=== PATIENT | female | born 1940 | race Caucasian/White ===

== ENCOUNTER 2017-01-29 16:00 | Emergency (ER) | payer MEDICARE, OTHER ==
[2017-01-29 16:12] VITALS: BP 157/71
--- NOTE | 2017-01-29 16:26 | EDM.PDOC ---
ED HPI GENERAL MEDICAL PROBLEM - General Chief Complaint: Lower Extremity Injury/Pain Stated Complaint: R FOOT PAIN Time Seen by Provider: 01/29/17 16:14 Source of Information: Reports: Patient - History of Present Illness INITIAL COMMENTS - FREE TEXT/NARRATIVE: Patient is here for evaluation of the right foot pain. She states that she initially tried to go to the walk-in clinic but they were closed. Patient states that she knocked over an end table that is class and has an iron top and this landed on the top of her right foot on Tuesday. S he states that she initially had been icing and taking medications that she had at home for the pain. When she woke up this morning pain was significantly worse and she could hardly bear weight to this. Patient has been using a walker that she has at home to help not put much weight on her right foot, she states that she typically does not walk with this. Patient is diabetic, states that her diabetes hasn't been under good control with her last A1c being 6.1%. She denies any history of bleeding or clotting disorders. She has does not have osteoporosis per her report. Right Feet Pain Score (Numeric/FACES): 1 - Related Data Allergies Allergy/AdvReac Type Severity Reaction Status Date / Time morphine Allergy Rash Verified 01/29/17 16:11 Home Meds: Home Meds Aspirin [Low Dose Aspirin EC] 81 mg PO DAILY 04/26/14 [History] Biotin 1 tab PO DAILY 04/26/14 [History] Cyanocobalamin (Vitamin B-12) [Vitamin B-12] 150 mcg PO DAILY 04/26/14 [History] Ferrous Sulfate [Feosol] 325 mg PO DAILY 04/26/14 [History] Fish Oil/Botkins-3 Fatty Acids [Fish Oil 1,000 MG] 1 each PO BID 04/26/14 [History ] Metoprolol Tartrate 25 mg PO BID 04/26/14 [History] Pravastatin [Pravachol] 40 mg PO DAILY 04/26/14 [History] amLODIPine [Norvasc] 5 mg PO DAILY 04/26/14 [History] metFORMIN HCl [Metformin HCl ER] 1,000 mg PO QAM 04/26/14 [History] metFORMIN HCl [Metformin HCl ER] 500 mg PO QPM 04/26/14 [History] traMADol [Ultram] 50 mg PO Q12H PRN 04/26/14 [History] Fenofibrate Nanocrystallized [Fenofibrate] 0.5 tab PO DAILY 09/08/15 [History] Hydrochlorothiazide 25 mg PO DAILY 09/08/15 [History] Losartan/Hydrochlorothiazide [Losartan-HCTZ 100-12.5 MG] 12.5 mg PO QPM [History] Ca Carbonate/Vitamin D3/Vit K [Calcium + D Soft Chewable Tab] 1 tab PO DAILY [History] Cholecalciferol (Vitamin D3) [Vitamin D3] 5,000 unit PO DAILY 04/06/16 [History] Gluc 2KCl/Chondr/Pb Hy/Hy Ac [Glucosamine & Chondroitin Cap] 2 cap PO DAILY [History] Magnesium Oxide [Magnesium] 1 cap PO DAILY 04/06/16 [History] Multivits,Ca,Minerals/Iron/FA [Women's Daily Formula Caplet] 1 tab PO DAILY [History] traMADol [Ultram] 50 mg PO Q6H PRN #30 tablet 01/29/17 [Rx] Past Medical History HEENT History: Reports: Impaired Vision Cardiovascular History: Reports: High Cholesterol, Hypertension Respiratory History: Reports: PE Other Respiratory History: cough, elevated d dimer Gastrointestinal History: Reports: Chronic Diarrhea, Diverticulosis [employer] History: Reports: None Musculoskeletal History: Reports: Arthritis, Back Pain, Chronic, Osteoarthritis Neurological History: Reports: None Psychiatric History: Reports: None Endocrine/Metabolic History: Reports: Diabetes, Type II, Obesity/BMI 30+ Other Endocrine/Metabolic History: thyroid nodules Hematologic History: Reports: Other (See Below) Other Hematologic History: blood clotting disorder Immunologic History: Reports: None Oncologic (Cancer) History: Reports: None Dermatologic History: Reports: None - Past Surgical History Head Surgeries/Procedures: Reports: None GI Surgical History: Reports: Appendectomy, Cholecystectomy, Colonoscopy, Other (See Below) Female Surgical History: Reports: Hysterectomy, Oophorectomy Musculoskeletal Surgical History: Reports: Knee Replacement Other Musculoskeletal Surgeries/Procedures:: bilaterall Social & Family History - Family History Cardiac: Reports: [place] Other Cardiac Family History: grandparents Respiratory: Reports: None GI: Reports: Inflammatory Bowel Disease Other GI Family History: mother OBGYN: Reports: None Musculoskeletal: Reports: Arthritis, Osteoporosis Neurological: Reports: None Psychiatric: Reports: None Endocrine/Metabolic: Reports: None Hematologic: Reports: None Immunologic: Reports: None - Tobacco Use Smoking Status *Q: Never Smoker Second Hand Smoke Exposure: Yes - Caffeine Use Caffeine Use: Reports: Coffee - Alcohol Use Days Per Week of Alcohol Use: 0 - Recreational Drug Use Recreational Drug Use: No Review of Systems - Review of Systems Review Of Systems: See Below Constitutional: Reports: No Symptoms Musculoskeletal: Reports: Foot Pain (Right) Skin: Reports: Bruising. Denies: Cyanosis, Rash, Wound Neurological: Reports: No Symptoms Psychiatric: Reports: No Symptoms ED EXAM, GENERAL - Physical Exam Exam: See Below Exam Limited By: No Limitations General Appearance: Alert, WD/WN, No Apparent Distress Peripheral Pulses: 2+: Posterior Tibial (L), Posterior Tibial (R), Dorsalis Pedis (L) Extremities: Normal Capillary Refill (Right foot with swelling to top of midfoot , no obvious deformity. Ecchymosis to the lateral aspect of the foot as well as the toes. Patient is tender to the mid foot. Full range of motion of ankle and all toes.) Neurological: Alert, Oriented, No Motor/Sensory Deficits Skin Exam: Warm, Dry Course - Vital Signs Last Recorded V/S: Last Vital Signs Temp 96.2 F 01/29/17 16:07 Pulse 73 01/29/17 16:07 Resp 16 01/29/17 16:07 BP 157/71 H 01/29/17 16:07 Pulse Ox 97 01/29/17 16:07 - Orders/Labs/Meds Orders: Active Orders 24 hr Category Date Time Status Foot Comp Min 3V Rt [CR] Stat Exams 01/29/17 16:22 Taken - Re-Assessments/Exams Free Text/Narrative Re-Assessment/Exam: Small, non-displaced fracture to base of right metatarsal. Will have patient wear supportive boot and FU with PCP or orthopedics. Tylenol or ibuprofen as needed for pain, tramadol given for breakthrough pain. 01/29/17 17:11 Departure - Departure Time of Disposition: 17:07 Disposition: Home, Self-Care 01 Condition: Good Clinical Impression: Metatarsal stress fracture of right foot Qualifiers: Encounter type: initial encounter Qualified Code(s): M84.374A - Stress fracture , right foot, initial encounter for fracture - Discharge Information Prescriptions: traMADol [Ultram] 50 mg PO Q6H PRN #30 tablet PRN Reason: Pain Referrals: Vandana Ham PA [Primary Care Provider] - Forms: ED Department Discharge Additional Instructions: Activity as tolerated. Wear boot when up and active during the day for at least 2 weeks. Then be sure you are wearing supportive shoes for next 2 months. Follow-up with PCP or orthopedics in 2 weeks or sooner if needed. Ibuprofen or tylenol as needed for pain, tramadol for breakthrough pain. Ice 15 minutes ever 2-3 hours as needed for pain. - My Orders Last 24 Hours: My Active Orders 01/29/17 16:22 Foot Comp Min 3V Rt [CR] Stat - Assessment/Plan Last 24 Hours: My Active Orders 01/29/17 16:22 Foot Comp Min 3V Rt [CR] Stat
--- NOTE | 2017-01-31 08:33 | CR ---
Right foot: Four views of the right foot were obtained. Comparison: No prior foot exam. Orthopedic screw is seen within the first metatarsal shaft. Deformity is noted within the PIP joint of the fifth toe which appears old. Bony defect of the distal fifth metatarsal is seen which is well corticated and felt to be old. Small calcification is noted off the MTP joint of the third digit which is felt to be incidental. Plantar spur is seen. Minimal plantar calcification is noted. Nothing acute is appreciated. Impression: 1. Numerous findings felt to be chronic as described above. 2. Nothing acute is definitely appreciated. Diagnostic code #2
== END 2017-01-29 17:15 | disposition home or self-care (01) ==
LOC: JD.ED 16:00
DX: M84.374A Stress fracture, right foot, initial encounter for fracture (principal); E78.00 Pure hypercholesterolemia, unspecified; I10 Essential (primary) hypertension; E66.9 Obesity, unspecified; E11.9 Type 2 diabetes mellitus without complications; Z79.899 Other long term (current) drug therapy; Z88.5 Allergy status to narcotic agent; Z79.82 Long term (current) use of aspirin; W22.03XA Walked into furniture, initial encounter; Y92.218 Other school as the place of occurrence of the external cause
CPT/HCPCS: 73630-26-RT; 73630-RT; 99283

== ENCOUNTER 2018-04-09 18:40 | Emergency (ER) | payer MEDICARE, OTHER ==
[2018-04-09] MEDS ORDERED: Sodium Chloride 0.9% 10 ML Syringe FLUSH PRN (19:08)
--- NOTE | 2018-04-09 19:35 | EDM.PDOC ---
ED HPI GENERAL MEDICAL PROBLEM - General Chief Complaint: Respiratory Problem Stated Complaint: SEVERE LEG CRAMPS, DEPRESSION Time Seen by Provider: 04/09/18 18:58 Source of Information: Reports: Patient, Family History Limitations: Reports: No Limitations - History of Present Illness INITIAL COMMENTS - FREE TEXT/NARRATIVE: The patient presents with lag cramps and shortness of breath with exertion. The patient has had leg cramps in the past. She would get one per night some nights but now for the past week she has been having cramps 3 to 4 times per night. She has mild swelling in her legs. She denies any injury in to her legs. She has a history of a PE. She is not on any blood thinners now. She also has been having shortness of breath with exertion and it feels like her heart is racing with that. This goes away benson she rests. She denies having chest pain. She has no fever, chills, cough, congestion, runny nose abdominal pain, nausea, vomiting, diarrhea, or dysuria. Onset: Gradual Duration: Week(s): Location: Reports: Lower Extremity, Left, Lower Extremity, Right Quality: Reports: Other (Cramping) Improves with: Reports: None Worsens with: Reports: None Associated Symptoms: Reports: Shortness of Breath (with exertion). Denies: Chest Pain, Cough, Fever/Chills, Headaches, Nausea/Vomiting - Related Data Allergies Allergy/AdvReac Type Severity Reaction Status Date / Time morphine Allergy Rash Verified 04/09/18 18:47 Home Meds: Home Meds Aspirin [Low Dose Aspirin EC] 81 mg PO DAILY 04/26/14 [History] Metoprolol Tartrate 50 mg PO DAILY 04/26/14 [History] Pravastatin [Pravachol] 20 mg PO DAILY 04/26/14 [History] amLODIPine [Norvasc] 5 mg PO DAILY 04/26/14 [History] metFORMIN HCl [Metformin ER Osmotic] 1,500 mg PO DAILY 04/26/14 [History] traMADol [Ultram] 50 mg PO Q6H PRN #30 tablet 01/29/17 [Rx] Furosemide 20 mg PO DAILY 04/09/18 [History] Iron Polysaccharide Complex [Ferric X-150] 150 mg PO DAILY #30 capsule 04/09/18 [Rx] Nitrofurantoin Monohyd/M-Cryst [Macrobid 100 mg Capsule] 100 mg PO DAILY #10 capsule 04/09/18 [Rx] Past Medical History HEENT History: Reports: Impaired Vision Cardiovascular History: Reports: High Cholesterol, Hypertension Respiratory History: Reports: PE Other Respiratory History: cough, elevated d dimer Gastrointestinal History: Reports: Chronic Diarrhea, Diverticulosis [employer] WORK[employer] History: Reports: None Musculoskeletal History: Reports: Arthritis, Back Pain, Chronic, Osteoarthritis Neurological History: Reports: None Psychiatric History: Reports: None Endocrine/Metabolic History: Reports: Diabetes, Type II, Obesity/BMI 30+ Other Endocrine/Metabolic History: thyroid nodules Hematologic History: Reports: Other (See Below) Other Hematologic History: blood clotting disorder Immunologic History: Reports: None Oncologic (Cancer) History: Reports: None Dermatologic History: Reports: None - Past Surgical History Head Surgeries/Procedures: Reports: None GI Surgical History: Reports: Appendectomy, Cholecystectomy, Colonoscopy Female Surgical History: Reports: Hysterectomy, Oophorectomy Musculoskeletal Surgical History: Reports: Knee Replacement Other Musculoskeletal Surgeries/Procedures:: bilaterall Social & Family History - Family History Cardiac: Reports: [place] Other Cardiac Family History: grandparents Respiratory: Reports: None GI: Reports: Inflammatory Bowel Disease Other GI Family History: mother OBGYN: Reports: None Musculoskeletal: Reports: Arthritis, Osteoporosis Neurological: Reports: None Psychiatric: Reports: None Endocrine/Metabolic: Reports: None Hematologic: Reports: None Immunologic: Reports: None - Tobacco Use Smoking Status *Q: Unknown Ever Smoked - Caffeine Use Caffeine Use: Reports: Coffee ED ROS GENERAL - Review of Systems Review Of Systems: See Below Constitutional: Reports: No Symptoms HEENT: Reports: No Symptoms Respiratory: Reports: Shortness of Breath (with exertion) Cardiovascular: Reports: No Symptoms Endocrine: Reports: No Symptoms GI/Abdominal: Reports: No Symptoms : Reports: No Symptoms Musculoskeletal: Reports: Other (leg cramps at night) ED EXAM, GENERAL - Physical Exam Exam: See Below Exam Limited By: No Limitations General Appearance: Alert, No Apparent Distress Ears: Normal External Exam Nose: Normal Inspection Head: Atraumatic, Normocephalic Neck: Normal Inspection Respiratory/Chest: No Respiratory Distress, Lungs Clear, Normal Breath Sounds Cardiovascular: Regular Rate, Rhythm, No Edema, No Murmur GI/Abdominal: Soft, Non-Tender, No Organomegaly, No Mass Rectal (Female) Exam: Normal Exam, Normal Rectal Tone, Heme - Stool Back Exam: Normal Inspection Extremities: Non-Tender, Other (Mild edema to the lower legs) Neurological: Alert, Oriented, No Motor/Sensory Deficits Course - Vital Signs Last Recorded V/S: Last Vital Signs Temp 97.0 F 04/09/18 18:48 Pulse 95 04/09/18 18:48 Resp 18 04/09/18 18:48 BP 149/69 H 04/09/18 18:53 Pulse Ox 99 04/09/18 18:48 - Orders/Labs/Meds Orders: Active Orders 24 hr Category Date Time Status Cardiac Monitoring [RC] . DIRECTED Care 04/09/18 19:08 Active EKG Documentation Completion [RC] STAT Care 04/09/18 19:09 Active Hemoccult [Fecal Occult Blood Collection] [RC] Care 04/09/18 20:39 Active ASDIRECTED Peripheral IV Care [RC] . DIRECTED Care 04/09/18 19:09 Active Ang Chest [CT] Stat Exams 04/09/18 20:29 Taken Chest 2V [CR] Stat Exams 04/09/18 19:10 Taken Sodium Chloride 0.9% [Normal Saline] 100 ml Med 04/09/18 21:00 Active IV ASDIRECTED Sodium Chloride 0.9% [Saline Flush] Med 04/09/18 19:08 Active 10 ml FLUSH ASDIRECTED PRN Peripheral IV Insertion Adult [OM.PC] Stat Oth 04/09/18 19:08 Ordered Medication Orders Sodium Chloride (Normal Saline) 100 mls @ 4 mls/sec IV ASDIRECTED ISAAK Last Admin: 04/09/18 21:04 Dose: 4 mls/sec Sodium Chloride (Saline Flush) 10 ml FLUSH ASDIRECTED PRN PRN Reason: Keep Vein Open Last Admin: 04/09/18 19:28 Dose: 10 ml Labs: Laboratory Tests 04/09/18 04/09/18 04/09/18 Range/Units 19:22 19:22 19:22 WBC 4.95 (3.98-10.04) K/mm3 RBC 3.34 L (3.98-5.22) M/mm3 Hgb 8.5 L (11.2-15.7) gm/L Hct 27.9 L (34.1-44.9) % MCV 83.5 (79.4-94.8) fl MCH 25.4 L (25.6-32.2) pg MCHC 30.5 L (32.2-35.5) g/dl RDW Std Deviation 48.7 H (36.4-46.3) fL Plt Count 416 H (182-369) K/mm3 MPV 9.5 (9.4-12.3) fl Neut % (Auto) 44.0 (34.0-71.1) % Lymph % (Auto) 35.6 (19.3-51.7) % Gem % (Auto) 16.0 H (4.7-12.5) % Eos % (Auto) 3.2 (0.7-5.8) Baso % (Auto) 1.0 (0.1-1.2) % Neut # (Auto) 2.18 (1.56-6.13) K/mm3 Lymph # (Auto) 1.76 (1.18-3.74) K/mm3 Gem # (Auto) 0.79 H (0.24-0.36) K/mm3 Eos # (Auto) 0.16 (0.04-0.36) K/mm3 Baso # (Auto) 0.05 (0.01-0.08) K/mm3 Manual Slide Review Abnormal smear D-Dimer, Quantitative 2.06 H (0.19-0.50) mg/L Sodium 144 (136-145) mEq/L Potassium 3.4 L (3.5-5.1) mEq/L Chloride 106 (98-107) mEq/L Carbon Dioxide 26 (21-32) mEq/L Anion Gap 15.4 H (5-15) BUN 19 H (7-18) mg/dL Creatinine 0.9 (0.55-1.02) mg/dL Est Cr Clr Drug Dosing 48.60 mL/min Estimated GFR (MDRD) > 60 (>60) mL/min BUN/Creatinine Ratio 21.1 H (14-18) Glucose 118 H (83-115) mg/dL Calcium 9.4 (8.5-10.1) mg/dL Magnesium 2.1 (1.8-2.4) mg/dl Iron (50-170) ug/dL TIBC (100-400) ug/dL % Saturation (20-55) % Transferrin (202-364) mg/dL Total Bilirubin 0.4 (0.2-1.0) mg/dL AST 20 (15-37) U/L ALT 28 (14-59) U/L Alkaline Phosphatase 76 (46-116) U/L Troponin I < 0.017 (0.00-0.056) ng/mL NT-Pro-B Natriuret Pep (0-450) pg/mL Total Protein 7.2 (6.4-8.2) g/dl Albumin 3.7 (3.4-5.0) g/dl Globulin 3.5 gm/dL Albumin/Globulin Ratio 1.1 (1-2) TSH 3rd Generation (0.358-3.74) uIU/mL Urine Color (Yellow) Urine Appearance (Clear) Urine pH (5.0-8.0) Ur Specific [place] (1.005-1.030) Urine Protein (Negative) Urine Glucose (UA) (Negative) Urine Ketones (Negative) Urine Occult Blood (Negative) Urine Nitrite (Negative) Urine Bilirubin (Negative) Urine Urobilinogen (0.2-1.0) Ur Leukocyte Esterase (Negative) Urine RBC (0-5) /hpf Urine WBC (0-5) /hpf Ur Epithelial Cells (0-5) /hpf Urine Bacteria (FEW) /hpf Urine Mucus (FEW) /hpf 04/09/18 04/09/18 04/09/18 Range/Units 19:22 19:22 19:22 WBC (3.98-10.04) K/mm3 RBC (3.98-5.22) M/mm3 Hgb (11.2-15.7) gm/L Hct (34.1-44.9) % MCV (79.4-94.8) fl MCH (25.6-32.2) pg MCHC (32.2-35.5) g/dl RDW Std Deviation (36.4-46.3) fL Plt Count (182-369) K/mm3 MPV (9.4-12.3) fl Neut % (Auto) (34.0-71.1) % Lymph % (Auto) (19.3-51.7) % Gem % (Auto) (4.7-12.5) % Eos % (Auto) (0.7-5.8) Baso % (Auto) (0.1-1.2) % Neut # (Auto) (1.56-6.13) K/mm3 Lymph # (Auto) (1.18-3.74) K/mm3 Gem # (Auto) (0.24-0.36) K/mm3 Eos # (Auto) (0.04-0.36) K/mm3 Baso # (Auto) (0.01-0.08) K/mm3 Manual Slide Review D-Dimer, Quantitative (0.19-0.50) mg/L Sodium (136-145) mEq/L Potassium (3.5-5.1) mEq/L Chloride (98-107) mEq/L Carbon Dioxide (21-32) mEq/L Anion Gap (5-15) BUN (7-18) mg/dL Creatinine (0.55-1.02) mg/dL Est Cr Clr Drug Dosing mL/min Estimated GFR (MDRD) (>60) mL/min BUN/Creatinine Ratio (14-18) Glucose (83-115) mg/dL Calcium (8.5-10.1) mg/dL Magnesium (1.8-2.4) mg/dl Iron 22 L (50-170) ug/dL TIBC 440 H (100-400) ug/dL % Saturation 5 L (20-55) % Transferrin 352 (202-364) mg/dL Total Bilirubin (0.2-1.0) mg/dL AST (15-37) U/L ALT (14-59) U/L Alkaline Phosphatase (46-116) U/L Troponin I (0.00-0.056) ng/mL NT-Pro-B Natriuret Pep 405 (0-450) pg/mL Total Protein (6.4-8.2) g/dl Albumin (3.4-5.0) g/dl Globulin gm/dL Albumin/Globulin Ratio (1-2) TSH 3rd Generation 2.259 (0.358-3.74) uIU/mL Urine Color (Yellow) Urine Appearance (Clear) Urine pH (5.0-8.0) Ur Specific [place] (1.005-1.030) Urine Protein (Negative) Urine Glucose (UA) (Negative) Urine Ketones (Negative) Urine Occult Blood (Negative) Urine Nitrite (Negative) Urine Bilirubin (Negative) Urine Urobilinogen (0.2-1.0) Ur Leukocyte Esterase (Negative) Urine RBC (0-5) /hpf Urine WBC (0-5) /hpf Ur Epithelial Cells (0-5) /hpf Urine Bacteria (FEW) /hpf Urine Mucus (FEW) /hpf 04/09/18 Range/Units 19:46 WBC (3.98-10.04) K/mm3 RBC (3.98-5.22) M/mm3 Hgb (11.2-15.7) gm/L Hct (34.1-44.9) % MCV (79.4-94.8) fl MCH (25.6-32.2) pg MCHC (32.2-35.5) g/dl RDW Std Deviation (36.4-46.3) fL Plt Count (182-369) K/mm3 MPV (9.4-12.3) fl Neut % (Auto) (34.0-71.1) % Lymph % (Auto) (19.3-51.7) % Gem % (Auto) (4.7-12.5) % Eos % (Auto) (0.7-5.8) Baso % (Auto) (0.1-1.2) % Neut # (Auto) (1.56-6.13) K/mm3 Lymph # (Auto) (1.18-3.74) K/mm3 Gem # (Auto) (0.24-0.36) K/mm3 Eos # (Auto) (0.04-0.36) K/mm3 Baso # (Auto) (0.01-0.08) K/mm3 Manual Slide Review D-Dimer, Quantitative (0.19-0.50) mg/L Sodium (136-145) mEq/L Potassium (3.5-5.1) mEq/L Chloride (98-107) mEq/L Carbon Dioxide (21-32) mEq/L Anion Gap (5-15) BUN (7-18) mg/dL Creatinine (0.55-1.02) mg/dL Est Cr Clr Drug Dosing mL/min Estimated GFR (MDRD) (>60) mL/min BUN/Creatinine Ratio (14-18) Glucose (83-115) mg/dL Calcium (8.5-10.1) mg/dL Magnesium (1.8-2.4) mg/dl Iron (50-170) ug/dL TIBC (100-400) ug/dL % Saturation (20-55) % Transferrin (202-364) mg/dL Total Bilirubin (0.2-1.0) mg/dL AST (15-37) U/L ALT (14-59) U/L Alkaline Phosphatase (46-116) U/L Troponin I (0.00-0.056) ng/mL NT-Pro-B Natriuret Pep (0-450) pg/mL Total Protein (6.4-8.2) g/dl Albumin (3.4-5.0) g/dl Globulin gm/dL Albumin/Globulin Ratio (1-2) TSH 3rd Generation (0.358-3.74) uIU/mL Urine Color Yellow (Yellow) Urine Appearance Clear (Clear) Urine pH 7.0 (5.0-8.0) Ur Specific [place] 1.010 (1.005-1.030) Urine Protein Negative (Negative) Urine Glucose (UA) Negative (Negative) Urine Ketones Negative (Negative) Urine Occult Blood Negative (Negative) Urine Nitrite Negative (Negative) Urine Bilirubin Negative (Negative) Urine Urobilinogen 0.2 (0.2-1.0) Ur Leukocyte Esterase 2+ H (Negative) Urine RBC 0-5 (0-5) /hpf Urine WBC 5-10 H (0-5) /hpf Ur Epithelial Cells 0-5 (0-5) /hpf Urine Bacteria Few (FEW) /hpf Urine Mucus Not seen (FEW) /hpf Meds: Medications Generic Name Dose Route Start Last Admin Trade Name Freq PRN Reason Stop Dose Admin Sodium Chloride 100 mls @ 4 mls/sec 04/09/18 21:00 04/09/18 21:04 Normal Saline IV 4 mls/sec ASDIRECTED ISAAK Administration Sodium Chloride 10 ml 04/09/18 19:08 04/09/18 19:28 Saline Flush FLUSH 10 ml ASDIRECTED PRN Administration Keep Vein Open Discontinued Medications Generic Name Dose Route Start Last Admin Trade Name Freq PRN Reason Stop Dose Admin Iopamidol 100 ml 04/09/18 20:47 04/09/18 21:04 Isovue-370 (76%) IVPUSH 04/09/18 20:48 100 ml ONETIME ONE Administration - Re-Assessments/Exams Free Text/Narrative Re-Assessment/Exam: 04/09/18 19:36 I ordered labs, EKG, and CXR. 04/09/18 20:38 Her EKG shows a NSR with no acute changes. Her CXR looks good. Her Hgb was low at 8.5. I dis a rectal exam and that was negative. Over a year ago she did have some blood in her stool nothing bad was found. It appears she has a microcytic anemia. I did iron studies and she had low iron at 22 with TIBC that is elevated at 440. Her % saturation was low at 5. Her transferrin was normal. Her troponin was negative. Her BNP was normal. Her D-dimer was elevated so I ordered a CT of her chests. Her K was a little low at 3.4. Her anion gap was elevated slightly at 15.4. Her glucose was 118. Her magnesium was normal. 04/09/18 22:[address] shows very mild pulmonary edema. There is no PE. She tells me that she does have a cough for a few weeks. She has edema also in her legs. I will have her take lasix 40mg daily for 3 days. I will also have her take iron daily. I will give her a dose here. Departure - Departure Time of Disposition: 22:30 Disposition: Home, Self-Care 01 Condition: Good Clinical Impression: Dyspnea on exertion Anemia Qualifiers: Anemia type: iron deficiency Iron deficiency anemia type: unspecified iron deficiency Qualified Code(s): D50.9 - Iron deficiency anemia, unspecified Pulmonary edema Qualifiers: Chronicity: chronic Qualified Code(s): J81.1 - Chronic pulmonary edema UTI (urinary tract infection) Qualifiers: Urinary tract infection type: site unspecified Hematuria presence: without hematuria Qualified Code(s): N39.0 - Urinary tract infection, site not specified - Discharge Information *PRESCRIPTION DRUG MONITORING PROGRAM REVIEWED*: Not Applicable *COPY OF PRESCRIPTION DRUG MONITORING REPORT IN PATIENT KOFFI: Not Applicable Prescriptions: Iron Polysaccharide Complex [Ferric X-150] 150 mg PO DAILY #30 capsule Nitrofurantoin Monohyd/M-Cryst [Macrobid 100 mg Capsule] 100 mg PO DAILY #10 capsule Referrals: PCP,Not In Area [Ordering Only Provider] - Karley Sweeney NUCLEAR MEDICINE MEDICAL DIRECTOR [Primary Care Provider] - 1 Week Forms: ED Department Discharge Additional Instructions: Take your medication as prescribed except take 2 pills or 40mg of the furosemide for 3 days. Take the iron pill daily. Follow up with Karley Sweeney this week. Please return if you are worse. Take the macrobid 2 times per day for 5 days. - My Orders Last 24 Hours: My Active Orders 04/09/18 19:08 Cardiac Monitoring [RC] . DIRECTED Sodium Chloride 0.9% [Saline Flush] 10 ml FLUSH ASDIRECTED PRN Peripheral IV Insertion Adult [OM.PC] Stat 04/09/18 19:09 EKG Documentation Completion [RC] STAT Peripheral IV Care [RC] . DIRECTED 04/09/18 19:10 Chest 2V [CR] Stat 04/09/18 20:29 Ang Chest [CT] Stat 04/09/18 20:39 Hemoccult [Fecal Occult Blood Collection] [RC] ASDIRECTED 04/09/18 21:00 Sodium Chloride 0.9% [Normal Saline] 100 ml IV ASDIRECTED - Assessment/Plan Last 24 Hours: My Active Orders 04/09/18 19:08 Cardiac Monitoring [RC] . DIRECTED Sodium Chloride 0.9% [Saline Flush] 10 ml FLUSH ASDIRECTED PRN Peripheral IV Insertion Adult [OM.PC] Stat 04/09/18 19:09 EKG Documentation Completion [RC] STAT Peripheral IV Care [RC] . DIRECTED 04/09/18 19:10 Chest 2V [CR] Stat 04/09/18 20:29 Ang Chest [CT] Stat 04/09/18 20:39 Hemoccult [Fecal Occult Blood Collection] [RC] ASDIRECTED 04/09/18 21:00 Sodium Chloride 0.9% [Normal Saline] 100 ml IV ASDIRECTED
[2018-04-09] MEDS ORDERED: Iopamidol 755 Mg/ML 100 ML Bottle IVPUSH ONE (20:47)
[2018-04-09] MEDS ORDERED: Sodium Chloride 0.9% 100 ML IV SCH (21:00)
[2018-04-09] MEDS ORDERED: Iron Polysaccharides Complex 150 MG Cap PO ONE (22:27)
[2018-04-09 23:13] VITALS: BP 130/76
--- NOTE | 2018-04-10 06:52 | CR ---
Chest: Two views of the chest were obtained. Comparison: Previous chest x-ray of 09/08/15. Heart size is within normal limits. Tortuous thoracic aorta is seen. Lungs are clear with no acute parenchymal change. Scattered degenerative change is seen throughout the spine. Scattered disc space narrowing is also noted within the spine. Impression: 1. Incidental findings. Nothing acute is seen. Diagnostic code #2
--- NOTE | 2018-04-10 07:04 | CT ---
CT chest Technique: Multiple axial sections through the chest were obtained. Intravenous contrast was utilized. Comparison: Study compared to prior CT chest study of 02/15/17. Findings: Pulmonary arteries are moderately well-opacified. No filling defects are seen to indicate pulmonary embolism. Mediastinum and hilar region show no adenopathy or mass. Low-density nodules are noted within the thyroid gland which appear stable. Mediastinum shows small lymph nodes which are felt to be within normal limits. No pericardial thickening is seen. Mild coronary artery calcification is seen. Cysts are noted within the liver which appear stable. Nonobstructing calculi are seen within both kidneys. Lungs are clear. No acute parenchymal change is seen. Bone window settings were reviewed which show scattered degenerative endplate spurring within the spine. Impression: 1. No findings of pulmonary embolism. 2. Other incidental findings. Nothing acute is seen on CT study of the chest. Diagnostic code #2 I agree with preliminary report from [facility], finalized on 04/09/18, 10:17 PM Central Time, code #2
== END 2018-04-09 22:49 | disposition home or self-care (01) ==
LOC: JD.ED 18:40
DX: J81.1 Chronic pulmonary edema (principal); R25.2 Cramp and spasm; N39.0 Urinary tract infection, site not specified; D50.9 Iron deficiency anemia, unspecified; I10 Essential (primary) hypertension; E11.9 Type 2 diabetes mellitus without complications; Z79.82 Long term (current) use of aspirin; Z79.84 Long term (current) use of oral hypoglycemic drugs; Z88.5 Allergy status to narcotic agent
CPT/HCPCS: 36415; 71046; 71275; 80053; 81001; 83540; 83735; 83880; 84443; 84466; 84484; 85025; 85379; 93005; 99285; A9270; J7030; Q9967; 93010; 99284

== ENCOUNTER 2018-05-02 07:43 | Day surgery (SDC) | payer MEDICARE, OTHER ==
[2018-05-02] MEDS: Polymyxin B/Trimethoprim 10 ML Bottle EYELF SCH ×4 (08:05→09:53)
--- NOTE | 2018-05-02 08:08 | PCM.PREANE ---
Preanesthetic Assessment - Anesthesia/Transfusion/Family Hx Anesthesia History: Prior Anesthesia Without Reaction Family History of Anesthesia Reaction: No Transfusion History: Prior Transfusion Without Reaction - Review of Systems General: No Symptoms Pulmonary: No Symptoms Cardiovascular: No Symptoms Gastrointestinal: No Symptoms Neurological: No Symptoms Other: Reports: None - Physical Assessment NPO Status Date: 05/01/18 NPO Status Time: 22:00 Pulse: 59 O2 Sat by Pulse Oximetry: 94 Respiratory Rate: 16 Blood Pressure: 136/55 Temperature: 97.9 C Height: 1.65 m Weight: 95.254 kg ASA Class: 2 Mental Status: Alert & Oriented x3 Airway Class: Mallampati = 1 Dentition: Reports: Partial (upper) Thyro-Mental Finger Breadths: 3 Mouth Opening Finger Breadths: 3 ROM/Head Extension: Full Lungs: Clear to Auscultation, Normal Respiratory Effort Cardiovascular: Regular Rate, Regular Rhythm - Allergies Allergies/Adverse Reactions: Allergies Allergy/AdvReac Type Severity Reaction Status Date / Time morphine Allergy Rash Verified 05/01/18 12:36 - Anesthesia Plan Beta Regla: Metoprolol Med Last Dose Date: 05/02/18 Med Last Dose Time: 07:15 - Acknowledgements Anesthesia Type Planned: MAC Pt an Appropriate Candidate for the Planned Anesthesia: Yes Alternatives and Risks of Anesthesia Discussed w Pt/Guardian: Yes Pt/Guardian Understands and Agrees with Anesthesia Plan: Yes PreAnesthesia Questionnaire HEENT History: Reports: Cataract, Impaired Vision Cardiovascular History: Reports: High Cholesterol, Hypertension, SOB on Exertion Respiratory History: Reports: PE Other Respiratory History: cough, elevated d dimer Gastrointestinal History: Reports: Chronic Diarrhea, Diverticulosis CALL TAKER History: Reports: None Musculoskeletal History: Reports: Arthritis, Back Pain, Chronic, Osteoarthritis Neurological History: Reports: None Psychiatric History: Reports: None Endocrine/Metabolic History: Reports: Diabetes, Type II (hasn't checked BS in over a month, last time checked was 110), Obesity/BMI 30+ Other Endocrine/Metabolic History: thyroid nodules Hematologic History: Reports: Other (See Below) Other Hematologic History: blood clotting disorder Immunologic History: Reports: None Oncologic (Cancer) History: Reports: None Dermatologic History: Reports: None - Past Surgical History Head Surgeries/Procedures: Reports: None HEENT Surgical History: Reports: Adenoidectomy, Tonsillectomy GI Surgical History: Reports: Appendectomy, Cholecystectomy, Colonoscopy Female Surgical History: Reports: Hysterectomy, Oophorectomy Musculoskeletal Surgical History: Reports: Knee Replacement (bilateral) Other Musculoskeletal Surgeries/Procedures:: bilaterall - SUBSTANCE USE Smoking Status *Q: Never Smoker - HOME MEDS Home Medications: Home Meds Aspirin [Low Dose Aspirin EC] 81 mg PO DAILY 04/26/14 [History] Metoprolol Tartrate 25 mg PO BID 04/26/14 [History] amLODIPine [Norvasc] 5 mg PO DAILY 04/26/14 [History] metFORMIN HCl [Metformin ER Osmotic] 1,000 mg PO QAM 04/26/14 [History] traMADol [Ultram] 50 mg PO Q6H PRN #30 tablet 01/29/17 [Rx] Furosemide 20 mg PO DAILY 04/09/18 [History] Iron Polysaccharide Complex [Ferric X-150] 150 mg PO DAILY #30 capsule 04/09/18 [Rx] Losartan [Cozaar] 100 mg PO DAILY 05/01/18 [History] Rosuvastatin [Crestor] 10 mg PO DAILY 05/01/18 [History] metFORMIN [Glucophage] 500 mg PO QPM 05/01/18 [History] - CURRENT (IN HOUSE) MEDS Current Meds: Current Medications Brimonidine Tartrate (Alphagan 0.2% Ophth Soln) 0 ml EYELF ASDIRECTED ISAAK Stop: 05/02/18 18:00 Cefuroxime Sodium (Zinacef) 0 mg EYELF ASDIRECTED ISAAK Stop: 05/02/18 18:00 Lidocaine HCl (Xylocaine-Mpf 1%) 0 ml INJECT ASDIRECTED [facility]AAK Stop: 05/02/18 18:00 Phenylephrine HCl (Deon-Synephrine 2.5% Ophth Soln) 0 ml EYELF ASDIRECTED ISAAK Stop: 05/02/18 18:00 Pilocarpine HCl (Pilocar 4% Ophth Soln) 0 ml EYELF ASDIRECTED [facility] Stop: 05/02/18 18:00 Polymyxin/Trimethoprim Sulfate (Polytrim Ophth Soln) 0 ml EYELF ASDIRECTED [facility]K Stop: 05/02/18 18:00 Tetracaine HCl (Tetracaine 0.5% Steri-Unit [place]) 0 ml EYELF ASDIRECTED [facility]AAK Stop: 05/02/18 18:00 Tropicamide (Mydriacyl 1% Ophth Soln) 0 ml EYELF ASDIRECTED [facility] Stop: 05/02/18 18:00
[2018-05-02] MEDS: Brimonidine 0.2% Ophth Soln 5 ML Bottle EYELF SCH ×4 (08:09→09:53)
[2018-05-02] MEDS: Tropicamide 1% Ophth Soln 15 ML Bottle EYELF SCH ×4 (08:16→09:01)
[2018-05-02] MEDS: Phenylephrine 2.5% Ophth Soln 2 ML Bot EYELF SCH ×5 (08:21→09:32)
[2018-05-02] MEDS: Lidocaine 1% PF 2 ML SDV INJECT SCH ×2 (08:42→09:25)
[2018-05-02] MEDS: Tetracaine HCl/PF 0.5% 4 ML Bottle EYELF SCH ×5 (09:07→09:43)
[2018-05-02] MEDS: Cefuroxime 10 MG/ML SYRINGE EYELF SCH ×2 (09:25→09:52)
[2018-05-02] MEDS: Pilocarpine 4% Ophth Soln 15 ML Bot EYELF SCH ×2 (09:26→09:53)
--- NOTE | 2018-05-02 10:00 | PCM48HPAN ---
Post Anesthesia Note - EVALUATION WITHIN 48HRS OF ANESTHETIC Vital Signs in Normal Range: Yes Patient Participated in Evaluation: Yes Respiratory Function Stable: Yes Airway Patent: Yes Cardiovascular Function Stable: Yes Hydration Status Stable: Yes Pain Control Satisfactory: Yes Nausea and Vomiting Control Satisfactory: Yes Mental Status Recovered: Yes Pulse Rate: 56 SaO2: 98 Resp Rate: 16 Temperature: 97.9 C Blood Pressure: 127/64
[2018-05-02 10:09] VITALS: BP 133/57
== END 2018-05-02 10:05 | disposition home or self-care (01) ==
LOC: JD.SDS 07:43
PROVIDERS: ATTEND Ophthalmology
DX: E11.36 Type 2 diabetes mellitus with diabetic cataract (principal); H25.813 Combined forms of age-related cataract, bilateral; E66.9 Obesity, unspecified; I10 Essential (primary) hypertension; H35.3131 Nonexudative age-related macular degeneration, bilateral, early dry stage; H35.363 Drusen (degenerative) of macula, bilateral; E78.00 Pure hypercholesterolemia, unspecified; M19.90 Unspecified osteoarthritis, unspecified site; Z79.84 Long term (current) use of oral hypoglycemic drugs; Z79.899 Other long term (current) drug therapy
CPT/HCPCS: 66984; A9270; C1780; J0697; J2001

== ENCOUNTER 2018-05-09 08:25 | Day surgery (SDC) | payer MEDICARE, OTHER ==
[~2018-05-09 08:25] MED LIST: Lactated Ringers 1,000 ML IV SCH; Lidocaine 1%/Sod Bicarbonate in NS 8.4% 1 ML Syringe IDERM PRN; Sodium Chloride 0.9% 10 ML Syringe FLUSH PRN
--- NOTE | 2018-05-09 08:45 | PCM.PREANE ---
Preanesthetic Assessment - Anesthesia/Transfusion/Family Hx Anesthesia History: Prior Anesthesia Without Reaction Family History of Anesthesia Reaction: No Transfusion History: Prior Transfusion Without Reaction - Review of Systems General: No Symptoms Pulmonary: Cough Cardiovascular: Dyspnea on Exertion Gastrointestinal: No Symptoms Neurological: Weakness Other: Reports: Easy Bruising, Diabetes (86 this am) - Physical Assessment NPO Status Date: 05/08/18 NPO Status Time: 00:00 Pulse: 73 O2 Sat by Pulse Oximetry: 98 Respiratory Rate: 16 Blood Pressure: 142/67 Temperature: 36.2 C Height: 1.65 m Weight: 96.615 kg ASA Class: 3 Mental Status: Alert & Oriented x3 Airway Class: Mallampati = 1 Dentition: Reports: Partial Thyro-Mental Finger Breadths: 2 Mouth Opening Finger Breadths: 2 ROM/Head Extension: Full Lungs: Clear to Auscultation, Normal Respiratory Effort Cardiovascular: Regular Rate, Regular Rhythm - Allergies Allergies/Adverse Reactions: Allergies Allergy/AdvReac Type Severity Reaction Status Date / Time morphine Allergy Rash Verified 05/08/18 16:45 - Blood Blood Available: No Product(s) Available: None - Anesthesia Plan Pre-Op Medication Ordered: Beta Regla Beta Regla: Metoprolol Med Last Dose Date: 05/09/18 Med Last Dose Time: 07:00 - Acknowledgements Anesthesia Type Planned: MAC Pt an Appropriate Candidate for the Planned Anesthesia: Yes Alternatives and Risks of Anesthesia Discussed w Pt/Guardian: Yes Pt/Guardian Understands and Agrees with Anesthesia Plan: Yes PreAnesthesia Questionnaire HEENT History: Reports: Cataract, Impaired Vision, Other (See Below) Other HEENT History: double vision Cardiovascular History: Reports: Angina, High Cholesterol, Hypertension, SOB on Exertion, Other (See Below) Other Cardiovascular History: peripheral artery disease, edema Respiratory History: Reports: PE, Sleep Apnea, SOB, Other (See Below) Other Respiratory History: cough, elevated d dimer, Pulmonary edema Gastrointestinal History: Reports: Chronic Diarrhea, Diverticulosis 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 Musculoskeletal History: Reports: Arthritis, Back Pain, Chronic, Osteoarthritis , Other (See Below) Other Musculoskeletal History: low back pain, shoulder pain Neurological History: Reports: None Psychiatric History: Reports: None Endocrine/Metabolic History: Reports: Diabetes, Type II, Obesity/BMI 30+ Other Endocrine/Metabolic History: thyroid nodules Hematologic History: Reports: Anemia, Iron Deficiency, Other (See Below) Other Hematologic History: blood clotting disorder, blood transfusion Immunologic History: Reports: None Oncologic (Cancer) History: Reports: None Dermatologic History: Reports: Other (See Below) Other Dermatologic History: dry skin - Past Surgical History Head Surgeries/Procedures: Reports: None HEENT Surgical History: Reports: Adenoidectomy, Cataract Surgery, Tonsillectomy Respiratory Surgical History: Reports: None GI Surgical History: Reports: Appendectomy, Cholecystectomy, Colonoscopy Other GI Surgeries/Procedures: sigmoid resection Female Surgical History: Reports: Hysterectomy, Oophorectomy Male Surgical History: Reports: None Endocrine Surgical History: Reports: None Neurological Surgical History: Reports: None Musculoskeletal Surgical History: Reports: Knee Replacement Other Musculoskeletal Surgeries/Procedures:: bilateral knee replacements, bilateral bunionectomies Oncologic Surgical History: Reports: None - SUBSTANCE USE Smoking Status *Q: Never Smoker Tobacco Use Within Last Twelve Months: No Second Hand Smoke Exposure: No Days Per Week of Alcohol Use: 0 Number of Drinks Per Day: 0 Total Drinks Per Week: 0 Recreational Drug Use History: No - HOME MEDS Home Medications: Home Meds Aspirin [Low Dose Aspirin EC] 81 mg PO DAILY 04/26/14 [History] Metoprolol Tartrate 25 mg PO BID 04/26/14 [History] amLODIPine [Norvasc] 5 mg PO DAILY 04/26/14 [History] metFORMIN HCl [Metformin ER Osmotic] 1,000 mg PO QAM 04/26/14 [History] traMADol [Ultram] 50 mg PO Q6H PRN #30 tablet 01/29/17 [Rx] Furosemide 20 mg PO DAILY 04/09/18 [History] Iron Polysaccharide Complex [Ferric X-150] 150 mg PO DAILY #30 capsule 04/09/18 [Rx] Losartan [Cozaar] 100 mg PO DAILY 05/01/18 [History] Rosuvastatin [Crestor] 10 mg PO DAILY 05/01/18 [History] metFORMIN [Glucophage] 500 mg PO QPM 05/01/18 [History] Ammonium Lactate [Amlactin 12% Lotion] 1 dose TOP BEDTIME 05/08/18 [History] Biotin 1 mg PO DAILY 05/08/18 [History] Calcium Carb & Citrate/Vit D3 [Calcium + D3 ER Tablet] 1 tab PO DAILY 05/08/18 [ History] Cholecalciferol (Vitamin D3) [Vitamin D3] 5,000 unit PO DAILY 05/08/18 [History] Cyanocobalamin (Vitamin B-12) [Vitamin B-12] 1,000 mcg PO DAILY 05/08/18 [ History] Fish Oil/[place]-3 Fatty Acids [Fish Oil 1,000 MG] 1 gm PO BID 05/08/18 [History] Glucosamine HCl [Glucosamine] 3,000 mg PO DAILY 05/08/18 [History] Magnesium Oxide [Magnesium] 500 mg PO DAILY 05/08/18 [History] Multivits,Ca,Minerals/Iron/FA [Women's Daily Formula Caplet] 1 tab PO DAILY [History] Vitamin E 400 unit PO DAILY 05/08/18 [History] - CURRENT (IN HOUSE) MEDS Current Meds: Current Medications Lactated Ringer's (Ringers, Lactated) 1,000 mls @ 125 mls/hr IV ASDIRECTED [facility] Stop: 05/09/18 23:00 Lidocaine/Sodium Bicarbonate (Buffered Lidocaine 1% In Ns 8.4%) 0.25 ml IDERM ONETIME PRN PRN Reason: Prior to IV Start Stop: 05/09/18 18:00 Sodium Chloride (Saline Flush) 10 ml FLUSH ASDIRECTED PRN PRN Reason: Keep Vein Open Stop: 05/09/18 18:00
[2018-05-09] MEDS ORDERED: Propofol 200 MG/20 ML SDV ONE ×2 (09:05→09:35)
[2018-05-09] MEDS ORDERED: fentaNYL 100 MCG/2 ML SDV ONE (09:06)
[2018-05-09] MEDS ORDERED: Lidocaine 1% 4 ML ONE (09:07)
[2018-05-09] MEDS ORDERED: Lidocaine 1% 2 ML ONE ×2 (09:40)
[2018-05-09 12:16] VITALS: BP 121/59
--- NOTE | 2018-05-10 08:06 | OR ---
DATE OF OPERATION: 05/09/2018 SURGEON: Melissa Cruz MD PREOPERATIVE DIAGNOSIS: Anemia. POSTOPERATIVE DIAGNOSIS: 1. 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 2. Superficial gastritis. 3. Diminutive polyp of the colon. OPERATION PERFORMED: 1. Upper endoscopy with random biopsies as well as biopsy for Helicobacter pylori. 2. Colonoscopy with cold biopsy removal of a 0.5 cm polyp at about 45 cm. ANESTHESIA: IV sedation. ESTIMATED BLOOD LOSS: None. BRIEF HISTORY: This is a very pleasant 77-year-old female who has been anemic. This is of unclear etiology. I had the opportunity to discuss the risks and benefits of the procedure to include, but not limited to bleeding, infection, heart attack, , injury to structures not intended. DESCRIPTION OF PROCEDURE: A time-out was performed. She was brought to the operating room and IV sedation was begun. She was placed on her left side down with a bite block. A pillow was placed between her knees. I was able then to easily advance the scope into the stomach. Interesting enough, there were signs of superficial gastritis on the antrum of the stomach. The pylorus itself looked normal. I went ahead and took a biopsy near the biopsy for H. pylori. I advanced the scope into the pylorus and was able to almost get to the ligament of Treitz. Clear there was no pathology. I retroflexed the scope in the GE junction and looked good. There were no signs of hiatal hernia. Greater and lesser curvatures and the fundus looked normal. Having said that, though the tissue itself was a bit friable, although there were no ulcerations. I did several random biopsies, and again the one on the lesser curve was really very friable mucosa. On coming out, the GE junction was normal. The Z-line looked normal. This was at about 35 cm, but interesting enough in the mid esophagus just distal to the mid esophagus probably about 30 cm there were dilated veins. These were both at about 3 o'clock and at 9 o'clock. I did get pictures of this. There was note I went back and there was no dilated veins at the GE junction itself. They were proximal to that. The rest of the esophagus looked normal. I was able to get up to see the vocal cords and everything else looked normal. We then switched gears. I went ahead and did the colonoscopy. On perianal exam, there were several skin tags, but these were not ulcerated and looked benign. Rectal exam demonstrated no mass. It should be noted that the patient has had multiple abdominal operations to include a colectomy, but she was unable to determine whether it was right or left. She has also had an appendectomy. Clearly, the patient still has a significant amount of diverticular disease with stool impacted into the diverticulum. We were able to negotiate with a little bit of it as to get down to the right side of the colon. Obviously, we did not see an appendiceal orifice and I believe that her colectomy was probably on the left. We saw the ileum and everything else looked okay. The mucosa was healthy appearing, but interestingly enough in her cecum, clearly there was a piece of black stool. This would be more consistent of an upper GI bleed. I continued on coming out of the colon and again I did not see any abnormalities on the right or the left, but I think it was at about 50 cm, there was a very diminutive polyp, which I was able to do a polypectomy using cold biopsy forceps. I retroflexed the scope. Everything looked fine. I washed out the rectum and the mucosa looked normal. The instructions to the patient will be as follows: 1. She is to follow up with her primary as well as me. I would like to see her in 1 month. Her primary was to be to further workup for signs of why she would have esophageal varices. 2. We will also follow up the polyp. It, however, looked quite benign. She tolerated the procedure well. I did try to remove as much of the air as possible. SHWETA /[id number]
== END 2018-05-09 13:45 | disposition home or self-care (01) ==
LOC: JD.SDS 08:25
PROVIDERS: ATTEND Surgery
DX: D50.9 Iron deficiency anemia, unspecified (principal); K29.30 Chronic superficial gastritis without bleeding; I85.00 Esophageal varices without bleeding; D12.4 Benign neoplasm of descending colon; K57.30 Diverticulosis of large intestine without perforation or abscess without bleeding; I10 Essential (primary) hypertension; E11.9 Type 2 diabetes mellitus without complications; E66.9 Obesity, unspecified; G47.33 Obstructive sleep apnea (adult) (pediatric); E78.00 Pure hypercholesterolemia, unspecified; Z79.82 Long term (current) use of aspirin; Z79.84 Long term (current) use of oral hypoglycemic drugs; Z79.899 Other long term (current) drug therapy; Z90.710 Acquired absence of both cervix and uterus; Z90.49 Acquired absence of other specified parts of digestive tract; Z88.5 Allergy status to narcotic agent
CPT/HCPCS: 43239; 45380; 82962; J2001; J2704; J3010; J7120; 00813

== ENCOUNTER 2018-06-01 06:53 | Day surgery (SDC) | payer MEDICARE, OTHER ==
[2018-06-01] MEDS: Polymyxin B/Trimethoprim 10 ML Bottle EYERT SCH ×4 (07:09→08:33)
[2018-06-01] MEDS: Brimonidine 0.2% Ophth Soln 5 ML Bottle EYERT SCH ×4 (07:14→08:33)
[2018-06-01] MEDS: Phenylephrine 2.5% Ophth Soln 2 ML Bot EYERT SCH ×6 (07:20→08:07)
[2018-06-01] MEDS: Tropicamide 1% Ophth Soln 15 ML Bottle EYERT SCH ×4 (07:25→08:01)
--- NOTE | 2018-06-01 07:31 | PCM.PREANE ---
Preanesthetic Assessment - Procedure Proposed Procedure: right eye extraction cataract with implant - Anesthesia/Transfusion/Family Hx Anesthesia History: Prior Anesthesia Reaction Type of Anesthesia Reaction: Excessive Nausea/Vomiting Family History of Anesthesia Reaction: Yes (nausea problems) Transfusion History: Prior Transfusion Without Reaction Intubation History: Unknown - Review of Systems General: No Symptoms Pulmonary: Cough Cardiovascular: No Symptoms Gastrointestinal: No Symptoms Neurological: No Symptoms Other: Reports: None, Diabetes - Physical Assessment NPO Status Date: 05/31/18 NPO Status Time: 23:00 O2 Sat by Pulse Oximetry: 94 Respiratory Rate: 16 Vital Signs: Last Vital Signs Temp 36.2 C 06/01/18 07:00 Pulse 59 L 06/01/18 07:00 Resp 16 06/01/18 07:00 BP 140/63 06/01/18 07:00 Pulse Ox 94 L 06/01/18 07:00 Height: 1.65 m Weight: 96.162 kg ASA Class: 2 Mental Status: Alert & Oriented x3 Airway Class: Mallampati = 1 Dentition: Reports: Partial (upper partial ) Thyro-Mental Finger Breadths: 3 Mouth Opening Finger Breadths: 5 ROM/Head Extension: Full Lungs: Clear to Auscultation, Normal Respiratory Effort Cardiovascular: Regular Rate, Regular Rhythm - Lab Values: Laboratory Last Values POC Glucose 115 mg/dL (83-110) H 06/01/18 07:12 - Allergies Allergies/Adverse Reactions: Allergies Allergy/AdvReac Type Severity Reaction Status Date / Time morphine Allergy Rash Verified 05/31/18 09:07 - Blood Blood Available: No - Anesthesia Plan Pre-Op Medication Ordered: None - Acknowledgements Anesthesia Type Planned: MAC Pt an Appropriate Candidate for the Planned Anesthesia: Yes Alternatives and Risks of Anesthesia Discussed w Pt/Guardian: Yes Pt/Guardian Understands and Agrees with Anesthesia Plan: Yes PreAnesthesia Questionnaire HEENT History: Reports: Cataract, Impaired Vision, Other (See Below) Other HEENT History: double vision Cardiovascular History: Reports: Angina, High Cholesterol, Hypertension, SOB on Exertion, Other (See Below) Other Cardiovascular History: peripheral artery disease, edema Respiratory History: Reports: PE, Sleep Apnea, SOB, Other (See Below) Other Respiratory History: cough, elevated d dimer, Pulmonary edema Gastrointestinal History: Reports: Chronic Diarrhea, Diverticulosis 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 Musculoskeletal History: Reports: Arthritis, Back Pain, Chronic, Osteoarthritis , Other (See Below) Other Musculoskeletal History: low back pain, shoulder pain Neurological History: Reports: None Psychiatric History: Reports: None Endocrine/Metabolic History: Reports: Diabetes, Type II, Obesity/BMI 30+ Other Endocrine/Metabolic History: thyroid nodules Hematologic History: Reports: Anemia, Iron Deficiency, Other (See Below) Other Hematologic History: blood clotting disorder, blood transfusion Immunologic History: Reports: None Oncologic (Cancer) History: Reports: None Dermatologic History: Reports: Other (See Below) Other Dermatologic History: dry skin - Past Surgical History Head Surgeries/Procedures: Reports: None HEENT Surgical History: Reports: Adenoidectomy, Cataract Surgery, Tonsillectomy Respiratory Surgical History: Reports: None GI Surgical History: Reports: Appendectomy, Cholecystectomy, Colonoscopy Other GI Surgeries/Procedures: sigmoid resection Female Surgical History: Reports: Hysterectomy, Oophorectomy Male Surgical History: Reports: None Endocrine Surgical History: Reports: None Neurological Surgical History: Reports: None Musculoskeletal Surgical History: Reports: Knee Replacement Other Musculoskeletal Surgeries/Procedures:: bilateral knee replacements, bilateral bunionectomies Oncologic Surgical History: Reports: None - HOME MEDS Home Medications: Home Meds Aspirin [Low Dose Aspirin EC] 81 mg PO DAILY 04/26/14 [History] Metoprolol Tartrate 25 mg PO BID 04/26/14 [History] amLODIPine [Norvasc] 5 mg PO DAILY 04/26/14 [History] metFORMIN HCl [Metformin ER Osmotic] 1,000 mg PO QAM 04/26/14 [History] traMADol [Ultram] 50 mg PO Q6H PRN #30 tablet 01/29/17 [Rx] Furosemide 20 mg PO DAILY 04/09/18 [History] Iron Polysaccharide Complex [Ferric X-150] 150 mg PO DAILY #30 capsule 04/09/18 [Rx] Rosuvastatin [Crestor] 10 mg PO DAILY 05/01/18 [History] metFORMIN [Glucophage] 500 mg PO QPM 05/01/18 [History] Ammonium Lactate [Amlactin 12% Lotion] 1 dose TOP BEDTIME 05/08/18 [History] Biotin 1 mg PO DAILY 05/08/18 [History] Calcium Carb & Citrate/Vit D3 [Calcium + D3 ER Tablet] 1 tab PO DAILY 05/08/18 [ History] Cholecalciferol (Vitamin D3) [Vitamin D3] 5,000 unit PO DAILY 05/08/18 [History] Cyanocobalamin (Vitamin B-12) [Vitamin B-12] 1,000 mcg PO DAILY 05/08/18 [ History] Fish Oil/[place]-3 Fatty Acids [Fish Oil 1,000 MG] 1 gm PO BID 05/08/18 [History] Glucosamine HCl [Glucosamine] 3,000 mg PO DAILY 05/08/18 [History] Magnesium Oxide [Magnesium] 500 mg PO DAILY 05/08/18 [History] Multivits,Ca,Minerals/Iron/FA [Women's Daily Formula Caplet] 1 tab PO DAILY [History] Vitamin E 400 unit PO DAILY 05/08/18 [History] Irbesartan 150 mg PO DAILY 05/31/18 [History] - CURRENT (IN HOUSE) MEDS Current Meds: Current Medications Brimonidine Tartrate (Alphagan 0.2% Ophth Soln) 0 ml EYERT ASDIRECTED [facility] Stop: 06/01/18 18:00 Last Admin: 06/01/18 07:14 Dose: 1 drop Cefuroxime Sodium (Zinacef) 0 mg EYERT ASDIRECTED [facility] Stop: 06/01/18 18:00 Lidocaine HCl (Xylocaine-Mpf 1%) 0 ml INJECT ASDIRECTED [facility] Stop: 06/01/18 18:00 Phenylephrine HCl (Deon-Synephrine 2.5% Ophth Soln) 0 ml EYERT ASDIRECTED [facility] Stop: 06/01/18 18:00 Last Admin: 06/01/18 07:20 Dose: 1 drop Pilocarpine HCl (Pilocar 4% Ophth Soln) 0 ml EYERT ASDIRECTED [facility] Stop: 06/01/18 18:00 Polymyxin/Trimethoprim Sulfate (Polytrim Ophth Soln) 0 ml EYERT ASDIRECTED [facility] Stop: 06/01/18 18:00 Last Admin: 06/01/18 07:09 Dose: 1 drop Tetracaine HCl (Tetracaine 0.5% Steri-Unit [place]) 0 ml EYERT ASDIRECTED [facility] Stop: 06/01/18 18:00 Tropicamide (Mydriacyl 1% Ophth Soln) 0 ml EYERT ASDIRECTED [facility] Stop: 06/01/18 18:00
[2018-06-01] MEDS: Lidocaine 1% PF 2 ML SDV INJECT SCH ×2 (07:48→08:19)
[2018-06-01] MEDS: Cefuroxime 10 MG/ML SYRINGE EYERT SCH ×2 (07:49→08:32)
[2018-06-01] MEDS: Tetracaine HCl/PF 0.5% 4 ML Bottle EYERT SCH ×3 (07:49→08:19)
[2018-06-01] MEDS: Pilocarpine 4% Ophth Soln 15 ML Bot EYERT SCH ×2 (07:50→08:33)
[2018-06-01 08:56] VITALS: BP 146/66
--- NOTE | 2018-06-01 08:56 | PCM48HPAN ---
Post Anesthesia Note - EVALUATION WITHIN 48HRS OF ANESTHETIC Vital Signs in Normal Range: Yes Patient Participated in Evaluation: Yes Respiratory Function Stable: Yes Airway Patent: Yes Cardiovascular Function Stable: Yes Hydration Status Stable: Yes Pain Control Satisfactory: Yes Nausea and Vomiting Control Satisfactory: Yes Mental Status Recovered: Yes Pulse Rate: 53 SaO2: 92 Resp Rate: 16 Temperature: 97.6 C Blood Pressure: 146/66 Pulse Rate: 53
== END 2018-06-01 08:44 | disposition home or self-care (01) ==
LOC: JD.SDS 06:53
PROVIDERS: ATTEND Ophthalmology
DX: H25.811 Combined forms of age-related cataract, right eye (principal); H52.31 Anisometropia; H35.363 Drusen (degenerative) of macula, bilateral; H35.373 Puckering of macula, bilateral; H16.223 Keratoconjunctivitis sicca, not specified as Sjogren's, bilateral; E11.9 Type 2 diabetes mellitus without complications; I10 Essential (primary) hypertension; E78.00 Pure hypercholesterolemia, unspecified; Z79.82 Long term (current) use of aspirin; Z96.1 Presence of intraocular lens; Z79.84 Long term (current) use of oral hypoglycemic drugs; Z79.899 Other long term (current) drug therapy; Z88.5 Allergy status to narcotic agent
CPT/HCPCS: 66984; 82962; A9270; C1780; J0697; J2001

== ENCOUNTER 2018-08-05 11:54 | Inpatient (IN) | payer MEDICARE, OTHER ==
[2018-08-05] MEDS ORDERED: Sodium Chloride 0.9% 10 ML Syringe FLUSH PRN ×2 (12:32→15:32)
--- NOTE | 2018-08-05 12:37 | EDM.PDOC ---
ED HPI GENERAL MEDICAL PROBLEM - General Chief Complaint: General Stated Complaint: COLD,SHAKY,UNBALANCE Time Seen by Provider: 08/05/18 12:12 Source of Information: Reports: Patient, RN Notes Reviewed - History of Present Illness INITIAL COMMENTS - FREE TEXT/NARRATIVE: 77-year-old female comes in with fever chills generalized weakness first started about 3 days ago. She states the last couple of morning she'll awaken in the morning and "her pillow would be drenched in sweat". No cough or sore throat. She's had diminished appetite but no vomiting or diarrhea. No chest pain or difficulty breathing. She has had voiding frequency but no dysuria. Her mouth does feel quite dry and she does feel weak and lightheaded when standing. 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: Acetaminophen Headache Pain Score (Numeric/FACES): 5 - Related Data Allergies Allergy/AdvReac Type Severity Reaction Status Date / Time morphine Allergy Rash Verified 05/31/18 09:07 Home Meds: Home Meds Aspirin [Low Dose Aspirin EC] 81 mg PO DAILY 04/26/14 [History] Metoprolol Tartrate 25 mg PO BID 04/26/14 [History] amLODIPine [Norvasc] 5 mg PO DAILY 04/26/14 [History] metFORMIN HCl [Metformin ER Osmotic] 1,000 mg PO QAM 04/26/14 [History] Furosemide 40 mg PO DAILY 04/09/18 [History] Iron Polysaccharide Complex [Ferric X-150] 150 mg PO DAILY #30 capsule 04/09/18 [Rx] Rosuvastatin [Crestor] 10 mg PO DAILY 05/01/18 [History] metFORMIN [Glucophage] 500 mg PO QPM 05/01/18 [History] Ammonium Lactate [Amlactin 12% Lotion] 1 dose TOP BEDTIME 05/08/18 [History] Biotin 1 mg PO DAILY 05/08/18 [History] Calcium Carb & Citrate/Vit D3 [Calcium + D3 ER Tablet] 1 tab PO DAILY 05/08/18 [ History] Cholecalciferol (Vitamin D3) [Vitamin D3] 5,000 unit PO DAILY 05/08/18 [History] Cyanocobalamin (Vitamin B-12) [Vitamin B-12] 1,500 mcg PO DAILY 05/08/18 [ History] Fish Oil/Honeydew-3 Fatty Acids [Fish Oil 1,000 MG] 1 gm PO BID 05/08/18 [History] Glucosamine HCl [Glucosamine] 3,000 mg PO DAILY 05/08/18 [History] Magnesium Oxide [Magnesium] 500 mg PO DAILY 05/08/18 [History] Multivits,Ca,Minerals/Iron/FA [Women's Daily Formula Caplet] 1 tab PO DAILY [History] Vitamin E 400 unit PO DAILY 05/08/18 [History] Irbesartan 150 mg PO DAILY 05/31/18 [History] Ferrous Sulfate [High Potency Iron] 1 tab PO DAILY 08/05/18 [History] L.acidoph,Paracasei, B.lactis [Probiotic] 1 cap PO DAILY 08/05/18 [History] traMADol [Ultram] 50 mg PO Q12H PRN 08/05/18 [History] Past Medical History HEENT History: Reports: Cataract, Impaired Vision, Other (See Below) Other HEENT History: double vision Cardiovascular History: Reports: Angina, High Cholesterol, Hypertension, SOB on Exertion, Other (See Below) Other Cardiovascular History: peripheral artery disease, edema Respiratory History: Reports: PE, Sleep Apnea, SOB, Other (See Below) Other Respiratory History: cough, elevated d dimer, Pulmonary edema Gastrointestinal History: Reports: Chronic Diarrhea, Diverticulosis 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 Musculoskeletal History: Reports: Arthritis, Back Pain, Chronic, Osteoarthritis , Other (See Below) Other Musculoskeletal History: low back pain, shoulder pain Neurological History: Reports: None Psychiatric History: Reports: None Endocrine/Metabolic History: Reports: Diabetes, Type II, Obesity/BMI 30+ Other Endocrine/Metabolic History: thyroid nodules Hematologic History: Reports: Anemia, Iron Deficiency, Other (See Below) Other Hematologic History: blood clotting disorder, blood transfusion Immunologic History: Reports: None Oncologic (Cancer) History: Reports: None Dermatologic History: Reports: Other (See Below) Other Dermatologic History: dry skin - Infectious Disease History Infectious Disease History: Reports: Chicken Pox, Measles - Past Surgical History Head Surgeries/Procedures: Reports: None HEENT Surgical History: Reports: Adenoidectomy, Cataract Surgery, Tonsillectomy Respiratory Surgical History: Reports: None GI Surgical History: Reports: Appendectomy, Cholecystectomy, Colonoscopy Other GI Surgeries/Procedures: sigmoid resection Female Surgical History: Reports: Hysterectomy, Oophorectomy Endocrine Surgical History: Reports: None Neurological Surgical History: Reports: None Musculoskeletal Surgical History: Reports: Knee Replacement Other Musculoskeletal Surgeries/Procedures:: bilateral knee replacements, bilateral bunionectomies Oncologic Surgical History: Reports: None Social & Family History - Family History Family Medical History: Noncontributory Cardiac: Reports: PR Other Cardiac Family History: grandparents Respiratory: Reports: None GI: Reports: Inflammatory Bowel Disease Other GI Family History: mother OBGYN: Reports: None Musculoskeletal: Reports: Arthritis, Osteoporosis Neurological: Reports: None Psychiatric: Reports: None Endocrine/Metabolic: Reports: None Hematologic: Reports: None Immunologic: Reports: None - Tobacco Use Smoking Status *Q: Never Smoker - Caffeine Use Caffeine Use: Reports: Coffee ED ROS GENERAL - Review of Systems Review Of Systems: See Below Constitutional: Reports: Fever, Chills HEENT: Denies: Sinus Problem, Throat Pain Respiratory: Denies: Shortness of Breath, Pleuritic Chest Pain Cardiovascular: Denies: Chest Pain GI/Abdominal: Reports: Decreased Appetite. Denies: Abdominal Pain, Nausea, Vomiting Musculoskeletal: Denies: Neck Pain, Shoulder Pain, Arm Pain Skin: Denies: Rash Neurological: Reports: Dizziness, Headache, Weakness (Generalized) ED EXAM, GENERAL - Physical Exam Exam: See Below General Appearance: Alert, No Apparent Distress Eye Exam: Bilateral Eye: PERRL Head: Atraumatic Neck: Supple Respiratory/Chest: No Respiratory Distress, Lungs Clear, Normal Breath Sounds Cardiovascular: Regular Rate, Rhythm GI/Abdominal: Soft, Non-Tender Back Exam: No: CVA Tenderness (L), CVA Tenderness (R) Extremities: Normal Inspection. No: Pedal Edema, Leg Pain, Redness Neurological: Alert, Oriented, No Motor/Sensory Deficits Skin Exam: Warm, Dry, Normal Color Course - Vital Signs Last Recorded V/S: Last Vital Signs Temp 97.8 F 08/05/18 12:04 Pulse 97 08/05/18 12:04 Resp 16 08/05/18 12:04 BP 118/59 L 08/05/18 12:04 Pulse Ox 95 08/05/18 12:04 - Orders/Labs/Meds Orders: Active Orders 24 hr Category Date Time Status Peripheral IV Care [RC] . DIRECTED Care 08/05/18 12:33 Active Chest 1V Frontal [CR] Stat Exams 08/05/18 12:58 Taken CULTURE BLOOD [BC] Stat Lab 08/05/18 12:43 Received Sodium Chloride 0.9% [Normal Saline] 1,000 ml Med 08/05/18 12:45 Active IV ONETIME Sodium Chloride 0.9% [Saline Flush] Med 08/05/18 12:32 Active 10 ml FLUSH ASDIRECTED PRN Peripheral IV Insertion Adult [OM.PC] Stat Oth 08/05/18 12:32 Ordered Medication Orders Sodium Chloride (Normal Saline) 1,000 mls @ 999 mls/hr IV ONETIME [facility] Last Admin: 08/05/18 12:58 Dose: 999 mls/hr Sodium Chloride (Saline Flush) 10 ml FLUSH ASDIRECTED PRN PRN Reason: Keep Vein Open Last Admin: 08/05/18 12:43 Dose: 10 ml Labs: Laboratory Tests 08/05/18 08/05/18 08/05/18 Range/Units 12:42 12:43 12:43 WBC 14.51 H (3.98-10.04) K/mm3 RBC 3.88 L (3.98-5.22) M/mm3 Hgb 10.6 L (11.2-15.7) gm/L Hct 32.5 L (34.1-44.9) % MCV 83.8 (79.4-94.8) fl MCH 27.3 (25.6-32.2) pg MCHC 32.6 (32.2-35.5) g/dl RDW Std Deviation 54.4 H (36.4-46.3) fL Plt Count 287 (182-369) K/mm3 MPV 9.3 L (9.4-12.3) fl Neutrophils % (Manual) 90 H (40-60) % Band Neutrophils % 1 (0-10) % Lymphocytes % (Manual) 2 L (20-40) % Atypical Lymphs % 0 % Monocytes % (Manual) 7 (2-10) % Eosinophils % (Manual) 0 L (0.7-5.8) % Basophils % (Manual) 0 L (0.1-1.2) Metamyelocytes % 0 Blast Cells % 0 Plasma Cell % (Manual) 0 Nucleated RBCs 0.0 % Platelet Estimate Adequate RBC Morph Comment Normal Sodium (136-145) mEq/L Potassium (3.5-5.1) mEq/L Chloride (98-107) mEq/L Carbon Dioxide (21-32) mEq/L Anion Gap (5-15) BUN (7-18) mg/dL Creatinine (0.55-1.02) mg/dL Est Cr Clr Drug Dosing mL/min Estimated GFR (MDRD) (>60) mL/min BUN/Creatinine Ratio (14-18) Glucose (83-115) mg/dL Calcium (8.5-10.1) mg/dL Total Bilirubin (0.2-1.0) mg/dL AST (15-37) U/L ALT (14-59) U/L Alkaline Phosphatase (46-116) U/L Troponin I (0.00-0.056) ng/mL C-Reactive Protein 33.1 H* (<1.0) mg/dL Total Protein (6.4-8.2) g/dl Albumin (3.4-5.0) g/dl Globulin gm/dL Albumin/Globulin Ratio (1-2) Urine Color Yellow (Yellow) Urine Appearance Slt cloudy H (Clear) Urine pH 5.5 (5.0-8.0) Ur Specific [place] > or = 1.030 (1.005-1.030) Urine Protein 3+ H (Negative) Urine Glucose (UA) Negative (Negative) Urine Ketones Negative (Negative) Urine Occult Blood 2+ H (Negative) Urine Nitrite Negative (Negative) Urine Bilirubin Negative (Negative) Urine Urobilinogen 0.2 (0.2-1.0) Ur Leukocyte Esterase 3+ H (Negative) Urine RBC 10-20 H (0-5) /hpf Urine WBC 75-100 H (0-5) /hpf Ur Squamous Epith Cells 10-20 H (0-5) /hpf Urine Bacteria Moderate H (FEW) /hpf Urine Mucus Few (FEW) /hpf 08/05/18 Range/Units 12:43 WBC (3.98-10.04) K/mm3 RBC (3.98-5.22) M/mm3 Hgb (11.2-15.7) gm/L Hct (34.1-44.9) % MCV (79.4-94.8) fl MCH (25.6-32.2) pg MCHC (32.2-35.5) g/dl RDW Std Deviation (36.4-46.3) fL Plt Count (182-369) K/mm3 MPV (9.4-12.3) fl Neutrophils % (Manual) (40-60) % Band Neutrophils % (0-10) % Lymphocytes % (Manual) (20-40) % Atypical Lymphs % % Monocytes % (Manual) (2-10) % Eosinophils % (Manual) (0.7-5.8) % Basophils % (Manual) (0.1-1.2) Metamyelocytes % Blast Cells % Plasma Cell % (Manual) Nucleated RBCs % Platelet Estimate RBC Morph Comment Sodium 130 L D (136-145) mEq/L Potassium 3.7 (3.5-5.1) mEq/L Chloride 95 L (98-107) mEq/L Carbon Dioxide 24 (21-32) mEq/L Anion Gap 14.7 (5-15) BUN 35 H (7-18) mg/dL Creatinine 2.0 H D (0.55-1.02) mg/dL Est Cr Clr Drug Dosing 25.40 mL/min Estimated GFR (MDRD) 24 (>60) mL/min BUN/Creatinine Ratio 17.5 (14-18) Glucose 196 H (83-115) mg/dL Calcium 8.9 (8.5-10.1) mg/dL Total Bilirubin 0.7 (0.2-1.0) mg/dL AST 23 (15-37) U/L ALT 22 (14-59) U/L Alkaline Phosphatase 84 (46-116) U/L Troponin I < 0.017 (0.00-0.056) ng/mL C-Reactive Protein (<1.0) mg/dL Total Protein 6.7 (6.4-8.2) g/dl Albumin 2.5 L (3.4-5.0) g/dl Globulin 4.2 gm/dL Albumin/Globulin Ratio 0.6 L (1-2) Urine Color (Yellow) Urine Appearance (Clear) Urine pH (5.0-8.0) Ur Specific [place] (1.005-1.030) Urine Protein (Negative) Urine Glucose (UA) (Negative) Urine Ketones (Negative) Urine Occult Blood (Negative) Urine Nitrite (Negative) Urine Bilirubin (Negative) Urine Urobilinogen (0.2-1.0) Ur Leukocyte Esterase (Negative) Urine RBC (0-5) /hpf Urine WBC (0-5) /hpf Ur Squamous Epith Cells (0-5) /hpf Urine Bacteria (FEW) /hpf Urine Mucus (FEW) /hpf Meds: Medications Generic Name Dose Route Start Last Admin Trade Name [place] PRN Reason Stop Dose Admin Sodium Chloride 1,000 mls @ 999 mls/hr 08/05/18 12:45 08/05/18 12:58 Normal Saline IV 999 mls/hr ONETIME ISAAK Administration Sodium Chloride 10 ml 08/05/18 12:32 08/05/18 12:43 Saline Flush FLUSH 10 ml ASDIRECTED PRN Administration Keep Vein Open Discontinued Medications Generic Name Dose Route Start Last Admin Trade Name Freq PRN Reason Stop Dose Admin Ceftriaxone Sodium 1 gm/ 100 mls @ 200 mls/hr 08/05/18 13:09 08/05/18 13:40 Sodium Chloride IV 08/05/18 13:38 200 mls/hr ONETIME ONE Administration - Re-Assessments/Exams Free Text/Narrative Re-Assessment/Exam: 08/05/18 13:44. Patient does have definite UTI. Her catheter urine was very infected even visually. Rocephin 1 g IV was ordered. White blood count has come back elevated in the 14,000 range with 90 segs, 1 band. UA is now back and does confirm the infection with elevated WBCs and bacteria. BUN and creatinine are mildly elevated. She is extremely weak with this infection, as noted difficulty standing and walking. Difficulty even sitting her up in bed to listen to her lungs. Therefore she is not a good candidate to go home. Will plan to admit for further treatment. Departure - Departure Time of Disposition: 13:46 Disposition: Admitted As Inpatient 68 Condition: Fair Clinical Impression: Pyelonephritis - Discharge Information Referrals: Karley Sweeney, X RAY OPERATOR [Primary Care Provider] - Forms: ED Department Discharge ED Communication - Discussed Case With (1) Discussed Case With (1): Admitting Provider (Dr Marie, decision to admit at about 14:06.) - My Orders Last 24 Hours: My Active Orders 08/05/18 12:32 Sodium Chloride 0.9% [Saline Flush] 10 ml FLUSH ASDIRECTED PRN Peripheral IV Insertion Adult [OM.PC] Stat 08/05/18 12:33 Peripheral IV Care [RC] . DIRECTED 08/05/18 12:43 CULTURE BLOOD [BC] Stat 08/05/18 12:45 Sodium Chloride 0.9% [Normal Saline] 1,000 ml IV ONETIME 08/05/18 12:58 Chest 1V Frontal [CR] Stat - Assessment/Plan Last 24 Hours: My Active Orders 08/05/18 12:32 Sodium Chloride 0.9% [Saline Flush] 10 ml FLUSH ASDIRECTED PRN Peripheral IV Insertion Adult [OM.PC] Stat 08/05/18 12:33 Peripheral IV Care [RC] . DIRECTED 08/05/18 12:43 CULTURE BLOOD [BC] Stat 08/05/18 12:45 Sodium Chloride 0.9% [Normal Saline] 1,000 ml IV ONETIME 08/05/18 12:58 Chest 1V Frontal [CR] Stat
[2018-08-05] MEDS ORDERED: Sodium Chloride 0.9% 1,000 ML IV SCH ×2 (12:45→16:45)
[2018-08-05] MEDS ORDERED: cefTRIAXone 1 GM in Sodium Chloride 0.9% 100 ML IV ONE (13:09)
[2018-08-05] MEDS ORDERED: Enoxaparin 30 MG/0.3 ML Syringe SUBCUT SCH (15:30)
[2018-08-05] MEDS ORDERED: LORazepam 2 MG/ML SDV IV PRN (15:32)
[2018-08-05] MEDS ORDERED: LORazepam 2 MG/ML SDV IV ONE (15:32)
[2018-08-05] MEDS ORDERED: Glucose Gel 15 GM in 37.5 GM Tube PO ONE (15:32)
[2018-08-05] MEDS ORDERED: Ondansetron 4 MG Tab.DIS PO PRN (15:32)
[2018-08-05] MEDS ORDERED: Dextrose 5%-0.45% NaCl 1,000 ML IV SCH (15:45)
--- NOTE | 2018-08-05 16:22 | PCM.HP ---
H&P History of Present Illness - General Date of Service: 08/05/18 Admit Problem/Dx: Admission Diagnosis/Problem Admission Diagnosis/Problem Pyelonephritis Source of Information: Patient, Family History Limitations: Reports: No Limitations, Other (little fatiuged and weak ) - History of Present Illness Initial Comments - Free Text/Narative: 77 year old female with 4 day hx of gen malaise and chills and sweats and weakness. also c/o headache and anorexia no dysuria or back pain . hx of dm on metformin hx of orthopedic problems and chronic iron def anemia . also on b12 and suppliments . prev hx of uti but no [place] problems or renal stones but creatinine 2 on admit and on lasix 40 mg day . other meds for hypertension and hyperlipidemia no hx dvt / clotting but problems with normal pt and ptt . headaches and weakness and cannot stand up by self Onset of Symptoms: Reports: Other (4 days ago ) Symptom Onset Date: 08/01/18 Duration of Symptoms: Reports: Day(s): (4), Getting Worse Location: Reports: Generalized Quality: Reports: Ache Improves with: Reports: None Worsens with: Reports: None Associated Symptoms: Reports: Fever/Chills, Loss of Appetite, Malaise, Nausea/ Vomiting, Shortness of Breath, Weakness Headache Pain Score (Numeric/FACES): 5 - Related Data Allergies/Adverse Reactions: Allergies Allergy/AdvReac Type Severity Reaction Status Date / Time morphine Allergy Rash Verified 05/31/18 09:07 Home Medications: Home Meds Aspirin [Low Dose Aspirin EC] 81 mg PO DAILY 04/26/14 [History] Metoprolol Tartrate 25 mg PO BID 04/26/14 [History] amLODIPine [Norvasc] 5 mg PO DAILY 04/26/14 [History] metFORMIN HCl [Metformin ER Osmotic] 1,000 mg PO QAM 04/26/14 [History] Furosemide 40 mg PO DAILY 04/09/18 [History] Rosuvastatin [Crestor] 10 mg PO DAILY 05/01/18 [History] metFORMIN [Glucophage] 500 mg PO QPM 05/01/18 [History] Ammonium Lactate [Amlactin 12% Lotion] 1 dose TOP BEDTIME 05/08/18 [History] Biotin 1 mg PO DAILY 05/08/18 [History] Calcium Carb & Citrate/Vit D3 [Calcium + D3 ER Tablet] 1 tab PO DAILY 05/08/18 [ History] Cholecalciferol (Vitamin D3) [Vitamin D3] 5,000 unit PO DAILY 05/08/18 [History] Cyanocobalamin (Vitamin B-12) [Vitamin B-12] 1,500 mcg PO DAILY 05/08/18 [ History] Fish Oil/[place]-3 Fatty Acids [Fish Oil 1,000 MG] 1 gm PO BID 05/08/18 [History] Glucosamine HCl [Glucosamine] 3,000 mg PO DAILY 05/08/18 [History] Magnesium Oxide [Magnesium] 500 mg PO DAILY 05/08/18 [History] Multivits,Ca,Minerals/Iron/FA [Women's Daily Formula Caplet] 1 tab PO DAILY [History] Vitamin E 400 unit PO DAILY 05/08/18 [History] Irbesartan 150 mg PO DAILY 05/31/18 [History] Ferrous Sulfate [High Potency Iron] 1 tab PO DAILY 08/05/18 [History] L.acidoph,Paracasei, B.lactis [Probiotic] 1 cap PO DAILY 08/05/18 [History] traMADol [Ultram] 50 mg PO Q12H PRN 08/05/18 [History] Past Medical History HEENT History: Reports: Cataract, Other (See Below) Other HEENT History: double vision Cardiovascular History: Reports: Angina, High Cholesterol, Hypertension, SOB on Exertion, Other (See Below) Other Cardiovascular History: peripheral artery disease, edema Respiratory History: Reports: PE, Sleep Apnea, SOB, Other (See Below) Other Respiratory History: cough, elevated d dimer, Pulmonary edema Gastrointestinal History: Reports: Chronic Diarrhea, Diverticulosis Genitourinary History: Reports: None METAL STAMPER History: Reports: None, Musculoskeletal History: Reports: Arthritis, Back Pain, Chronic, Osteoarthritis , Other (See Below) Other Musculoskeletal History: low back pain, shoulder pain Neurological History: Reports: None Psychiatric History: Reports: None Endocrine/Metabolic History: Reports: Diabetes, Type II, Obesity/BMI 30+, Osteoporosis, Vitamin D Deficiency Other Endocrine/Metabolic History: thyroid nodules Hematologic History: Reports: Anemia, Bleeding Disorder, Iron Deficiency, Other (See Below) Other Hematologic History: blood clotting disorder, blood transfusion Immunologic History: Reports: None, Other (See Below) (second uti) Oncologic (Cancer) History: Reports: None Dermatologic History: Reports: None, Other (See Below) Other Dermatologic History: dry skin - Infectious Disease History Infectious Disease History: Reports: Chicken Pox, Measles - Past Surgical History Head Surgeries/Procedures: Reports: None HEENT Surgical History: Reports: Adenoidectomy, Cataract Surgery, Tonsillectomy Cardiovascular Surgical History: Reports: None Respiratory Surgical History: Reports: None GI Surgical History: Reports: Appendectomy, Cholecystectomy, Colonoscopy Other GI Surgeries/Procedures: sigmoid resection Female Surgical History: Reports: Hysterectomy, Oophorectomy Endocrine Surgical History: Reports: None Neurological Surgical History: Reports: None Musculoskeletal Surgical History: Reports: Knee Replacement Other Musculoskeletal Surgeries/Procedures:: bilateral knee replacements, bilateral bunionectomies Oncologic Surgical History: Reports: None Dermatological Surgical History: Reports: None Social & Family History - Family History Family Medical History: Noncontributory Cardiac: Reports: PA Other Cardiac Family History: grandparents Respiratory: Reports: None GI: Reports: Inflammatory Bowel Disease Other GI Family History: mother OBGYN: Reports: None Musculoskeletal: Reports: Arthritis, Osteoporosis Neurological: Reports: None Psychiatric: Reports: None Endocrine/Metabolic: Reports: None Hematologic: Reports: None Immunologic: Reports: None - Tobacco Use Smoking Status *Q: Never Smoker Second Hand Smoke Exposure: No - Caffeine Use Caffeine Use: Reports: Coffee - Recreational Drug Use Recreational Drug Use: No Drug Use in Last 12 Months: No H&P Review of Systems - Review of Systems: Review Of Systems: See Below General: Reports: No Symptoms, Chills, Malaise, Weakness, Fatigue, Night Sweats , Diaphoresis, Decreased Appetite HEENT: Reports: No Symptoms Pulmonary: Reports: No Symptoms Cardiovascular: Reports: No Symptoms Gastrointestinal: Reports: No Symptoms Genitourinary: Reports: No Symptoms Musculoskeletal: Reports: No Symptoms Skin: Reports: No Symptoms Psychiatric: Reports: No Symptoms Neurological: Reports: No Symptoms Hematologic/Lymphatic: Reports: No Symptoms Immunologic: Reports: No Symptoms Exam - Exam Exam: See Below - Vital Signs Vital Signs: Last Vital Signs Temp 37.1 C 08/05/18 15:46 Pulse 88 08/05/18 15:46 Resp 22 H 08/05/18 15:46 BP 102/74 08/05/18 15:46 Pulse Ox 95 08/05/18 15:46 Weight: 98.203 kg - Exam General: Alert, Oriented, 4 HEENT: PERRLA, Hearing Intact, Mucosa Moist & [place], Nares Patent, Normal Nasal Septum, Posterior Pharynx Clear, Conjunctiva Clear, EOMI, EACs Clear, TMs Clear Neck: Supple, Trachea Midline, 2 Lungs: Clear to Auscultation, Normal Respiratory Effort Cardiovascular: Regular Rate, Regular Rhythm GI/Abdominal Exam: Normal Bowel Sounds, Soft, Non-Tender, No Organomegaly, No Distention, No Abnormal Bruit, No Mass, Pelvis Stable (Female) Exam: Normal External Exam, Normal Speculum Exam, Normal Bimanual Exam Rectal (Female) Exam: Normal Exam, Normal Rectal Tone Back Exam: Normal Inspection, Full Range of Motion, NT Extremities: Normal Inspection, Normal Range of Motion, Non-Tender, No Pedal Edema, Normal Capillary Refill Skin: Warm, Dry, Intact Neurological: Cranial Nerves Intact, Reflexes Equal Bilateral Neuro Extensive - Mental Status: Alert, Oriented x3, Normal Mood/Affect, Normal Cognition Neuro Extensive - Motor, Sensory, Reflexes: CN II-XII Intact, Normal Gait, Normal Reflexes Psychiatric: Alert, Normal Affect, Normal Mood - Patient Data Lab Results Last 24 hrs: Laboratory Results - last 24 hr 08/05/18 08/05/18 08/05/18 Range/Units 12:42 12:43 12:43 WBC 14.51 H (3.98-10.04) K/mm3 RBC 3.88 L (3.98-5.22) M/mm3 Hgb 10.6 L (11.2-15.7) gm/L Hct 32.5 L (34.1-44.9) % MCV 83.8 (79.4-94.8) fl MCH 27.3 (25.6-32.2) pg MCHC 32.6 (32.2-35.5) g/dl RDW Std Deviation 54.4 H (36.4-46.3) fL Plt Count 287 (182-369) K/mm3 MPV 9.3 L (9.4-12.3) fl Neutrophils % (Manual) 90 H (40-60) % Band Neutrophils % 1 (0-10) % Lymphocytes % (Manual) 2 L (20-40) % Atypical Lymphs % 0 % Monocytes % (Manual) 7 (2-10) % Eosinophils % (Manual) 0 L (0.7-5.8) % Basophils % (Manual) 0 L (0.1-1.2) Metamyelocytes % 0 Blast Cells % 0 Plasma Cell % (Manual) 0 Nucleated RBCs 0.0 % Platelet Estimate Adequate RBC Morph Comment Normal Sodium (136-145) mEq/L Potassium (3.5-5.1) mEq/L Chloride (98-107) mEq/L Carbon Dioxide (21-32) mEq/L Anion Gap (5-15) BUN (7-18) mg/dL Creatinine (0.55-1.02) mg/dL Est Cr Clr Drug Dosing mL/min Estimated GFR (MDRD) (>60) mL/min BUN/Creatinine Ratio (14-18) Glucose (83-115) mg/dL Calcium (8.5-10.1) mg/dL Total Bilirubin (0.2-1.0) mg/dL AST (15-37) U/L ALT (14-59) U/L Alkaline Phosphatase (46-116) U/L Troponin I (0.00-0.056) ng/mL C-Reactive Protein 33.1 H* (<1.0) mg/dL Total Protein (6.4-8.2) g/dl Albumin (3.4-5.0) g/dl Globulin gm/dL Albumin/Globulin Ratio (1-2) Urine Color Yellow (Yellow) Urine Appearance Slt cloudy H (Clear) Urine pH 5.5 (5.0-8.0) Ur Specific [place] > or = 1.030 (1.005-1.030) Urine Protein 3+ H (Negative) Urine Glucose (UA) Negative (Negative) Urine Ketones Negative (Negative) Urine Occult Blood 2+ H (Negative) Urine Nitrite Negative (Negative) Urine Bilirubin Negative (Negative) Urine Urobilinogen 0.2 (0.2-1.0) Ur Leukocyte Esterase 3+ H (Negative) Urine RBC 10-20 H (0-5) /hpf Urine WBC 75-100 H (0-5) /hpf Ur Squamous Epith Cells 10-20 H (0-5) /hpf Urine Bacteria Moderate H (FEW) /hpf Urine Mucus Few (FEW) /hpf 08/05/18 Range/Units 12:43 WBC (3.98-10.04) K/mm3 RBC (3.98-5.22) M/mm3 Hgb (11.2-15.7) gm/L Hct (34.1-44.9) % MCV (79.4-94.8) fl MCH (25.6-32.2) pg MCHC (32.2-35.5) g/dl RDW Std Deviation (36.4-46.3) fL Plt Count (182-369) K/mm3 MPV (9.4-12.3) fl Neutrophils % (Manual) (40-60) % Band Neutrophils % (0-10) % Lymphocytes % (Manual) (20-40) % Atypical Lymphs % % Monocytes % (Manual) (2-10) % Eosinophils % (Manual) (0.7-5.8) % Basophils % (Manual) (0.1-1.2) Metamyelocytes % Blast Cells % Plasma Cell % (Manual) Nucleated RBCs % Platelet Estimate RBC Morph Comment Sodium 130 L D (136-145) mEq/L Potassium 3.7 (3.5-5.1) mEq/L Chloride 95 L (98-107) mEq/L Carbon Dioxide 24 (21-32) mEq/L Anion Gap 14.7 (5-15) BUN 35 H (7-18) mg/dL Creatinine 2.0 H D (0.55-1.02) mg/dL Est Cr Clr Drug Dosing 25.40 mL/min Estimated GFR (MDRD) 24 (>60) mL/min BUN/Creatinine Ratio 17.5 (14-18) Glucose 196 H (83-115) mg/dL Calcium 8.9 (8.5-10.1) mg/dL Total Bilirubin 0.7 (0.2-1.0) mg/dL AST 23 (15-37) U/L ALT 22 (14-59) U/L Alkaline Phosphatase 84 (46-116) U/L Troponin I < 0.017 (0.00-0.056) ng/mL C-Reactive Protein (<1.0) mg/dL Total Protein 6.7 (6.4-8.2) g/dl Albumin 2.5 L (3.4-5.0) g/dl Globulin 4.2 gm/dL Albumin/Globulin Ratio 0.6 L (1-2) Urine Color (Yellow) Urine Appearance (Clear) Urine pH (5.0-8.0) Ur Specific [place] (1.005-1.030) Urine Protein (Negative) Urine Glucose (UA) (Negative) Urine Ketones (Negative) Urine Occult Blood (Negative) Urine Nitrite (Negative) Urine Bilirubin (Negative) Urine Urobilinogen (0.2-1.0) Ur Leukocyte Esterase (Negative) Urine RBC (0-5) /hpf Urine WBC (0-5) /hpf Ur Squamous Epith Cells (0-5) /hpf Urine Bacteria (FEW) /hpf Urine Mucus (FEW) /hpf Result Diagrams: 08/05/18 12:43 08/06/18 04:59 - Problem List (1) Weakness SNOMED Code(s): 65147625 ICD Code: R53.1 - WEAKNESS Status: Acute Priority: Medium Current Visit : Yes Onset Date: 08/05/18 (2) Hyponatremia SNOMED Code(s): 92163983 ICD Code: E87.1 - HYPO-OSMOLALITY AND HYPONATREMIA Status: Resolved Priority: Medium Current Visit: Yes Onset Date: 08/05/18 (3) Hypokalemia, excessive renal losses SNOMED Code(s): 32753601 ICD Code: E87.6 - HYPOKALEMIA Status: Resolved Current Visit: Yes Onset Date: 08/05/18 (4) Pyelonephritis SNOMED Code(s): 50020352 ICD Code: N12 - TUBULO-INTERSTITIAL NEPHRITIS, NOT SPCF ACUTE OR CHRONIC Status: Acute Priority: Medium Current Visit: Yes Onset Date: 08/05/18 (5) Anemia SNOMED Code(s): 505655528 ICD Code: D64.9 - ANEMIA, UNSPECIFIED Status: Acute Priority: Medium Current Visit: No Onset Date: 08/05/18 Qualifiers: Anemia type: iron deficiency Iron deficiency anemia type: unspecified iron deficiency Qualified Code(s): D50.9 - Iron deficiency anemia, unspecified (6) Dyspnea on exertion SNOMED Code(s): 00796654 ICD Code: R06.09 - OTHER FORMS OF DYSPNEA Status: Acute Priority: Medium Current Visit: No Onset Date: 08/05/18 (7) UTI (urinary tract infection) SNOMED Code(s): 35245708 ICD Code: N39.0 - URINARY TRACT INFECTION, SITE NOT SPECIFIED Status: Acute Priority: Medium Current Visit: No Onset Date: 08/05/18 Qualifiers: Urinary tract infection type: site unspecified Hematuria presence: without hematuria Qualified Code(s): N39.0 - Urinary tract infection, site not specified (8) Hypotension SNOMED Code(s): 46423356 ICD Code: I95.9 - HYPOTENSION, UNSPECIFIED Status: Resolved Priority: Medium Current Visit: Yes Onset Date: 08/05/18 Qualifiers: Hypotension type: unspecified hypotension type Qualified Code(s): I95.9 - Hypotension, unspecified Problem List Initiated/Reviewed/Updated: Yes Orders Last 24hrs: Active Orders 24 hr Category Date Time Status Admission Status [Patient Status] [ADT] Routine ADT 08/05/18 14:58 Active Patient Status [ADT] Routine ADT 08/05/18 15:33 Ordered Blood Glucose Check, Bedside [RC] QIDACANDBED Care 08/05/18 15:32 Ordered Communication Order [RC] Per Unit Routine Care 08/05/18 15:45 Ordered Communication Order [RC] Per Unit Routine Care 08/05/18 15:45 Ordered Diabetes Education [RC] Click to Edit Care 08/05/18 15:39 Ordered EKG Documentation Completion [RC] QIDACANDBED Care 08/05/18 15:32 Ordered Height and Weight [RC] UPON Care 08/05/18 15:32 Ordered Insert [place]og Catheter [Insert Urinary Catheter] [OM.PC] Care 08/05/18 14:25 Ordered Stat Intake and Output [RC] QSHIFT Care 08/05/18 15:37 Ordered Notify Provider Vital Signs [RC] ASDIRECTED Care 08/05/18 15:37 Ordered Oxygen Therapy [RC] PRN Care 08/05/18 15:33 Ordered Peripheral IV Care [RC] . DIRECTED Care 08/05/18 15:44 Ordered Pulse Oximetry [RC] PRN Care 08/05/18 15:37 Ordered Up ad Rayne [RC] ASDIRECTED Care 08/05/18 15:32 Ordered VTE/DVT Education [RC] PER UNIT ROUTINE Care 08/05/18 15:33 Ordered Vital Signs [RC] Q4H Care 08/05/18 15:33 Ordered Consult to Diabetic Nurse Specialist [CONS] Routine Cons 08/05/18 15:32 Ordered Consult to Sales Representative Adding Mach[employer] [CONS] Routine Cons 08/05/18 15:32 Ordered Regular Diet [DIET] Diet 08/05/18 Dinner Ordered Chest 1V Frontal [CR] Stat Exams 08/05/18 12:58 Taken C-REACTIVE PROTEIN [CHEM] AM Lab 08/06/18 05:11 Ordered COMPREHENSIVE METABOLIC PN,CMP [CHEM] AM Lab 08/06/18 05:11 Ordered CULTURE BLOOD [BC] Stat Lab 08/05/18 12:43 Received FOLIC ACID [CHEM] Routine Lab 08/05/18 16:10 Ordered GLYCOSYLATED HEMOGLOBIN,HGBA1C [CHEM] Routine Lab 08/05/18 15:32 Ordered IRON,FE [CHEM] Routine Lab 08/05/18 16:08 Ordered LACTIC ACID [CHEM] Routine Lab 08/05/18 16:08 Ordered PERIPH BLOOD SMEAR PATHOLOGIST [HEME] Routine Lab 08/05/18 16:08 Ordered TSH [CHEM] Routine Lab 08/05/18 16:08 Ordered VITAMIN B12 [CHEM] Routine Lab 08/05/18 16:10 Ordered Acetaminophen [Tylenol] Med 08/05/18 15:32 Ordered 650 mg PO Q4H PRN Aspirin [Halfprin] Med 08/06/18 09:00 Ordered 81 mg PO DAILY Cyanocobalamin (Vitamin B12) [Vitamin B12] Med 08/06/18 09:00 Ordered 1,500 mcg PO DAILY Dextrose 5%-1/2 Normal Saline @ 125 MLS/HR(1000ml) Med 08/05/18 15:45 Ordered Dextrose 5%-0.45% NaCl [Dextrose 5%-1/2 NS] 1,000 ml IV ASDIRECTED Enoxaparin [Lovenox] Med 08/05/18 15:45 Ordered 40 mg SUBCUT DAILY Ferrous Sulfate [High Potency Iron] Med 08/06/18 09:00 Ordered 1 tab PO DAILY Furosemide [Lasix] Med 08/06/18 09:00 Ordered 40 mg PO DAILY Ibuprofen [Motrin] Med 08/05/18 15:32 Ordered 400 mg PO Q6H PRN Irbesartan [Irbesartan] Med 08/06/18 09:00 Ordered 150 mg PO DAILY Iron Polysaccharides Complex [Ferrex 150] Med 08/06/18 09:00 Ordered 150 mg PO DAILY L.acidoph,Paracasei, B.lactis [Probiotic] Med 08/06/18 09:00 Ordered 1 cap PO DAILY LORazepam [Ativan] Med 08/05/18 15:32 Ordered 1 mg IV Q6H PRN Metoprolol Tartrate [Lopressor] Med 08/05/18 21:00 Ordered 25 mg PO BID Ondansetron [Zofran ODT] Med 08/05/18 15:32 Ordered 8 mg PO Q6H PRN Rosuvastatin [Crestor] Med 08/06/18 09:00 Ordered 10 mg PO DAILY Sodium Chloride 0.9% [Normal Saline] 1,000 ml Med 08/05/18 12:45 Active IV ONETIME Sodium Chloride 0.9% [Saline Flush] Med 08/05/18 12:32 Active 10 ml FLUSH ASDIRECTED PRN Sodium Chloride 0.9% [Saline Flush] Med 08/05/18 15:32 Ordered 10 ml FLUSH ASDIRECTED PRN Sulfamethoxazole/Trimethoprim [Septra DS] Med 08/05/18 16:00 Ordered 1 tab PO BID Zolpidem [Ambien] Med 08/05/18 15:32 Ordered 5 mg PO BEDTIME PRN cefTRIAXone [Rocephin] 1 gm Med 08/05/18 16:00 Ordered Sodium Chloride 0.9% [Normal Saline] 100 ml IV Q24H Glucose Management Sub Q Reflex [OM.PC] Click To Edit Oth 08/05/18 15:32 Ordered May Take Own Home Medications [OM.PC] Routine Oth 08/05/18 15:44 Ordered Peripheral IV Insertion Adult [OM.PC] Stat Oth 08/05/18 12:32 Ordered Resuscitation Status Routine Resus Stat 08/05/18 15:32 Ordered Medication Orders Acetaminophen (Tylenol) 650 mg PO Q4H PRN PRN Reason: Pain (Mild 1-3)/fever Aspirin (Halfprin) 81 mg PO DAILY ISAAK Enoxaparin Sodium (Lovenox) 30 mg SUBCUT Q24H ISAAK Furosemide (Lasix) 40 mg PO DAILY ISAAK Sodium Chloride (Normal Saline) 1,000 mls @ 999 mls/hr IV ONETIME ISAAK Last Admin: 08/05/18 12:58 Dose: 999 mls/hr Dextrose/Sodium Chloride (Dextrose 5%-1/2 Ns) 1,000 mls @ 125 mls/hr IV ASDIRECTED ISAAK Ceftriaxone Sodium 1 gm/ (Sodium Chloride) 100 mls @ 200 mls/hr IV Q24H ISAAK Ibuprofen (Motrin) 400 mg PO Q6H PRN PRN Reason: Pain (mild 1-3) Lorazepam (Ativan) 1 mg IV Q6H PRN PRN Reason: Nausea/Vomiting Metoprolol Tartrate (Lopressor) 25 mg PO BID [facility]1983 Non-Formulary Medication (Ferrous Sulfate [High Potency Iron]) 1 tab PO DAILY [facility]1983 Non-Formulary Medication (Irbesartan [Irbesartan]) 150 mg PO DAILY [facility]1983 Non-Formulary Medication (L.Acidoph,Paracasei, B.Lactis [Probiotic]) 1 cap PO DAILY [facility]1983 Ondansetron HCl (Zofran Odt) 8 mg PO Q6H PRN PRN Reason: Nausea/Vomiting Rosuvastatin Calcium (Crestor) 10 mg PO DAILY [facility]1983 Sodium Chloride (Saline Flush) 10 ml FLUSH ASDIRECTED PRN PRN Reason: Keep Vein Open Last Admin: 08/05/18 12:43 Dose: 10 ml Sodium Chloride (Saline Flush) 10 ml FLUSH ASDIRECTED PRN PRN Reason: Keep Vein Open Trimethoprim/Sulfamethoxazole (Septra Ds) 1 tab PO BID [facility]1983 Zolpidem Tartrate (Ambien) 5 mg PO BEDTIME PRN PRN Reason: Sleep recheck bs and b.p tonight and hydrate as appears weak and intravasc volume depleted . hyponatremai related to lasix and uti ? pylonephritis . hyponatremia related to lasix / rehydrate and reassess
[2018-08-05] MEDS ORDERED: Glucose Gel 15 GM in 37.5 GM Tube PO PRN (16:36)
[2018-08-05] MEDS: Potassium Chloride 20 MEQ Tab.ER PO SCH ×2 (16:50→20:55)
[2018-08-05] MEDS: Sulfamethoxazole/Trimethoprim 800-160 MG Tab PO SCH ×2 (16:50→20:57)
[2018-08-05] MEDS: Acetaminophen 325 MG Tab PO PRN ×2 (16:50→23:20)
[2018-08-05] MEDS: Sodium Chloride 0.9% 1,000 ML IV SCH (16:51)
[2018-08-05] MEDS: Fish Oil/Omega-3 Fatty Acids 1 Gm Cap PO SCH (20:56)
[2018-08-05] MEDS: Metoprolol Tartrate 25 MG Tab PO SCH (20:57)
[2018-08-05] MEDS: Insulin Lispro 100 Units/ML 3 ML Vial SUBCUT SCH (21:01)
[2018-08-06] MEDS: Sodium Chloride 0.9% 1,000 ML IV SCH (02:00)
[2018-08-06] MEDS: Acetaminophen 325 MG Tab PO PRN ×2 (07:03→12:01)
[2018-08-06] MEDS: Insulin Lispro 100 Units/ML 3 ML Vial SUBCUT SCH ×4 (07:45→21:07)
[2018-08-06] MEDS: Iron Polysaccharides Complex 150 MG Cap PO SCH (08:15)
[2018-08-06] MEDS: Furosemide 40 MG Tab PO SCH (08:15)
[2018-08-06] MEDS: Fish Oil/Omega-3 Fatty Acids 1 Gm Cap PO SCH ×2 (08:15→21:05)
[2018-08-06] MEDS: Rosuvastatin 10 MG Tab PO SCH (08:15)
[2018-08-06] MEDS: Losartan 25 MG Tab PO SCH (08:15)
[2018-08-06] MEDS: Potassium Chloride 20 MEQ Tab.ER PO SCH ×2 (08:16→21:05)
[2018-08-06] MEDS: Metoprolol Tartrate 25 MG Tab PO SCH ×2 (08:16→21:06)
[2018-08-06] MEDS: Cholecalciferol (Vitamin D3) 5,000 UNIT Tab PO SCH (08:16)
[2018-08-06] MEDS: Aspirin 81 MG Tab.EC PO SCH (08:16)
[2018-08-06] MEDS: Sulfamethoxazole/Trimethoprim 800-160 MG Tab PO SCH (08:16)
[2018-08-06] MEDS: Magnesium Oxide 400 MG Tab PO SCH (08:16)
[2018-08-06] MEDS: Cyanocobalamin (Vitamin B12) 1,000 MCG Tab PO SCH (08:17)
[2018-08-06] MEDS ORDERED: POLYSACCHARIDE IRON COMPLEX 150 MG PO SCH (09:00)
--- NOTE | 2018-08-06 11:30 | PCM.PN ---
- General Info Date of Service: 08/06/18 Admission Dx/Problem (Free Text): Admission Diagnosis/Problem Admission Diagnosis/Problem Pyelonephritis Functional Status: Reports: Pain Controlled, Tolerating Diet, Ambulating, Urinating. Denies: New Symptoms - Review of Systems General: Reports: Weakness (chornic), Night Sweats. Denies: Fever, Fatigue, Chills HEENT: Reports: No Symptoms. Denies: Headaches, Sore Throat Pulmonary: Reports: No Symptoms. Denies: Shortness of Breath, Cough, Sputum, Wheezing Cardiovascular: Reports: Edema (chronic ). Denies: Chest Pain, Palpitations, Dyspnea on Exertion Gastrointestinal: Reports: No Symptoms. Denies: Abdominal Pain, Constipation, Diarrhea, Nausea, Vomiting Genitourinary: Reports: Frequency, Other (Reports feeling of "lightning" in her hands when urinating for past several days.) Musculoskeletal: Reports: No Symptoms Skin: Reports: No Symptoms Neurological: Reports: No Symptoms. Denies: Confusion, Pre-Existing Deficit Psychiatric: Reports: No Symptoms - Patient Data Vitals - Most Recent: Last Vital Signs Temp 99.1 F 08/06/18 08:09 Pulse 89 08/06/18 08:16 Resp 20 08/06/18 08:09 BP 140/60 08/06/18 08:16 Pulse Ox 92 L 08/06/18 08:09 Weight - Most Recent: 214 lb 14.4 oz I&O - Last 24 Hours: Intake & Output 08/05/18 08/06/18 08/06/18 22:59 06:59 14:59 Intake Total 120 2575 360 Output Total 1300 Balance 120 1275 360 Lab Results Last 24 Hours: Laboratory Results - last 24 hr 08/05/18 08/05/18 08/05/18 Range/Units 12:42 12:43 12:43 WBC 14.51 H (3.98-10.04) K/mm3 RBC 3.88 L (3.98-5.22) M/mm3 Hgb 10.6 L (11.2-15.7) gm/L Hct 32.5 L (34.1-44.9) % MCV 83.8 (79.4-94.8) fl MCH 27.3 (25.6-32.2) pg MCHC 32.6 (32.2-35.5) g/dl RDW Std Deviation 54.4 H (36.4-46.3) fL Plt Count 287 (182-369) K/mm3 MPV 9.3 L (9.4-12.3) fl Neutrophils % (Manual) 90 H (40-60) % Band Neutrophils % 1 (0-10) % Lymphocytes % (Manual) 2 L (20-40) % Atypical Lymphs % 0 % Monocytes % (Manual) 7 (2-10) % Eosinophils % (Manual) 0 L (0.7-5.8) % Basophils % (Manual) 0 L (0.1-1.2) Metamyelocytes % 0 Blast Cells % 0 Plasma Cell % (Manual) 0 Nucleated RBCs 0.0 % Platelet Estimate Adequate RBC Morph Comment Normal Sodium (136-145) mEq/L Potassium (3.5-5.1) mEq/L Chloride (98-107) mEq/L Carbon Dioxide (21-32) mEq/L Anion Gap (5-15) BUN (7-18) mg/dL Creatinine (0.55-1.02) mg/dL Est Cr Clr Drug Dosing mL/min Estimated GFR (MDRD) (>60) mL/min BUN/Creatinine Ratio (14-18) Glucose (83-115) mg/dL POC Glucose (83-110) mg/dL Hemoglobin A1c (4.50-6.20) % Lactic Acid (0.4-2.0) mmol/L Calcium (8.5-10.1) mg/dL Iron (50-170) ug/dL Total Bilirubin (0.2-1.0) mg/dL AST (15-37) U/L ALT (14-59) U/L Alkaline Phosphatase (46-116) U/L Troponin I (0.00-0.056) ng/mL C-Reactive Protein 33.1 H* (<1.0) mg/dL Total Protein (6.4-8.2) g/dl Albumin (3.4-5.0) g/dl Globulin gm/dL Albumin/Globulin Ratio (1-2) Vitamin B12 (193-986) pg/ml Folate (8.6-58.9) ng/mL TSH 3rd Generation (0.358-3.74) uIU/mL Urine Color Yellow (Yellow) Urine Appearance Slt cloudy H (Clear) Urine pH 5.5 (5.0-8.0) Ur Specific [place] > or = 1.030 (1.005-1.030) Urine Protein 3+ H (Negative) Urine Glucose (UA) Negative (Negative) Urine Ketones Negative (Negative) Urine Occult Blood 2+ H (Negative) Urine Nitrite Negative (Negative) Urine Bilirubin Negative (Negative) Urine Urobilinogen 0.2 (0.2-1.0) Ur Leukocyte Esterase 3+ H (Negative) Urine RBC 10-20 H (0-5) /hpf Urine WBC 75-100 H (0-5) /hpf Ur Squamous Epith Cells 10-20 H (0-5) /hpf Urine Bacteria Moderate H (FEW) /hpf Urine Mucus Few (FEW) /hpf 08/05/18 08/05/18 08/05/18 Range/Units 12:43 12:43 16:20 WBC (3.98-10.04) K/mm3 RBC (3.98-5.22) M/mm3 Hgb (11.2-15.7) gm/L Hct (34.1-44.9) % MCV (79.4-94.8) fl MCH (25.6-32.2) pg MCHC (32.2-35.5) g/dl RDW Std Deviation (36.4-46.3) fL Plt Count (182-369) K/mm3 MPV (9.4-12.3) fl Neutrophils % (Manual) (40-60) % Band Neutrophils % (0-10) % Lymphocytes % (Manual) (20-40) % Atypical Lymphs % % Monocytes % (Manual) (2-10) % Eosinophils % (Manual) (0.7-5.8) % Basophils % (Manual) (0.1-1.2) Metamyelocytes % Blast Cells % Plasma Cell % (Manual) Nucleated RBCs % Platelet Estimate RBC Morph Comment Sodium 130 L D (136-145) mEq/L Potassium 3.7 (3.5-5.1) mEq/L Chloride 95 L (98-107) mEq/L Carbon Dioxide 24 (21-32) mEq/L Anion Gap 14.7 (5-15) BUN 35 H (7-18) mg/dL Creatinine 2.0 H D (0.55-1.02) mg/dL Est Cr Clr Drug Dosing 25.40 mL/min Estimated GFR (MDRD) 24 (>60) mL/min BUN/Creatinine Ratio 17.5 (14-18) Glucose 196 H (83-115) mg/dL POC Glucose (83-110) mg/dL Hemoglobin A1c 6.00 (4.50-6.20) % Lactic Acid (0.4-2.0) mmol/L Calcium 8.9 (8.5-10.1) mg/dL Iron 11 L (50-170) ug/dL Total Bilirubin 0.7 (0.2-1.0) mg/dL AST 23 (15-37) U/L ALT 22 (14-59) U/L Alkaline Phosphatase 84 (46-116) U/L Troponin I < 0.017 (0.00-0.056) ng/mL C-Reactive Protein (<1.0) mg/dL Total Protein 6.7 (6.4-8.2) g/dl Albumin 2.5 L (3.4-5.0) g/dl Globulin 4.2 gm/dL Albumin/Globulin Ratio 0.6 L (1-2) Vitamin B12 1219 H (193-986) pg/ml Folate (8.6-58.9) ng/mL TSH 3rd Generation (0.358-3.74) uIU/mL Urine Color (Yellow) Urine Appearance (Clear) Urine pH (5.0-8.0) Ur Specific [place] (1.005-1.030) Urine Protein (Negative) Urine Glucose (UA) (Negative) Urine Ketones (Negative) Urine Occult Blood (Negative) Urine Nitrite (Negative) Urine Bilirubin (Negative) Urine Urobilinogen (0.2-1.0) Ur Leukocyte Esterase (Negative) Urine RBC (0-5) /hpf Urine WBC (0-5) /hpf Ur Squamous Epith Cells (0-5) /hpf Urine Bacteria (FEW) /hpf Urine Mucus (FEW) /hpf 08/05/18 08/05/18 08/05/18 Range/Units 16:20 16:20 16:20 WBC (3.98-10.04) K/mm3 RBC (3.98-5.22) M/mm3 Hgb (11.2-15.7) gm/L Hct (34.1-44.9) % MCV (79.4-94.8) fl MCH (25.6-32.2) pg MCHC (32.2-35.5) g/dl RDW Std Deviation (36.4-46.3) fL Plt Count (182-369) K/mm3 MPV (9.4-12.3) fl Neutrophils % (Manual) (40-60) % Band Neutrophils % (0-10) % Lymphocytes % (Manual) (20-40) % Atypical Lymphs % % Monocytes % (Manual) (2-10) % Eosinophils % (Manual) (0.7-5.8) % Basophils % (Manual) (0.1-1.2) Metamyelocytes % Blast Cells % Plasma Cell % (Manual) Nucleated RBCs % Platelet Estimate RBC Morph Comment Sodium (136-145) mEq/L Potassium (3.5-5.1) mEq/L Chloride (98-107) mEq/L Carbon Dioxide (21-32) mEq/L Anion Gap (5-15) BUN (7-18) mg/dL Creatinine (0.55-1.02) mg/dL Est Cr Clr Drug Dosing mL/min Estimated GFR (MDRD) (>60) mL/min BUN/Creatinine Ratio (14-18) Glucose (83-115) mg/dL POC Glucose (83-110) mg/dL Hemoglobin A1c (4.50-6.20) % Lactic Acid 1.1 (0.4-2.0) mmol/L Calcium (8.5-10.1) mg/dL Iron (50-170) ug/dL Total Bilirubin (0.2-1.0) mg/dL AST (15-37) U/L ALT (14-59) U/L Alkaline Phosphatase (46-116) U/L Troponin I (0.00-0.056) ng/mL C-Reactive Protein (<1.0) mg/dL Total Protein (6.4-8.2) g/dl Albumin (3.4-5.0) g/dl Globulin gm/dL Albumin/Globulin Ratio (1-2) Vitamin B12 (193-986) pg/ml Folate 57.9 (8.6-58.9) ng/mL TSH 3rd Generation 1.132 (0.358-3.74) uIU/mL Urine Color (Yellow) Urine Appearance (Clear) Urine pH (5.0-8.0) Ur Specific [place] (1.005-1.030) Urine Protein (Negative) Urine Glucose (UA) (Negative) Urine Ketones (Negative) Urine Occult Blood (Negative) Urine Nitrite (Negative) Urine Bilirubin (Negative) Urine Urobilinogen (0.2-1.0) Ur Leukocyte Esterase (Negative) Urine RBC (0-5) /hpf Urine WBC (0-5) /hpf Ur Squamous Epith Cells (0-5) /hpf Urine Bacteria (FEW) /hpf Urine Mucus (FEW) /hpf 08/05/18 08/05/18 08/06/18 Range/Units 16:55 20:51 04:59 WBC (3.98-10.04) K/mm3 RBC (3.98-5.22) M/mm3 Hgb (11.2-15.7) gm/L Hct (34.1-44.9) % MCV (79.4-94.8) fl MCH (25.6-32.2) pg MCHC (32.2-35.5) g/dl RDW Std Deviation (36.4-46.3) fL Plt Count (182-369) K/mm3 MPV (9.4-12.3) fl Neutrophils % (Manual) (40-60) % Band Neutrophils % (0-10) % Lymphocytes % (Manual) (20-40) % Atypical Lymphs % % Monocytes % (Manual) (2-10) % Eosinophils % (Manual) (0.7-5.8) % Basophils % (Manual) (0.1-1.2) Metamyelocytes % Blast Cells % Plasma Cell % (Manual) Nucleated RBCs % Platelet Estimate RBC Morph Comment Sodium 137 (136-145) mEq/L Potassium 4.0 (3.5-5.1) mEq/L Chloride 103 (98-107) mEq/L Carbon Dioxide 23 (21-32) mEq/L Anion Gap 15.0 (5-15) BUN 28 H (7-18) mg/dL Creatinine 1.4 H (0.55-1.02) mg/dL Est Cr Clr Drug Dosing 31.24 mL/min Estimated GFR (MDRD) 37 (>60) mL/min BUN/Creatinine Ratio 20.0 H (14-18) Glucose 107 (83-115) mg/dL POC Glucose 132 H 119 H (83-110) mg/dL Hemoglobin A1c (4.50-6.20) % Lactic Acid (0.4-2.0) mmol/L Calcium 8.9 (8.5-10.1) mg/dL Iron (50-170) ug/dL Total Bilirubin 0.4 (0.2-1.0) mg/dL AST 41 H (15-37) U/L ALT 35 (14-59) U/L Alkaline Phosphatase 86 (46-116) U/L Troponin I (0.00-0.056) ng/mL C-Reactive Protein 31.7 H* (<1.0) mg/dL Total Protein 6.8 (6.4-8.2) g/dl Albumin 2.4 L (3.4-5.0) g/dl Globulin 4.4 gm/dL Albumin/Globulin Ratio 0.6 L (1-2) Vitamin B12 (193-986) pg/ml Folate (8.6-58.9) ng/mL TSH 3rd Generation (0.358-3.74) uIU/mL Urine Color (Yellow) Urine Appearance (Clear) Urine pH (5.0-8.0) Ur Specific [place] (1.005-1.030) Urine Protein (Negative) Urine Glucose (UA) (Negative) Urine Ketones (Negative) Urine Occult Blood (Negative) Urine Nitrite (Negative) Urine Bilirubin (Negative) Urine Urobilinogen (0.2-1.0) Ur Leukocyte Esterase (Negative) Urine RBC (0-5) /hpf Urine WBC (0-5) /hpf Ur Squamous Epith Cells (0-5) /hpf Urine Bacteria (FEW) /hpf Urine Mucus (FEW) /hpf 08/06/18 08/06/18 Range/Units 06:36 11:04 WBC (3.98-10.04) K/mm3 RBC (3.98-5.22) M/mm3 Hgb (11.2-15.7) gm/L Hct (34.1-44.9) % MCV (79.4-94.8) fl MCH (25.6-32.2) pg MCHC (32.2-35.5) g/dl RDW Std Deviation (36.4-46.3) fL Plt Count (182-369) K/mm3 MPV (9.4-12.3) fl Neutrophils % (Manual) (40-60) % Band Neutrophils % (0-10) % Lymphocytes % (Manual) (20-40) % Atypical Lymphs % % Monocytes % (Manual) (2-10) % Eosinophils % (Manual) (0.7-5.8) % Basophils % (Manual) (0.1-1.2) Metamyelocytes % Blast Cells % Plasma Cell % (Manual) Nucleated RBCs % Platelet Estimate RBC Morph Comment Sodium (136-145) mEq/L Potassium (3.5-5.1) mEq/L Chloride (98-107) mEq/L Carbon Dioxide (21-32) mEq/L Anion Gap (5-15) BUN (7-18) mg/dL Creatinine (0.55-1.02) mg/dL Est Cr Clr Drug Dosing mL/min Estimated GFR (MDRD) (>60) mL/min BUN/Creatinine Ratio (14-18) Glucose (83-115) mg/dL POC Glucose 103 131 H (83-110) mg/dL Hemoglobin A1c (4.50-6.20) % Lactic Acid (0.4-2.0) mmol/L Calcium (8.5-10.1) mg/dL Iron (50-170) ug/dL Total Bilirubin (0.2-1.0) mg/dL AST (15-37) U/L ALT (14-59) U/L Alkaline Phosphatase (46-116) U/L Troponin I (0.00-0.056) ng/mL C-Reactive Protein (<1.0) mg/dL Total Protein (6.4-8.2) g/dl Albumin (3.4-5.0) g/dl Globulin gm/dL Albumin/Globulin Ratio (1-2) Vitamin B12 (193-986) pg/ml Folate (8.6-58.9) ng/mL TSH 3rd Generation (0.358-3.74) uIU/mL Urine Color (Yellow) Urine Appearance (Clear) Urine pH (5.0-8.0) Ur Specific [place] (1.005-1.030) Urine Protein (Negative) Urine Glucose (UA) (Negative) Urine Ketones (Negative) Urine Occult Blood (Negative) Urine Nitrite (Negative) Urine Bilirubin (Negative) Urine Urobilinogen (0.2-1.0) Ur Leukocyte Esterase (Negative) Urine RBC (0-5) /hpf Urine WBC (0-5) /hpf Ur Squamous Epith Cells (0-5) /hpf Urine Bacteria (FEW) /hpf Urine Mucus (FEW) /hpf Jose Miguel Results Last 24 Hours: Microbiology 08/05/18 12:43 Anaerobic Blood Culture - Preliminary Blood Gram Negative Rods Med Orders - Current: Current Medications Acetaminophen (Tylenol) 650 mg PO Q4H PRN PRN Reason: Pain (Mild 1-3)/fever Last Admin: 08/06/18 07:03 Dose: 650 mg Aspirin (Halfprin) 81 mg PO DAILY [facility] Last Admin: 08/06/18 08:16 Dose: 81 mg Cholecalciferol (Vitamin D3) 5,000 unit PO DAILY [facility] Last Admin: 08/06/18 08:16 Dose: 5,000 unit Cyanocobalamin (Vitamin B12) 1,500 mcg PO DAILY [facility] Last Admin: 08/06/18 08:17 Dose: 1,500 mcg Dextrose (Glutose 15) 15 gm PO Q24H PRN PRN Reason: Hypoglycemia Fish Oil (Fish Oil) 1 gm PO BID [facility] Last Admin: 08/06/18 08:15 Dose: 1 gm Furosemide (Lasix) 40 mg PO DAILY [facility] Last Admin: 08/06/18 08:15 Dose: 40 mg Sodium Chloride (Normal Saline) 1,000 mls @ 125 mls/hr IV ASDIRECTED [facility] Last Admin: 08/06/18 02:00 Dose: 125 mls/hr Ferric Sodium Gluconate Complex 250 mg/ Sodium Chloride 120 mls @ 60 mls/hr IV ONETIME ONE Stop: 08/06/18 13:29 Piperacillin Sod/Tazobactam (Sod 4.5 gm/ Sodium Chloride) 100 mls @ 25 mls/hr IV Q8H ISAAK Piperacillin Sod/Tazobactam (Sod 4.5 gm/ Sodium Chloride) 100 mls @ 200 mls/hr IV ONETIME ONE Stop: 08/06/18 12:29 Ibuprofen (Motrin) 400 mg PO Q6H PRN PRN Reason: Pain (mild 1-3) Insulin Human Lispro (Humalog) 0 unit SUBCUT QIDACANDBED [facility]; Protocol Last Admin: 08/06/18 07:45 Dose: Not Given Losartan Potassium (Cozaar) 50 mg PO DAILY [facility] Last Admin: 08/06/18 08:15 Dose: 50 mg Magnesium Oxide (Magnesium Oxide) 400 mg PO DAILY [facility] Last Admin: 08/06/18 08:16 Dose: 400 mg Metoprolol Tartrate (Lopressor) 25 mg PO BID [facility] Last Admin: 08/06/18 08:16 Dose: 25 mg Non-Formulary Medication (L.Acidoph,Paracasei, B.Lactis [Probiotic]) 1 cap PO DAILY [facility] Non-Formulary Medication (Biotin [Biotin]) 1 mg PO DAILY [facility] Non-Formulary Medication (Calcium Carb & Citrate/Vit D3 [Calcium + D3 Er Tablet] ) 1 tab PO DAILY [facility] Non-Formulary Medication (Glucosamine Hcl [Glucosamine]) 3,000 mg PO DAILY [facility] Ondansetron HCl (Zofran Odt) 8 mg PO Q6H PRN PRN Reason: Nausea/Vomiting Polysaccharide Iron Complex (Ferrex 150) 150 mg PO DAILY [facility] Last Admin: 08/06/18 08:15 Dose: 150 mg Potassium Chloride (Klor-Con M20) 20 meq PO BID [facility] Last Admin: 08/06/18 08:16 Dose: 20 meq Rosuvastatin Calcium (Crestor) 10 mg PO DAILY [facility] Last Admin: 08/06/18 08:15 Dose: 10 mg Sodium Chloride (Saline Flush) 10 ml FLUSH ASDIRECTED PRN PRN Reason: Keep Vein Open Last Admin: 08/05/18 12:43 Dose: 10 ml Sodium Chloride (Saline Flush) 10 ml FLUSH ASDIRECTED PRN PRN Reason: Keep Vein Open Zolpidem Tartrate (Ambien) 5 mg PO BEDTIME PRN PRN Reason: Sleep Discontinued Medications Dextrose (Glutose 15) 15 gm PO ONETIME ONE Stop: 08/05/18 15:33 Last Admin: 08/05/18 17:44 Dose: Not Given Enoxaparin Sodium (Lovenox) 30 mg SUBCUT Q24H [facility] Last Admin: 08/05/18 16:51 Dose: 30 mg Enoxaparin Sodium (Lovenox) 40 mg SUBCUT Q24H [facility] Sodium Chloride (Normal Saline) 1,000 mls @ 999 mls/hr IV ONETIME [facility] Last Admin: 08/05/18 12:58 Dose: 999 mls/hr Ceftriaxone Sodium 1 gm/ (Sodium Chloride) 100 mls @ 200 mls/hr IV ONETIME ONE Stop: 08/05/18 13:38 Last Admin: 08/05/18 13:40 Dose: 200 mls/hr Dextrose/Sodium Chloride (Dextrose 5%-1/2 Ns) 1,000 mls @ 125 mls/hr IV ASDIRECTED [facility] Ceftriaxone Sodium 1 gm/ (Sodium Chloride) 100 mls @ 200 mls/hr IV Q24H ISAAK Sodium Chloride (Normal Saline) 1,000 mls @ 200 mls/hr IV ASDIRECTED ISAAK Lorazepam (Ativan) 1 mg IV ONETIME ONE Stop: 08/05/18 15:33 Last Admin: 08/05/18 17:44 Dose: Not Given Lorazepam (Ativan) 1 mg IV Q6H PRN PRN Reason: Nausea/Vomiting Iron Polysac 150 Mg 150 each PO DAILY [facility] Trimethoprim/Sulfamethoxazole (Septra Ds) 1 tab PO BID [facility] Last Admin: 08/06/18 08:16 Dose: 1 tab - Exam Quality Assessment: DVT Prophylaxis General: Alert, Oriented, Cooperative, No Acute Distress HEENT: Pupils Equal, Pupils Reactive, Mucous Membr. Moist/[place] Neck: Supple, Trachea Midline Lungs: Clear to Auscultation, Normal Respiratory Effort Cardiovascular: Regular Rate, Regular Rhythm GI/Abdominal Exam: Normal Bowel Sounds, Soft, Non-Tender, No Distention, No Abnormal Bruit, No Mass, Pelvis Stable (Female) Exam: Deferred Back Exam: Normal Inspection Extremities: Normal Inspection, Normal Range of Motion, Non-Tender, Normal Capillary Refill, Pedal Edema (trace) Peripheral Pulses: 2+: Radial (L), Radial (R), Dorsalis Pedis (L), Dorsalis Pedis (R) Skin: Warm, Dry, Intact Neurological: No New Focal Deficit Psy/Mental Status: Alert, Normal Affect, Normal Mood - Problem List & Annotations (1) Bacteremia SNOMED Code(s): 9209786 Code(s): R78.81 - BACTEREMIA Status: Acute Priority: High Current Visit : Yes (2) Hypokalemia, excessive renal losses SNOMED Code(s): 44926884 Code(s): E87.6 - HYPOKALEMIA Status: Resolved Current Visit: Yes Onset Date: 08/05/18 (3) Hyponatremia SNOMED Code(s): 71944217 Code(s): E87.1 - HYPO-OSMOLALITY AND HYPONATREMIA Status: Resolved Priority: Medium Current Visit: Yes Onset Date: 08/05/18 (4) Hypotension SNOMED Code(s): 83126418 Code(s): I95.9 - HYPOTENSION, UNSPECIFIED Status: Resolved Priority: Medium Current Visit: Yes Onset Date: 08/05/18 Qualifiers: Hypotension type: unspecified hypotension type Qualified Code(s): I95.9 - Hypotension, unspecified (5) Pyelonephritis SNOMED Code(s): 91789110 Code(s): N12 - TUBULO-INTERSTITIAL NEPHRITIS, NOT SPCF ACUTE OR CHRONIC Status: Acute Priority: High Current Visit: Yes Onset Date: 08/05/18 (6) Weakness SNOMED Code(s): 88263245 Code(s): R53.1 - WEAKNESS Status: Acute Priority: Medium Current Visit : Yes Onset Date: 08/05/18 (7) Acute renal injury SNOMED Code(s): 30980195, 23785830 Code(s): N17.9 - ACUTE KIDNEY FAILURE, UNSPECIFIED Status: Acute Priority : High Current Visit: Yes (8) Iron deficiency anemia SNOMED Code(s): 69955787 Code(s): D50.9 - IRON DEFICIENCY ANEMIA, UNSPECIFIED Status: Acute Priority: High Current Visit: Yes Qualifiers: Iron deficiency anemia type: unspecified iron deficiency Qualified Code(s) : D50.9 - Iron deficiency anemia, unspecified - Problem List Review Problem List Initiated/Reviewed/Updated: Yes - My Orders Last 24 Hours: My Active Orders 08/06/18 10:33 Antiembolic Devices [RC] PER UNIT ROUTINE JERI Hose [Antiembolic Hose] [OM.PC] Routine 08/06/18 11:21 Ambulate [RC] PER UNIT ROUTINE 08/06/18 11:30 Piperacillin/Tazobactam [Piperacil-Tazobact] 4.5 gm Sodium Chloride 0.9% [ Normal Saline] 100 ml IV Q8H Sodium Ferric Gluconat/Sucrose [Sodium Ferric Gluc Cplx 62.5 MG/5 ML] 250 mg Sodium Chloride 0.9% [Normal Saline] 100 ml IV ONETIME 08/06/18 12:00 Piperacillin/Tazobactam [Piperacil-Tazobact] 4.5 gm Sodium Chloride 0.9% [ Normal Saline] 100 ml IV ONETIME 08/07/18 05:11 BASIC METABOLIC PANEL,BMP [CHEM] AM CBC WITH AUTO DIFF [HEME] AM CRP [C-REACTIVE PROTEIN] [CHEM] AM MAGNESIUM [CHEM] AM 08/08/18 05:11 BASIC METABOLIC PANEL,BMP [CHEM] AM CBC WITH AUTO DIFF [HEME] AM CRP [C-REACTIVE PROTEIN] [CHEM] AM MAGNESIUM [CHEM] AM 08/09/18 05:11 BASIC METABOLIC PANEL,BMP [CHEM] AM CBC WITH AUTO DIFF [HEME] AM CRP [C-REACTIVE PROTEIN] [CHEM] AM MAGNESIUM [CHEM] AM 08/10/18 05:11 BASIC METABOLIC PANEL,BMP [CHEM] AM CBC WITH AUTO DIFF [HEME] AM CRP [C-REACTIVE PROTEIN] [CHEM] AM MAGNESIUM [CHEM] AM - Plan Plan:: I/P: Acute: Bacteremia 2/2 UTI -Reported chills, weakness, night sweats, voiding frequency, dry mouth for 3 days prior to arrival in ED -UA in ED: Cloudy, concentrated, 3+ Protein, 2+ occult blood, 3+ leukocyte esterase, 10-20 RBC, 75-100 WBC, 10-20 squamous cell, moderate bacteria -Per ED report - UA grossly purulent -Appears contaminated however positive bacteremia -At this point she has received several doses of ABX so repeat urine culture not indicated -Urine culture pending -Positive blood cultures - Gram negative rods thus far -IV fluid bolus given in ED -IV fluids as ordered -1gm Rocephin given in ED and on floor - discontinue -PO Septra started on floor - discontinue -Zosyn started with positive blood cultures -WBC 14.51-->14.11 -CRP 33.1-->31.7 -Lactic acid 1.1 -Renal injury as below Acute renal injury, improving -BUN 35--> -Creatinine 2.0-->1.4 -eGFR 24-->37 -Baseline creatinine appears to be less than 1.0 -IV fluids as ordered -Avoid nephrotoxic medications BEKA -Acute on chronic -Iron 11 -On supplementation -Iron infusion ordered at recommendation of Dr. 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
[2018-08-06] MEDS ORDERED: Piperacillin/Tazobactam 4.5 GM in Sodium Chloride 0.9% 100 ML IV ONE (12:00)
[2018-08-06] MEDS ORDERED: cefTRIAXone 1 GM in Sodium Chloride 0.9% 100 ML IV SCH (13:00)
[2018-08-06] MEDS: Ibuprofen 400 MG Tab PO PRN (16:51)
[2018-08-06] MEDS ORDERED: Enoxaparin 40 MG/0.4 ML Syringe SUBCUT SCH (17:00)
[2018-08-06] MEDS: Piperacillin/Tazobactam 4.5 GM in Sodium Chloride 0.9% 100 ML IV SCH (21:05)
[2018-08-06] MEDS: Zolpidem 5 MG Tab PO PRN (21:06)
[2018-08-07] MEDS: Piperacillin/Tazobactam 4.5 GM in Sodium Chloride 0.9% 100 ML IV SCH ×3 (04:34→20:53)
[2018-08-07] MEDS: Insulin Lispro 100 Units/ML 3 ML Vial SUBCUT SCH ×4 (07:52→22:15)
[2018-08-07] MEDS: Potassium Chloride 20 MEQ Tab.ER PO SCH ×2 (09:03→20:54)
[2018-08-07] MEDS: Magnesium Oxide 400 MG Tab PO SCH (09:04)
[2018-08-07] MEDS: Fish Oil/Omega-3 Fatty Acids 1 Gm Cap PO SCH ×2 (09:04→20:54)
[2018-08-07] MEDS: Ibuprofen 400 MG Tab PO PRN ×2 (09:05→22:16)
[2018-08-07] MEDS: Losartan 25 MG Tab PO SCH (09:06)
[2018-08-07] MEDS: Rosuvastatin 10 MG Tab PO SCH (09:07)
[2018-08-07] MEDS: Iron Polysaccharides Complex 150 MG Cap PO SCH (09:08)
[2018-08-07] MEDS: Cyanocobalamin (Vitamin B12) 1,000 MCG Tab PO SCH (09:09)
[2018-08-07] MEDS: Cholecalciferol (Vitamin D3) 5,000 UNIT Tab PO SCH (09:10)
[2018-08-07] MEDS: Furosemide 40 MG Tab PO SCH (09:11)
[2018-08-07] MEDS: Metoprolol Tartrate 25 MG Tab PO SCH ×2 (09:11→20:53)
[2018-08-07] MEDS: Aspirin 81 MG Tab.EC PO SCH (09:18)
[2018-08-07] MEDS: Saccharomyces Boulardii (Probiotic) 250 MG Cap PO SCH ×2 (09:21→09:22)
[2018-08-07] MEDS: GLUCOSAMINE HCL 3000 MG PO SCH ×2 (09:21→09:22)
[2018-08-07] MEDS: Non-Formulary Medication 1 Each (Biotin [Biotin] 1 MG) PO SCH (09:22)
[2018-08-07] MEDS: Calcium Carbonate/Vitamin D3 600 MG-200 Units Tab PO SCH (09:24)
--- NOTE | 2018-08-07 11:07 | CR ---
Chest: Portable view of the chest was obtained. Comparison: Prior chest x-ray of 05/30/18. Heart size is normal. Upper mediastinum is within normal limits for portable technique. Lung markings are mildly increased which appear chronic. No acute parenchymal change is identified. Bony structure shows degenerative endplate spurring within the spine with mild degenerative change also noted within the left shoulder. Impression: 1. Findings which are most likely incidental as noted above. Nothing acute is suspected. Diagnostic code #2
--- NOTE | 2018-08-07 12:11 | PCM.PN ---
- General Info Date of Service: 08/07/18 Admission Dx/Problem (Free Text): Admission Diagnosis/Problem Admission Diagnosis/Problem Pyelonephritis Subjective Update: patient did well overnight. Afebrile. She does state that after her walk this morning she does feel weak. Blood cultures were positive for anaerobic gram- negative rods and urine cultures were positive for gram-negative rods. Sensitivities are not back. White count inferior to protein are decreasing. Functional Status: Reports: Pain Controlled - Review of Systems General: Reports: No Symptoms. Denies: Fever HEENT: Reports: No Symptoms Pulmonary: Reports: No Symptoms. Denies: Shortness of Breath, Cough Cardiovascular: Reports: No Symptoms. Denies: Chest Pain, Dyspnea on Exertion Gastrointestinal: Reports: No Symptoms. Denies: Abdominal Pain - Patient Data Vitals - Most Recent: Last Vital Signs Temp 99.5 F 08/07/18 09:05 Pulse 75 08/07/18 09:11 Resp 18 08/07/18 04:32 BP 137/65 08/07/18 09:11 Pulse Ox 95 08/07/18 04:32 Weight - Most Recent: 216 lb 4.799 oz I&O - Last 24 Hours: Intake & Output 08/06/18 08/07/18 08/07/18 22:59 06:59 14:59 Intake Total 2470 800 300 Output Total 1650 700 Balance 820 100 300 Lab Results Last 24 Hours: Laboratory Results - last 24 hr 08/05/18 08/06/18 08/06/18 Range/Units 16:20 04:59 16:50 WBC 14.11 H (3.98-10.04) K/mm3 RBC 4.09 (3.98-5.22) M/mm3 Hgb 11.1 L (11.2-15.7) gm/L Hct 34.4 (34.1-44.9) % MCV 84.1 (79.4-94.8) fl MCH 27.1 (25.6-32.2) pg MCHC 32.3 (32.2-35.5) g/dl RDW Std Deviation 55.4 H (36.4-46.3) fL Plt Count 301 (182-369) K/mm3 MPV 10.9 (9.4-12.3) fl Neut % (Auto) 79.3 H (34.0-71.1) % Lymph % (Auto) 7.0 L (19.3-51.7) % Irion % (Auto) 12.8 H (4.7-12.5) % Eos % (Auto) 0.5 L (0.7-5.8) Baso % (Auto) 0.1 (0.1-1.2) % Neut # (Auto) 11.19 H (1.56-6.13) K/mm3 Lymph # (Auto) 0.99 L (1.18-3.74) K/mm3 Irion # (Auto) 1.80 H (0.24-0.36) K/mm3 Eos # (Auto) 0.07 (0.04-0.36) K/mm3 Baso # (Auto) 0.02 (0.01-0.08) K/mm3 Manual Slide Review Normal smear Percent Retic 0.84 (0.50-1.70) % Sodium (136-145) mEq/L Potassium (3.5-5.1) mEq/L Chloride (98-107) mEq/L Carbon Dioxide (21-32) mEq/L Anion Gap (5-15) BUN (7-18) mg/dL Creatinine (0.55-1.02) mg/dL Est Cr Clr Drug Dosing mL/min Estimated GFR (MDRD) (>60) mL/min BUN/Creatinine Ratio (14-18) Glucose (83-115) mg/dL POC Glucose 128 H (83-110) mg/dL Calcium (8.5-10.1) mg/dL Magnesium (1.8-2.4) mg/dl C-Reactive Protein (<1.0) mg/dL 08/06/18 08/07/18 08/07/18 Range/Units 20:57 04:20 04:20 WBC 10.88 H (3.98-10.04) K/mm3 RBC 3.81 L (3.98-5.22) M/mm3 Hgb 10.4 L (11.2-15.7) gm/L Hct 32.0 L (34.1-44.9) % MCV 84.0 (79.4-94.8) fl MCH 27.3 (25.6-32.2) pg MCHC 32.5 (32.2-35.5) g/dl RDW Std Deviation 56.2 H (36.4-46.3) fL Plt Count 320 (182-369) K/mm3 MPV 9.9 (9.4-12.3) fl Neut % (Auto) 76.5 H (34.0-71.1) % Lymph % (Auto) 7.8 L (19.3-51.7) % Irion % (Auto) 12.7 H (4.7-12.5) % Eos % (Auto) 2.4 (0.7-5.8) Baso % (Auto) 0.2 (0.1-1.2) % Neut # (Auto) 8.33 H (1.56-6.13) K/mm3 Lymph # (Auto) 0.85 L (1.18-3.74) K/mm3 Irion # (Auto) 1.38 H (0.24-0.36) K/mm3 Eos # (Auto) 0.26 (0.04-0.36) K/mm3 Baso # (Auto) 0.02 (0.01-0.08) K/mm3 Manual Slide Review Abnormal smear Percent Retic (0.50-1.70) % Sodium 141 (136-145) mEq/L Potassium 4.3 (3.5-5.1) mEq/L Chloride 109 H (98-107) mEq/L Carbon Dioxide 23 (21-32) mEq/L Anion Gap 13.3 (5-15) BUN 20 H (7-18) mg/dL Creatinine 1.1 H (0.55-1.02) mg/dL Est Cr Clr Drug Dosing 39.76 mL/min Estimated GFR (MDRD) 48 (>60) mL/min BUN/Creatinine Ratio 18.2 H (14-18) Glucose 102 (83-115) mg/dL POC Glucose 150 H (83-110) mg/dL Calcium 9.1 (8.5-10.1) mg/dL Magnesium 2.2 (1.8-2.4) mg/dl C-Reactive Protein 24.5 H* (<1.0) mg/dL 08/07/18 08/07/18 Range/Units 06:23 11:30 WBC (3.98-10.04) K/mm3 RBC (3.98-5.22) M/mm3 Hgb (11.2-15.7) gm/L Hct (34.1-44.9) % MCV (79.4-94.8) fl MCH (25.6-32.2) pg MCHC (32.2-35.5) g/dl RDW Std Deviation (36.4-46.3) fL Plt Count (182-369) K/mm3 MPV (9.4-12.3) fl Neut % (Auto) (34.0-71.1) % Lymph % (Auto) (19.3-51.7) % Irion % (Auto) (4.7-12.5) % Eos % (Auto) (0.7-5.8) Baso % (Auto) (0.1-1.2) % Neut # (Auto) (1.56-6.13) K/mm3 Lymph # (Auto) (1.18-3.74) K/mm3 Irion # (Auto) (0.24-0.36) K/mm3 Eos # (Auto) (0.04-0.36) K/mm3 Baso # (Auto) (0.01-0.08) K/mm3 Manual Slide Review Percent Retic (0.50-1.70) % Sodium (136-145) mEq/L Potassium (3.5-5.1) mEq/L Chloride (98-107) mEq/L Carbon Dioxide (21-32) mEq/L Anion Gap (5-15) BUN (7-18) mg/dL Creatinine (0.55-1.02) mg/dL Est Cr Clr Drug Dosing mL/min Estimated GFR (MDRD) (>60) mL/min BUN/Creatinine Ratio (14-18) Glucose (83-115) mg/dL POC Glucose 104 109 (83-110) mg/dL Calcium (8.5-10.1) mg/dL Magnesium (1.8-2.4) mg/dl C-Reactive Protein (<1.0) mg/dL Jose Miguel Results Last 24 Hours: Microbiology 08/05/18 12:42 Urine Culture - Preliminary Urine, Catheterized Gram Negative Rods 08/05/18 12:43 Aerobic Blood Culture - Preliminary Blood NO GROWTH AFTER 1 DAY Anaerobic Blood Culture - Preliminary Gram Negative Rods Med Orders - Current: Current Medications Acetaminophen (Tylenol) 650 mg PO Q4H PRN PRN Reason: Pain (Mild 1-3)/fever Last Admin: 08/06/18 12:01 Dose: 650 mg Aspirin (Halfprin) 81 mg PO DAILY [facility] Last Admin: 08/07/18 09:18 Dose: 81 mg Calcium Carbonate (Calcium Carbonate/Vitamin D 600 Mg-200 Unit) 1 tab PO DAILY [facility] Last Admin: 08/07/18 09:24 Dose: 1 tab Cholecalciferol (Vitamin D3) 5,000 unit PO DAILY [facility] Last Admin: 08/07/18 09:10 Dose: 5,000 unit Cyanocobalamin (Vitamin B12) 1,500 mcg PO DAILY [facility] Last Admin: 08/07/18 09:09 Dose: 1,500 mcg Dextrose (Glutose 15) 15 gm PO Q24H PRN PRN Reason: Hypoglycemia Fish Oil (Fish Oil) 1 gm PO BID [facility] Last Admin: 08/07/18 09:04 Dose: 1 gm Furosemide (Lasix) 40 mg PO DAILY [facility] Last Admin: 08/07/18 09:11 Dose: 40 mg Piperacillin Sod/Tazobactam (Sod 4.5 gm/ Sodium Chloride) 100 mls @ 25 mls/hr IV Q8H [facility] Last Admin: 08/07/18 04:34 Dose: 25 mls/hr Ibuprofen (Motrin) 400 mg PO Q6H PRN PRN Reason: Pain (mild 1-3) Last Admin: 08/07/18 09:05 Dose: 400 mg Insulin Human Lispro (Humalog) 0 unit SUBCUT QIDACANDBED [facility]; Protocol Last Admin: 08/07/18 07:52 Dose: Not Given Losartan Potassium (Cozaar) 50 mg PO DAILY [facility] Last Admin: 08/07/18 09:06 Dose: 50 mg Magnesium Oxide (Magnesium Oxide) 400 mg PO DAILY [facility] Last Admin: 08/07/18 09:04 Dose: 400 mg Metoprolol Tartrate (Lopressor) 25 mg PO BID [facility] Last Admin: 08/07/18 09:11 Dose: 25 mg Ondansetron HCl (Zofran Odt) 8 mg PO Q6H PRN PRN Reason: Nausea/Vomiting Polysaccharide Iron Complex (Ferrex 150) 150 mg PO DAILY [facility] Last Admin: 08/07/18 09:08 Dose: 150 mg Potassium Chloride (Klor-Con M20) 20 meq PO BID [facility] Last Admin: 08/07/18 09:03 Dose: 20 meq Rosuvastatin Calcium (Crestor) 10 mg PO DAILY [facility] Last Admin: 08/07/18 09:07 Dose: 10 mg Sodium Chloride (Saline Flush) 10 ml FLUSH ASDIRECTED PRN PRN Reason: Keep Vein Open Last Admin: 08/05/18 12:43 Dose: 10 ml Sodium Chloride (Saline Flush) 10 ml FLUSH ASDIRECTED PRN PRN Reason: Keep Vein Open Zolpidem Tartrate (Ambien) 5 mg PO BEDTIME PRN PRN Reason: Sleep Last Admin: 08/06/18 21:06 Dose: 5 mg Discontinued Medications Dextrose (Glutose 15) 15 gm PO ONETIME ONE Stop: 08/05/18 15:33 Last Admin: 08/05/18 17:44 Dose: Not Given Enoxaparin Sodium (Lovenox) 30 mg SUBCUT Q24H [facility] Last Admin: 08/05/18 16:51 Dose: 30 mg Enoxaparin Sodium (Lovenox) 40 mg SUBCUT Q24H [facility] Sodium Chloride (Normal Saline) 1,000 mls @ 999 mls/hr IV ONETIME [facility] Last Admin: 08/05/18 12:58 Dose: 999 mls/hr Ceftriaxone Sodium 1 gm/ (Sodium Chloride) 100 mls @ 200 mls/hr IV ONETIME ONE Stop: 08/05/18 13:38 Last Admin: 08/05/18 13:40 Dose: 200 mls/hr Dextrose/Sodium Chloride (Dextrose 5%-1/2 Ns) 1,000 mls @ 125 mls/hr IV ASDIRECTED [facility] Ceftriaxone Sodium 1 gm/ (Sodium Chloride) 100 mls @ 200 mls/hr IV Q24H ISAAK Sodium Chloride (Normal Saline) 1,000 mls @ 200 mls/hr IV ASDIRECTED [facility] Sodium Chloride (Normal Saline) 1,000 mls @ 125 mls/hr IV ASDIRECTED [facility] Last Admin: 08/06/18 02:00 Dose: 125 mls/hr Ferric Sodium Gluconate Complex 250 mg/ Sodium Chloride 120 mls @ 60 mls/hr IV ONETIME ONE Stop: 08/06/18 13:29 Last Admin: 08/06/18 12:00 Dose: 60 mls/hr Piperacillin Sod/Tazobactam (Sod 4.5 gm/ Sodium Chloride) 100 mls @ 200 mls/hr IV ONETIME ONE Stop: 08/06/18 12:29 Last Admin: 08/06/18 14:03 Dose: 200 mls/hr Lorazepam (Ativan) 1 mg IV ONETIME ONE Stop: 08/05/18 15:33 Last Admin: 08/05/18 17:44 Dose: Not Given Lorazepam (Ativan) 1 mg IV Q6H PRN PRN Reason: Nausea/Vomiting Iron Polysac 150 Mg 150 each PO DAILY [facility] Non-Formulary Medication (Biotin [Biotin]) 1 mg PO DAILY [facility] Last Admin: 08/07/18 09:22 Dose: Not Given Non-Formulary Medication (Glucosamine Hcl [Glucosamine]) 3,000 mg PO DAILY [facility] Last Admin: 08/07/18 09:22 Dose: Not Given Saccharomyces Boulardii (Florastor) 250 mg PO DAILY [facility] Last Admin: 08/07/18 09:22 Dose: Not Given Trimethoprim/Sulfamethoxazole (Septra Ds) 1 tab PO BID [facility] Last Admin: 08/06/18 08:16 Dose: 1 tab - Exam Quality Assessment: No: Supplemental Oxygen General: Alert, Oriented HEENT: Pupils Equal, Pupils Reactive Neck: Supple Lungs: Clear to Auscultation, Normal Respiratory Effort Cardiovascular: Regular Rate, Regular Rhythm GI/Abdominal Exam: Normal Bowel Sounds, Soft, Non-Tender, No Organomegaly, No Distention Extremities: Normal Inspection, Normal Range of Motion, Non-Tender, No Pedal Edema Skin: Warm, Dry, Intact Neurological: No New Focal Deficit Psy/Mental Status: Alert, Normal Affect, Normal Mood - Problem List & Annotations (1) Acute renal injury SNOMED Code(s): 56439644, 12007484 Code(s): N17.9 - ACUTE KIDNEY FAILURE, UNSPECIFIED Status: Acute Priority : High Current Visit: Yes (2) Bacteremia SNOMED Code(s): 1659338 Code(s): R78.81 - BACTEREMIA Status: Acute Priority: High Current Visit : Yes (3) Pyelonephritis SNOMED Code(s): 09050079 Code(s): N12 - TUBULO-INTERSTITIAL NEPHRITIS, NOT SPCF ACUTE OR CHRONIC Status: Acute Priority: High Current Visit: Yes Onset Date: 08/05/18 (4) Weakness SNOMED Code(s): 02194045 Code(s): R53.1 - WEAKNESS Status: Acute Priority: Medium Current Visit : Yes Onset Date: 08/05/18 - Problem List Review Problem List Initiated/Reviewed/Updated: Yes - Plan Plan:: I/P: Acute: Bacteremia 2/2 UTI -Reported chills, weakness, night sweats, voiding frequency, dry mouth for 3 days prior to arrival in ED -UA in ED: Cloudy, concentrated, 3+ Protein, 2+ occult blood, 3+ leukocyte esterase, 10-20 RBC, 75-100 WBC, 10-20 squamous cell, moderate bacteria -Per ED report - UA grossly purulent -Appears contaminated however positive bacteremia -At this point she has received several doses of ABX so repeat urine culture not indicated -Urine gram-negative rods -Positive blood cultures - anaerobic Gram negative rods thus far -IV fluid bolus given in ED -IV fluids as ordered -1gm Rocephin given in ED and on floor - discontinue -PO Septra started on floor - discontinue -Zosyn started with positive blood cultures -WBC 14.51-->14.11-->10.8 -CRP 33.1-->31.7-->24.5 -Renal injury as below Acute renal injury, improving -BUN 35-->20 -Creatinine 2.0-->1.4-->1.1 -Baseline creatinine appears to be less than 1.0 -IV fluids stopped yesterday -Avoid nephrotoxic medications BEKA -Acute on chronic -Iron 11 -On supplementation -Iron infusion ordered at recommendation of Dr. Marie -Folate WNL; B12 high Weakness -Reports improved weakness since the admission -Likely 2/2 above -PT/OT Resolved: S/P Hyponatremia -Sodium 130-->137-->141 -IV fluids discontinued Chronic: Cataracts Impaired vision Double Vision Angina HLD HTN Dyspnea on exertion PAD Edema Hx/o PE - 3 years ago, no issues since Sleep apnea Pulmonary Edema Chronic Diarrhea Diverticulosis Arthritis Chronic back pain Osteoarthritis Shoulder pain Type II DM BEKA Esophageal varices (per patient confirmed by EGD) Plan: Admit to medical floor Other orders as indicated above Home medications as ordered Routine AM labs 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
[2018-08-07] MEDS: Zolpidem 5 MG Tab PO PRN (22:16)
[2018-08-08] MEDS: Piperacillin/Tazobactam 4.5 GM in Sodium Chloride 0.9% 100 ML IV SCH (04:32)
[2018-08-08] MEDS: Insulin Lispro 100 Units/ML 3 ML Vial SUBCUT SCH ×5 (06:20→21:48)
[2018-08-08] MEDS ORDERED: Magnesium Sulfate/Water 2 GM in Premix Bag 1 BAG IV ONE (07:46)
[2018-08-08] MEDS: Iron Polysaccharides Complex 150 MG Cap PO SCH (08:41)
[2018-08-08] MEDS: Fish Oil/Omega-3 Fatty Acids 1 Gm Cap PO SCH ×2 (08:41→20:39)
[2018-08-08] MEDS: Calcium Carbonate/Vitamin D3 600 MG-200 Units Tab PO SCH (08:41)
[2018-08-08] MEDS: Potassium Chloride 20 MEQ Tab.ER PO SCH ×2 (08:41→20:38)
[2018-08-08] MEDS: Magnesium Oxide 400 MG Tab PO SCH ×2 (08:42→20:38)
[2018-08-08] MEDS: Cyanocobalamin (Vitamin B12) 1,000 MCG Tab PO SCH (08:43)
[2018-08-08] MEDS: Rosuvastatin 10 MG Tab PO SCH (08:45)
[2018-08-08] MEDS: Furosemide 40 MG Tab PO SCH (08:45)
[2018-08-08] MEDS: Aspirin 81 MG Tab.EC PO SCH (08:45)
[2018-08-08] MEDS: Metoprolol Tartrate 25 MG Tab PO SCH ×2 (08:46→20:37)
[2018-08-08] MEDS: Losartan 25 MG Tab PO SCH (08:47)
[2018-08-08] MEDS: Cholecalciferol (Vitamin D3) 5,000 UNIT Tab PO SCH (08:48)
[2018-08-08] MEDS: Ibuprofen 400 MG Tab PO PRN ×2 (08:48→20:37)
[2018-08-08] MEDS: Cephalexin 500 MG Cap PO SCH ×2 (13:25→20:38)
--- NOTE | 2018-08-08 14:44 | PCM.PN ---
- General Info Date of Service: 08/08/18 Admission Dx/Problem (Free Text): Admission Diagnosis/Problem Admission Diagnosis/Problem Pyelonephritis Subjective Update: August 07, 2018 patient did well overnight. Afebrile. She does state that after her walk this morning she does feel weak. Blood cultures were positive for anaerobic gram- negative rods and urine cultures were positive for gram-negative rods. Sensitivities are not back. White count inferior to protein are decreasing. August 08, 2018 Patient continues to be afebrile. She also continues to feel tired and fatigued. No significant change overnight. - Review of Systems General: Reports: Weakness, Fatigue HEENT: Reports: No Symptoms Pulmonary: Reports: No Symptoms. Denies: Shortness of Breath, Cough Cardiovascular: Reports: No Symptoms. Denies: Chest Pain, Dyspnea on Exertion Gastrointestinal: Reports: No Symptoms. Denies: Abdominal Pain Musculoskeletal: Reports: No Symptoms - Patient Data Vitals - Most Recent: Last Vital Signs Temp 98.1 F 08/08/18 13:19 Pulse 62 08/08/18 13:19 Resp 20 08/08/18 13:19 BP 126/66 08/08/18 13:19 Pulse Ox 98 08/08/18 13:19 Weight - Most Recent: 216 lb 8 oz I&O - Last 24 Hours: Intake & Output 08/07/18 08/08/18 08/08/18 22:59 06:59 14:59 Intake Total 1150 900 360 Output Total 1700 700 Balance -550 200 360 Lab Results Last 24 Hours: Laboratory Results - last 24 hr 08/05/18 08/05/18 08/07/18 Range/Units 16:20 16:20 17:20 WBC (3.98-10.04) K/mm3 RBC (3.98-5.22) M/mm3 Hgb (11.2-15.7) gm/L Hct (34.1-44.9) % MCV (79.4-94.8) fl MCH (25.6-32.2) pg MCHC (32.2-35.5) g/dl RDW Std Deviation (36.4-46.3) fL Plt Count (182-369) K/mm3 MPV (9.4-12.3) fl Neut % (Auto) (34.0-71.1) % Lymph % (Auto) (19.3-51.7) % [place] % (Auto) (4.7-12.5) % Eos % (Auto) (0.7-5.8) Baso % (Auto) (0.1-1.2) % Neut # (Auto) (1.56-6.13) K/mm3 Lymph # (Auto) (1.18-3.74) K/mm3 Barnwell # (Auto) (0.24-0.36) K/mm3 Eos # (Auto) (0.04-0.36) K/mm3 Baso # (Auto) (0.01-0.08) K/mm3 Neutrophils % (Manual) 78 % Band Neuts % (Manual) 6 % Lymphocytes % (Manual) 12 % Monocytes % (Manual) 4 % Eosinophils % (Manual) 0 % Basophils % (Manual) 0 % Manual Slide Review RBC/WBC/PLT Morphology Abnormal Vacuolated Neuts Seen Toxic Granulation Seen Platelet Estimate Adequate Smear Path Review Path rpt Sodium (136-145) mEq/L Potassium (3.5-5.1) mEq/L Chloride (98-107) mEq/L Carbon Dioxide (21-32) mEq/L Anion Gap (5-15) BUN (7-18) mg/dL Creatinine (0.55-1.02) mg/dL Est Cr Clr Drug Dosing mL/min Estimated GFR (MDRD) (>60) mL/min BUN/Creatinine Ratio (14-18) Glucose (83-115) mg/dL POC Glucose 119 H (83-110) mg/dL Calcium (8.5-10.1) mg/dL Magnesium (1.8-2.4) mg/dl Iron (50-170) ug/dL Ferritin (8-252) ng/ml C-Reactive Protein (<1.0) mg/dL 08/07/18 08/08/18 08/08/18 Range/Units 21:06 04:30 04:30 WBC 9.96 (3.98-10.04) K/mm3 RBC 3.67 L (3.98-5.22) M/mm3 Hgb 9.8 L (11.2-15.7) gm/L Hct 31.0 L (34.1-44.9) % MCV 84.5 (79.4-94.8) fl MCH 26.7 (25.6-32.2) pg MCHC 31.6 L (32.2-35.5) g/dl RDW Std Deviation 57.3 H (36.4-46.3) fL Plt Count 336 (182-369) K/mm3 MPV 9.8 (9.4-12.3) fl Neut % (Auto) 63.7 (34.0-71.1) % Lymph % (Auto) 17.0 L (19.3-51.7) % Barn[place] % (Auto) 12.8 H (4.7-12.5) % Eos % (Auto) 4.8 (0.7-5.8) Baso % (Auto) 0.5 (0.1-1.2) % Neut # (Auto) 6.35 H (1.56-6.13) K/mm3 Lymph # (Auto) 1.69 (1.18-3.74) K/mm3 Barnwell # (Auto) 1.27 H (0.24-0.36) K/mm3 Eos # (Auto) 0.48 H (0.04-0.36) K/mm3 Baso # (Auto) 0.05 (0.01-0.08) K/mm3 Neutrophils % (Manual) % Band Neuts % (Manual) % Lymphocytes % (Manual) % Monocytes % (Manual) % Eosinophils % (Manual) % Basophils % (Manual) % Manual Slide Review Abnormal smear RBC/WBC/PLT Morphology Vacuolated Neuts Toxic Granulation Platelet Estimate Smear Path Review Sodium 139 (136-145) mEq/L Potassium 4.1 (3.5-5.1) mEq/L Chloride 106 (98-107) mEq/L Carbon Dioxide 23 (21-32) mEq/L Anion Gap 14.1 (5-15) BUN 17 (7-18) mg/dL Creatinine 1.1 H (0.55-1.02) mg/dL Est Cr Clr Drug Dosing 39.70 mL/min Estimated GFR (MDRD) 48 (>60) mL/min BUN/Creatinine Ratio 15.5 (14-18) Glucose 96 (83-115) mg/dL POC Glucose 178 H (83-110) mg/dL Calcium 9.3 (8.5-10.1) mg/dL Magnesium 1.7 L (1.8-2.4) mg/dl Iron (50-170) ug/dL Ferritin (8-252) ng/ml C-Reactive Protein 16.9 H* (<1.0) mg/dL 08/08/18 08/08/18 08/08/18 Range/Units 04:30 06:15 12:03 WBC (3.98-10.04) K/mm3 RBC (3.98-5.22) M/mm3 Hgb (11.2-15.7) gm/L Hct (34.1-44.9) % MCV (79.4-94.8) fl MCH (25.6-32.2) pg MCHC (32.2-35.5) g/dl RDW Std Deviation (36.4-46.3) fL Plt Count (182-369) K/mm3 MPV (9.4-12.3) fl Neut % (Auto) (34.0-71.1) % Lymph % (Auto) (19.3-51.7) % [place] % (Auto) (4.7-12.5) % Eos % (Auto) (0.7-5.8) Baso % (Auto) (0.1-1.2) % Neut # (Auto) (1.56-6.13) K/mm3 Lymph # (Auto) (1.18-3.74) K/mm3 [place] # (Auto) (0.24-0.36) K/mm3 Eos # (Auto) (0.04-0.36) K/mm3 Baso # (Auto) (0.01-0.08) K/mm3 Neutrophils % (Manual) % Band Neuts % (Manual) % Lymphocytes % (Manual) % Monocytes % (Manual) % Eosinophils % (Manual) % Basophils % (Manual) % Manual Slide Review RBC/WBC/PLT Morphology Vacuolated Neuts Toxic Granulation Platelet Estimate Smear Path Review Sodium (136-145) mEq/L Potassium (3.5-5.1) mEq/L Chloride (98-107) mEq/L Carbon Dioxide (21-32) mEq/L Anion Gap (5-15) BUN (7-18) mg/dL Creatinine (0.55-1.02) mg/dL Est Cr Clr Drug Dosing mL/min Estimated GFR (MDRD) (>60) mL/min BUN/Creatinine Ratio (14-18) Glucose (83-115) mg/dL POC Glucose 101 124 H (83-110) mg/dL Calcium (8.5-10.1) mg/dL Magnesium (1.8-2.4) mg/dl Iron 28 L (50-170) ug/dL Ferritin 469 H (8-252) ng/ml C-Reactive Protein (<1.0) mg/dL Jose Miguel Results Last 24 Hours: Microbiology 08/05/18 12:43 Aerobic Blood Culture - Preliminary Blood NO GROWTH AFTER 3 DAYS Anaerobic Blood Culture - Preliminary Escherichia Coli 08/05/18 12:42 Urine Culture - Final Urine, Catheterized Escherichia Coli Med Orders - Current: Current Medications Acetaminophen (Tylenol) 650 mg PO Q4H PRN PRN Reason: Pain (Mild 1-3)/fever Last Admin: 08/06/18 12:01 Dose: 650 mg Aspirin (Halfprin) 81 mg PO DAILY [facility] Last Admin: 08/08/18 08:45 Dose: 81 mg Calcium Carbonate (Calcium Carbonate/Vitamin D 600 Mg-200 Unit) 1 tab PO DAILY [facility] Last Admin: 08/08/18 08:41 Dose: 1 tab Cephalexin (Keflex) 1,000 mg PO Q8H [facility] Last Admin: 08/08/18 13:25 Dose: 1,000 mg Cholecalciferol (Vitamin D3) 5,000 unit PO DAILY [facility] Last Admin: 08/08/18 08:48 Dose: 5,000 unit Cyanocobalamin (Vitamin B12) 1,500 mcg PO DAILY [facility] Last Admin: 08/08/18 08:43 Dose: 1,500 mcg Dextrose (Glutose 15) 15 gm PO Q24H PRN PRN Reason: Hypoglycemia Fish Oil (Fish Oil) 1 gm PO BID [facility] Last Admin: 08/08/18 08:41 Dose: 1 gm Furosemide (Lasix) 40 mg PO DAILY [facility] Last Admin: 08/08/18 08:45 Dose: 40 mg Ibuprofen (Motrin) 400 mg PO Q6H PRN PRN Reason: Pain (mild 1-3) Last Admin: 08/08/18 08:48 Dose: 400 mg Insulin Human Lispro (Humalog) 0 unit SUBCUT QIDACANDBED [facility]; Protocol Last Admin: 08/08/18 12:20 Dose: Not Given Losartan Potassium (Cozaar) 50 mg PO DAILY [facility] Last Admin: 08/08/18 08:47 Dose: 50 mg Magnesium Oxide (Magnesium Oxide) 400 mg PO BID [facility] Stop: 08/10/18 09:01 Last Admin: 08/08/18 08:42 Dose: 400 mg Metoprolol Tartrate (Lopressor) 25 mg PO BID [facility] Last Admin: 08/08/18 08:46 Dose: 25 mg Ondansetron HCl (Zofran Odt) 8 mg PO Q6H PRN PRN Reason: Nausea/Vomiting Polysaccharide Iron Complex (Ferrex 150) 150 mg PO DAILY [facility] Last Admin: 08/08/18 08:41 Dose: 150 mg Potassium Chloride (Klor-Con M20) 20 meq PO BID [facility] Last Admin: 08/08/18 08:41 Dose: 20 meq Rosuvastatin Calcium (Crestor) 10 mg PO DAILY [facility] Last Admin: 08/08/18 08:45 Dose: 10 mg Sodium Chloride (Saline Flush) 10 ml FLUSH ASDIRECTED PRN PRN Reason: Keep Vein Open Zolpidem Tartrate (Ambien) 5 mg PO BEDTIME PRN PRN Reason: Sleep Last Admin: 08/07/18 22:16 Dose: 5 mg Discontinued Medications Dextrose (Glutose 15) 15 gm PO ONETIME ONE Stop: 08/05/18 15:33 Last Admin: 08/05/18 17:44 Dose: Not Given Enoxaparin Sodium (Lovenox) 30 mg SUBCUT Q24H [facility] Last Admin: 08/05/18 16:51 Dose: 30 mg Enoxaparin Sodium (Lovenox) 40 mg SUBCUT Q24H [facility] Sodium Chloride (Normal Saline) 1,000 mls @ 999 mls/hr IV ONETIME [facility] Last Admin: 08/05/18 12:58 Dose: 999 mls/hr Ceftriaxone Sodium 1 gm/ (Sodium Chloride) 100 mls @ 200 mls/hr IV ONETIME ONE Stop: 08/05/18 13:38 Last Admin: 08/05/18 13:40 Dose: 200 mls/hr Dextrose/Sodium Chloride (Dextrose 5%-1/2 Ns) 1,000 mls @ 125 mls/hr IV ASDIRECTED [facility] Ceftriaxone Sodium 1 gm/ (Sodium Chloride) 100 mls @ 200 mls/hr IV Q24H [facility] Sodium Chloride (Normal Saline) 1,000 mls @ 200 mls/hr IV ASDIRECTED ISAAK Sodium Chloride (Normal Saline) 1,000 mls @ 125 mls/hr IV ASDIRECTED [facility] Last Admin: 08/06/18 02:00 Dose: 125 mls/hr Ferric Sodium Gluconate Complex 250 mg/ Sodium Chloride 120 mls @ 60 mls/hr IV ONETIME ONE Stop: 08/06/18 13:29 Last Admin: 08/06/18 12:00 Dose: 60 mls/hr Piperacillin Sod/Tazobactam (Sod 4.5 gm/ Sodium Chloride) 100 mls @ 25 mls/hr IV Q8H [facility] Last Admin: 08/08/18 04:32 Dose: 25 mls/hr Piperacillin Sod/Tazobactam (Sod 4.5 gm/ Sodium Chloride) 100 mls @ 200 mls/hr IV ONETIME ONE Stop: 08/06/18 12:29 Last Admin: 08/06/18 14:03 Dose: 200 mls/hr Magnesium Sulfate 2 gm/ Premix 50 mls @ 25 mls/hr IV ONETIME ONE Stop: 08/08/18 09:45 Last Admin: 08/08/18 08:38 Dose: 25 mls/hr Lorazepam (Ativan) 1 mg IV ONETIME ONE Stop: 08/05/18 15:33 Last Admin: 08/05/18 17:44 Dose: Not Given Lorazepam (Ativan) 1 mg IV Q6H PRN PRN Reason: Nausea/Vomiting Magnesium Oxide (Magnesium Oxide) 400 mg PO DAILY [facility] Last Admin: 08/07/18 09:04 Dose: 400 mg Iron Polysac 150 Mg 150 each PO DAILY [facility] Non-Formulary Medication (Biotin [Biotin]) 1 mg PO DAILY [facility] Last Admin: 08/07/18 09:22 Dose: Not Given Non-Formulary Medication (Glucosamine Hcl [Glucosamine]) 3,000 mg PO DAILY [facility] Last Admin: 08/07/18 09:22 Dose: Not Given Saccharomyces Boulardii (Florastor) 250 mg PO DAILY [facility] Last Admin: 08/07/18 09:22 Dose: Not Given Sodium Chloride (Saline Flush) 10 ml FLUSH ASDIRECTED PRN PRN Reason: Keep Vein Open Last Admin: 08/05/18 12:43 Dose: 10 ml Trimethoprim/Sulfamethoxazole (Septra Ds) 1 tab PO BID [facility] Last Admin: 08/06/18 08:16 Dose: 1 tab - Exam General: Alert, Oriented HEENT: Pupils Equal Neck: Supple Lungs: Clear to Auscultation, Normal Respiratory Effort Cardiovascular: Regular Rate, Regular Rhythm GI/Abdominal Exam: Normal Bowel Sounds, Soft, Non-Tender, No Organomegaly, No Distention Skin: Warm, Dry, Intact Wound/Incisions: Healing Well Neurological: No New Focal Deficit Psy/Mental Status: Alert, Normal Affect, Normal Mood - Problem List & Annotations (1) Acute renal injury SNOMED Code(s): 62750751, 43261883 Code(s): N17.9 - ACUTE KIDNEY FAILURE, UNSPECIFIED Status: Acute Priority : High Current Visit: Yes (2) Bacteremia SNOMED Code(s): 0436534 Code(s): R78.81 - BACTEREMIA Status: Acute Priority: High Current Visit : Yes (3) Pyelonephritis SNOMED Code(s): 56915405 Code(s): N12 - TUBULO-INTERSTITIAL NEPHRITIS, NOT SPCF ACUTE OR CHRONIC Status: Acute Priority: High Current Visit: Yes Onset Date: 08/05/18 (4) Weakness SNOMED Code(s): 47739663 Code(s): R53.1 - WEAKNESS Status: Acute Priority: Medium Current Visit : Yes Onset Date: 08/05/18 - Problem List Review Problem List Initiated/Reviewed/Updated: Yes - My Orders Last 24 Hours: My Active Orders 08/08/18 09:00 Magnesium Oxide 400 mg PO BID 08/08/18 13:00 cephALEXin [Keflex] 1,000 mg PO Q8H - Plan Plan:: I/P: Acute: Escherichia coli Bacteremia 2/2 UTI -Reported chills, weakness, night sweats, voiding frequency, dry mouth for 3 days prior to arrival in ED - now resolved -UA in ED: Cloudy, concentrated, 3+ Protein, 2+ occult blood, 3+ leukocyte esterase, 10-20 RBC, 75-100 WBC, 10-20 squamous cell, moderate bacteria -Per ED report - UA grossly purulent -Appears contaminated however positive bacteremia -At this point she has received several doses of ABX so repeat urine culture not indicated -Escherichia coli pansensitive -Blood cultures Escherichia coli pansensitive -IV fluid bolus given in ED -IV fluids as ordered -1gm Rocephin given in ED and on floor - discontinue -PO Septra started on floor - discontinue -Zosyn started with positive blood cultures - discontinue -WBC 14.51-->14.11-->10.8--> 9.96 -CRP 33.1-->31.7-->24.5-->16.9 -Start Keflex. -Renal injury as below Acute renal injury, improving -BUN 35-->20-->17 -Creatinine 2.0-->1.4-->1.1 -Baseline creatinine appears to be less than 1.0 -IV fluids stopped yesterday -Avoid nephrotoxic medications BEKA -Acute on chronic -Iron 11 -On supplementation -Iron infusion ordered at recommendation of Dr. Marie on 08/06 -Folate WNL; B12 high -Iron now 28 Weakness -Reports improved weakness since the admission -Likely 2/2 above -PT/OT Resolved: S/P Hyponatremia -Sodium 130-->137-->141 -IV fluids discontinued Chronic: Cataracts Impaired vision Double Vision Angina HLD HTN Dyspnea on exertion PAD Edema Hx/o PE - 3 years ago, no issues since Sleep apnea Pulmonary Edema Chronic Diarrhea Diverticulosis Arthritis Chronic back pain Osteoarthritis Shoulder pain Type II DM BEKA Esophageal varices (per patient confirmed by EGD) Plan: Discharge tomorrow on oral meds if she does well tonight. Other orders as indicated above Home medications as ordered Routine AM labs Harness Inspector consult Business Process Manager consult DVT Prophylaxis: JERI hose and ambulate - Pharmacological prophylaxis contraindicated 2/2 H/o esophageal varices Code status: Full code; PCP: Karley Sweeney NP plan discharge after ID of blood and urine cultures.
[2018-08-08] MEDS: Zolpidem 5 MG Tab PO PRN (20:39)
[2018-08-09] MEDS: Cephalexin 500 MG Cap PO SCH ×2 (05:37→12:50)
[2018-08-09] MEDS: Ibuprofen 400 MG Tab PO PRN (05:42)
[2018-08-09] MEDS: Insulin Lispro 100 Units/ML 3 ML Vial SUBCUT SCH ×2 (07:37→11:32)
[2018-08-09] MEDS: Potassium Chloride 20 MEQ Tab.ER PO SCH (08:18)
[2018-08-09] MEDS: Calcium Carbonate/Vitamin D3 600 MG-200 Units Tab PO SCH (08:18)
[2018-08-09] MEDS: Iron Polysaccharides Complex 150 MG Cap PO SCH (08:20)
[2018-08-09] MEDS: Fish Oil/Omega-3 Fatty Acids 1 Gm Cap PO SCH (08:20)
[2018-08-09] MEDS: Losartan 25 MG Tab PO SCH (08:20)
[2018-08-09] MEDS: Magnesium Oxide 400 MG Tab PO SCH (08:20)
[2018-08-09] MEDS: Cyanocobalamin (Vitamin B12) 1,000 MCG Tab PO SCH (08:20)
[2018-08-09] MEDS: Rosuvastatin 10 MG Tab PO SCH (08:21)
[2018-08-09] MEDS: Metoprolol Tartrate 25 MG Tab PO SCH (08:21)
[2018-08-09] MEDS: Cholecalciferol (Vitamin D3) 5,000 UNIT Tab PO SCH (08:21)
[2018-08-09] MEDS: Furosemide 40 MG Tab PO SCH (08:21)
[2018-08-09] MEDS: Aspirin 81 MG Tab.EC PO SCH (08:21)
[2018-08-09 08:24] VITALS: BP 113/52
[2018-08-09] MEDS: Acetaminophen 325 MG Tab PO PRN (09:13)
--- NOTE | 2018-08-09 10:51 | PCM.DCSUM1 ---
Discharge Summary - Hospital Course HPI Initial Comments: 77 year old female with 4 day hx of gen malaise and chills and sweats and weakness. also c/o headache and anorexia no dysuria or back pain . hx of dm on metformin hx of orthopedic problems and chronic iron def anemia . also on b12 and suppliments . prev hx of uti but no kydney problems or renal stones but creatinine 2 on admit and on lasix 40 mg day . other meds for hypertension and hyperlipidemia no hx dvt / clotting but problems with normal pt and ptt . headaches and weakness and cannot stand up by self Brief History: Patient admitted with UTI and bacteremia secondary to Escherichia coli. She initially was started on Zosyn after positive blood culture results. Sensitivities came back with he sensitivity to Escherichia coli. Patient was switched to oral Keflex and has done well on oral antibiotics. Diagnosis: Stroke: No - Discharge Data Discharge Date: 08/09/18 Discharge Disposition: Home, Self-Care 01 Condition: Good - Discharge Diagnosis/Problem(s) (1) Acute renal injury SNOMED Code(s): 05288749, 56707055 ICD Code: N17.9 - ACUTE KIDNEY FAILURE, UNSPECIFIED Status: Acute Priority: High Current Visit: Yes (2) Bacteremia SNOMED Code(s): 7230418 ICD Code: R78.81 - BACTEREMIA Status: Acute Priority: High Current Visit: Yes (3) Pyelonephritis SNOMED Code(s): 45989643 ICD Code: N12 - TUBULO-INTERSTITIAL NEPHRITIS, NOT SPCF ACUTE OR CHRONIC Status: Acute Priority: High Current Visit: Yes Onset Date: 08/05/18 (4) Weakness SNOMED Code(s): 39167204 ICD Code: R53.1 - WEAKNESS Status: Acute Priority: Medium Current Visit : Yes Onset Date: 08/05/18 - Patient Summary/Data Consults: Consultations 08/05/18 15:32 Consult to Diabetic Nurse Specialist [CONS] Routine Consult to Top Frame Maker [CONS] Routine 08/06/18 13:23 Consult to Occupational Therapy [OT Evaluation and Treatment] [CONS] Routine PT Evaluation and Treatment [CONS] Routine - Patient Instructions Diet: Usual Diet as Tolerated Activity: As Tolerated Driving: May Drive Today Showering/Bathing: May Shower - Discharge Plan *PRESCRIPTION DRUG MONITORING PROGRAM REVIEWED*: Not Applicable *COPY OF PRESCRIPTION DRUG MONITORING REPORT IN PATIENT KOFFI: Not Applicable Prescriptions/Med Rec: cephALEXin [Keflex] 1,000 mg PO Q8H #30 cap Home Medications: Home Meds Aspirin [Low Dose Aspirin EC] 81 mg PO DAILY 04/26/14 [History] Metoprolol Tartrate 25 mg PO BID 04/26/14 [History] amLODIPine [Norvasc] 5 mg PO DAILY 04/26/14 [History] metFORMIN HCl [Metformin ER Osmotic] 1,000 mg PO QAM 04/26/14 [History] Furosemide 40 mg PO DAILY 04/09/18 [History] Rosuvastatin [Crestor] 10 mg PO DAILY 05/01/18 [History] metFORMIN [Glucophage] 500 mg PO QPM 05/01/18 [History] Ammonium Lactate [Amlactin 12% Lotion] 1 dose TOP BEDTIME 05/08/18 [History] Biotin 1 mg PO DAILY 05/08/18 [History] Calcium Carb & Citrate/Vit D3 [Calcium + D3 ER Tablet] 1 tab PO DAILY 05/08/18 [ History] Cholecalciferol (Vitamin D3) [Vitamin D3] 5,000 unit PO DAILY 05/08/18 [History] Cyanocobalamin (Vitamin B-12) [Vitamin B-12] 1,500 mcg PO DAILY 05/08/18 [ History] Fish Oil/[place]-3 Fatty Acids [Fish Oil 1,000 MG] 1 gm PO BID 05/08/18 [History] Glucosamine HCl [Glucosamine] 3,000 mg PO DAILY 05/08/18 [History] Magnesium Oxide [Magnesium] 500 mg PO DAILY 05/08/18 [History] Multivits,Ca,Minerals/Iron/FA [Women's Daily Formula Caplet] 1 tab PO DAILY [History] Vitamin E 400 unit PO DAILY 05/08/18 [History] Irbesartan 150 mg PO DAILY 05/31/18 [History] Ferrous Sulfate [High Potency Iron] 1 tab PO DAILY 08/05/18 [History] L.acidoph,Paracasei, B.lactis [Probiotic] 1 cap PO DAILY 08/05/18 [History] traMADol [Ultram] 50 mg PO Q12H PRN 08/05/18 [History] cephALEXin [Keflex] 1,000 mg PO Q8H #30 cap 08/09/18 [Rx] Oxygen Therapy Mode: Room Air Forms: ED Department Discharge Referrals: Karley Sweeney, [employer]MENTATOR [Primary Care Provider] - - Discharge Summary/Plan Comment DC Time >30 min.: Yes Discharge Summary/Plan Comment: Patient be discharged on Keflex 1000 mg 3 times a day. She will need to complete a total 14 day course of antibiotics. She should follow-up with her primary care next week. She is stable with no fever, chills, leukocytosis for several days. - General Info Date of Service: 08/09/18 Admission Dx/Problem (Free Text: Admission Diagnosis/Problem Admission Diagnosis/Problem Pyelonephritis Subjective Update: August 07, 2018 patient did well overnight. Afebrile. She does state that after her walk this morning she does feel weak. Blood cultures were positive for anaerobic gram- negative rods and urine cultures were positive for gram-negative rods. Sensitivities are not back. White count inferior to protein are decreasing. August 08, 2018 Patient continues to be afebrile. She also continues to feel tired and fatigued. No significant change overnight. August 09, 2018 Patient continues afebrile. She states that she is feeling better and is less fatigued. Functional Status: Reports: Pain Controlled - Review of Systems General: Reports: No Symptoms HEENT: Reports: No Symptoms Pulmonary: Reports: No Symptoms. Denies: Shortness of Breath Cardiovascular: Reports: No Symptoms. Denies: Chest Pain Gastrointestinal: Reports: No Symptoms. Denies: Abdominal Pain Genitourinary: Reports: No Symptoms. Denies: Dysuria, Frequency Psychiatric: Reports: No Symptoms - Patient Data Vitals - Most Recent: Last Vital Signs Temp 98.4 F 08/09/18 05:28 Pulse 64 08/09/18 08:21 Resp 20 08/09/18 08:19 BP 113/52 L 08/09/18 08:21 Pulse Ox 93 L 08/09/18 10:00 Weight - Most Recent: 209 lb 1.6 oz I&O - Last 24 hours: Intake & Output 08/08/18 08/09/18 08/09/18 22:59 06:59 14:59 Intake Total 2240 400 240 Output Total 2200 1700 Balance 40 -1300 240 Lab Results - Last 24 hrs: Laboratory Results - last 24 hr 08/05/18 08/08/18 08/08/18 Range/Units 16:20 12:03 16:42 WBC (3.98-10.04) K/mm3 RBC (3.98-5.22) M/mm3 Hgb (11.2-15.7) gm/L Hct (34.1-44.9) % MCV (79.4-94.8) fl MCH (25.6-32.2) pg MCHC (32.2-35.5) g/dl RDW Std Deviation (36.4-46.3) fL Plt Count (182-369) K/mm3 MPV (9.4-12.3) fl Neut % (Auto) (34.0-71.1) % Lymph % (Auto) (19.3-51.7) % Lane % (Auto) (4.7-12.5) % Eos % (Auto) (0.7-5.8) Baso % (Auto) (0.1-1.2) % Neut # (Auto) (1.56-6.13) K/mm3 Lymph # (Auto) (1.18-3.74) K/mm3 Lane # (Auto) (0.24-0.36) K/mm3 Eos # (Auto) (0.04-0.36) K/mm3 Baso # (Auto) (0.01-0.08) K/mm3 Metamyelocytes % (Man) Not Reportable Manual Slide Review Sodium (136-145) mEq/L Potassium (3.5-5.1) mEq/L Chloride (98-107) mEq/L Carbon Dioxide (21-32) mEq/L Anion Gap (5-15) BUN (7-18) mg/dL Creatinine (0.55-1.02) mg/dL Est Cr Clr Drug Dosing mL/min Estimated GFR (MDRD) (>60) mL/min BUN/Creatinine Ratio (14-18) Glucose (83-115) mg/dL POC Glucose 124 H 117 H (83-110) mg/dL Calcium (8.5-10.1) mg/dL Magnesium (1.8-2.4) mg/dl C-Reactive Protein (<1.0) mg/dL 08/08/18 08/09/18 08/09/18 Range/Units 20:36 04:30 04:30 WBC 8.67 (3.98-10.04) K/mm3 RBC 4.09 (3.98-5.22) M/mm3 Hgb 11.1 L (11.2-15.7) gm/L Hct 34.6 (34.1-44.9) % MCV 84.6 (79.4-94.8) fl MCH 27.1 (25.6-32.2) pg MCHC 32.1 L (32.2-35.5) g/dl RDW Std Deviation 58.1 H (36.4-46.3) fL Plt Count 400 H (182-369) K/mm3 MPV 9.5 (9.4-12.3) fl Neut % (Auto) 63.4 (34.0-71.1) % Lymph % (Auto) 17.8 L (19.3-51.7) % Lane % (Auto) 10.7 (4.7-12.5) % Eos % (Auto) 4.6 (0.7-5.8) Baso % (Auto) 0.6 (0.1-1.2) % Neut # (Auto) 5.50 (1.56-6.13) K/mm3 Lymph # (Auto) 1.54 (1.18-3.74) K/mm3 Lane # (Auto) 0.93 H (0.24-0.36) K/mm3 Eos # (Auto) 0.40 H (0.04-0.36) K/mm3 Baso # (Auto) 0.05 (0.01-0.08) K/mm3 Metamyelocytes % (Man) Manual Slide Review Abnormal smear Sodium 141 (136-145) mEq/L Potassium 4.4 (3.5-5.1) mEq/L Chloride 108 H (98-107) mEq/L Carbon Dioxide 25 (21-32) mEq/L Anion Gap 12.4 (5-15) BUN 15 (7-18) mg/dL Creatinine 0.9 (0.55-1.02) mg/dL Est Cr Clr Drug Dosing 48.52 mL/min Estimated GFR (MDRD) > 60 (>60) mL/min BUN/Creatinine Ratio 16.7 (14-18) Glucose 107 (83-115) mg/dL POC Glucose 233 H (83-110) mg/dL Calcium 9.4 (8.5-10.1) mg/dL Magnesium 2.0 (1.8-2.4) mg/dl C-Reactive Protein 10.2 H* (<1.0) mg/dL 08/09/18 Range/Units 05:30 WBC (3.98-10.04) K/mm3 RBC (3.98-5.22) M/mm3 Hgb (11.2-15.7) gm/L Hct (34.1-44.9) % MCV (79.4-94.8) fl MCH (25.6-32.2) pg MCHC (32.2-35.5) g/dl RDW Std Deviation (36.4-46.3) fL Plt Count (182-369) K/mm3 MPV (9.4-12.3) fl Neut % (Auto) (34.0-71.1) % Lymph % (Auto) (19.3-51.7) % Lane % (Auto) (4.7-12.5) % Eos % (Auto) (0.7-5.8) Baso % (Auto) (0.1-1.2) % Neut # (Auto) (1.56-6.13) K/mm3 Lymph # (Auto) (1.18-3.74) K/mm3 Lane # (Auto) (0.24-0.36) K/mm3 Eos # (Auto) (0.04-0.36) K/mm3 Baso # (Auto) (0.01-0.08) K/mm3 Metamyelocytes % (Man) Manual Slide Review Sodium (136-145) mEq/L Potassium (3.5-5.1) mEq/L Chloride (98-107) mEq/L Carbon Dioxide (21-32) mEq/L Anion Gap (5-15) BUN (7-18) mg/dL Creatinine (0.55-1.02) mg/dL Est Cr Clr Drug Dosing mL/min Estimated GFR (MDRD) (>60) mL/min BUN/Creatinine Ratio (14-18) Glucose (83-115) mg/dL POC Glucose 100 (83-110) mg/dL Calcium (8.5-10.1) mg/dL Magnesium (1.8-2.4) mg/dl C-Reactive Protein (<1.0) mg/dL FARNAZ Results - Last 24 hrs: Microbiology 08/05/18 12:43 Aerobic Blood Culture - Preliminary Blood NO GROWTH AFTER 3 DAYS Anaerobic Blood Culture - Preliminary Escherichia Coli 08/05/18 12:42 Urine Culture - Final Urine, Catheterized Escherichia Coli Med Orders - Current: Current Medications Acetaminophen (Tylenol) 650 mg PO Q4H PRN PRN Reason: Pain (Mild 1-3)/fever Last Admin: 08/09/18 09:13 Dose: 650 mg Aspirin (Halfprin) [address] [facility] Last Admin: 08/09/18 08:21 Dose: 81 mg Calcium Carbonate (Calcium Carbonate/Vitamin D 600 Mg-200 Unit) [address] [facility] Last Admin: 08/09/18 08:18 Dose: 1 tab Cephalexin (Keflex) 1,[address] [facility] Last Admin: 08/09/18 05:37 Dose: 1,000 mg Cholecalciferol (Vitamin D3) 5,[address] [facility] Last Admin: 08/09/18 08:21 Dose: 5,000 unit Cyanocobalamin (Vitamin B12) 1,[address] [facility] Last Admin: 08/09/18 08:20 Dose: 1,500 mcg Dextrose (Glutose 15) 15 gm PO Q24H PRN PRN Reason: Hypoglycemia Fish Oil (Fish Oil) [address] [facility] Last Admin: 08/09/18 08:20 Dose: 1 gm Furosemide (Lasix) [address] [facility] Last Admin: 08/09/18 08:21 Dose: 40 mg Ibuprofen (Motrin) 400 mg PO Q6H PRN PRN Reason: Pain (mild 1-3) Last Admin: 08/09/18 05:42 Dose: 400 mg Insulin Human Lispro (Humalog) [address] [facility]; Protocol Last Admin: 08/09/18 07:37 Dose: Not Given Losartan Potassium (Cozaar) [address] [facility] Last Admin: 08/09/18 08:20 Dose: 50 mg Magnesium Oxide (Magnesium Oxide) [address] [facility] Stop: 08/10/18 09:01 Last Admin: 08/09/18 08:20 Dose: 400 mg Metoprolol Tartrate (Lopressor) [address] [facility] Last Admin: 08/09/18 08:21 Dose: 25 mg Ondansetron HCl (Zofran Odt) 8 mg PO Q6H PRN PRN Reason: Nausea/Vomiting Polysaccharide Iron Complex (Ferrex 150) [address] [facility] Last Admin: 08/09/18 08:20 Dose: 150 mg Potassium Chloride (Klor-Con M20) [address] [facility] Last Admin: 08/09/18 08:18 Dose: 20 meq Rosuvastatin Calcium (Crestor) [address] [facility] Last Admin: 08/09/18 08:21 Dose: 10 mg Sodium Chloride (Saline Flush) 10 ml FLUSH ASDIRECTED PRN PRN Reason: Keep Vein Open Zolpidem Tartrate (Ambien) 5 mg PO BEDTIME PRN PRN Reason: Sleep Last Admin: 08/08/18 20:39 Dose: 5 mg Discontinued Medications Dextrose (Glutose 15) 15 gm PO ONETIME ONE Stop: 08/05/18 15:33 Last Admin: 08/05/18 17:44 Dose: Not Given Enoxaparin Sodium (Lovenox) [address] [facility] Last Admin: 08/05/18 16:51 Dose: 30 mg Enoxaparin Sodium (Lovenox) [address] [facility] Sodium Chloride (Normal Saline) 1,000 mls @ 999 mls/hr IV ONETIME [facility] Last Admin: 08/05/18 12:58 Dose: 999 mls/hr Ceftriaxone Sodium 1 gm/ (Sodium Chloride) 100 mls @ 200 mls/hr IV ONETIME ONE Stop: 08/05/18 13:38 Last Admin: 08/05/18 13:40 Dose: 200 mls/hr Dextrose/Sodium Chloride (Dextrose 5%-1/2 Ns) 1,000 mls @ 125 mls/hr IV ASDIRECTED [facility] Ceftriaxone Sodium 1 gm/ (Sodium Chloride) 100 mls @ 200 mls/hr IV Q24H [facility] Sodium Chloride (Normal Saline) 1,000 mls @ 200 mls/hr IV ASDIRECTED ISAAK Sodium Chloride (Normal Saline) 1,000 mls @ 125 mls/hr IV ASDIRECTED [facility] Last Admin: 08/06/18 02:00 Dose: 125 mls/hr Ferric Sodium Gluconate Complex 250 mg/ Sodium Chloride 120 mls @ 60 mls/hr IV ONETIME ONE Stop: 08/06/18 13:29 Last Admin: 08/06/18 12:00 Dose: 60 mls/hr Piperacillin Sod/Tazobactam (Sod 4.5 gm/ Sodium Chloride) 100 mls @ 25 mls/hr IV Q8H [facility] Last Admin: 08/08/18 04:32 Dose: 25 mls/hr Piperacillin Sod/Tazobactam (Sod 4.5 gm/ Sodium Chloride) 100 mls @ 200 mls/hr IV ONETIME ONE Stop: 08/06/18 12:29 Last Admin: 08/06/18 14:03 Dose: 200 mls/hr Magnesium Sulfate 2 gm/ Premix 50 mls @ 25 mls/hr IV ONETIME ONE Stop: 08/08/18 09:45 Last Admin: 08/08/18 08:38 Dose: 25 mls/hr Lorazepam (Ativan) 1 mg IV ONETIME ONE Stop: 08/05/18 15:33 Last Admin: 08/05/18 17:44 Dose: Not Given Lorazepam (Ativan) 1 mg IV Q6H PRN PRN Reason: Nausea/Vomiting Magnesium Oxide (Magnesium Oxide) [address] [facility] Last Admin: 08/07/18 09:04 Dose: 400 mg Iron Polysac 150 Mg [address] [facility] Non-Formulary Medication (Biotin [Biotin]) [address] [facility] Last Admin: 08/07/18 09:22 Dose: Not Given Non-Formulary Medication (Glucosamine Hcl [Glucosamine]) 3,[address] [facility] Last Admin: 08/07/18 09:22 Dose: Not Given Saccharomyces Boulardii (Florastor) [address] [facility] Last Admin: 08/07/18 09:22 Dose: Not Given Sodium Chloride (Saline Flush) 10 ml FLUSH ASDIRECTED PRN PRN Reason: Keep Vein Open Last Admin: 08/05/18 12:43 Dose: 10 ml Trimethoprim/Sulfamethoxazole (Septra Ds) [address] [facility] Last Admin: 08/06/18 08:16 Dose: 1 tab - Exam Quality Assessment: Denies: Supplemental Oxygen General: Reports: Alert, Oriented HEENT: Reports: Pupils Equal Neck: Reports: Supple Lungs: Reports: Clear to Auscultation, Normal Respiratory Effort Cardiovascular: Reports: Regular Rate, Regular Rhythm GI/Abdominal Exam: Normal Bowel Sounds, Soft, Non-Tender, No Organomegaly, No Distention Extremities: Normal Inspection, Normal Range of Motion, Non-Tender, No Pedal Edema Skin: Reports: Warm, Dry, Intact Neurological: Reports: No New Focal Deficit Psy/Mental Status: Reports: Alert, Normal Affect, Normal Mood
== END 2018-08-09 13:54 | disposition home or self-care (01) | DRG 872 ==
LOC: JD.ED 11:54 → JD.MS 14:58
PROVIDERS: ADMIT Pediatrics; ATTEND Pediatrics
DX: A41.9 Sepsis, unspecified organism (principal); N12 Tubulo-interstitial nephritis, not specified as acute or chronic; E87.1 Hypo-osmolality and hyponatremia; I85.00 Esophageal varices without bleeding; N17.9 Acute kidney failure, unspecified; H54.7 Unspecified visual loss; E78.00 Pure hypercholesterolemia, unspecified; I10 Essential (primary) hypertension; I73.9 Peripheral vascular disease, unspecified; G47.30 Sleep apnea, unspecified; K52.9 Noninfective gastroenteritis and colitis, unspecified; D64.9 Anemia, unspecified; E61.1 Iron deficiency; M19.90 Unspecified osteoarthritis, unspecified site; G89.29 Other chronic pain; M54.5 Low back pain; E11.9 Type 2 diabetes mellitus without complications; D50.9 Iron deficiency anemia, unspecified; E78.5 Hyperlipidemia, unspecified; E66.9 Obesity, unspecified; M81.0 Age-related osteoporosis without current pathological fracture; R42 Dizziness and giddiness; R53.1 Weakness; R06.02 Shortness of breath; R60.9 Edema, unspecified; R79.1 Abnormal coagulation profile; R50.9 Fever, unspecified; E55.9 Vitamin D deficiency, unspecified; E87.6 Hypokalemia; E86.9 Volume depletion, unspecified; T50.1X5A Adverse effect of loop [high-ceiling] diuretics, initial encounter; B96.20 Unspecified Escherichia coli [E. coli] as the cause of diseases classified elsewhere; Z90.49 Acquired absence of other specified parts of digestive tract; Z90.710 Acquired absence of both cervix and uterus; Z96.653 Presence of artificial knee joint, bilateral; Z88.5 Allergy status to narcotic agent; Z79.84 Long term (current) use of oral hypoglycemic drugs; Z86.711 Personal history of pulmonary embolism; Z79.82 Long term (current) use of aspirin; Z79.899 Other long term (current) drug therapy
CPT/HCPCS: 36415; 71045; 80053; 81001; 83036; 84484; 85007; 85027; 86140; 87040; 87077; 87086; 87088; 87186 ×2; 96361; 96365; 99285; J0696; J7030; J7040; 80048; 82607; 82728; 82746; 82962; 83540; 83605; 83735; 84443; 85025; 85045; 93005; 97110-GP; 97116-GP; 97161-GP; 97165-GO; 97530-GO; 99284; A9270-GY; J1650; J1815-GY; J2543; J2916; J3475

== ENCOUNTER 2019-03-01 14:13 | Emergency (ER) | payer MEDICARE, OTHER ==
[2019-03-01 14:32] VITALS: BP 129/65; PULSE 70
[2019-03-01] MEDS ORDERED: predniSONE 20 MG Tab PO ONE (15:20)
[2019-03-01] MEDS ORDERED: Orphenadrine 100 MG Tab.ER PO ONE (15:21)
--- NOTE | 2019-03-01 15:27 | EDM.PDOC ---
ED HPI GENERAL MEDICAL PROBLEM - General Chief Complaint: Neck Problem Stated Complaint: NECK PAIN Time Seen by Provider: 03/01/19 14:44 Source of Information: Reports: Patient, RN Notes Reviewed History Limitations: Reports: No Limitations - History of Present Illness INITIAL COMMENTS - FREE TEXT/NARRATIVE: Patient is a 78-year-old female who presents to the ED for evaluation of ongoing neck pain. She notes that on Tuesday morning, she woke up with this neck pain, stating that it is worse on the left side more so than the right. It does not radiate down her left arm. She notes that by Tuesday afternoon it felt a little better, so she went about her day. She states that Tuesday again it hurt, she went to the chiropractor on Tuesday, and he did a massage to the area but would not adjust her, he did x-rays and stated there was some calcifications, and directed her to the ER for further evaluation for more possible imaging. She did try to take 1 tramadol this morning, but this did not help the pain much. She has not been taking any sort of NSAID therapy for this. She further notes that she feels as if her muscles are stiff in the back of her neck. She denies any trauma to the area. Neck Pain Score (Numeric/FACES): 8 - Related Data Allergies Allergy/AdvReac Type Severity Reaction Status Date / Time morphine Allergy Rash Verified 05/31/18 09:07 Home Meds: Home Meds Aspirin [Low Dose Aspirin EC] 81 mg PO DAILY 04/26/14 [History] Metoprolol Tartrate 25 mg PO BID 04/26/14 [History] amLODIPine [Norvasc] 5 mg PO DAILY 04/26/14 [History] Rosuvastatin [Crestor] 10 mg PO DAILY 05/01/18 [History] Biotin 1 mg PO DAILY 05/08/18 [History] Calcium Carb, Citrate/Vit D3 [Calcium + D3 ER Tablet] 1 tab PO DAILY 05/08/18 [ History] Cholecalciferol (Vitamin D3) [Vitamin D3] 5,000 unit PO DAILY 05/08/18 [History] Cyanocobalamin (Vitamin B-12) [Vitamin B-12] 1,500 mcg PO DAILY 05/08/18 [ History] Fish Oil/[place]-3 Fatty Acids [Fish Oil 1,000 MG] 1 gm PO BID 05/08/18 [History] Glucosamine HCl [Glucosamine] 3,000 mg PO DAILY 05/08/18 [History] Magnesium Oxide [Magnesium] 500 mg PO DAILY 05/08/18 [History] Multivit,Calc,Mins/Iron/Folic [Women's Daily Formula Caplet] 1 tab PO DAILY [History] Vitamin E 400 unit PO DAILY 05/08/18 [History] Irbesartan 150 mg PO DAILY 05/31/18 [History] L.acidoph,Paracasei, B.lactis [Probiotic] 1 cap PO DAILY 08/05/18 [History] traMADol [Ultram] 50 mg PO Q12H PRN 08/05/18 [History] Ammonium Lactate [Skin Treatment] 03/01/19 [History] Cyclobenzaprine [Flexeril] 10 mg PO TID PRN #21 tab 03/01/19 [Rx] Fenofibrate Nanocrystallized [Fenofibrate] 0.5 tab PO DAILY 03/01/19 [History] Ferrous Sulfate [Slow Fe] 142 mg PO DAILY 03/01/19 [History] Furosemide 40 mg PO DAILY 03/01/19 [History] Pravastatin [Pravachol] 20 mg PO DAILY 03/01/19 [History] hydroCHLOROthiazide [Hydrochlorothiazide] 25 mg PO DAILY 03/01/19 [History] metFORMIN [Glucophage XR] 1,000 mg PO DAILY 03/01/19 [History] metFORMIN [Glucophage XR] 500 mg PO ACDINNER 03/01/19 [History] predniSONE 20 mg PO ASDIRECTED #15 tab 03/01/19 [Rx] Past Medical History HEENT History: Reports: Cataract, Other (See Below) Other HEENT History: double vision Cardiovascular History: Reports: Angina, High Cholesterol, Hypertension, SOB on Exertion, Other (See Below) Other Cardiovascular History: peripheral artery disease, edema Respiratory History: Reports: PE, Sleep Apnea, SOB, Other (See Below) Other Respiratory History: cough, elevated d dimer, Pulmonary edema Gastrointestinal History: Reports: Chronic Diarrhea, Diverticulosis [employer] History: Reports: Musculoskeletal History: Reports: Arthritis, Back Pain, Chronic, Osteoarthritis , Other (See Below) Other Musculoskeletal History: low back pain, shoulder pain Endocrine/Metabolic History: Reports: Diabetes, Type II, Obesity/BMI 30+, Osteoporosis, Vitamin D Deficiency Other Endocrine/Metabolic History: thyroid nodules Hematologic History: Reports: Anemia, Bleeding Disorder, Iron Deficiency, Other (See Below) Other Hematologic History: blood clotting disorder, blood transfusion Dermatologic History: Reports: Other (See Below) Other Dermatologic History: dry skin - Infectious Disease History Infectious Disease History: Reports: Chicken Pox, Measles - Past Surgical History HEENT Surgical History: Reports: Adenoidectomy, Cataract Surgery, Tonsillectomy GI Surgical History: Reports: Appendectomy, Cholecystectomy, Colonoscopy Other GI Surgeries/Procedures: sigmoid resection Female Surgical History: Reports: Hysterectomy, Oophorectomy Musculoskeletal Surgical History: Reports: Knee Replacement Other Musculoskeletal Surgeries/Procedures:: bilateral knee replacements, bilateral bunionectomies Social & Family History - Family History Family Medical History: Noncontributory Cardiac: Reports: NC Other Cardiac Family History: grandparents Respiratory: Reports: None GI: Reports: Inflammatory Bowel Disease Other GI Family History: mother OBGYN: Reports: None Musculoskeletal: Reports: Arthritis, Osteoporosis Neurological: Reports: None Psychiatric: Reports: None Endocrine/Metabolic: Reports: None Hematologic: Reports: None Immunologic: Reports: None - Tobacco Use Smoking Status *Q: Never Smoker - Caffeine Use Caffeine Use: Reports: Coffee, Soda, Tea - Recreational Drug Use Recreational Drug Use: No ED ROS GENERAL - Review of Systems Review Of Systems: Comprehensive ROS is negative, except as noted in HPI. Constitutional: Denies: Fever, Chills HEENT: Denies: Vision Change Respiratory: Denies: Shortness of Breath, Cough Cardiovascular: Denies: Chest Pain GI/Abdominal: Denies: Abdominal Pain, Constipation, Diarrhea, Nausea, Vomiting Musculoskeletal: Reports: Neck Pain (Left sided neck pain), Muscle Stiffness ( posterior neck). Denies: Shoulder Pain, Arm Pain Neurological: Denies: Numbness, Tingling ED EXAM, UPPER BACK/NECK PAIN - Physical Exam Exam: See Below Exam Limited By: No Limitations General Appearance: Alert, WD/WN, No Apparent Distress Eye Exam: Bilateral Eye: EOMI, Normal Inspection, PERRL Ears Exam: Normal External Exam Nose Exam: Normal Inspection Throat/Mouth Exam: Normal Inspection, Normal Lips, Normal Teeth, Normal Gums, Normal Oropharynx, Normal Voice, No Airway Compromise Head Exam: Atraumatic, Normocephalic Neck Exam: Full Range of Motion, Normal Alignment, Normal Inspection, Muscle Spasm, Paraspinous Muscle Tender (bilaterally), Stiff Neck (bilaterally) Nexus Criteria: No: Posterior, Midline Cervical Tenderness, Evidence of Intoxication, Altered Level of Consciousness, Focal Neurological Deficit, Painful Distraction Injuries Cardiovascular/Respiratory: Regular Rate, Rhythm, No M/R/G, Normal Peripheral Pulses, No JVD, Normal Breath Sounds, No Respiratory Distress GI/Abdominal: Normal Bowel Sounds, Soft, Non-Tender, No Distention, No Mass Extremities: Normal Inspection, Normal Range of Motion, Normal Capillary Refill Neurologic: No Motor/Sensory Deficits, Alert, Normal Mood/Affect, Oriented x 3 Psychiatric: Normal Affect, Normal Mood Skin Exam: Normal Color, Warm/Dry Course - Vital Signs Last Recorded V/S: Last Vital Signs Temp 97.6 F 03/01/19 14:28 Pulse 70 03/01/19 14:28 Resp 14 03/01/19 14:28 BP 129/65 03/01/19 14:28 Pulse Ox 98 03/01/19 14:28 - Orders/Labs/Meds Orders: Active Orders 24 hr Category Date Time Status Cervical Spine wo Cont [CT] Stat Exams 03/01/19 15:19 Ordered Orphenadrine [Norflex] Med 03/01/19 15:21 Once 100 mg PO ONETIME ONE Medication Orders Orphenadrine Citrate (Norflex) 100 mg PO ONETIME ONE Stop: 03/01/19 15:22 Meds: Medications Generic Name Dose Route Start Last Admin Trade Name Freq PRN Reason Stop Dose Admin Orphenadrine Citrate 100 mg 03/01/19 15:21 Norflex PO 03/01/19 15:22 ONETIME ONE Discontinued Medications Generic Name Dose Route Start Last Admin Trade Name Freq PRN Reason Stop Dose Admin Prednisone 40 mg 03/01/19 15:20 Prednisone PO 03/01/19 15:21 ONETIME ONE - Re-Assessments/Exams Free Text/Narrative Re-Assessment/Exam: 03/01/19 15:26 Patient presents to the ED for evaluation of her neck pain. I did try to explain to her that although I could not see the x-rays, it sounds as if these are osteoarthritic type changes. She is increasingly worried that the calcifications may break off, and was requesting a CT be done for further evaluation. I did go over the risks and benefits with her regarding radiation, but she would like the CT be done. I do believe that she is having some osteoarthritis, with possible torticollis. She will be given 40 mg prednisone, and 100 mg p.o. Norflex for further management. Plan is to send her home with a burst of prednisone and the Norflex for symptomatic management. 03/01/19 16:[address] is done, and demonstrates diffuse degenerative change, but no acute changes were appreciated. Will treat the patient as previously described , discharged home with general recommendations. Departure - Departure Time of Disposition: 16:20 Disposition: Home, Self-Care 01 Condition: Fair Clinical Impression: Arthritis of neck Sprain of cervical neck Qualifiers: Encounter type: initial encounter Qualified Code(s): S13.9XXA - Sprain of joints and ligaments of unspecified parts of neck, initial encounter - Discharge Information *PRESCRIPTION DRUG MONITORING PROGRAM REVIEWED*: No *COPY OF PRESCRIPTION DRUG MONITORING REPORT IN PATIENT KOFFI: No Instructions: Cervical Sprain, [id number] Referrals: Karley Sweeney, [facility] [facility] [Primary Care Provider] - Additional Instructions: You have been evaluated in the ED for your neck pain. Your CT demonstrated lots of degenerative arthritic changes, but nothing that is acutely worrisome. Please use ice/heat as tolerated to the affected area. You were given a prescription for prednisone, please take as directed for further inflammation relief, you were also given a prescription for a muscle relaxer, please take as directed for further muscle spasms as needed. Please return to ED if your symptoms should change or worsen. Sepsis Event Note - Evaluation Sepsis Screening Result: No Definite Risk - Focused Exam Vital Signs: Vital Signs Temp Pulse Resp BP Pulse Ox 03/01/19 14:28 97.6 F 70 14 129/65 98 Date Exam was Performed: 03/01/19 Time Exam was Performed: 15:21 - My Orders Last 24 Hours: My Active Orders 03/01/19 15:19 Cervical Spine wo Cont [CT] Stat 03/01/19 15:21 Orphenadrine [Norflex] 100 mg PO ONETIME ONE - Assessment/Plan Last 24 Hours: My Active Orders 03/01/19 15:19 Cervical Spine wo Cont [CT] Stat 03/01/19 15:21 Orphenadrine [Norflex] 100 mg PO ONETIME ONE
--- NOTE | 2019-03-01 16:08 | CT ---
CT cervical spine Technique: Multiple axial sections were obtained from above C1 inferiorly to the bottom of T2. Reconstructed sagittal and coronal images were reviewed. Comparison: No prior cervical spine imaging is available. Findings: Disc space narrowing is noted at C2-3 and C3-4. Vertebral body heights are maintained. Scattered anterior endplate osteophytes are seen. Degenerative change is noted between the dens and anterior arch of C1. Diffuse degenerative apophyseal change is noted throughout the cervical and visualized thoracic levels. No abnormal subluxation is seen. Mild left-sided neural foraminal stenosis noted at C3-4. Other neural foramina are patent. No bony central canal stenosis is seen. No fracture is appreciated. Impression: 1. Degenerative change as noted above. 2. Nothing acute is appreciated. Diagnostic code #2 This report was dictated in [place] Standard Time
== END 2019-03-01 16:45 | disposition home or self-care (01) ==
LOC: JD.ED 14:13
DX: S13.4XXA Sprain of ligaments of cervical spine, initial encounter (principal); M47.812 Spondylosis without myelopathy or radiculopathy, cervical region; Z98.49 Cataract extraction status, unspecified eye; Z98.890 Other specified postprocedural states; Z90.49 Acquired absence of other specified parts of digestive tract; Z90.710 Acquired absence of both cervix and uterus; Z96.653 Presence of artificial knee joint, bilateral; I10 Essential (primary) hypertension; E11.9 Type 2 diabetes mellitus without complications; E66.9 Obesity, unspecified; Z79.84 Long term (current) use of oral hypoglycemic drugs; Z79.899 Other long term (current) drug therapy; Z79.82 Long term (current) use of aspirin; Z88.5 Allergy status to narcotic agent; X58.XXXA Exposure to other specified factors, initial encounter
CPT/HCPCS: 72125; 99283; A9270

== ENCOUNTER 2020-06-28 21:16 | Emergency (ER) | payer MEDICARE, OTHER ==
--- NOTE | 2020-06-28 21:29 | EDM.PDOC ---
ED HPI GENERAL MEDICAL PROBLEM - General Chief Complaint: Gastrointestinal Problem Stated Complaint: VOMITING/DIARRHEA Time Seen by Provider: 06/28/20 21:28 - History of Present Illness INITIAL COMMENTS - FREE TEXT/NARRATIVE: 79-year-old female presents the emergency room with nausea and vomiting. Patient wonders if she had some food poisoning the other person she was eating with that is fine however she ate vegetables with the other person did not. Patient denies any fevers or chills last night she had significant nausea and vomiting today she has had lots of diarrhea watery she cannot recall how many times she has had a. She is not had associated breathing difficulties or shortness of breath she has had some lower chest discomfort and abdominal pain just before and after throwing up. No burning or frequency with urination no frequency. Patient has not thrown up any blood or had no blood in her stool. Right Abdomen Pain Score (Numeric/FACES): 5 - Related Data Allergies Allergy/AdvReac Type Severity Reaction Status Date / Time morphine Allergy Severe Rash Verified 06/28/20 21:36 Home Meds: Home Meds Aspirin [Low Dose Aspirin EC] 81 mg PO DAILY 04/26/14 [History] Metoprolol Tartrate 25 mg PO BID 04/26/14 [History] amLODIPine [Norvasc] 5 mg PO DAILY 04/26/14 [History] Rosuvastatin [Crestor] 10 mg PO DAILY 05/01/18 [History] Biotin 1 mg PO DAILY 05/08/18 [History] Calcium Carb, Citrate/Vit D3 [Calcium + D3 ER Tablet] 1 tab PO DAILY 05/08/18 [History] Cholecalciferol (Vitamin D3) [Vitamin D3] 5,000 unit PO DAILY 05/08/18 [History] Cyanocobalamin (Vitamin B-12) [Vitamin B-12] 1,000 mcg PO DAILY 05/08/18 [History] Fish Oil/[place]-3 Fatty Acids [Fish Oil 1,000 MG] 1 gm PO BID 05/08/18 [History] Glucosamine HCl [Glucosamine] 1,500 mg PO DAILY 05/08/18 [History] Magnesium Oxide [Magnesium] 500 mg PO DAILY 05/08/18 [History] Multivit,Calc,Mins/Iron/Folic [Women's Daily Formula Caplet] 1 tab PO DAILY 05/08/18 [History] Vitamin E 400 unit PO DAILY 05/08/18 [History] Irbesartan 150 mg PO DAILY 05/31/18 [History] L.acidoph,Paracasei, B.lactis [Probiotic] 1 cap PO DAILY 08/05/18 [History] traMADol [Ultram] 50 mg PO Q12H PRN 08/05/18 [History] Cyclobenzaprine [Flexeril] 10 mg PO TID PRN #21 tab 03/01/19 [Rx] Fenofibrate Nanocrystallized [Fenofibrate] 0.5 tab PO DAILY 03/01/19 [History] Ferrous Sulfate [Slow Fe] 142 mg PO DAILY 03/01/19 [History] Furosemide 40 mg PO DAILY 03/01/19 [History] Pravastatin [Pravachol] 20 mg PO DAILY 03/01/19 [History] hydroCHLOROthiazide [Hydrochlorothiazide] 25 mg PO DAILY 03/01/19 [History] metFORMIN [Glucophage XR] 1,000 mg PO DAILY 03/01/19 [History] metFORMIN [Glucophage XR] 500 mg PO ACDINNER 03/01/19 [History] Past Medical History HEENT History: Reports: Cataract, Other (See Below) Other HEENT History: double vision Cardiovascular History: Reports: Angina, High Cholesterol, Hypertension, SOB on Exertion, Other (See Below) Other Cardiovascular History: peripheral artery disease, edema Respiratory History: Reports: PE, Sleep Apnea, SOB, Other (See Below) Other Respiratory History: cough, elevated d dimer, Pulmonary edema Gastrointestinal History: Reports: Chronic Diarrhea, Diverticulosis Genitourinary History: Reports: 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: Musculoskeletal History: Reports: Arthritis, Back Pain, Chronic, Osteoarthritis, Other (See Below) Other Musculoskeletal History: low back pain, shoulder pain Neurological History: Reports: None Psychiatric History: Reports: None Endocrine/Metabolic History: Reports: Diabetes, Type II, Obesity/BMI 30+, Osteoporosis, Vitamin D Deficiency Other Endocrine/Metabolic History: thyroid nodules Hematologic History: Reports: Anemia, Bleeding Disorder, Iron Deficiency, Other (See Below) Other Hematologic History: blood clotting disorder, blood transfusion Immunologic History: Reports: None, Other (See Below) Oncologic (Cancer) History: Reports: None Dermatologic History: Reports: Other (See Below) Other Dermatologic History: dry skin - Infectious Disease History Infectious Disease History: Reports: Chicken Pox, Measles - Past Surgical History HEENT Surgical History: Reports: Adenoidectomy, Cataract Surgery, Tonsillectomy GI Surgical History: Reports: Appendectomy, Cholecystectomy, Colonoscopy Other GI Surgeries/Procedures: sigmoid resection Female Surgical History: Reports: Hysterectomy, Oophorectomy Musculoskeletal Surgical History: Reports: Knee Replacement Other Musculoskeletal Surgeries/Procedures:: bilateral knee replacements, bilateral bunionectomies Social & Family History - Family History Family Medical History: No Pertinent Family History Cardiac: Reports: OK Other Cardiac Family History: grandparents Respiratory: Reports: None GI: Reports: Inflammatory Bowel Disease Other GI Family History: mother OBGYN: Reports: None Musculoskeletal: Reports: Arthritis, Osteoporosis Neurological: Reports: None Psychiatric: Reports: None Endocrine/Metabolic: Reports: None Hematologic: Reports: None Immunologic: Reports: None - Caffeine Use Caffeine Use: Reports: Coffee, Soda, Tea ED ROS GENERAL - Review of Systems Review Of Systems: See Below Constitutional: Reports: No Symptoms, Weight Gain Respiratory: Reports: No Symptoms Cardiovascular: Reports: No Symptoms Endocrine: Reports: No Symptoms GI/Abdominal: Reports: Abdominal Pain (Minimal), Diarrhea, Nausea, Vomiting. Denies: Constipation : Reports: No Symptoms Musculoskeletal: Reports: No Symptoms Skin: Reports: No Symptoms Neurological: Reports: No Symptoms Psychiatric: Reports: No Symptoms ED EXAM, GENERAL - Physical Exam Exam: See Below Exam Limited By: No Limitations General Appearance: Alert, No Apparent Distress Head: Atraumatic, Normocephalic Neck: Normal Inspection, Supple, Non-Tender, Full Range of Motion Respiratory/Chest: No Respiratory Distress, Lungs Clear, Normal Breath Sounds Cardiovascular: Regular Rate, Rhythm, No Edema, No Murmur GI/Abdominal: Normal Bowel Sounds, Soft, Other (Mild diffuse discomfort no localizing symptoms no rigidity rebound or guarding) Back Exam: Normal Inspection, Full Range of Motion, Paraspinal Tenderness Extremities: Normal Inspection, No Pedal Edema Neurological: Alert, Oriented Lymphatic: No Adenopathy #1 Interpretation EKG Date: 06/28/20 Rhythm: NSR [place]: Normal P-Wave: Present QRS: Other (Low voltage precordial leads otherwise unremarkable) ST-T: Normal QT: Normal Comparison: No Change (No significant change from August 05, 2018) Course - Vital Signs Last Recorded V/S: Last Vital Signs Temp 38.0 C 06/29/20 01:56 Pulse 92 05/15/21 21:32 Resp 22 H 06/29/20 01:56 BP 103/53 L 06/29/20 01:56 Pulse Ox 93 L 06/29/20 01:56 - Orders/Labs/Meds Orders: Active Orders 24 hr Category Date Time Status EKG Documentation Completion [RC] STAT Care 06/28/20 21:42 Active Chest 1V Frontal [CR] Stat Exams 06/29/20 00:15 Taken CULTURE BLOOD [BC] Stat Lab 06/29/20 00:20 Received CULTURE BLOOD [BC] Stat Lab 06/29/20 00:27 Received CULTURE URINE [RM] Stat Lab 06/29/20 01:44 Received LACTIC ACID [CHEM] Routine Lab 06/29/20 02:57 Ordered Blood Culture x2 Reflex Set [OM.PC] Stat Oth 06/29/20 00:00 Ordered Isolation [COMM] Routine Oth 06/29/20 01:25 Ordered Labs: Laboratory Tests 06/28/20 06/28/20 06/28/20 Range/Units 21:50 21:50 22:38 WBC 15.22 H (3.98-10.04) K/mm3 RBC 4.34 (3.98-5.22) M/mm3 Hgb 13.1 (11.2-15.7) gm/dl Hct 39.2 (34.1-44.9) % MCV 90.3 D (79.4-94.8) fl MCH 30.2 (25.6-32.2) pg MCHC 33.4 (32.2-35.5) g/dl RDW Std Deviation 49.5 H (36.4-46.3) fL Plt Count 210 (182-369) K/mm3 MPV 10.4 (9.4-12.3) fl Neut % (Auto) 86.6 H (34.0-71.1) % Lymph % (Auto) 4.4 L (19.3-51.7) % [place] % (Auto) 8.0 (4.7-12.5) % Eos % (Auto) 0.1 L (0.7-5.8) Baso % (Auto) 0.1 (0.1-1.2) % Neut # (Auto) 13.20 H (1.56-6.13) K/mm3 Lymph # (Auto) 0.67 L (1.18-3.74) K/mm3 [place] # (Auto) 1.21 H (0.24-0.36) K/mm3 Eos # (Auto) 0.01 L (0.04-0.36) K/mm3 Baso # (Auto) 0.01 (0.01-0.08) K/mm3 Manual Slide Review Abnormal smear Sodium 132 L D (136-145) mEq/L Potassium 3.8 (3.5-5.1) mEq/L Chloride 97 L (98-107) mEq/L Carbon Dioxide 24 (21-32) mEq/L Anion Gap 14.8 (5-15) BUN 38 H (7-18) mg/dL Creatinine 2.0 H (0.55-1.02) mg/dL Est Cr Clr Drug Dosing 21.20 mL/min Estimated GFR (MDRD) 24 (>60) mL/min BUN/Creatinine Ratio 19.0 H (14-18) Glucose 149 H (70-99) mg/dL Lactic Acid (0.4-2.0) mmol/L Calcium 8.9 (8.5-10.1) mg/dL Total Bilirubin 1.3 H (0.2-1.0) mg/dL AST 23 (15-37) U/L ALT 25 (14-59) U/L Alkaline Phosphatase 65 (46-116) U/L Troponin I < 0.017 (0.00-0.056) ng/mL Total Protein 7.0 (6.4-8.2) g/dl Albumin 3.1 L (3.4-5.0) g/dl Globulin 3.9 gm/dL Albumin/Globulin Ratio 0.8 L (1-2) Lipase 136 (73-393) U/L Urine Color (Yellow) Urine Appearance (Clear) Urine pH (5.0-8.0) Ur Specific [place] (1.005-1.030) Urine Protein (Negative) Urine Glucose (UA) (Negative) Urine Ketones (Negative) Urine Occult Blood (Negative) Urine Nitrite (Negative) Urine Bilirubin (Negative) Urine Urobilinogen (0.2-1.0) Ur Leukocyte Esterase (Negative) Urine RBC (0-5) /hpf Urine WBC (0-5) /hpf Urine WBC Clumps (NOT SEEN) /hpf Ur Squamous Epith Cells (0-5) /hpf Urine Bacteria (FEW) /hpf Urine Mucus (FEW) /hpf Influenza Type A RNA (NEGATIVE) Influenza Type B RNA (NEGATIVE) SARS-CoV-2 RNA (MAKAYLA) Negative (NEGATIVE) 06/28/20 06/29/20 06/29/20 Range/Units 22:38 00:20 01:44 WBC (3.98-10.04) K/mm3 RBC (3.98-5.22) M/mm3 Hgb (11.2-15.7) gm/dl Hct (34.1-44.9) % MCV (79.4-94.8) fl MCH (25.6-32.2) pg MCHC (32.2-35.5) g/dl RDW Std Deviation (36.4-46.3) fL Plt Count (182-369) K/mm3 MPV (9.4-12.3) fl Neut % (Auto) (34.0-71.1) % Lymph % (Auto) (19.3-51.7) % [place] % (Auto) (4.7-12.5) % Eos % (Auto) (0.7-5.8) Baso % (Auto) (0.1-1.2) % Neut # (Auto) (1.56-6.13) K/mm3 Lymph # (Auto) (1.18-3.74) K/mm3 [place] # (Auto) (0.24-0.36) K/mm3 Eos # (Auto) (0.04-0.36) K/mm3 Baso # (Auto) (0.01-0.08) K/mm3 Manual Slide Review Sodium (136-145) mEq/L Potassium (3.5-5.1) mEq/L Chloride (98-107) mEq/L Carbon Dioxide (21-32) mEq/L Anion Gap (5-15) BUN (7-18) mg/dL Creatinine (0.55-1.02) mg/dL Est Cr Clr Drug Dosing mL/min Estimated GFR (MDRD) (>60) mL/min BUN/Creatinine Ratio (14-18) Glucose (70-99) mg/dL Lactic Acid 3.1 H* (0.4-2.0) mmol/L Calcium (8.5-10.1) mg/dL Total Bilirubin (0.2-1.0) mg/dL AST (15-37) U/L ALT (14-59) U/L Alkaline Phosphatase (46-116) U/L Troponin I (0.00-0.056) ng/mL Total Protein (6.4-8.2) g/dl Albumin (3.4-5.0) g/dl Globulin gm/dL Albumin/Globulin Ratio (1-2) Lipase (73-393) U/L Urine Color Yellow (Yellow) Urine Appearance Clear (Clear) Urine pH 5.0 (5.0-8.0) Ur Specific [place] 1.010 (1.005-1.030) Urine Protein 2+ H (Negative) Urine Glucose (UA) Negative (Negative) Urine Ketones Negative (Negative) Urine Occult Blood 1+ H (Negative) Urine Nitrite Negative (Negative) Urine Bilirubin Negative (Negative) Urine Urobilinogen 0.2 (0.2-1.0) Ur Leukocyte Esterase 1+ H (Negative) Urine RBC 0-5 (0-5) /hpf Urine WBC 10-20 H (0-5) /hpf Urine WBC Clumps Rare (NOT SEEN) /hpf Ur Squamous Epith Cells 0-5 (0-5) /hpf Urine Bacteria Moderate H (FEW) /hpf Urine Mucus Rare (FEW) /hpf Influenza Type A RNA Negative (NEGATIVE) Influenza Type B RNA Negative (NEGATIVE) SARS-CoV-2 RNA (MAKAYLA) (NEGATIVE) Meds: Medications Discontinued Medications Generic Name Dose Route Start Last Admin Trade Name Yvan PRN Reason Stop Dose Admin Acetaminophen 650 mg 06/29/20 00:02 06/29/20 00:15 Acetaminophen Soln 650 Mg/20.3 Ml Ud Cup PO 06/29/20 00:03 Not Given ONETIME ONE Acetaminophen 650 mg 06/29/20 00:14 06/29/20 00:15 Acetaminophen 325 Mg Tab PO 06/29/20 00:15 650 mg NOW ONE Administration Acetaminophen Confirm 06/29/20 00:12 06/29/20 00:31 Acetaminophen 325 Mg Tab Administered 06/29/20 00:13 Not Given Dose 650 mg .ROUTE .STK-MED ONE Lactated Ringer's 1,000 mls @ 999 mls/hr 06/28/20 21:43 06/28/20 21:56 Ringers, Lactated IV 06/28/20 22:43 999 mls/hr .BOLUS ONE Administration Sodium Chloride 1,000 mls @ 999 mls/hr 06/28/20 23:06 06/28/20 23:12 Normal Saline IV 06/29/20 00:06 999 mls/hr ONETIME ONE Administration Linezolid 600 mg/ Premix 300 mls @ 300 mls/hr 06/29/20 01:38 06/29/20 02:24 IV 06/29/20 02:37 300 mls/hr ONETIME ONE Administration Sodium Chloride 1,000 mls @ 999 mls/hr 06/29/20 01:38 06/29/20 01:48 Normal Saline IV 06/29/20 02:38 999 mls/hr ONETIME ONE Administration Piperacillin Sod/Tazobactam 100 mls @ 200 mls/hr 06/29/20 01:39 06/29/20 01:48 Sod 4.5 gm/ Sodium Chloride IV 06/29/20 02:08 200 mls/hr ONETIME ONE Administration Ondansetron HCl 4 mg 06/29/20 00:06 06/29/20 00:15 Ondansetron 4 Mg/2 Ml Sdv IVPUSH 06/29/20 00:07 4 mg ONETIME ONE Administration - Re-Assessments/Exams Free Text/Narrative Re-Assessment/Exam: 06/28/20 23:13 Patient is doing better after Zofran and a liter of LR looking at her electrolytes some and give her another liter of NS she is on the dry side her creatinine is up to 2 BUN in the 40s she has no history of heart problems no history of renal insufficiency. 06/28/20 23:32 Microscopic review of the white cells identified bands less than 5% few vacuolated lymphocytes. Her white count elevation is most likely due to a stress reaction. Did discuss her elevated creatinine and BUN with Dr. Marie on-call hospitalist and he agrees with stopping the Metformin and very close follow-up in the clinic. The patient should call the clinic first thing Tuesday morning for recheck and repeat blood work 06/29/20 00:34 The patient became quite sherbet and her headache got worse. She does have an intermittent cough is watching the monitor pulse rate went up and her sats dropped into the 80s they did come back up into the low 90s. Went ahead and ordered lactic acid blood cultures and a urinalysis as well as a portable chest x-ray 06/29/20 00:42 This x-ray is poor inspiration I cannot exclude perhaps some mild fluid overload no obvious infiltrate cannot exclude cardiomegaly but then again a lot of this could be due to poor inspiration we will have radiology read this. We will start Zosyn and Zyvox. 06/29/20 02:35 The patient became dependent on oxygen and her pulse went up and her blood pressure came down. [facility] discussed the [facility]. Then called [facility] and they kindly accepted the patient not knowing exactly the most appropriate bed for the patient we did determine to going through the emergency room. The case was discussed with Dr. Espinoza in the emergency room who kindly accepts the patient in transfer. Radiologist read the x-ray with findings of a new hazy opacity in the left lateral lung base obscuring the left lateral diaphragm thought to be atelectasis or possibly a pneumonia and some right mid hemithorax opacity. On repeat examination she possibly has some left lower lobe crackles after being hydrated abdominal exam shows vague discomfort however she may have some rebound tenderness no worse on the right compared to the left. I have updated Dr. Espinoza with these most recent findings. Ambulance is here for transfer. Departure - Departure Time of Disposition: 02:15 Disposition: Home, Self-Care 01 Clinical Impression: Sepsis - Discharge Information Referrals: Karley Sweeney, CONVEYOR TECHNICIAN [Primary Care Provider] - Forms: ED Department Discharge Sepsis Event Note (ED) - Focused Exam Vital Signs: Vital Signs Temp Temp Pulse Resp BP Pulse Ox 06/29/20 01:56 38.0 C 22 H 103/53 L 93 L 06/29/20 01:33 25 H 97/48 L 92 L 06/29/20 00:53 39.4 C H 25 H 130/58 L 91 L 06/29/20 00:38 30 H 156/73 H 92 L 06/29/20 00:32 38.2 C H 30 H 135/76 94 L 06/29/20 00:20 30 H 83 L 06/28/20 21:32 36.3 C 92 20 124/57 L 93 L - My Orders Last 24 Hours: My Active Orders 06/28/20 21:42 EKG Documentation Completion [RC] STAT 06/29/20 00:00 Blood Culture x2 Reflex Set [OM.PC] Stat 06/29/20 00:15 Chest 1V Frontal [CR] Stat 06/29/20 00:20 CULTURE BLOOD [BC] Stat 06/29/20 00:27 CULTURE BLOOD [BC] Stat 06/29/20 01:25 Isolation [COMM] Routine 06/29/20 01:44 CULTURE URINE [RM] Stat 06/29/20 02:57 LACTIC ACID [CHEM] Routine - Assessment/Plan Last 24 Hours: My Active Orders 06/28/20 21:42 EKG Documentation Completion [RC] STAT 06/29/20 00:00 Blood Culture x2 Reflex Set [OM.PC] Stat 06/29/20 00:15 Chest 1V Frontal [CR] Stat 06/29/20 00:20 CULTURE BLOOD [BC] Stat 06/29/20 00:27 CULTURE BLOOD [BC] Stat 06/29/20 01:25 Isolation [COMM] Routine 06/29/20 01:44 CULTURE URINE [RM] Stat 06/29/20 02:57 LACTIC ACID [CHEM] Routine
[2020-06-28 21:36] VITALS: PULSE 92
[2020-06-28] MEDS ORDERED: Lactated Ringers 1,000 ML IV ONE (21:43)
[2020-06-28] MEDS ORDERED: Sodium Chloride 0.9% 1,000 ML IV ONE (23:06)
[2020-06-29] MEDS ORDERED: Acetaminophen Soln 650 MG/20.3 ML UD Cup PO ONE (00:02)
[2020-06-29] MEDS ORDERED: Ondansetron 4 MG/2 ML SDV IVPUSH ONE (00:06)
[2020-06-29] MEDS ORDERED: Acetaminophen 325 MG Tab ONE (00:12)
[2020-06-29] MEDS ORDERED: Acetaminophen 325 MG Tab PO ONE (00:14)
[2020-06-29] MEDS ORDERED: Sodium Chloride 0.9% 1,000 ML IV ONE (01:38)
[2020-06-29] MEDS ORDERED: Linezolid 600 MG in Premix Bag 1 BAG IV ONE (01:38)
[2020-06-29] MEDS ORDERED: Piperacillin/Tazobactam 4.5 GM in Sodium Chloride 0.9% 100 ML IV ONE (01:39)
[2020-06-29 01:56] VITALS: BP 103/53
--- NOTE | 2020-06-30 06:48 | CR ---
Chest: Frontal view of the chest was obtained utilizing portable technique. Comparison: Prior chest x-ray of the 08/05/18. Lungs are felt to be clear. Heart size appears within normal limits for portable technique. No acute osseous abnormality is appreciated. Impression: 1. Nothing acute is definitely appreciated on portable chest x-ray. Diagnostic code #1
== END 2020-06-29 02:59 | disposition home or self-care (01) ==
LOC: JD.ED 21:16
DX: A41.9 Sepsis, unspecified organism (principal); E78.00 Pure hypercholesterolemia, unspecified; I10 Essential (primary) hypertension; E11.51 Type 2 diabetes mellitus with diabetic peripheral angiopathy without gangrene; M19.90 Unspecified osteoarthritis, unspecified site; E66.9 Obesity, unspecified; Z68.36 Body mass index [BMI] 36.0-36.9, adult; Z20.822 Contact with and (suspected) exposure to COVID-19; Z88.5 Allergy status to narcotic agent; Z79.82 Long term (current) use of aspirin; Z79.899 Other long term (current) drug therapy; Z79.84 Long term (current) use of oral hypoglycemic drugs
CPT/HCPCS: 36415; 71045; 80053; 81001; 83605; 83690; 84484; 85025; 87040; 87077; 87086; 87088; 87184; 87186; 87502; 93005; 96365; 96367; 96375; 99285; A9270; J2020; J2405; J2543; J7030; J7120; U0002; 93010

== ENCOUNTER 2020-08-07 18:55 | Inpatient (IN) | payer MEDICARE, OTHER ==
[2020-08-07] MEDS ORDERED: Sodium Chloride 0.9% 10 ML Syringe FLUSH PRN (19:10)
--- NOTE | 2020-08-07 19:26 | EDM.PDOC ---
ED HPI GENERAL MEDICAL PROBLEM - General Chief Complaint: Genitourinary Problem Stated Complaint: POSSIBLE KIDNEY STONES Time Seen by Provider: 08/07/20 19:03 Source of Information: Reports: Patient, Family History Limitations: Reports: No Limitations - History of Present Illness INITIAL COMMENTS - FREE TEXT/NARRATIVE: The patient presents with right flank pain. This has been going on for a couple of days. She also has had some chest pain and shortness of breath. This has been going on since she was discharged from the hospital in late June. On June 28 she was seen here and diagnosed with pneumonia. She was transferred down to [facility] in [place] and she got worse. She had pneumonia, sepsis, UTI and a kidney stone. She was in the hospital for 13 days. She was released and doing good except for the chest pain and shortness of breath. She also has a slight cough since then. She is worried she may have another kidney stone and pneumonia. She has no fever, chills, abdominal pain, nausea or vomiting. She has no dysuria and no hematuria. She has no diarrhea. Onset: Gradual Duration: Day(s): (2) Location: Reports: Chest, Back (right flank) Quality: Reports: Sharp Severity: Mild Improves with: Reports: None Worsens with: Reports: None Associated Symptoms: Reports: Chest Pain, Cough, Shortness of Breath. Denies: Fever/Chills, Headaches, Nausea/Vomiting Treatments CINDER MAN: Reports: Acetaminophen Right Flank Pain Score (Numeric/FACES): 6 - Related Data Allergies Allergy/AdvReac Type Severity Reaction Status Date / Time morphine Allergy Severe Rash Verified 08/07/20 19:03 piperacillin [From Zosyn] Allergy Rash Verified 08/07/20 23:02 tazobactam [From Zosyn] Allergy Rash Verified 08/07/20 23:02 Home Meds: Home Meds Aspirin [Low Dose Aspirin EC] 81 mg PO DAILY 04/26/14 [History] Metoprolol Tartrate 25 mg PO BID 04/26/14 [History] amLODIPine [Norvasc] 5 mg PO DAILY 04/26/14 [History] Rosuvastatin [Crestor] 10 mg PO DAILY 05/01/18 [History] Biotin 1 mg PO DAILY 05/08/18 [History] Calcium Carb, Citrate/Vit D3 [Calcium + D3 ER Tablet] 1 tab PO DAILY 05/08/18 [History] Cholecalciferol (Vitamin D3) [Vitamin D3] 5,000 unit PO DAILY 05/08/18 [History] Cyanocobalamin (Vitamin B-12) [Vitamin B-12] 1,000 mcg PO DAILY 05/08/18 [History] Fish Oil/[place]-3 Fatty Acids [Fish Oil 1,000 MG] 1 gm PO BID 05/08/18 [History] Glucosamine HCl [Glucosamine] 1,500 mg PO DAILY 05/08/18 [History] Magnesium Oxide [Magnesium] 500 mg PO DAILY 05/08/18 [History] Multivit,Calc,Mins/Iron/Folic [Women's Daily Formula Caplet] 1 tab PO DAILY 05/08/18 [History] Vitamin E 400 unit PO DAILY 05/08/18 [History] Irbesartan 150 mg PO DAILY 05/31/18 [History] L.acidoph,Paracasei, B.lactis [Probiotic] 1 cap PO DAILY 08/05/18 [History] traMADol [Ultram] 50 mg PO Q12H PRN 08/05/18 [History] Cyclobenzaprine [Flexeril] 10 mg PO TID PRN #21 tab 03/01/19 [Rx] Fenofibrate Nanocrystallized [Fenofibrate] 0.5 tab PO DAILY 03/01/19 [History] Ferrous Sulfate [Slow Fe] 142 mg PO DAILY 03/01/19 [History] Furosemide 40 mg PO DAILY 03/01/19 [History] Pravastatin [Pravachol] 20 mg PO DAILY 03/01/19 [History] hydroCHLOROthiazide [Hydrochlorothiazide] 25 mg PO DAILY 03/01/19 [History] metFORMIN [Glucophage XR] 1,000 mg PO DAILY 03/01/19 [History] metFORMIN [Glucophage XR] 500 mg PO ACDINNER 03/01/19 [History] Past Medical History HEENT History: Reports: Cataract, Other (See Below) Other HEENT History: double vision Cardiovascular History: Reports: Angina, High Cholesterol, Hypertension, SOB on Exertion, Other (See Below) Other Cardiovascular History: peripheral artery disease, edema Respiratory History: Reports: PE, Sleep Apnea, SOB, Other (See Below) Other Respiratory History: cough, elevated d dimer, Pulmonary edema Gastrointestinal History: Reports: Chronic Diarrhea, Diverticulosis Genitourinary History: Reports: Renal Calculus 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 History: Reports: Musculoskeletal History: Reports: Arthritis, Back Pain, Chronic, Osteoarthritis, Other (See Below) Other Musculoskeletal History: low back pain, shoulder pain Neurological History: Reports: None Psychiatric History: Reports: None Endocrine/Metabolic History: Reports: Diabetes, Type II, Obesity/BMI 30+, Osteoporosis, Vitamin D Deficiency Other Endocrine/Metabolic History: thyroid nodules Hematologic History: Reports: Anemia, Bleeding Disorder, Iron Deficiency, Other (See Below) Other Hematologic History: blood clotting disorder, blood transfusion Immunologic History: Reports: None, Other (See Below) Oncologic (Cancer) History: Reports: None Dermatologic History: Reports: Other (See Below) Other Dermatologic History: dry skin - Infectious Disease History Infectious Disease History: Reports: Chicken Pox, Measles - Past Surgical History Head Surgeries/Procedures: Reports: None HEENT Surgical History: Reports: Adenoidectomy, Cataract Surgery, Tonsillectomy Cardiovascular Surgical History: Reports: None Respiratory Surgical History: Reports: None GI Surgical History: Reports: Appendectomy, Cholecystectomy, Colonoscopy Other GI Surgeries/Procedures: sigmoid resection Female Surgical History: Reports: Hysterectomy, Oophorectomy Endocrine Surgical History: Reports: None Neurological Surgical History: Reports: None Musculoskeletal Surgical History: Reports: Knee Replacement Other Musculoskeletal Surgeries/Procedures:: bilateral knee replacements, bilateral bunionectomies Oncologic Surgical History: Reports: None Dermatological Surgical History: Reports: None Social & Family History - Family History Family Medical History: No Pertinent Family History Cardiac: Reports: ND Other Cardiac Family History: grandparents Respiratory: Reports: None GI: Reports: Inflammatory Bowel Disease Other GI Family History: mother OBGYN: Reports: None Musculoskeletal: Reports: Arthritis, Osteoporosis Neurological: Reports: None Psychiatric: Reports: None Endocrine/Metabolic: Reports: None Hematologic: Reports: None Immunologic: Reports: None - Tobacco Use Tobacco Use Status *Q: Never Tobacco User - Caffeine Use Caffeine Use: Reports: Coffee - Recreational Drug Use Recreational Drug Use: No ED ROS GENERAL - Review of Systems Review Of Systems: See Below Constitutional: Reports: No Symptoms HEENT: Reports: No Symptoms Respiratory: Reports: Shortness of Breath, Cough Cardiovascular: Reports: Chest Pain Endocrine: Reports: No Symptoms GI/Abdominal: Reports: No Symptoms : Reports: Flank Pain (right) Musculoskeletal: Reports: No Symptoms Skin: Reports: No Symptoms Neurological: Reports: No Symptoms ED EXAM, GI/ABD - Physical Exam Exam: See Below Exam Limited By: No Limitations General Appearance: Alert, No Apparent Distress Ears: Normal External Exam Nose: Normal Inspection Head: Atraumatic, Normocephalic Neck: Normal Inspection Respiratory/Chest: No Respiratory Distress, Lungs Clear, Normal Breath Sounds Cardiovascular: Regular Rate, Rhythm, No Edema, No Murmur GI/Abdominal Exam: Soft, No Organomegaly, No Mass, Tender (Mild mid abdominal tenderness) Back Exam: Normal Inspection Extremities: Normal Inspection Course - Vital Signs Last Recorded V/S: Last Vital Signs Temp 97.5 F 08/07/20 19:10 Pulse 109 H 08/07/20 19:10 Resp 16 08/07/20 19:10 BP 112/73 08/07/20 19:10 Pulse Ox 95 08/07/20 19:10 - Orders/Labs/Meds Orders: Active Orders 24 hr Category Date Time Status Peripheral IV Care [RC] . DIRECTED Care 08/07/20 19:11 Active CORONAVIRUS COVID-19 MAKAYLA [MOLEC] Stat Lab 08/07/20 22:40 Received Sodium Chloride 0.9% [Saline Flush] Med 08/07/20 19:10 Active 10 ml FLUSH ASDIRECTED PRN Peripheral IV Insertion Adult [OM.PC] Stat Oth 08/07/20 19:10 Ordered Medication Orders Sodium Chloride (Sodium Chloride 0.9% 10 Ml Syringe) 10 ml FLUSH ASDIRECTED PRN PRN Reason: Keep Vein Open Last Admin: 08/07/20 19:24 Dose: 10 ml Documented by: JANES Labs: Laboratory Tests 08/07/20 08/07/20 08/07/20 Range/Units 19:21 19:21 20:47 WBC 9.89 (3.98-10.04) K/mm3 RBC 3.82 L (3.98-5.22) M/mm3 Hgb 11.2 (11.2-15.7) gm/dl Hct 35.2 (34.1-44.9) % MCV 92.1 (79.4-94.8) fl MCH 29.3 (25.6-32.2) pg MCHC 31.8 L (32.2-35.5) g/dl RDW Std Deviation 49.9 H (36.4-46.3) fL Plt Count 325 (182-369) K/mm3 MPV 9.6 (9.4-12.3) fl Neut % (Auto) 76.6 H (34.0-71.1) % Lymph % (Auto) 10.1 L (19.3-51.7) % Bond % (Auto) 10.4 (4.7-12.5) % Eos % (Auto) 2.5 (0.7-5.8) Baso % (Auto) 0.1 (0.1-1.2) % Neut # (Auto) 7.57 H (1.56-6.13) K/mm3 Lymph # (Auto) 1.00 L (1.18-3.74) K/mm3 Bond # (Auto) 1.03 H (0.24-0.36) K/mm3 Eos # (Auto) 0.25 (0.04-0.36) K/mm3 Baso # (Auto) 0.01 (0.01-0.08) K/mm3 Sodium 132 L D (136-145) mEq/L Potassium 4.4 (3.5-5.1) mEq/L Chloride 98 (98-107) mEq/L Carbon Dioxide 21 (21-32) mEq/L Anion Gap 17.4 H (5-15) BUN 32 H (7-18) mg/dL Creatinine 1.9 H (0.55-1.02) mg/dL Est Cr Clr Drug Dosing 22.31 mL/min Estimated GFR (MDRD) 26 (>60) mL/min BUN/Creatinine Ratio 16.8 (14-18) Glucose 175 H (70-99) mg/dL Calcium 9.3 (8.5-10.1) mg/dL Total Bilirubin 0.6 (0.2-1.0) mg/dL AST 15 (15-37) U/L ALT 15 (14-59) U/L Alkaline Phosphatase 64 (46-116) U/L Troponin I < 0.017 (0.00-0.056) ng/mL Total Protein 7.3 (6.4-8.2) g/dl Albumin 3.0 L (3.4-5.0) g/dl Globulin 4.3 gm/dL Albumin/Globulin Ratio 0.7 L (1-2) Lipase 500 H (73-393) U/L Urine Color Yellow (Yellow) Urine Appearance Clear (Clear) Urine pH 6.0 (5.0-8.0) Ur Specific [place] 1.015 (1.005-1.030) Urine Protein 1+ H (Negative) Urine Glucose (UA) Negative (Negative) Urine Ketones Negative (Negative) Urine Occult Blood Negative (Negative) Urine Nitrite Negative (Negative) Urine Bilirubin Negative (Negative) Urine Urobilinogen 0.2 (0.2-1.0) Ur Leukocyte Esterase 2+ H (Negative) Urine RBC 0-5 (0-5) /hpf Urine WBC 40-50 H (0-5) /hpf Ur Squamous Epith Cells 0-5 (0-5) /hpf Urine Bacteria Few (FEW) /hpf Urine Mucus Few (FEW) /hpf Meds: Medications Generic Name Dose Route Start Last Admin Trade Name Freq PRN Reason Stop Dose Admin Sodium Chloride 10 ml 08/07/20 19:10 08/07/20 19:24 Sodium Chloride 0.9% 10 Ml Syringe FLUSH 10 ml ASDIRECTED PRN Administration Keep Vein Open - Re-Assessments/Exams Free Text/Narrative Re-Assessment/Exam: 08/07/20 19:27 I ordered an IV saline lock, EKG, labs, UA and CT of her chest, abdomen and pelvis. 08/07/20 23:03 Her CBC looks good. Her Na was low at 132. Her anion gap was elevated at 17.4. Her creatinine is elevated at 1.9. Her glucose is 175. Her troponin is negative. Her lipase was elevated at 500. Her CT of her chest shows incidental findings and nothing acute is seen. The CT of her abdomen and pelvis shows mildly hydronephrotic right kidney and proximal right ureter which appear to be caused by a very small partially obstructing calculus measuring 1-1.5 mm within the proximal to mid right ureter. Two small nonobstructing calculi in the left kidney. Single small nonobstructing calculi within the right kidney. Cysts within the liver which are stable. Other findings which are stable. There is a urine culture from [facility]ween[facility] pending. I am concerned she has a stone and UTI. She should be admitted. I called [facility] and they were full and had no urology until 8am tomorrow. I then called [facility] in [place] and they were also full and I talked with Dr Storm the urologist business continuity specialist and he suggested admitting her here, treat the UTI and call [facility] in the morning. 08/07/20 23:[address] Byers and he agreed to the admission. Departure - Departure Time of Disposition: 23:15 Disposition: Admitted As Inpatient 68 Condition: Fair Clinical Impression: UTI, Urinary tract infectious disease, Kidney stone, Ureteral calculus, right, Renal insufficiency, Atypical chest pain - Discharge Information Referrals: Karley Sweeney, NEWS ANALYST [Primary Care Provider] - Forms: ED Department Discharge Sepsis Event Note (ED) - Evaluation Sepsis Screening Result: No Definite Risk - Focused Exam Vital Signs: Vital Signs Temp Pulse Resp BP Pulse Ox 08/07/20 19:10 97.5 F 109 H 16 112/73 95 - My Orders Last 24 Hours: My Active Orders 08/07/20 19:10 Sodium Chloride 0.9% [Saline Flush] 10 ml FLUSH ASDIRECTED PRN Peripheral IV Insertion Adult [OM.PC] Stat 08/07/20 19:11 Peripheral IV Care [RC] . DIRECTED 08/07/20 22:40 CORONAVIRUS COVID-19 MAKAYLA [MOLEC] Stat - Assessment/Plan Last 24 Hours: My Active Orders 08/07/20 19:10 Sodium Chloride 0.9% [Saline Flush] 10 ml FLUSH ASDIRECTED PRN Peripheral IV Insertion Adult [OM.PC] Stat 08/07/20 19:11 Peripheral IV Care [RC] . DIRECTED 08/07/20 22:40 CORONAVIRUS COVID-19 MAKAYLA [MOLEC] Stat
--- NOTE | 2020-08-07 20:18 | CT ---
CT abdomen and pelvis Technique: Multiple axial sections were obtained from above the dome of the diaphragm inferiorly through the pubic symphysis. Intravenous and oral contrast were not utilized. Reconstructed coronal and sagittal images were also obtained. Comparison: Prior CT abdomen and pelvis study of 08/02/14. Findings: Visualized lung bases show minimal areas of scarring. Nothing acute is seen. Small cysts are seen within the right and left lobes of the liver which are fairly similar to previous CT exam. Spleen size is normal. Small to moderate size hiatal hernia is seen. Adrenal glands show no nodule. There is hydronephrosis of the right kidney with dilated right ureter being seen proximally. There is a minimal calcification being seen within the proximal to mid right ureter measuring around 1-1.5 mm compatible with a very small partially obstructing calculus. Small nonobstructing calculus is noted within the right kidney measuring about 3 mm. Nonobstructing calculus is noted within the inferior left kidney measuring about 8 mm. Small calculus is also noted within the left kidney measuring about 2-3 mm. No other ureteral calculi are seen. Pancreas shows no discrete abnormality. Surgical clips are seen from prior cholecystectomy. Abdominal aorta shows atherosclerotic calcification which continues into the iliac vessels. No aneurysm is seen. No retroperitoneal adenopathy or mesenteric abnormalities are seen. No pelvic mass or adenopathy is identified. Previous hysterectomy is noted. Diverticuli are scattered within the colon with no inflammatory change being seen. Appendix is not visualized with certainty. Bone window settings were reviewed which show diffuse disc space narrowing and endplate spurring within the spine. No acute osseous abnormality is appreciated. Impression: 1. Mildly hydronephrotic right kidney and proximal right ureter which appear to be caused by a very small partially obstructing calculus measuring 1-1.5 mm within the proximal to mid right ureter. 2. Two small nonobstructing calculi in the left kidney. Single small nonobstructing calculi within the right kidney. 3. Cysts within the liver which are stable. Other findings as noted above which are also stable. Diagnostic code #3
--- NOTE | 2020-08-07 21:19 | CT ---
CT chest Technique: Multiple axial sections through the chest were obtained. Intravenous contrast was not utilized. Reconstructed coronal and sagittal images were compared Comparison: Prior chest x-ray of 06/29/[address] study of 04/09/18. Findings: Ascending aorta is mildly ectatic with AP dimension of 3.8 cm. Descending aorta appears normal. Coronary artery calcification is seen. Mediastinum and hilar regions show no adenopathy. No pericardial thickening is seen. Lung window settings were reviewed which show slight scarring within the lung bases, more prominent on the left side. Lungs otherwise are clear with no acute parenchymal change being seen. No pleural effusions are noted. Findings in the abdomen are discussed on the abdomen and pelvis CT performed earlier on the same day. Bone window settings were reviewed which show scattered degenerative endplate spurring throughout the thoracic spine. Degenerative change is seen within both shoulders. Reconstructed images of the sternum appear intact. No acute osseous abnormality is appreciated. Impression: 1. Chest findings which are believed to be incidental as noted above. 2. Nothing acute is seen. Diagnostic code #2
[2020-08-07] MEDS ORDERED: cefTRIAXone 2 GM in Sodium Chloride 0.9% 100 ML IV ONE ×2 (23:01→23:18)
[2020-08-07] MEDS ORDERED: Tamsulosin 0.4 MG Cap.ER PO ONE (23:09)
[2020-08-07] MEDS ORDERED: Ondansetron 4 MG/2 ML SDV IVPUSH PRN (23:19)
[2020-08-07] MEDS: Sodium Chloride 0.9% 1,000 ML IV SCH (23:26)
[2020-08-08] MEDS: Acetaminophen 325 MG Tab PO PRN ×2 (01:39→18:09)
[2020-08-08] MEDS ORDERED: traMADol 50 MG Tab PO PRN (07:09)
--- NOTE | 2020-08-08 07:40 | PCM.HP.2 ---
H&P History of Present Illness - General Date of Service: 08/08/20 Admit Problem/Dx: Admission Diagnosis/Problem Admission Diagnosis/Problem Urinary tract infection Source of Information: Patient History Limitations: Reports: No Limitations - History of Present Illness Initial Comments - Free Text/Narative: The patient is a 79-year-old lady who had presented to the emergency room out of concern for right-sided flank pain. The patient reports that in June 2020 she had been in [place] with pneumonia, sepsis, UTI and kidney stone. She says that she was in the hospital for 13 days. The patient had similar symptoms since she had been discharged. The patient also said that she started to develop the back and right flank pain 1 or 2 days ago. She had nausea and vomiting which was similar to her previous visit. The patient has denied any fever or chills. She also has no dysuria or hematuria. She has had no specific aggravating or relieving factors. The pain does not radiate. The patient has been in her usual state of health. She has been taking medications for hypertension and blood pressure. Onset of Symptoms: Reports: Gradual Duration of Symptoms: Reports: Day(s): Location: Reports: Abdomen, Back Quality: Reports: Same as Previous Episode Severity: Moderate Improves with: Reports: None Worsens with: Reports: None Context: Reports: Other (Previous hospital visit) Associated Symptoms: Reports: Chest Pain, Nausea/Vomiting Right Flank Pain Score (Numeric/FACES): 6 - Related Data Allergies/Adverse Reactions: Allergies Allergy/AdvReac Type Severity Reaction Status Date / Time morphine Allergy Severe Rash Verified 08/07/20 19:03 piperacillin [From Zosyn] Allergy Rash Verified 08/07/20 23:02 tazobactam [From Zosyn] Allergy Rash Verified 08/07/20 23:02 Home Medications: Home Meds Metoprolol Tartrate 25 mg PO BID 04/26/14 [History] amLODIPine [Norvasc] 5 mg PO DAILY 04/26/14 [History] Cholecalciferol (Vitamin D3) [Vitamin D3] 5,000 unit PO DAILY 05/08/18 [History] Cyanocobalamin (Vitamin B-12) [Vitamin B-12] 1,000 mcg PO DAILY 05/08/18 [History] Vitamin E 400 unit PO DAILY 05/08/18 [History] traMADol [Ultram] 50 mg PO Q12H PRN 08/05/18 [History] Fenofibrate Nanocrystallized [Fenofibrate] 72.5 mg PO DAILY 03/01/19 [History] Furosemide 40 mg PO DAILY 03/01/19 [History] metFORMIN [Glucophage XR] 1,000 mg PO DAILY 03/01/19 [History] Acetaminophen [Tylenol Arthritis] 650 mg PO Q8H PRN 08/07/20 [History] Ferrous Sulfate 325 mg PO BID 08/07/20 [History] Potassium Chloride [Klor-Con M20] 40 meq PO DAILY 08/07/20 [History] Rosuvastatin [Crestor] 10 mg PO DAILY 08/07/20 [History] Tamsulosin [Tamsulosin 24 Hr] 0.4 mg PO DAILY 08/07/20 [History] Past Medical History HEENT History: Reports: Cataract, Other (See Below) Other HEENT History: double vision Cardiovascular History: Reports: Angina, High Cholesterol, Hypertension, SOB on Exertion, Other (See Below) Other Cardiovascular History: peripheral artery disease, edema Respiratory History: Reports: PE, Sleep Apnea, SOB, Other (See Below) Other Respiratory History: cough, elevated d dimer, Pulmonary edema Gastrointestinal History: Reports: Chronic Diarrhea, Diverticulosis Genitourinary History: Reports: Renal Calculus 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 History: Reports: Musculoskeletal History: Reports: Arthritis, Back Pain, Chronic, Osteoarthritis, Other (See Below) Other Musculoskeletal History: low back pain, shoulder pain Neurological History: Reports: None Psychiatric History: Reports: None Endocrine/Metabolic History: Reports: Diabetes, Type II, Obesity/BMI 30+, Osteoporosis, Vitamin D Deficiency Other Endocrine/Metabolic History: thyroid nodules Hematologic History: Reports: Anemia, Bleeding Disorder, Iron Deficiency, Other (See Below) Other Hematologic History: blood clotting disorder, blood transfusion Immunologic History: Reports: None, Other (See Below) Oncologic (Cancer) History: Reports: None Dermatologic History: Reports: Other (See Below) Other Dermatologic History: dry skin - Infectious Disease History Infectious Disease History: Reports: Chicken Pox, Measles - Past Surgical History Head Surgeries/Procedures: Reports: None HEENT Surgical History: Reports: Adenoidectomy, Cataract Surgery Cardiovascular Surgical History: Reports: None Respiratory Surgical History: Reports: None GI Surgical History: Reports: Appendectomy, Cholecystectomy, Colonoscopy Other GI Surgeries/Procedures: sigmoid resection Female Surgical History: Reports: Hysterectomy, Oophorectomy Endocrine Surgical History: Reports: None Neurological Surgical History: Reports: None Musculoskeletal Surgical History: Reports: Knee Replacement Other Musculoskeletal Surgeries/Procedures:: bilateral knee replacements, bilateral bunionectomies Oncologic Surgical History: Reports: None Dermatological Surgical History: Reports: None Social & Family History - Family History Family Medical History: No Pertinent Family History Cardiac: Reports: ND Other Cardiac Family History: grandparents Respiratory: Reports: None GI: Reports: Inflammatory Bowel Disease Other GI Family History: mother OBGYN: Reports: None Musculoskeletal: Reports: Arthritis, Osteoporosis Neurological: Reports: None Psychiatric: Reports: None Endocrine/Metabolic: Reports: None Hematologic: Reports: None Immunologic: Reports: None - Tobacco Use Tobacco Use Status *Q: Never Tobacco User Second Hand Smoke Exposure: No - Caffeine Use Caffeine Use: Reports: Coffee, Soda - Recreational Drug Use Recreational Drug Use: No H&P Review of Systems - Review of Systems: Review Of Systems: See Below General: Reports: Weakness, Fatigue HEENT: Reports: No Symptoms Pulmonary: Reports: Shortness of Breath Cardiovascular: Reports: Chest Pain Gastrointestinal: Reports: Vomiting Genitourinary: Reports: No Symptoms Musculoskeletal: Reports: No Symptoms Skin: Reports: No Symptoms Psychiatric: Reports: No Symptoms Neurological: Reports: No Symptoms Hematologic/Lymphatic: Reports: No Symptoms Immunologic: Reports: No Symptoms Exam - Exam Exam: See Below - Vital Signs Vital Signs: Last Vital Signs Temp 37.3 C 08/07/20 23:58 Pulse 98 08/07/20 23:58 Resp 16 08/07/20 23:58 BP 128/55 L 08/07/20 23:58 Pulse Ox 93 L 08/07/20 23:58 Weight: 92.034 kg - Exam Quality Assessment: DVT Prophylaxis. No: Supplemental Oxygen General: Alert, Oriented, Cooperative HEENT: Conjunctiva Clear, EACs Clear, EOMI, Mucosa Moist & Vale, PERRLA Neck: Supple, Trachea Midline Lungs: Clear to Auscultation, Normal Respiratory Effort Cardiovascular: Regular Rate, Regular Rhythm GI/Abdominal Exam: Normal Bowel Sounds, Soft, Tender (Right flank). No: Guarding, Rigid, Rebound (Female) Exam: Deferred Rectal (Female) Exam: Deferred Back Exam: Normal Inspection, Full Range of Motion Extremities: Normal Inspection, Normal Range of Motion, No Pedal Edema Skin: Warm, Dry, Intact Neuro Extensive - Mental Status: Alert, Oriented x3 Psychiatric: Alert, Normal Affect, Normal Mood - Patient Data Lab Results Last 24 hrs: Laboratory Results - last 24 hr 08/07/20 08/07/20 08/07/20 Range/Units 19:21 19:21 20:47 WBC 9.89 (3.98-10.04) K/mm3 RBC 3.82 L (3.98-5.22) M/mm3 Hgb 11.2 (11.2-15.7) gm/dl Hct 35.2 (34.1-44.9) % MCV 92.1 (79.4-94.8) fl MCH 29.3 (25.6-32.2) pg MCHC 31.8 L (32.2-35.5) g/dl RDW Std Deviation 49.9 H (36.4-46.3) fL Plt Count 325 (182-369) K/mm3 MPV 9.6 (9.4-12.3) fl Neut % (Auto) 76.6 H (34.0-71.1) % Lymph % (Auto) 10.1 L (19.3-51.7) % [place] % (Auto) 10.4 (4.7-12.5) % Eos % (Auto) 2.5 (0.7-5.8) Baso % (Auto) 0.1 (0.1-1.2) % Neut # (Auto) 7.57 H (1.56-6.13) K/mm3 Lymph # (Auto) 1.00 L (1.18-3.74) K/mm3 [place] # (Auto) 1.03 H (0.24-0.36) K/mm3 Eos # (Auto) 0.25 (0.04-0.36) K/mm3 Baso # (Auto) 0.01 (0.01-0.08) K/mm3 Sodium 132 L D (136-145) mEq/L Potassium 4.4 (3.5-5.1) mEq/L Chloride 98 (98-107) mEq/L Carbon Dioxide 21 (21-32) mEq/L Anion Gap 17.4 H (5-15) BUN 32 H (7-18) mg/dL Creatinine 1.9 H (0.55-1.02) mg/dL Est Cr Clr Drug Dosing 22.31 mL/min Estimated GFR (MDRD) 26 (>60) mL/min BUN/Creatinine Ratio 16.8 (14-18) Glucose 175 H (70-99) mg/dL Calcium 9.3 (8.5-10.1) mg/dL Total Bilirubin 0.6 (0.2-1.0) mg/dL AST 15 (15-37) U/L ALT 15 (14-59) U/L Alkaline Phosphatase 64 (46-116) U/L Troponin I < 0.017 (0.00-0.056) ng/mL Total Protein 7.3 (6.4-8.2) g/dl Albumin 3.0 L (3.4-5.0) g/dl Globulin 4.3 gm/dL Albumin/Globulin Ratio 0.7 L (1-2) Lipase 500 H (73-393) U/L Urine Color Yellow (Yellow) Urine Appearance Clear (Clear) Urine pH 6.0 (5.0-8.0) Ur Specific Mcdonough 1.015 (1.005-1.030) Urine Protein 1+ H (Negative) Urine Glucose (UA) Negative (Negative) Urine Ketones Negative (Negative) Urine Occult Blood Negative (Negative) Urine Nitrite Negative (Negative) Urine Bilirubin Negative (Negative) Urine Urobilinogen 0.2 (0.2-1.0) Ur Leukocyte Esterase 2+ H (Negative) Urine RBC 0-5 (0-5) /hpf Urine WBC 40-50 H (0-5) /hpf Ur Squamous Epith Cells 0-5 (0-5) /hpf Urine Bacteria Few (FEW) /hpf Urine Mucus Few (FEW) /hpf SARS-CoV-2 RNA (MAKAYLA) (NEGATIVE) 08/07/20 08/08/20 08/08/20 Range/Units 22:40 05:30 05:30 WBC 7.96 (3.98-10.04) K/mm3 RBC 3.44 L (3.98-5.22) M/mm3 Hgb 10.0 L (11.2-15.7) gm/dl Hct 32.0 L (34.1-44.9) % MCV 93.0 (79.4-94.8) fl MCH 29.1 (25.6-32.2) pg MCHC 31.3 L (32.2-35.5) g/dl RDW Std Deviation 50.3 H (36.4-46.3) fL Plt Count 290 (182-369) K/mm3 MPV 9.6 (9.4-12.3) fl Neut % (Auto) 59.6 (34.0-71.1) % Lymph % (Auto) 19.6 (19.3-51.7) % H[place] % (Auto) 14.3 H (4.7-12.5) % Eos % (Auto) 5.8 (0.7-5.8) Baso % (Auto) 0.3 (0.1-1.2) % Neut # (Auto) 4.75 (1.56-6.13) K/mm3 Lymph # (Auto) 1.56 (1.18-3.74) K/mm3 [place] # (Auto) 1.14 H (0.24-0.36) K/mm3 Eos # (Auto) 0.46 H (0.04-0.36) K/mm3 Baso # (Auto) 0.02 (0.01-0.08) K/mm3 Sodium 135 L (136-145) mEq/L Potassium 4.3 (3.5-5.1) mEq/L Chloride 102 (98-107) mEq/L Carbon Dioxide 20 L (21-32) mEq/L Anion Gap 17.3 H (5-15) BUN 29 H (7-18) mg/dL Creatinine 1.6 H (0.55-1.02) mg/dL Est Cr Clr Drug Dosing 26.50 mL/min Estimated GFR (MDRD) 31 (>60) mL/min BUN/Creatinine Ratio 18.1 H (14-18) Glucose 106 H (70-99) mg/dL Calcium 8.7 (8.5-10.1) mg/dL Total Bilirubin 0.4 (0.2-1.0) mg/dL AST 12 L (15-37) U/L ALT 10 L (14-59) U/L Alkaline Phosphatase 57 (46-116) U/L Troponin I (0.00-0.056) ng/mL Total Protein 6.4 (6.4-8.2) g/dl Albumin 2.6 L (3.4-5.0) g/dl Globulin 3.8 gm/dL Albumin/Globulin Ratio 0.7 L (1-2) Lipase (73-393) U/L Urine Color (Yellow) Urine Appearance (Clear) Urine pH (5.0-8.0) Ur Specific Mcdonough (1.005-1.030) Urine Protein (Negative) Urine Glucose (UA) (Negative) Urine Ketones (Negative) Urine Occult Blood (Negative) Urine Nitrite (Negative) Urine Bilirubin (Negative) Urine Urobilinogen (0.2-1.0) Ur Leukocyte Esterase (Negative) Urine RBC (0-5) /hpf Urine WBC (0-5) /hpf Ur Squamous Epith Cells (0-5) /hpf Urine Bacteria (FEW) /hpf Urine Mucus (FEW) /hpf SARS-CoV-2 RNA (MAKAYLA) Negative (NEGATIVE) Result Diagrams: 08/08/20 05:30 08/08/20 05:30 Sepsis Event Note - Evaluation Sepsis Screening Result: No Definite Risk Current Stage of Sepsis: Ruled Out Reason for Ruling Out Sepsis: Afebrile, no leukocytosis, lactic acid normal, blood pressure normal, respirations normal, no oxygen requirements - Focused Exam Vital Signs: Vital Signs Temp Pulse Resp BP Pulse Ox 08/07/20 23:58 37.3 C 98 16 128/55 L 93 L - Problem List (1) UTI, Urinary tract infectious disease SNOMED Code(s): 32374711 ICD Code: N39.0 - URINARY TRACT INFECTION, SITE NOT SPECIFIED Status: Acute Priority: High Current Visit: Yes (2) Renal insufficiency SNOMED Code(s): 357136058, 404090308 ICD Code: N28.9 - DISORDER OF KIDNEY AND URETER, UNSPECIFIED Status: Chronic Priority: Medium Current Visit: Yes (3) Ureteral calculus, right SNOMED Code(s): 72984813 ICD Code: N20.1 - CALCULUS OF URETER Status: Chronic Priority: High Current Visit: Yes (4) Weakness SNOMED Code(s): 80657354 ICD Code: R53.1 - WEAKNESS Status: Acute Priority: Medium Current Visit: No Onset Date: 08/05/18 Problem List Initiated/Reviewed/Updated: Yes Orders Last 24hrs: Active Orders 24 hr Category Date Time Status Patient Status [ADT] Routine ADT 08/07/20 23:14 Active Peripheral IV Care [RC] . DIRECTED Care 08/07/20 19:11 Active NPO After Midnight [Nothing per Oral After Midnight Diet 08/08/20 Breakfast Active Diet] [DIET] Acetaminophen [TylenoL] Med 08/08/20 01:22 Active 975 mg PO Q6H PRN Cholecalciferol (Vitamin D3) [Vitamin D3] Med 08/08/20 09:00 Active 5,000 unit PO DAILY Fenofibrate Nanocrystallized [Tricor] Med 08/08/20 09:00 Active 72.5 mg PO DAILY Ferrous Sulfate Med 08/08/20 09:00 Active 324 mg PO BID Furosemide [Lasix] Med 08/08/20 09:00 Active 40 mg PO DAILY Metoprolol Tartrate [Lopressor] Med 08/08/20 09:00 Pending 25 mg PO BID Ondansetron [Zofran] Med 08/07/20 23:19 Active 4 mg IVPUSH Q6H PRN Potassium Chloride [Klor-Con M20] Med 08/08/20 09:00 Active 40 meq PO DAILY Rosuvastatin [Crestor] Med 08/08/20 09:00 Active 10 mg PO DAILY Sodium Chloride 0.9% [Normal Saline] 1,000 ml Med 08/07/20 23:15 Active IV ASDIRECTED Sodium Chloride 0.9% [Saline Flush] Med 08/07/20 19:10 Active 10 ml FLUSH ASDIRECTED PRN Tamsulosin [Flomax] Med 08/08/20 09:00 Active 0.4 mg PO DAILY amLODIPine [Norvasc] Med 08/08/20 09:00 Active 5 mg PO DAILY cefTRIAXone [Rocephin] 2 gm Med 08/08/20 21:00 Active Sodium Chloride 0.9% [Normal Saline] 100 ml IV Q24H metFORMIN [Glucophage] Med 08/08/20 09:00 Active 500 mg PO BID traMADol [Ultram] Med 08/08/20 07:09 Active 50 mg PO Q12H PRN Peripheral IV Insertion Adult [OM.PC] Stat Oth 08/07/20 19:10 Ordered Code Status [Resuscitation Status] Routine Resus Stat 08/08/20 01:31 Ordered Medication Orders Acetaminophen (Acetaminophen 325 Mg Tab) 975 mg PO Q6H PRN PRN Reason: Pain Last Admin: 08/08/20 01:39 Dose: 975 mg Documented by: ADDY Amlodipine Besylate (Amlodipine 5 Mg Tab) 5 mg PO DAILY ISAAK Cholecalciferol (Cholecalciferol (Vitamin D3) 5,000 Unit Cap) 5,000 unit PO DAILY ISAAK Fenofibrate (Fenofibrate Nanocrystallized 145 Mg Tab) 72.5 mg PO DAILY ISAAK Ferrous Sulfate (Ferrous Sulfate 324 Mg Tab.Ec) 324 mg PO BID ISAAK Furosemide (Furosemide 40 Mg Tab) 40 mg PO DAILY ISAAK Sodium Chloride (Normal Saline) 1,000 mls @ 100 mls/hr IV ASDIRECTED ISAAK Last Admin: 08/07/20 23:26 Dose: 100 mls/hr Documented by: JANES Ceftriaxone Sodium 2 gm/ (Sodium Chloride) 100 mls @ 200 mls/hr IV Q24H ISAAK Metformin HCl (Metformin 500 Mg Tab) 500 mg PO BID ISAAK Metoprolol Tartrate (Metoprolol Tartrate 25 Mg Tab) 25 mg PO BID ISAAK Ondansetron HCl (Ondansetron 4 Mg/2 Ml Sdv) 4 mg IVPUSH Q6H PRN PRN Reason: Nausea Last Admin: 08/07/20 23:26 Dose: 4 mg Documented by: JANES Potassium Chloride (Potassium Chloride 20 Meq Tab.Er) 40 meq PO DAILY ISAAK Rosuvastatin Calcium (Rosuvastatin 10 Mg Tab) 10 mg PO DAILY [facility] Sodium Chloride (Sodium Chloride 0.9% 10 Ml Syringe) 10 ml FLUSH ASDIRECTED PRN PRN Reason: Keep Vein Open Last Admin: 08/07/20 19:24 Dose: 10 ml Documented by: JANES Tamsulosin HCl (Tamsulosin 0.4 Mg Cap.Er) 0.4 mg PO DAILY ISAAK Tramadol HCl (Tramadol 50 Mg Tab) 50 mg PO Q12H PRN PRN Reason: Pain Assessment/Plan Comment:: Patient is a 79-year-old lady who has been admitted secondary to urinary tract infection. Dr. Dianne Humphrey, urology [facility], have been consulted through in the emergency room. They did not have beds available and it was suggested that we admit her here and treat her for urinary tract infection. She is currently on Rocephin 2 g daily. The patient's laboratory studies will be retested tomorrow. She does have a history of renal insufficiency and will monitor her renal function. The patient does have a burial agent that she sees in [place]. PT OT has also been ordered for the patient. The patient has been continued on her current home medications. She will have DVT prophylaxis with the use of Lovenox 30 mg subcu daily. Patient also has a constant carb diet. Her blood sugars will be checked with meals and she is on sliding scale insulin medium dose. The patient should be appropriate for discharge once as soon as possible appointment is scheduled. She will likely be appropriate for discharge tomorrow. - Mortality Measure Prognosis:: Good
[2020-08-08] MEDS ORDERED: Docusate Sodium 100 MG Cap PO PRN (08:09)
[2020-08-08] MEDS: Tamsulosin 0.4 MG Cap.ER PO SCH (08:23)
[2020-08-08] MEDS: Potassium Chloride 20 MEQ Tab.ER PO SCH (08:23)
[2020-08-08] MEDS: Rosuvastatin 10 MG Tab PO SCH (08:23)
[2020-08-08] MEDS: Fenofibrate Nanocrystallized 145 MG Tab PO SCH (08:24)
[2020-08-08] MEDS: metFORMIN 500 MG Tab PO SCH ×2 (08:24→20:15)
[2020-08-08] MEDS: Cholecalciferol (Vitamin D3) 5,000 UNIT Cap PO SCH (08:24)
[2020-08-08] MEDS: Ferrous Sulfate 324 MG Tab.EC PO SCH ×2 (08:26→20:15)
[2020-08-08] MEDS: amLODIPine 5 MG Tab PO SCH (08:26)
[2020-08-08] MEDS: Furosemide 40 MG Tab PO SCH (08:27)
[2020-08-08] MEDS ORDERED: Tamsulosin 0.4 MG Cap.ER PO SCH (09:00)
[2020-08-08] MEDS ORDERED: Metoprolol Tartrate 25 MG Tab PO SCH (09:00)
[2020-08-08] MEDS: Insulin Regular, Human 100 Units/ML 3 ML Vial SUBCUT SCH ×3 (09:17→18:34)
[2020-08-08] MEDS: Enoxaparin 30 MG/0.3 ML Syringe SUBCUT SCH (09:17)
[2020-08-08] MEDS: Sodium Chloride 0.9% 1,000 ML IV SCH ×2 (09:21→19:18)
[2020-08-08] MEDS: Metoprolol Tartrate 25 MG Tab PO SCH ×2 (10:35→20:15)
[2020-08-08] MEDS ORDERED: guaiFENesin/Dextromethorphan 100-10 MG/5 ML Soln 5 ML Cup PO STA (17:40)
[2020-08-08] MEDS ORDERED: cefTRIAXone 2 GM in Sodium Chloride 0.9% 100 ML IV SCH (21:00)
[2020-08-09] MEDS: Acetaminophen 325 MG Tab PO PRN ×2 (01:44→09:25)
[2020-08-09] MEDS: Sodium Chloride 0.9% 1,000 ML IV SCH (05:17)
[2020-08-09] MEDS ORDERED: Magnesium Sulfate/Water 2 GM in Premix Bag 1 BAG IV ONE ×2 (06:51→09:00)
--- NOTE | 2020-08-09 08:08 | PCM.DCSUM1 ---
Discharge Summary - Hospital Course HPI Initial Comments: The patient was admitted secondary to urinary tract infection with partially obstructing 1.5 mL ureteral stone. The patient was admitted for infection control as urologic services and other cities were not available. Diagnosis: Stroke: No - Discharge Data Discharge Date: 08/09/20 Discharge Disposition: Home, Self-Care 01 Condition: Good - Referral to Home Health Primary Care Physician: Karley Sweeney NP - Discharge Diagnosis/Problem(s) (1) UTI, Urinary tract infectious disease SNOMED Code(s): 94710763 ICD Code: N39.0 - URINARY TRACT INFECTION, SITE NOT SPECIFIED Status: Acute Priority: High Current Visit: Yes (2) Renal insufficiency SNOMED Code(s): 715586747, 837244797 ICD Code: N28.9 - DISORDER OF KIDNEY AND URETER, UNSPECIFIED Status: Chronic Priority: Medium Current Visit: Yes (3) Ureteral calculus, right SNOMED Code(s): 37997610 ICD Code: N20.1 - CALCULUS OF URETER Status: Chronic Priority: High Current Visit: Yes (4) Weakness SNOMED Code(s): 87042944 ICD Code: R53.1 - WEAKNESS Status: Acute Priority: Medium Current Visit: No Onset Date: 08/05/18 - Patient Summary/Data Consults: Consultations 08/08/20 08:09 OT Evaluation and Treatment [CONS] Routine PT Evaluation and Treatment [CONS] Routine Hospital Course: The patient is a 79-year-old lady who had presented to the emergency room out of concern for right-sided flank pain. The patient reports that in June 2020 she had been in [place] with pneumonia, sepsis, UTI and kidney stone. She says that she was in the hospital for 13 days. The patient had similar symptoms since she had been discharged. The patient also said that she started to develop the back and right flank pain 1 or 2 days ago. Upon admission the patient was started on Rocephin and she tolerated this well. The patient has been afebrile. The patient also has not had any evidence of leukocytosis. The patient's hemoglobin has remained around 10 g/dL and she has not required transfusion. The patient does have chronic kidney disease and this would be at stage III with a EGFR of 34 mL/min. Any further medications would like to have to be renally dosed. A CT scan which was obtained on August 07, 2020 with a very small partially obstructing calculus 1 to 1.5 mm with mild hydronephrosis of the right kidney. The patient had been admitted to hospitalization for treatment of her urinary tract infection as urologic services and tertiary care centers were not available. The patient is recommended to follow-up as an outpatient with urologist as it is felt that the stone being a small as it is may be able to pass freely. I have advised the patient that is not completely obstructing although this is still a possibility. The patient has been given a prescription for ciprofloxacin 500 mg p.o. twice daily for 4 days to help with the urinary tract infection. The patient has been recommended to continue with her appropriate diabetic diet. She is also to have activity as tolerated. The patient has a scheduled follow-up with her primary care physician and she has been encouraged to keep that appointment. The patient has been otherwise hemodynamically stable and she has been discharged from acute hospitalization with the recommendations listed above. - Patient Instructions Diet: Usual Diet as Tolerated, Diabetic Diet Activity: As Tolerated - Discharge Plan *PRESCRIPTION DRUG MONITORING PROGRAM REVIEWED*: No *COPY OF PRESCRIPTION DRUG MONITORING REPORT IN PATIENT KOFFI: No Prescriptions/Med Rec: Ciprofloxacin HCl [Cipro] 500 mg PO BID #8 tablet Codeine/guaiFENesin [Robitussin AC] 5 ml PO Q8HR PRN #118 liquid PRN Reason: Cough Home Medications: Home Meds Metoprolol Tartrate 25 mg PO BID 04/26/14 [History] amLODIPine [Norvasc] 5 mg PO DAILY 04/26/14 [History] Cholecalciferol (Vitamin D3) [Vitamin D3] 5,000 unit PO DAILY 05/08/18 [History] Cyanocobalamin (Vitamin B-12) [Vitamin B-12] 1,000 mcg PO DAILY 05/08/18 [History] Vitamin E 400 unit PO DAILY 05/08/18 [History] traMADol [Ultram] 50 mg PO Q12H PRN 08/05/18 [History] Fenofibrate Nanocrystallized [Fenofibrate] 72.5 mg PO DAILY 03/01/19 [History] Furosemide 40 mg PO DAILY 03/01/19 [History] metFORMIN [Glucophage XR] 1,000 mg PO DAILY 03/01/19 [History] Acetaminophen [Tylenol Arthritis] 650 mg PO Q8H PRN 08/07/20 [History] Ferrous Sulfate 325 mg PO BID 08/07/20 [History] Potassium Chloride [Klor-Con M20] 40 meq PO DAILY 08/07/20 [History] Tamsulosin [Flomax] 0.4 mg PO DAILY 08/07/20 [History] Ciprofloxacin HCl [Cipro] 500 mg PO BID #8 tablet 08/09/20 [Rx] Codeine/guaiFENesin [Robitussin AC] 5 ml PO Q8HR PRN #118 liquid 08/09/20 [Rx] Oxygen Therapy Mode: Room Air Patient Handouts: Kidney Stones, [id number], Urinary Tract Infection, Adult, [id number] Referrals: Karley Sweeney NP [Primary Care Provider] - 08/19/20 10:10 am Kemar Hathaway MD [Ordering Only Provider] - 10/03/20 3:00 pm (Appointment is Central time ([facility]). Please arrive 30 minutes prior to the appointment to register. This is a the [facility] building in [place]) - Discharge Summary/Plan Comment DC Time >30 min.: Yes - General Info Date of Service: 08/09/20 Admission Dx/Problem (Free Text: Admission Diagnosis/Problem Admission Diagnosis/Problem Urinary tract infection, renal calculus, nonobstructing Subjective Update: The patient has been doing better. She has minimal pain. She has a cough and would like to have Robitussin cough syrup with codeine. She feels like she can safely go home. Functional Status: Reports: Pain Controlled, Tolerating Diet - Review of Systems General: Reports: No Symptoms HEENT: Reports: No Symptoms Pulmonary: Reports: Cough Cardiovascular: Reports: No Symptoms Gastrointestinal: Reports: No Symptoms Genitourinary: Reports: No Symptoms Musculoskeletal: Reports: No Symptoms Skin: Reports: No Symptoms Neurological: Reports: No Symptoms Psychiatric: Reports: No Symptoms - Patient Data Vitals - Most Recent: Last Vital Signs Temp 37.3 C 08/08/20 17:29 Pulse 98 08/08/20 20:16 Resp 16 08/08/20 20:16 BP 117/49 L 08/08/20 20:16 Pulse Ox 90 L 08/08/20 20:16 Weight - Most Recent: 102.603 kg I&O - Last 24 hours: Intake & Output 08/08/20 08/09/20 08/09/20 22:59 06:59 14:59 Intake Total 2196 1700 Output Total 1650 1200 Balance 546 500 Lab Results - Last 24 hrs: Laboratory Results - last 24 hr 08/08/20 08/08/20 08/08/20 Range/Units 08:43 09:15 11:04 WBC (3.98-10.04) K/mm3 RBC (3.98-5.22) M/mm3 Hgb (11.2-15.7) gm/dl Hct (34.1-44.9) % MCV (79.4-94.8) fl MCH (25.6-32.2) pg MCHC (32.2-35.5) g/dl RDW Std Deviation (36.4-46.3) fL Plt Count (182-369) K/mm3 MPV (9.4-12.3) fl Neut % (Auto) (34.0-71.1) % Lymph % (Auto) (19.3-51.7) % [place] % (Auto) (4.7-12.5) % Eos % (Auto) (0.7-5.8) Baso % (Auto) (0.1-1.2) % Neut # (Auto) (1.56-6.13) K/mm3 Lymph # (Auto) (1.18-3.74) K/mm3 [place] # (Auto) (0.24-0.36) K/mm3 Eos # (Auto) (0.04-0.36) K/mm3 Baso # (Auto) (0.01-0.08) K/mm3 Sodium (136-145) mEq/L Potassium (3.5-5.1) mEq/L Chloride (98-107) mEq/L Carbon Dioxide (21-32) mEq/L Anion Gap (5-15) BUN (7-18) mg/dL Creatinine (0.55-1.02) mg/dL Est Cr Clr Drug Dosing mL/min Estimated GFR (MDRD) (>60) mL/min BUN/Creatinine Ratio (14-18) Glucose (70-99) mg/dL POC Glucose 86 140 H 155 H (70-99) mg/dL Calcium (8.5-10.1) mg/dL Magnesium (1.8-2.4) mg/dL Total Bilirubin (0.2-1.0) mg/dL AST (15-37) U/L ALT (14-59) U/L Alkaline Phosphatase (46-116) U/L Total Protein (6.4-8.2) g/dl Albumin (3.4-5.0) g/dl Globulin gm/dL Albumin/Globulin Ratio (1-2) 08/08/20 08/09/20 08/09/20 Range/Units 17:33 05:46 05:46 WBC 8.19 (3.98-10.04) K/mm3 RBC 3.40 L (3.98-5.22) M/mm3 Hgb 10.1 L (11.2-15.7) gm/dl Hct 31.8 L (34.1-44.9) % MCV 93.5 (79.4-94.8) fl MCH 29.7 (25.6-32.2) pg MCHC 31.8 L (32.2-35.5) g/dl RDW Std Deviation 50.3 H (36.4-46.3) fL Plt Count 308 (182-369) K/mm3 MPV 9.4 (9.4-12.3) fl Neut % (Auto) 60.1 (34.0-71.1) % Lymph % (Auto) 17.9 L (19.3-51.7) % [place] % (Auto) 14.2 H (4.7-12.5) % Eos % (Auto) 7.0 H (0.7-5.8) Baso % (Auto) 0.4 (0.1-1.2) % Neut # (Auto) 4.93 (1.56-6.13) K/mm3 Lymph # (Auto) 1.47 (1.18-3.74) K/mm3 [place] # (Auto) 1.16 H (0.24-0.36) K/mm3 Eos # (Auto) 0.57 H (0.04-0.36) K/mm3 Baso # (Auto) 0.03 (0.01-0.08) K/mm3 Sodium 140 (136-145) mEq/L Potassium 4.4 (3.5-5.1) mEq/L Chloride 106 (98-107) mEq/L Carbon Dioxide 24 (21-32) mEq/L Anion Gap 14.4 (5-15) BUN 21 H (7-18) mg/dL Creatinine 1.5 H (0.55-1.02) mg/dL Est Cr Clr Drug Dosing 28.26 mL/min Estimated GFR (MDRD) 34 (>60) mL/min BUN/Creatinine Ratio 14.0 (14-18) Glucose 96 (70-99) mg/dL POC Glucose 93 (70-99) mg/dL Calcium 8.7 (8.5-10.1) mg/dL Magnesium 1.7 L (1.8-2.4) mg/dL Total Bilirubin 0.3 (0.2-1.0) mg/dL AST 12 L (15-37) U/L ALT 16 (14-59) U/L Alkaline Phosphatase 54 (46-116) U/L Total Protein 6.3 L (6.4-8.2) g/dl Albumin 2.3 L (3.4-5.0) g/dl Globulin 4.0 gm/dL Albumin/Globulin Ratio 0.6 L (1-2) // Range/Units 06:05 WBC (3.98-10.04) K/mm3 RBC (3.98-5.22) M/mm3 Hgb (11.2-15.7) gm/dl Hct (34.1-44.9) % MCV (79.4-94.8) fl MCH (25.6-32.2) pg MCHC (32.2-35.5) g/dl RDW Std Deviation (36.4-46.3) fL Plt Count (182-369) K/mm3 MPV (9.4-12.3) fl Neut % (Auto) (34.0-71.1) % Lymph % (Auto) (19.3-51.7) % [place] % (Auto) (4.7-12.5) % Eos % (Auto) (0.7-5.8) Baso % (Auto) (0.1-1.2) % Neut # (Auto) (1.56-6.13) K/mm3 Lymph # (Auto) (1.18-3.74) K/mm3 [place] # (Auto) (0.24-0.36) K/mm3 Eos # (Auto) (0.04-0.36) K/mm3 Baso # (Auto) (0.01-0.08) K/mm3 Sodium (136-145) mEq/L Potassium (3.5-5.1) mEq/L Chloride (98-107) mEq/L Carbon Dioxide (21-32) mEq/L Anion Gap (5-15) BUN (7-18) mg/dL Creatinine (0.55-1.02) mg/dL Est Cr Clr Drug Dosing mL/min Estimated GFR (MDRD) (>60) mL/min BUN/Creatinine Ratio (14-18) Glucose (70-99) mg/dL POC Glucose 84 (70-99) mg/dL Calcium (8.5-10.1) mg/dL Magnesium (1.8-2.4) mg/dL Total Bilirubin (0.2-1.0) mg/dL AST (15-37) U/L ALT (14-59) U/L Alkaline Phosphatase (46-116) U/L Total Protein (6.4-8.2) g/dl Albumin (3.4-5.0) g/dl Globulin gm/dL Albumin/Globulin Ratio (1-2) Med Orders - Current: Current Medications Acetaminophen (Acetaminophen 325 Mg Tab) 975 mg PO Q6H PRN PRN Reason: Pain Last Admin: 08/09/20 01:44 Dose: 975 mg Documented by: Amlodipine Besylate (Amlodipine 5 Mg Tab) 5 mg PO DAILY [facility] Last Admin: 08/08/20 08:26 Dose: 5 mg Documented by: Cholecalciferol (Cholecalciferol (Vitamin D3) 5,000 Unit Cap) 5,000 unit PO DAILY [facility] Last Admin: 08/08/20 08:24 Dose: 5,000 unit Documented by: Docusate Sodium (Docusate Sodium 100 Mg Cap) 100 mg PO BID PRN PRN Reason: Constipation Enoxaparin Sodium (Enoxaparin 30 Mg/0.3 Ml Syringe) 30 mg SUBCUT DAILY [facility] Last Admin: 08/08/20 09:17 Dose: 30 mg Documented by: Fenofibrate (Fenofibrate Nanocrystallized 145 Mg Tab) 72.5 mg PO DAILY [facility] Last Admin: 08/08/20 08:24 Dose: 72.5 mg Documented by: Ferrous Sulfate (Ferrous Sulfate 324 Mg Tab.Ec) 324 mg PO BID [facility] Last Admin: 08/08/20 20:15 Dose: 324 mg Documented by: Furosemide (Furosemide 40 Mg Tab) 40 mg PO DAILY [facility] Last Admin: 08/08/20 08:27 Dose: 40 mg Documented by: Sodium Chloride (Normal Saline) 1,000 mls @ 100 mls/hr IV ASDIRECTED [facility] Last Admin: 08/09/20 05:17 Dose: 100 mls/hr Documented by: Ceftriaxone Sodium 2 gm/ (Sodium Chloride) 100 mls @ 200 mls/hr IV Q24H [facility] Last Admin: 08/08/20 20:16 Dose: 200 mls/hr Documented by: Magnesium Sulfate 2 gm/ Premix 50 mls @ 25 mls/hr IV ONETIME ONE Stop: 08/09/20 10:59 Insulin Human Regular (Insulin Regular, Human 100 Units/Ml 3 Ml Vial) 0 unit SUBCUT TIDPC [facility]; Protocol Last Admin: 08/08/20 18:34 Dose: Not Given Documented by: Metformin HCl (Metformin 500 Mg Tab) 500 mg PO BID [facility] Last Admin: 08/08/20 20:15 Dose: 500 mg Documented by: Metoprolol Tartrate (Metoprolol Tartrate 25 Mg Tab) 25 mg PO BID [facility] Last Admin: 08/08/20 20:15 Dose: 25 mg Documented by: Ondansetron HCl (Ondansetron 4 Mg/2 Ml Sdv) 4 mg IVPUSH Q6H PRN PRN Reason: Nausea Last Admin: 08/07/20 23:26 Dose: 4 mg Documented by: Potassium Chloride (Potassium Chloride 20 Meq Tab.Er) 40 meq PO DAILY [facility] Last Admin: 08/08/20 08:23 Dose: 40 meq Documented by: Rosuvastatin Calcium (Rosuvastatin 10 Mg Tab) 10 mg PO DAILY [facility] Last Admin: 08/08/20 08:23 Dose: 10 mg Documented by: Sodium Chloride (Sodium Chloride 0.9% 10 Ml Syringe) 10 ml FLUSH ASDIRECTED PRN PRN Reason: Keep Vein Open Last Admin: 08/07/20 19:24 Dose: 10 ml Documented by: Tamsulosin HCl (Tamsulosin 0.4 Mg Cap.Er) 0.4 mg PO DAILY [facility] Last Admin: 08/08/20 08:23 Dose: 0.4 mg Documented by: Tramadol HCl (Tramadol 50 Mg Tab) 50 mg PO Q12H PRN PRN Reason: Pain Last Admin: 08/08/20 08:26 Dose: 50 mg Documented by: Discontinued Medications Guaifenesin/Phenylephrine HCl (Guaifenesin/Dextromethorphan 100-10 Mg/5 Ml Soln 5 Ml Cup) 10 ml PO Q4H STA Stop: 08/08/20 17:41 Last Admin: 08/08/20 18:09 Dose: 10 ml Documented by: Ceftriaxone Sodium 2 gm/ (Sodium Chloride) 100 mls @ 200 mls/hr IV ONETIME ONE Stop: 08/07/20 23:30 Last Admin: 08/08/20 01:21 Dose: Not Given Documented by: Ceftriaxone Sodium 2 gm/ (Sodium Chloride) 100 mls @ 200 mls/hr IV ONETIME ONE Stop: 08/07/20 23:47 Last Admin: 08/07/20 23:27 Dose: 200 mls/hr Documented by: Magnesium Sulfate 2 gm/ Premix 50 mls @ 25 mls/hr IV ONETIME ONE Stop: 08/09/20 08:50 Metoprolol Tartrate (Metoprolol Tartrate 25 Mg Tab) 25 mg PO BID [facility] Tamsulosin HCl (Tamsulosin 0.4 Mg Cap.Er) 0.4 mg PO ONETIME ONE Stop: 08/07/20 23:10 Last Admin: 08/08/20 00:54 Dose: 0.4 mg Documented by: Tamsulosin HCl (Tamsulosin 0.4 Mg Cap.Er) 0.4 mg PO DAILY [facility] - Exam Quality Assessment: Reports: DVT Prophylaxis. Denies: Supplemental Oxygen General: Reports: Alert, Oriented, Cooperative, No Acute Distress HEENT: Reports: Pupils Equal, Pupils Reactive, EOMI, Mucous Membr. Moist/[place] Neck: Reports: Supple, Trachea Midline Lungs: Reports: Clear to Auscultation, Normal Respiratory Effort Cardiovascular: Reports: Regular Rate, Regular Rhythm GI/Abdominal Exam: Normal Bowel Sounds, Soft, No Distention (Female) Exam: Deferred Rectal (Female) Exam: Deferred Back Exam: Reports: Normal Inspection, Full Range of Motion Extremities: Normal Inspection, Normal Range of Motion, No Pedal Edema Skin: Reports: Warm, Dry, Intact Neurological: Reports: No New Focal Deficit Psy/Mental Status: Reports: Alert, Normal Affect, Normal Mood
[2020-08-09 08:29] VITALS: PULSE 92
[2020-08-09] MEDS: Enoxaparin 30 MG/0.3 ML Syringe SUBCUT SCH (09:18)
[2020-08-09] MEDS: Tamsulosin 0.4 MG Cap.ER PO SCH (09:19)
[2020-08-09] MEDS: Potassium Chloride 20 MEQ Tab.ER PO SCH (09:20)
[2020-08-09] MEDS: amLODIPine 5 MG Tab PO SCH (09:20)
[2020-08-09] MEDS: metFORMIN 500 MG Tab PO SCH (09:21)
[2020-08-09] MEDS: Cholecalciferol (Vitamin D3) 5,000 UNIT Cap PO SCH (09:22)
[2020-08-09] MEDS: Rosuvastatin 10 MG Tab PO SCH (09:22)
[2020-08-09] MEDS: Fenofibrate Nanocrystallized 145 MG Tab PO SCH (09:22)
[2020-08-09] MEDS: Furosemide 40 MG Tab PO SCH (09:23)
[2020-08-09] MEDS: Ferrous Sulfate 324 MG Tab.EC PO SCH (09:23)
[2020-08-09] MEDS: Metoprolol Tartrate 25 MG Tab PO SCH (09:23)
[2020-08-09] MEDS: Insulin Regular, Human 100 Units/ML 3 ML Vial SUBCUT SCH ×2 (09:35→12:56)
[2020-08-09 12:55] VITALS: BP 134/65
== END 2020-08-09 13:23 | disposition home or self-care (01) | DRG 690 ==
LOC: JD.ED 18:55 → JD.MS 23:14
PROVIDERS: ADMIT Internal Medicine; ATTEND Internal Medicine
DX: N20.2 Calculus of kidney with calculus of ureter (principal); R07.89 Other chest pain; Z87.442 Personal history of urinary calculi; N39.0 Urinary tract infection, site not specified; E78.00 Pure hypercholesterolemia, unspecified; I10 Essential (primary) hypertension; I73.9 Peripheral vascular disease, unspecified; K57.90 Diverticulosis of intestine, part unspecified, without perforation or abscess without bleeding; M19.90 Unspecified osteoarthritis, unspecified site; G89.29 Other chronic pain; M54.5 Low back pain; E11.9 Type 2 diabetes mellitus without complications; N20.1 Calculus of ureter; E55.9 Vitamin D deficiency, unspecified; D64.9 Anemia, unspecified; E61.1 Iron deficiency; D68.9 Coagulation defect, unspecified; Z88.8 Allergy status to other drugs, medicaments and biological substances; Z79.84 Long term (current) use of oral hypoglycemic drugs; Z79.82 Long term (current) use of aspirin; Z79.899 Other long term (current) drug therapy; Z20.822 Contact with and (suspected) exposure to COVID-19; N28.9 Disorder of kidney and ureter, unspecified; R53.1 Weakness; Z87.01 Personal history of pneumonia (recurrent); I12.9 Hypertensive chronic kidney disease with stage 1 through stage 4 chronic kidney disease, or unspecified chronic kidney disease; N18.30 Chronic kidney disease, stage 3 unspecified; E78.5 Hyperlipidemia, unspecified; Z86.711 Personal history of pulmonary embolism; Z79.01 Long term (current) use of anticoagulants; G47.33 Obstructive sleep apnea (adult) (pediatric); E11.22 Type 2 diabetes mellitus with diabetic chronic kidney disease; Z79.4 Long term (current) use of insulin; M81.0 Age-related osteoporosis without current pathological fracture; D50.9 Iron deficiency anemia, unspecified; Z90.89 Acquired absence of other organs; Z98.42 Cataract extraction status, left eye; Z98.41 Cataract extraction status, right eye; Z90.49 Acquired absence of other specified parts of digestive tract; Z90.710 Acquired absence of both cervix and uterus; Z90.722 Acquired absence of ovaries, bilateral; Z96.653 Presence of artificial knee joint, bilateral
CPT/HCPCS: 36415; 71250; 71250-26; 74176; 74176-26; 80053; 81001; 82947; 83690; 83735; 84484; 85025; 97161-GP; 99284; 99285; 99285-25; A9270-GY; J0696; J1650; J1815-GY; J2405; J3475; J7030; U0002

== ENCOUNTER 2020-09-07 11:36 | Inpatient (IN) | payer MEDICARE, OTHER ==
--- NOTE | 2020-09-07 12:31 | EDM.PDOC ---
ED HPI GENERAL MEDICAL PROBLEM - General Chief Complaint: Genitourinary Problem Stated Complaint: PAINFUL URINATION Time Seen by Provider: 09/07/20 12:30 - History of Present Illness INITIAL COMMENTS - FREE TEXT/NARRATIVE: 79-year-old female presents the emergency room with a sensation that her urinary tract infection is coming back she has a worsening cough and she is weak tired. Starting on Tuesday the patient developed some urinary discomfort. She noticed about this time that her weakness was coming back the patient is getting over a pneumonia and infected kidney stone the left are quite weak she has been progressively getting better until Tuesday where she took a turn for the worse. She lost her appetite decreased fluid and food intake she was about ready to give up her walker and now she depends on it. She is not aware of any fevers or chills. She has discomfort when she voids and frequency when she voids. She has noticed an increased cough. With the patient's kidney stone she had this removed with a laser at [facility] in [place]. - Related Data Allergies Allergy/AdvReac Type Severity Reaction Status Date / Time morphine Allergy Intermediate Rash Verified 08/11/20 10:53 piperacillin [From Zosyn] Allergy Rash Verified 08/07/20 23:02 tazobactam [From Zosyn] Allergy Rash Verified 08/07/20 23:02 Home Meds: Home Meds Metoprolol Tartrate 25 mg PO BID 04/26/14 [History] amLODIPine [Norvasc] 5 mg PO DAILY 04/26/14 [History] Cholecalciferol (Vitamin D3) [Vitamin D3] 5,000 unit PO DAILY 05/08/18 [History] Cyanocobalamin (Vitamin B-12) [Vitamin B-12] 1,000 mcg PO DAILY 05/08/18 [History] Vitamin E 400 unit PO DAILY 05/08/18 [History] traMADol [Ultram] 50 mg PO Q12H PRN 08/05/18 [History] Fenofibrate Nanocrystallized [Fenofibrate] 72.5 mg PO DAILY 03/01/19 [History] Furosemide 40 mg PO DAILY 03/01/19 [History] metFORMIN [Glucophage XR] 1,000 mg PO DAILY 03/01/19 [History] Acetaminophen [Tylenol Arthritis] 650 mg PO Q8H PRN 08/07/20 [History] Ferrous Sulfate 325 mg PO BID 08/07/20 [History] Potassium Chloride [Klor-Con M20] 40 meq PO DAILY 08/07/20 [History] Tamsulosin [Flomax] 0.4 mg PO DAILY 08/07/20 [History] Ciprofloxacin HCl [Cipro] 500 mg PO BID #8 tablet 08/09/20 [Rx] Codeine/guaiFENesin [Robitussin AC] 5 ml PO Q8HR PRN #118 liquid 08/09/20 [Rx] Past Medical History HEENT History: Reports: Cataract, Other (See Below) Other HEENT History: double vision Cardiovascular History: Reports: Angina, High Cholesterol, Hypertension, SOB on Exertion, Other (See Below) Other Cardiovascular History: peripheral artery disease, edema Respiratory History: Reports: PE, Sleep Apnea, SOB, Other (See Below) Other Respiratory History: cough, elevated d dimer, Pulmonary edema Gastrointestinal History: Reports: Chronic Diarrhea, Diverticulosis Genitourinary History: Reports: Renal Calculus, UTI, Recurrent Other Genitourinary History: sepsis from blockage caused by kidney stone. 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: Musculoskeletal History: Reports: Arthritis, Back Pain, Chronic, Osteoarthritis, Other (See Below) Other Musculoskeletal History: low back pain, shoulder pain Neurological History: Reports: None Psychiatric History: Reports: None Endocrine/Metabolic History: Reports: Diabetes, Type II, Obesity/BMI 30+, Osteoporosis, Vitamin D Deficiency Other Endocrine/Metabolic History: thyroid nodules Hematologic History: Reports: Anemia, Bleeding Disorder, Iron Deficiency, Other (See Below) Other Hematologic History: blood clotting disorder, blood transfusion Immunologic History: Reports: Other (See Below) Oncologic (Cancer) History: Reports: None Dermatologic History: Reports: Other (See Below) Other Dermatologic History: dry skin - Infectious Disease History Infectious Disease History: Reports: Chicken Pox, Measles - Past Surgical History HEENT Surgical History: Reports: Adenoidectomy, Cataract Surgery GI Surgical History: Reports: Appendectomy, Cholecystectomy, Colonoscopy Other GI Surgeries/Procedures: sigmoid resection Female Surgical History: Reports: Hysterectomy, Oophorectomy Musculoskeletal Surgical History: Reports: Knee Replacement Other Musculoskeletal Surgeries/Procedures:: bilateral knee replacements, bilateral bunionectomies Oncologic Surgical History: Reports: None Dermatological Surgical History: Reports: None Social & Family History - Family History Family Medical History: No Pertinent Family History Cardiac: Reports: PA Other Cardiac Family History: grandparents Respiratory: Reports: None GI: Reports: Inflammatory Bowel Disease Other GI Family History: mother OBGYN: Reports: None Musculoskeletal: Reports: Arthritis, Osteoporosis Neurological: Reports: None Psychiatric: Reports: None Endocrine/Metabolic: Reports: None Hematologic: Reports: None Immunologic: Reports: None - Tobacco Use Tobacco Use Status *Q: Never Tobacco User Second Hand Smoke Exposure: No - Caffeine Use Caffeine Use: Reports: Coffee - Recreational Drug Use Recreational Drug Use: No ED ROS GENERAL - Review of Systems Review Of Systems: See Below Constitutional: Reports: Fever HEENT: Reports: No Symptoms Respiratory: Reports: Cough Cardiovascular: Reports: No Symptoms Endocrine: Reports: No Symptoms GI/Abdominal: Reports: Decreased Appetite : Reports: Dysuria, Frequency Musculoskeletal: Reports: No Symptoms Skin: Reports: No Symptoms Neurological: Reports: No Symptoms ED EXAM, GENERAL - Physical Exam Exam: See Below Exam Limited By: Uncooperative General Appearance: No Apparent Distress Throat/Mouth: Normal Inspection, Normal Lips, Normal Teeth (She has partials), Normal Gums, Normal Oropharynx, Normal Voice, No Airway Compromise Head: Atraumatic, Normocephalic Neck: Normal Inspection, Supple, Non-Tender, Full Range of Motion Respiratory/Chest: No Respiratory Distress, Lungs Clear, Normal Breath Sounds, No Accessory Muscle Use, Chest Non-Tender Cardiovascular: Regular Rate, Rhythm, No Edema, No Murmur GI/Abdominal: Normal Bowel Sounds, Soft, Tender (Suprapubic discomfort). No: Guarding, Rigid, Rebound (1) Back Exam: Normal Inspection. No: CVA Tenderness (L), CVA Tenderness (R) Extremities: Normal Inspection, No Pedal Edema Neurological: Alert, Oriented, Normal Cognition Course - Vital Signs Last Recorded V/S: Last Vital Signs Temp 37.1 C 09/08/20 04:20 Pulse 103 H 09/08/20 04:20 Resp 14 09/08/20 04:20 BP 141/70 H 09/08/20 04:20 Pulse Ox 96 09/08/20 04:20 - Orders/Labs/Meds Orders: Active Orders 24 hr Category Date Time Status BLOOD CULTURE [MREF] Routine Lab 09/07/20 13:19 Received BLOOD CULTURE [MREF] Stat Lab 09/07/20 13:10 Received CULTURE URINE [MREF] Stat Lab 09/07/20 11:50 Received Blood Culture x2 Reflex Set [OM.PC] Stat Oth 09/07/20 12:41 Ordered Medication Orders Acetaminophen (Acetaminophen 325 Mg Tab) 650 mg PO Q4H PRN PRN Reason: Pain (Mild 1-3)/fever Last Admin: 09/07/20 20:21 Dose: 650 mg Documented by: KEREN Docusate Sodium (Docusate Sodium 100 Mg Cap) 100 mg PO BID PRN PRN Reason: Constipation Guaifenesin/Phenylephrine HCl (Guaifenesin/Dextromethorphan 100-10 Mg/5 Ml Soln 5 Ml Cup) 10 ml PO QID PRN PRN Reason: Cough Last Admin: 09/08/20 04:35 Dose: 10 ml Documented by: BAUDILIO Heparin Sodium (Porcine) (Heparin Sodium 5,000 Units/Ml Vial) 5,000 units SUBCUT Q8H [facility] Last Admin: 09/08/20 00:57 Dose: 5,000 units Documented by: Admin: 09/07/20 18:16 Dose: 5,000 units Documented by: BARBARA Lactated Ringer's (Ringers, Lactated) 1,000 mls @ 75 mls/hr IV ASDIRECTED [facility] Last Admin: 09/08/20 00:56 Dose: 75 mls/hr Documented by: KEREN Levofloxacin/Dextrose 750 mg/ (Premix) 150 mls @ 100 mls/hr IV Q48H [facility] Last Admin: 09/07/20 18:14 Dose: 100 mls/hr Documented by: BARBARA Insulin Human Regular (Insulin Regular, Human 100 Units/Ml 3 Ml Vial) 0 unit SUBCUT TIDPC [facility]; Protocol Last Admin: 09/07/20 20:17 Dose: Not Given Documented by: KEREN Oxycodone HCl (Oxycodone 5 Mg Tab) 5 mg PO Q4H PRN PRN Reason: Pain (moderate 4-6) Labs: Laboratory Tests 09/07/20 09/07/20 09/07/20 Range/Units 11:50 13:10 13:10 WBC (3.98-10.04) K/mm3 RBC (3.98-5.22) M/mm3 Hgb (11.2-15.7) gm/dl Hct (34.1-44.9) % MCV (79.4-94.8) fl MCH (25.6-32.2) pg MCHC (32.2-35.5) g/dl RDW Std Deviation (36.4-46.3) fL Plt Count (182-369) K/mm3 MPV (9.4-12.3) fl Neut % (Auto) (34.0-71.1) % Lymph % (Auto) (19.3-51.7) % [place] % (Auto) (4.7-12.5) % Eos % (Auto) (0.7-5.8) Baso % (Auto) (0.1-1.2) % Neut # (Auto) (1.56-6.13) K/mm3 Lymph # (Auto) (1.18-3.74) K/mm3 [place] # (Auto) (0.24-0.36) K/mm3 Eos # (Auto) (0.04-0.36) K/mm3 Baso # (Auto) (0.01-0.08) K/mm3 Manual Slide Review Sodium 137 (136-145) mEq/L Potassium 4.1 (3.5-5.1) mEq/L Chloride 103 (98-107) mEq/L Carbon Dioxide 26 (21-32) mEq/L Anion Gap 12.1 (5-15) BUN 26 H (7-18) mg/dL Creatinine 1.5 H (0.55-1.02) mg/dL Est Cr Clr Drug Dosing 28.26 mL/min Estimated GFR (MDRD) 34 (>60) mL/min BUN/Creatinine Ratio 17.3 (14-18) Glucose 110 H (70-99) mg/dL Lactic Acid 0.7 (0.4-2.0) mmol/L Calcium 8.4 L (8.5-10.1) mg/dL Total Bilirubin 0.9 (0.2-1.0) mg/dL AST 13 L (15-37) U/L ALT 17 (14-59) U/L Alkaline Phosphatase 66 (46-116) U/L Total Protein 6.4 (6.4-8.2) g/dl Albumin 2.5 L (3.4-5.0) g/dl Globulin 3.9 gm/dL Albumin/Globulin Ratio 0.6 L (1-2) Urine Color Yellow (Yellow) Urine Appearance Cloudy H (Clear) Urine pH 7.0 (5.0-8.0) Ur Specific Mallie 1.015 (1.005-1.030) Urine Protein 2+ H (Negative) Urine Glucose (UA) Negative (Negative) Urine Ketones Negative (Negative) Urine Occult Blood 1+ H (Negative) Urine Nitrite Negative (Negative) Urine Bilirubin Negative (Negative) Urine Urobilinogen 0.2 (0.2-1.0) Ur Leukocyte Esterase 3+ H (Negative) Urine RBC 5-10 H (0-5) /hpf Urine WBC 20-30 H (0-5) /hpf Urine WBC Clumps Moderate (NOT SEEN) /hpf Ur Epithelial Cells 0-5 (0-5) /hpf Urine Bacteria Moderate H (FEW) /hpf Urine Mucus Few (FEW) /hpf SARS-CoV-2 RNA (MAKAYLA) (NEGATIVE) 09/07/20 09/07/20 Range/Units 13:10 15:06 WBC 12.79 H (3.98-10.04) K/mm3 RBC 3.37 L (3.98-5.22) M/mm3 Hgb 9.8 L (11.2-15.7) gm/dl Hct 31.2 L (34.1-44.9) % MCV 92.6 (79.4-94.8) fl MCH 29.1 (25.6-32.2) pg MCHC 31.4 L (32.2-35.5) g/dl RDW Std Deviation 53.5 H (36.4-46.3) fL Plt Count 298 (182-369) K/mm3 MPV 10.0 (9.4-12.3) fl Neut % (Auto) 81.2 H (34.0-71.1) % Lymph % (Auto) 8.4 L (19.3-51.7) % [place] % (Auto) 9.9 (4.7-12.5) % Eos % (Auto) 0.1 L (0.7-5.8) Baso % (Auto) 0.2 (0.1-1.2) % Neut # (Auto) 10.40 H (1.56-6.13) K/mm3 Lymph # (Auto) 1.07 L (1.18-3.74) K/mm3 [place] # (Auto) 1.27 H (0.24-0.36) K/mm3 Eos # (Auto) 0.01 L (0.04-0.36) K/mm3 Baso # (Auto) 0.02 (0.01-0.08) K/mm3 Manual Slide Review Abnormal smear Sodium (136-145) mEq/L Potassium (3.5-5.1) mEq/L Chloride (98-107) mEq/L Carbon Dioxide (21-32) mEq/L Anion Gap (5-15) BUN (7-18) mg/dL Creatinine (0.55-1.02) mg/dL Est Cr Clr Drug Dosing mL/min Estimated GFR (MDRD) (>60) mL/min BUN/Creatinine Ratio (14-18) Glucose (70-99) mg/dL Lactic Acid (0.4-2.0) mmol/L Calcium (8.5-10.1) mg/dL Total Bilirubin (0.2-1.0) mg/dL AST (15-37) U/L ALT (14-59) U/L Alkaline Phosphatase (46-116) U/L Total Protein (6.4-8.2) g/dl Albumin (3.4-5.0) g/dl Globulin gm/dL Albumin/Globulin Ratio (1-2) Urine Color (Yellow) Urine Appearance (Clear) Urine pH (5.0-8.0) Ur Specific Mallie (1.005-1.030) Urine Protein (Negative) Urine Glucose (UA) (Negative) Urine Ketones (Negative) Urine Occult Blood (Negative) Urine Nitrite (Negative) Urine Bilirubin (Negative) Urine Urobilinogen (0.2-1.0) Ur Leukocyte Esterase (Negative) Urine RBC (0-5) /hpf Urine WBC (0-5) /hpf Urine WBC Clumps (NOT SEEN) /hpf Ur Epithelial Cells (0-5) /hpf Urine Bacteria (FEW) /hpf Urine Mucus (FEW) /hpf SARS-CoV-2 RNA (MAKAYLA) Negative (NEGATIVE) Meds: Medications Generic Name Dose Route Start Last Admin Trade Name Freq PRN Reason Stop Dose Admin Acetaminophen 650 mg 09/07/20 15:53 09/07/20 20:21 Acetaminophen 325 Mg Tab PO 650 mg Q4H PRN Administration Pain (Mild 1-3)/fever Docusate Sodium 100 mg 09/07/20 15:53 Docusate Sodium 100 Mg Cap PO BID PRN Constipation Guaifenesin/Phenylephrine HCl 10 ml 09/08/20 04:27 09/08/20 04:35 Guaifenesin/Dextromethorphan 100-10 Mg/5 Ml Soln 5 Ml Cup PO 10 ml QID PRN Administration Cough Heparin Sodium (Porcine) 5,000 units 09/07/20 16:00 09/08/20 00:57 Heparin Sodium 5,000 Units/Ml Vial SUBCUT 5,000 units Q8H ISAAK Administration Lactated Ringer's 1,000 mls @ 75 mls/hr 09/07/20 16:00 09/08/20 00:56 Ringers, Lactated IV 75 mls/hr ASDIRECTED ISAAK Administration Levofloxacin/Dextrose 750 mg/ 150 mls @ 100 mls/hr 09/07/20 16:00 09/07/20 18:14 Premix IV 100 mls/hr Q48H ISAAK Administration Insulin Human Regular 0 unit 09/07/20 19:00 09/07/20 20:17 Insulin Regular, Human 100 Units/Ml 3 Ml Vial SUBCUT Not Given [facility] Protocol Oxycodone HCl 5 mg 09/07/20 15:53 Oxycodone 5 Mg Tab PO Q4H PRN Pain (moderate 4-6) Discontinued Medications Generic Name Dose Route Start Last Admin Trade Name Freq PRN Reason Stop Dose Admin Lactated Ringer's 1,000 mls @ 999 mls/hr 09/07/20 12:52 09/07/20 13:10 Ringers, Lactated IV 09/07/20 13:52 999 mls/hr .BOLUS ONE Administration Lactated Ringer's 1,000 mls @ 999 mls/hr 09/07/20 14:30 09/07/20 14:42 Ringers, Lactated IV 09/07/20 15:30 100 mls/hr .BOLUS ONE Administration Levofloxacin/Dextrose 500 mg/ 100 mls @ 100 mls/hr 09/07/20 15:53 09/07/20 16:05 Premix IV 09/07/20 16:52 Not Given ONETIME ONE - Re-Assessments/Exams Free Text/Narrative Re-Assessment/Exam: 09/07/20 13:47 Chemistry still pending white count was over 12,000 chest x-ray is nondiagnostic 09/07/20 15:[address] Byers, our hospitalist, he will assume care. Departure - Departure Time of Disposition: 15:50 Disposition: Refer to Observation Clinical Impression: UTI, Urinary tract infectious disease - Discharge Information Sepsis Event Note (ED) - Evaluation Sepsis Screening Result: No Definite Risk - My Orders Last 24 Hours: My Active Orders 09/07/20 12:41 Blood Culture x2 Reflex Set [OM.PC] Stat 09/07/20 13:10 BLOOD CULTURE [MREF] Stat 09/07/20 13:19 BLOOD CULTURE [MREF] Routine - Assessment/Plan Last 24 Hours: My Active Orders 09/07/20 12:41 Blood Culture x2 Reflex Set [OM.PC] Stat 09/07/20 13:10 BLOOD CULTURE [MREF] Stat 09/07/20 13:19 BLOOD CULTURE [MREF] Routine
[2020-09-07] MEDS ORDERED: Lactated Ringers 1,000 ML IV ONE ×2 (12:52→14:30)
--- NOTE | 2020-09-07 15:17 | CR ---
Chest: Portable view of the chest was obtained. Comparison: Prior chest CT of 08/07/20 and chest x-ray of 06/29/20. Heart size and mediastinum are within normal limits for portable technique. Slight parenchymal density is noted within the lateral left costophrenic angle presumably due to atelectasis. Lungs otherwise are clear. Degenerative change is noted within the left shoulder with inferior spurring and probable joint space narrowing. Degenerative endplate osteophytes are seen within the thoracic spine. Impression: 1. Probable atelectasis within the lateral left costophrenic angle. 2. Degenerative change as noted above. 3. Nothing acute is otherwise seen. Diagnostic code #2
[2020-09-07] MEDS ORDERED: Docusate Sodium 100 MG Cap PO PRN (15:53)
[2020-09-07] MEDS ORDERED: Levofloxacin/Dextrose 5%-Water 500 MG in Premix Bag 1 BAG IV ONE (15:53)
[2020-09-07] MEDS ORDERED: oxyCODONE 5 MG Tab PO PRN (15:53)
[2020-09-07] MEDS ORDERED: Lactated Ringers 1,000 ML IV SCH (16:00)
[2020-09-07] MEDS ORDERED: Levofloxacin/Dextrose 5%-Water 750 MG in Premix Bag 1 BAG IV SCH (16:00)
--- NOTE | 2020-09-07 16:01 | PCM.HP.2 ---
H&P History of Present Illness - General Date of Service: 09/07/20 Admit Problem/Dx: Admission Diagnosis/Problem Admission Diagnosis/Problem Urinary tract infection Source of Information: Patient History Limitations: Reports: No Limitations - History of Present Illness Initial Comments - Free Text/Narative: The patient is a 79-year-old lady who had presented to the emergency department with a complaint primarily of weakness. The patient reports that she has been feeling extremely weak and unable to get up from a sitting position over the past 3 days. The patient was previously in the hospital for UTI associated with kidney stones and she had been recovering up until recently. The patient reports that she has had some dysuria associated with this. She also has what sounds like fever or chills. She had been partially treated apparently with outpatient antibiotics. The patient has a history of urinary tract infection the patient also has been taking medication for diabetes and hypertension. The patient has been doing well otherwise. The patient has no other complaints today. She also has new onset chronic kidney disease. Onset of Symptoms: Reports: Gradual Duration of Symptoms: Reports: Day(s):, Getting Worse Severity: Mild Improves with: Reports: None Worsens with: Reports: None - Related Data Allergies/Adverse Reactions: Allergies Allergy/AdvReac Type Severity Reaction Status Date / Time morphine Allergy Intermediate Rash Verified 08/11/20 10:53 piperacillin [From Zosyn] Allergy Rash Verified 08/07/20 23:02 tazobactam [From Zosyn] Allergy Rash Verified 08/07/20 23:02 Home Medications: Home Meds Metoprolol Tartrate 25 mg PO BID 04/26/14 [History] amLODIPine [Norvasc] 5 mg PO DAILY 04/26/14 [History] Cholecalciferol (Vitamin D3) [Vitamin D3] 5,000 unit PO DAILY 05/08/18 [History] Cyanocobalamin (Vitamin B-12) [Vitamin B-12] 1,000 mcg PO DAILY 05/08/18 [History] Vitamin E 400 unit PO DAILY 05/08/18 [History] traMADol [Ultram] 50 mg PO Q12H PRN 08/05/18 [History] Fenofibrate Nanocrystallized [Fenofibrate] 72.5 mg PO DAILY 03/01/19 [History] Furosemide 40 mg PO DAILY 03/01/19 [History] metFORMIN [Glucophage XR] 1,000 mg PO DAILY 03/01/19 [History] Acetaminophen [Tylenol Arthritis] 650 mg PO Q8H PRN 08/07/20 [History] Ferrous Sulfate 325 mg PO BID 08/07/20 [History] Potassium Chloride [Klor-Con M20] 40 meq PO DAILY 08/07/20 [History] Tamsulosin [Flomax] 0.4 mg PO DAILY 08/07/20 [History] Ciprofloxacin HCl [Cipro] 500 mg PO BID #8 tablet 08/09/20 [Rx] Codeine/guaiFENesin [Robitussin AC] 5 ml PO Q8HR PRN #118 liquid 08/09/20 [Rx] Past Medical History HEENT History: Reports: Cataract, Other (See Below) Other HEENT History: double vision Cardiovascular History: Reports: Angina, High Cholesterol, Hypertension, SOB on Exertion, Other (See Below) Other Cardiovascular History: peripheral artery disease, edema Respiratory History: Reports: PE, Sleep Apnea, SOB, Other (See Below) Other Respiratory History: cough, elevated d dimer, Pulmonary edema Gastrointestinal History: Reports: Chronic Diarrhea, Diverticulosis Genitourinary History: Reports: Renal Calculus, UTI, Recurrent Other Genitourinary History: sepsis from blockage caused by kidney stone. COMB CAPPER History: Reports: Musculoskeletal History: Reports: Arthritis, Back Pain, Chronic, Osteoarthritis, Other (See Below) Other Musculoskeletal History: low back pain, shoulder pain Neurological History: Reports: None Psychiatric History: Reports: None Endocrine/Metabolic History: Reports: Diabetes, Type II, Obesity/BMI 30+, Osteoporosis, Vitamin D Deficiency Other Endocrine/Metabolic History: thyroid nodules Hematologic History: Reports: Anemia, Bleeding Disorder, Iron Deficiency, Other (See Below) Other Hematologic History: blood clotting disorder, blood transfusion Immunologic History: Reports: Other (See Below) Oncologic (Cancer) History: Reports: None Dermatologic History: Reports: Other (See Below) Other Dermatologic History: dry skin - Infectious Disease History Infectious Disease History: Reports: Chicken Pox, Measles - Past Surgical History HEENT Surgical History: Reports: Adenoidectomy, Cataract Surgery GI Surgical History: Reports: Appendectomy, Cholecystectomy, Colonoscopy Other GI Surgeries/Procedures: sigmoid resection Female Surgical History: Reports: Hysterectomy, Oophorectomy Musculoskeletal Surgical History: Reports: Knee Replacement Other Musculoskeletal Surgeries/Procedures:: bilateral knee replacements, bilateral bunionectomies Oncologic Surgical History: Reports: None Dermatological Surgical History: Reports: None Social & Family History - Family History Family Medical History: No Pertinent Family History Cardiac: Reports: [place] Other Cardiac Family History: grandparents Respiratory: Reports: None GI: Reports: Inflammatory Bowel Disease Other GI Family History: mother OBGYN: Reports: None Musculoskeletal: Reports: Arthritis, Osteoporosis Neurological: Reports: None Psychiatric: Reports: None Endocrine/Metabolic: Reports: None Hematologic: Reports: None Immunologic: Reports: None - Tobacco Use Tobacco Use Status *Q: Never Tobacco User Second Hand Smoke Exposure: No - Caffeine Use Caffeine Use: Reports: Coffee - Recreational Drug Use Recreational Drug Use: No H&P Review of Systems - Review of Systems: Review Of Systems: See Below General: Reports: No Symptoms HEENT: Reports: No Symptoms Pulmonary: Reports: Cough Cardiovascular: Reports: No Symptoms Gastrointestinal: Reports: No Symptoms Genitourinary: Reports: Dysuria, Frequency Musculoskeletal: Reports: No Symptoms Skin: Reports: No Symptoms Psychiatric: Reports: No Symptoms Neurological: Reports: No Symptoms Hematologic/Lymphatic: Reports: No Symptoms Immunologic: Reports: No Symptoms Exam - Exam Exam: See Below - Vital Signs Vital Signs: Last Vital Signs Temp 36.0 C L 09/07/20 11:45 Pulse 87 09/07/20 15:15 Resp 14 09/07/20 14:15 BP 132/55 L 09/07/20 15:15 Pulse Ox 94 L 09/07/20 14:45 Weight: 93.395 kg - Exam Quality Assessment: No: Supplemental Oxygen, DVT Prophylaxis General: Alert, Oriented, Cooperative HEENT: Conjunctiva Clear, EACs Clear, EOMI, PERRLA. No: Mucosa Moist & [place] (Dry) Neck: Supple, Trachea Midline Lungs: Normal Respiratory Effort, Crackles (Widely scattered) Cardiovascular: Regular Rate, Regular Rhythm GI/Abdominal Exam: Normal Bowel Sounds, Soft, Non-Tender, No Distention. No: Guarding, Rigid (Female) Exam: Deferred Rectal (Female) Exam: Deferred Back Exam: Normal Inspection, Full Range of Motion Extremities: Normal Inspection, Normal Range of Motion, No Pedal Edema Skin: Warm, Dry, Intact Neurological: Cranial Nerves Intact, Normal Gait, Normal Speech Neuro Extensive - Mental Status: Alert, Oriented x3 Psychiatric: Alert, Normal Affect, Normal Mood - Patient Data Lab Results Last 24 hrs: Laboratory Results - last 24 hr 09/07/20 09/07/20 09/07/20 Range/Units 11:50 13:10 13:10 WBC (3.98-10.04) K/mm3 RBC (3.98-5.22) M/mm3 Hgb (11.2-15.7) gm/dl Hct (34.1-44.9) % MCV (79.4-94.8) fl MCH (25.6-32.2) pg MCHC (32.2-35.5) g/dl RDW Std Deviation (36.4-46.3) fL Plt Count (182-369) K/mm3 MPV (9.4-12.3) fl Neut % (Auto) (34.0-71.1) % Lymph % (Auto) (19.3-51.7) % [place] % (Auto) (4.7-12.5) % Eos % (Auto) (0.7-5.8) Baso % (Auto) (0.1-1.2) % Neut # (Auto) (1.56-6.13) K/mm3 Lymph # (Auto) (1.18-3.74) K/mm3 [place] # (Auto) (0.24-0.36) K/mm3 Eos # (Auto) (0.04-0.36) K/mm3 Baso # (Auto) (0.01-0.08) K/mm3 Manual Slide Review Sodium 137 (136-145) mEq/L Potassium 4.1 (3.5-5.1) mEq/L Chloride 103 (98-107) mEq/L Carbon Dioxide 26 (21-32) mEq/L Anion Gap 12.1 (5-15) BUN 26 H (7-18) mg/dL Creatinine 1.5 H (0.55-1.02) mg/dL Est Cr Clr Drug Dosing 28.26 mL/min Estimated GFR (MDRD) 34 (>60) mL/min BUN/Creatinine Ratio 17.3 (14-18) Glucose 110 H (70-99) mg/dL Lactic Acid 0.7 (0.4-2.0) mmol/L Calcium 8.4 L (8.5-10.1) mg/dL Total Bilirubin 0.9 (0.2-1.0) mg/dL AST 13 L (15-37) U/L ALT 17 (14-59) U/L Alkaline Phosphatase 66 (46-116) U/L Total Protein 6.4 (6.4-8.2) g/dl Albumin 2.5 L (3.4-5.0) g/dl Globulin 3.9 gm/dL Albumin/Globulin Ratio 0.6 L (1-2) Urine Color Yellow (Yellow) Urine Appearance Cloudy H (Clear) Urine pH 7.0 (5.0-8.0) Ur Specific [place] 1.015 (1.005-1.030) Urine Protein 2+ H (Negative) Urine Glucose (UA) Negative (Negative) Urine Ketones Negative (Negative) Urine Occult Blood 1+ H (Negative) Urine Nitrite Negative (Negative) Urine Bilirubin Negative (Negative) Urine Urobilinogen 0.2 (0.2-1.0) Ur Leukocyte Esterase 3+ H (Negative) Urine RBC 5-10 H (0-5) /hpf Urine WBC 20-30 H (0-5) /hpf Urine WBC Clumps Moderate (NOT SEEN) /hpf Ur Epithelial Cells 0-5 (0-5) /hpf Urine Bacteria Moderate H (FEW) /hpf Urine Mucus Few (FEW) /hpf 07/25/21 Range/Units 13:10 WBC 12.79 H (3.98-10.04) K/mm3 RBC 3.37 L (3.98-5.22) M/mm3 Hgb 9.8 L (11.2-15.7) gm/dl Hct 31.2 L (34.1-44.9) % MCV 92.6 (79.4-94.8) fl MCH 29.1 (25.6-32.2) pg MCHC 31.4 L (32.2-35.5) g/dl RDW Std Deviation 53.5 H (36.4-46.3) fL Plt Count 298 (182-369) K/mm3 MPV 10.0 (9.4-12.3) fl Neut % (Auto) 81.2 H (34.0-71.1) % Lymph % (Auto) 8.4 L (19.3-51.7) % [place] % (Auto) 9.9 (4.7-12.5) % Eos % (Auto) 0.1 L (0.7-5.8) Baso % (Auto) 0.2 (0.1-1.2) % Neut # (Auto) 10.40 H (1.56-6.13) K/mm3 Lymph # (Auto) 1.07 L (1.18-3.74) K/mm3 [place] # (Auto) 1.27 H (0.24-0.36) K/mm3 Eos # (Auto) 0.01 L (0.04-0.36) K/mm3 Baso # (Auto) 0.02 (0.01-0.08) K/mm3 Manual Slide Review Abnormal smear Sodium (136-145) mEq/L Potassium (3.5-5.1) mEq/L Chloride (98-107) mEq/L Carbon Dioxide (21-32) mEq/L Anion Gap (5-15) BUN (7-18) mg/dL Creatinine (0.55-1.02) mg/dL Est Cr Clr Drug Dosing mL/min Estimated GFR (MDRD) (>60) mL/min BUN/Creatinine Ratio (14-18) Glucose (70-99) mg/dL Lactic Acid (0.4-2.0) mmol/L Calcium (8.5-10.1) mg/dL Total Bilirubin (0.2-1.0) mg/dL AST (15-37) U/L ALT (14-59) U/L Alkaline Phosphatase (46-116) U/L Total Protein (6.4-8.2) g/dl Albumin (3.4-5.0) g/dl Globulin gm/dL Albumin/Globulin Ratio (1-2) Urine Color (Yellow) Urine Appearance (Clear) Urine pH (5.0-8.0) Ur Specific [place] (1.005-1.030) Urine Protein (Negative) Urine Glucose (UA) (Negative) Urine Ketones (Negative) Urine Occult Blood (Negative) Urine Nitrite (Negative) Urine Bilirubin (Negative) Urine Urobilinogen (0.2-1.0) Ur Leukocyte Esterase (Negative) Urine RBC (0-5) /hpf Urine WBC (0-5) /hpf Urine WBC Clumps (NOT SEEN) /hpf Ur Epithelial Cells (0-5) /hpf Urine Bacteria (FEW) /hpf Urine Mucus (FEW) /hpf Result Diagrams: 07/25/21 13:10 09/07/20 13:10 Sepsis Event Note - Evaluation Sepsis Screening Result: Sepsis Risk - Focused Exam Vital Signs: Vital Signs Temp Pulse Resp BP Pulse Ox 09/07/20 15:15 87 132/55 L 09/07/20 14:45 88 128/62 94 L 09/07/20 14:15 87 14 126/54 L 94 L 09/07/20 13:45 87 125/62 94 L 09/07/20 13:15 89 14 117/56 L 95 09/07/20 12:45 92 109/65 95 09/07/20 12:15 94 14 115/59 L 93 L 09/07/20 11:45 36.0 C L 104 H 20 98/41 L 95 - Problem List (1) UTI, Urinary tract infectious disease SNOMED Code(s): 45008389 ICD Code: N39.0 - URINARY TRACT INFECTION, SITE NOT SPECIFIED Status: Acute Priority: High Current Visit: Yes (2) Chronic kidney disease (CKD) stage G4/A1, severely decreased glomerular filtration rate (GFR) between 15-29 mL/min/1.73 square meter and albuminuria creatinine ratio less than 30 mg/g SNOMED Code(s): 579541613, 828953886, 592938856 ICD Code: N18.4 - CHRONIC KIDNEY DISEASE, STAGE 4 (SEVERE) Status: Chronic Priority: High Current Visit: Yes (3) Anemia SNOMED Code(s): 947184632 ICD Code: D64.9 - ANEMIA, UNSPECIFIED Status: Chronic Priority: High Current Visit: Yes Onset Date: 08/05/18 Qualifiers: Anemia type: due to chronic kidney disease Chronic kidney disease stage: stage 4 (severe) Qualified Code(s): N18.4 - Chronic kidney disease, stage 4 (severe); D63.1 - Anemia in chronic kidney disease (4) Diabetes mellitus type 2 in obese SNOMED Code(s): 78638887 ICD Code: E11.69 - TYPE 2 DIABETES MELLITUS WITH OTHER SPECIFIED COMPLICATION; E66.9 - OBESITY, UNSPECIFIED Status: Acute Priority: High Current Visit: Yes Problem List Initiated/Reviewed/Updated: Yes Orders Last 24hrs: Active Orders 24 hr Category Date Time Status Patient Status [ADT] Routine ADT 09/07/20 15:53 Ordered Blood Glucose Check, Bedside [RC] TIDMEALS Care 09/07/20 15:53 Ordered Diabetes Education [RC] Click to Edit Care 09/07/20 15:56 Ordered Oxygen Therapy [RC] PRN Care 09/07/20 15:53 Ordered Up With Assistance [RC] ASDIRECTED Care 09/07/20 15:53 Ordered VTE/DVT Education [RC] PER UNIT ROUTINE Care 09/07/20 15:53 Ordered Vital Signs [RC] Q4H Care 09/07/20 15:53 Ordered OT Evaluation and Treatment [CONS] Routine Cons 09/07/20 15:53 Ordered PT Evaluation and Treatment [CONS] Routine Cons 09/07/20 15:53 Ordered Consistent Carbohydrate Diet [DIET] Diet 09/07/20 Dinner Ordered BLOOD CULTURE [MREF] Routine Lab 09/07/20 13:19 Received BLOOD CULTURE [MREF] Stat Lab 09/07/20 13:10 Received CBC WITH AUTO DIFF [HEME] AM Lab 09/08/20 05:11 Ordered COMPREHENSIVE METABOLIC PN,CMP [CHEM] AM Lab 09/08/20 05:11 Ordered CORONAVIRUS COVID-19 MAKAYLA [MOLEC] Stat Lab 09/07/20 15:06 Received CULTURE URINE [MREF] Stat Lab 09/07/20 11:50 Received MAGNESIUM [CHEM] AM Lab 09/08/20 05:11 Ordered Acetaminophen [TylenoL] Med 09/07/20 15:53 Ordered 650 mg PO Q4H PRN Docusate Sodium [Colace] Med 09/07/20 15:53 Ordered 100 mg PO BID PRN Heparin Sodium Med 09/07/20 16:00 Ordered 5,000 units SUBCUT Q8H Insulin Regular, Human [HumuLIN R] Med 09/07/20 19:00 Ordered See Protocol SUBCUT TIDPC Lactated Ringers [Ringers, Lactated] 1,000 ml Med 09/07/20 16:00 Ordered IV ASDIRECTED Levofloxacin/Dextrose 5%-Water [Levaquin in D5W 500 MG/ Med 09/07/20 15:53 Active 100 ML] 500 mg Premix Bag 1 bag IV ONETIME Levofloxacin/Dextrose 5%-Water [Levaquin in D5W 750 MG/ Med 09/07/20 16:00 Ordered 150 ML] 750 mg Premix Bag 1 bag IV Q48H oxyCODONE Med 09/07/20 15:53 Ordered 5 mg PO Q4H PRN Blood Culture x2 Reflex Set [OM.PC] Stat Ot 09/07/20 12:41 Ordered Glucose Management Sub Q Reflex [OM.PC] Click to Edit Ot 09/07/20 15:53 O rdered Resuscitation Status Routine Resus Stat 09/07/20 15:53 Ordered Medication Orders Levofloxacin/Dextrose 500 mg/ (Premix) 100 mls @ 100 mls/hr IV ONETIME ONE Stop: 09/07/20 16:52 Assessment/Plan Comment:: The patient is a 79-year-old lady who is going to be admitted to observation secondary to complicated urinary tract infection. The patient also has fairly stable chronic kidney disease stage IV with moderately depressed EGFR. She has been started on Levaquin 750 mg every 48 hours IV. The patient will be kept on DVT prophylaxis with the use of heparin 5000 units subcu every 8 hours. The patient previously had been on ciprofloxacin and this has been discontinued. The patient will also be kept on a diabetic diet as tolerated. She is on insuli n sliding scale low-dose. Repeat laboratory studies have been ordered for the morning. PT OT is also been ordered for the patient due to her weakness. The patient should likely be appropriate for discharge 1 to 2 days. - Mortality Measure Prognosis:: Good
[2020-09-07] MEDS: Heparin Sodium 5,000 Units/ML Vial SUBCUT SCH (18:16)
[2020-09-07] MEDS: Insulin Regular, Human 100 Units/ML 3 ML Vial SUBCUT SCH (20:17)
[2020-09-07] MEDS: Acetaminophen 325 MG Tab PO PRN (20:21)
[2020-09-08] MEDS: Heparin Sodium 5,000 Units/ML Vial SUBCUT SCH ×4 (00:57→23:51)
[2020-09-08] MEDS: guaiFENesin/Dextromethorphan 100-10 MG/5 ML Soln 5 ML Cup PO PRN ×3 (04:35→20:13)
[2020-09-08] MEDS: Insulin Regular, Human 100 Units/ML 3 ML Vial SUBCUT SCH ×3 (08:06→19:01)
[2020-09-08] MEDS ORDERED: Fenofibrate Nanocrystallized 145 MG Tab PO SCH (09:15)
[2020-09-08] MEDS: Potassium Chloride 20 MEQ Tab.ER PO SCH (11:40)
[2020-09-08] MEDS: Tamsulosin 0.4 MG Cap.ER PO SCH (11:40)
[2020-09-08] MEDS: Benzonatate 100 MG Cap PO PRN ×2 (11:40→20:14)
[2020-09-08] MEDS: Metoprolol Tartrate 25 MG Tab PO SCH ×2 (11:41→20:10)
[2020-09-08] MEDS: Furosemide 40 MG Tab PO SCH (11:41)
[2020-09-08] MEDS: amLODIPine 5 MG Tab PO SCH (11:44)
[2020-09-08] MEDS: Rosuvastatin 10 MG Tab PO SCH (11:45)
[2020-09-08] MEDS: metFORMIN 500 MG Tab PO SCH (11:46)
--- NOTE | 2020-09-08 12:16 | PCM.PN ---
- General Info Date of Service: 09/08/20 Admission Dx/Problem (Free Text): Admission Diagnosis/Problem Admission Diagnosis/Problem Urinary tract infection Subjective Update: The patient is a 79-year-old lady who was admitted yesterday secondary to urinary tract infection. She also reports that she has had some weakness and been unable to get up. She is feeling better today. The patient has been tolerating her diet. The patient also says that she has been still feeling weak. She does not feel like she can go home today. Functional Status: Reports: Pain Controlled, Tolerating Diet - Review of Systems General: Reports: Weakness, Fatigue HEENT: Reports: No Symptoms Pulmonary: Reports: No Symptoms Cardiovascular: Reports: No Symptoms Gastrointestinal: Reports: No Symptoms Genitourinary: Reports: No Symptoms Musculoskeletal: Reports: No Symptoms Skin: Reports: No Symptoms Neurological: Reports: No Symptoms Psychiatric: Reports: No Symptoms - Patient Data Vitals - Most Recent: Last Vital Signs Temp 37.3 C 09/08/20 11:43 Pulse 87 09/08/20 11:43 Resp 20 09/08/20 11:43 BP 146/66 H 09/08/20 11:44 Pulse Ox 96 09/08/20 11:43 Weight - Most Recent: 92.805 kg I&O - Last 24 Hours: Intake & Output 09/07/20 09/08/20 09/08/20 22:59 06:59 14:59 Intake Total 150 2171 Output Total 2900 Balance 150 -729 Lab Results Last 24 Hours: Laboratory Results - last 24 hr 09/07/20 09/07/20 09/07/20 Range/Units 11:50 13:10 13:10 WBC (3.98-10.04) K/mm3 RBC (3.98-5.22) M/mm3 Hgb (11.2-15.7) gm/dl Hct (34.1-44.9) % MCV (79.4-94.8) fl MCH (25.6-32.2) pg MCHC (32.2-35.5) g/dl RDW Std Deviation (36.4-46.3) fL Plt Count (182-369) K/mm3 MPV (9.4-12.3) fl Neut % (Auto) (34.0-71.1) % Lymph % (Auto) (19.3-51.7) % [place] % (Auto) (4.7-12.5) % Eos % (Auto) (0.7-5.8) Baso % (Auto) (0.1-1.2) % Neut # (Auto) (1.56-6.13) K/mm3 Lymph # (Auto) (1.18-3.74) K/mm3 [place] # (Auto) (0.24-0.36) K/mm3 Eos # (Auto) (0.04-0.36) K/mm3 Baso # (Auto) (0.01-0.08) K/mm3 Manual Slide Review Sodium 137 (136-145) mEq/L Potassium 4.1 (3.5-5.1) mEq/L Chloride 103 (98-107) mEq/L Carbon Dioxide 26 (21-32) mEq/L Anion Gap 12.1 (5-15) BUN 26 H (7-18) mg/dL Creatinine 1.5 H (0.55-1.02) mg/dL Est Cr Clr Drug Dosing 28.26 mL/min Estimated GFR (MDRD) 34 (>60) mL/min BUN/Creatinine Ratio 17.3 (14-18) Glucose 110 H (70-99) mg/dL POC Glucose (70-99) mg/dL Lactic Acid 0.7 (0.4-2.0) mmol/L Calcium 8.4 L (8.5-10.1) mg/dL Magnesium (1.8-2.4) mg/dL Total Bilirubin 0.9 (0.2-1.0) mg/dL AST 13 L (15-37) U/L ALT 17 (14-59) U/L Alkaline Phosphatase 66 (46-116) U/L Total Protein 6.4 (6.4-8.2) g/dl Albumin 2.5 L (3.4-5.0) g/dl Globulin 3.9 gm/dL Albumin/Globulin Ratio 0.6 L (1-2) Urine Color Yellow (Yellow) Urine Appearance Cloudy H (Clear) Urine pH 7.0 (5.0-8.0) Ur Specific [place] 1.015 (1.005-1.030) Urine Protein 2+ H (Negative) Urine Glucose (UA) Negative (Negative) Urine Ketones Negative (Negative) Urine Occult Blood 1+ H (Negative) Urine Nitrite Negative (Negative) Urine Bilirubin Negative (Negative) Urine Urobilinogen 0.2 (0.2-1.0) Ur Leukocyte Esterase 3+ H (Negative) Urine RBC 5-10 H (0-5) /hpf Urine WBC 20-30 H (0-5) /hpf Urine WBC Clumps Moderate (NOT SEEN) /hpf Ur Epithelial Cells 0-5 (0-5) /hpf Urine Bacteria Moderate H (FEW) /hpf Urine Mucus Few (FEW) /hpf SARS-CoV-2 RNA (MAKAYLA) (NEGATIVE) 09/07/20 09/07/20 09/07/20 Range/Units 13:10 15:06 20:16 WBC 12.79 H (3.98-10.04) K/mm3 RBC 3.37 L (3.98-5.22) M/mm3 Hgb 9.8 L (11.2-15.7) gm/dl Hct 31.2 L (34.1-44.9) % MCV 92.6 (79.4-94.8) fl MCH 29.1 (25.6-32.2) pg MCHC 31.4 L (32.2-35.5) g/dl RDW Std Deviation 53.5 H (36.4-46.3) fL Plt Count 298 (182-369) K/mm3 MPV 10.0 (9.4-12.3) fl Neut % (Auto) 81.2 H (34.0-71.1) % Lymph % (Auto) 8.4 L (19.3-51.7) % [place] % (Auto) 9.9 (4.7-12.5) % Eos % (Auto) 0.1 L (0.7-5.8) Baso % (Auto) 0.2 (0.1-1.2) % Neut # (Auto) 10.40 H (1.56-6.13) K/mm3 Lymph # (Auto) 1.07 L (1.18-3.74) K/mm3 [place] # (Auto) 1.27 H (0.24-0.36) K/mm3 Eos # (Auto) 0.01 L (0.04-0.36) K/mm3 Baso # (Auto) 0.02 (0.01-0.08) K/mm3 Manual Slide Review Abnormal smear Sodium (136-145) mEq/L Potassium (3.5-5.1) mEq/L Chloride (98-107) mEq/L Carbon Dioxide (21-32) mEq/L Anion Gap (5-15) BUN (7-18) mg/dL Creatinine (0.55-1.02) mg/dL Est Cr Clr Drug Dosing mL/min Estimated GFR (MDRD) (>60) mL/min BUN/Creatinine Ratio (14-18) Glucose (70-99) mg/dL POC Glucose 156 H (70-99) mg/dL Lactic Acid (0.4-2.0) mmol/L Calcium (8.5-10.1) mg/dL Magnesium (1.8-2.4) mg/dL Total Bilirubin (0.2-1.0) mg/dL AST (15-37) U/L ALT (14-59) U/L Alkaline Phosphatase (46-116) U/L Total Protein (6.4-8.2) g/dl Albumin (3.4-5.0) g/dl Globulin gm/dL Albumin/Globulin Ratio (1-2) Urine Color (Yellow) Urine Appearance (Clear) Urine pH (5.0-8.0) Ur Specific [place] (1.005-1.030) Urine Protein (Negative) Urine Glucose (UA) (Negative) Urine Ketones (Negative) Urine Occult Blood (Negative) Urine Nitrite (Negative) Urine Bilirubin (Negative) Urine Urobilinogen (0.2-1.0) Ur Leukocyte Esterase (Negative) Urine RBC (0-5) /hpf Urine WBC (0-5) /hpf Urine WBC Clumps (NOT SEEN) /hpf Ur Epithelial Cells (0-5) /hpf Urine Bacteria (FEW) /hpf Urine Mucus (FEW) /hpf SARS-CoV-2 RNA (MAKAYLA) Negative (NEGATIVE) 09/08/20 09/08/20 09/08/20 Range/Units 05:53 05:53 06:37 WBC 9.80 (3.98-10.04) K/mm3 RBC 3.12 L (3.98-5.22) M/mm3 Hgb 9.0 L (11.2-15.7) gm/dl Hct 28.8 L (34.1-44.9) % MCV 92.3 (79.4-94.8) fl MCH 28.8 (25.6-32.2) pg MCHC 31.3 L (32.2-35.5) g/dl RDW Std Deviation 53.0 H (36.4-46.3) fL Plt Count 266 (182-369) K/mm3 MPV 9.8 (9.4-12.3) fl Neut % (Auto) 81.2 H (34.0-71.1) % Lymph % (Auto) 6.7 L (19.3-51.7) % [place] % (Auto) 11.0 (4.7-12.5) % Eos % (Auto) 0.8 (0.7-5.8) Baso % (Auto) 0.1 (0.1-1.2) % Neut # (Auto) 7.95 H (1.56-6.13) K/mm3 Lymph # (Auto) 0.66 L (1.18-3.74) K/mm3 [place] # (Auto) 1.08 H (0.24-0.36) K/mm3 Eos # (Auto) 0.08 (0.04-0.36) K/mm3 Baso # (Auto) 0.01 (0.01-0.08) K/mm3 Manual Slide Review Abnormal smear Sodium 139 (136-145) mEq/L Potassium 3.9 (3.5-5.1) mEq/L Chloride 105 (98-107) mEq/L Carbon Dioxide 25 (21-32) mEq/L Anion Gap 12.9 (5-15) BUN 18 (7-18) mg/dL Creatinine 1.1 H (0.55-1.02) mg/dL Est Cr Clr Drug Dosing 38.54 mL/min Estimated GFR (MDRD) 48 (>60) mL/min BUN/Creatinine Ratio 16.4 (14-18) Glucose 107 H (70-99) mg/dL POC Glucose 92 (70-99) mg/dL Lactic Acid (0.4-2.0) mmol/L Calcium 8.2 L (8.5-10.1) mg/dL Magnesium 1.9 (1.8-2.4) mg/dL Total Bilirubin 0.7 (0.2-1.0) mg/dL AST 17 (15-37) U/L ALT 14 (14-59) U/L Alkaline Phosphatase 63 (46-116) U/L Total Protein 5.7 L (6.4-8.2) g/dl Albumin 2.0 L (3.4-5.0) g/dl Globulin 3.7 gm/dL Albumin/Globulin Ratio 0.5 L (1-2) Urine Color (Yellow) Urine Appearance (Clear) Urine pH (5.0-8.0) Ur Specific [place] (1.005-1.030) Urine Protein (Negative) Urine Glucose (UA) (Negative) Urine Ketones (Negative) Urine Occult Blood (Negative) Urine Nitrite (Negative) Urine Bilirubin (Negative) Urine Urobilinogen (0.2-1.0) Ur Leukocyte Esterase (Negative) Urine RBC (0-5) /hpf Urine WBC (0-5) /hpf Urine WBC Clumps (NOT SEEN) /hpf Ur Epithelial Cells (0-5) /hpf Urine Bacteria (FEW) /hpf Urine Mucus (FEW) /hpf SARS-CoV-2 RNA (MAKAYLA) (NEGATIVE) 09/08/20 Range/Units 10:21 WBC (3.98-10.04) K/mm3 RBC (3.98-5.22) M/mm3 Hgb (11.2-15.7) gm/dl Hct (34.1-44.9) % MCV (79.4-94.8) fl MCH (25.6-32.2) pg MCHC (32.2-35.5) g/dl RDW Std Deviation (36.4-46.3) fL Plt Count (182-369) K/mm3 MPV (9.4-12.3) fl Neut % (Auto) (34.0-71.1) % Lymph % (Auto) (19.3-51.7) % [place] % (Auto) (4.7-12.5) % Eos % (Auto) (0.7-5.8) Baso % (Auto) (0.1-1.2) % Neut # (Auto) (1.56-6.13) K/mm3 Lymph # (Auto) (1.18-3.74) K/mm3 [place] # (Auto) (0.24-0.36) K/mm3 Eos # (Auto) (0.04-0.36) K/mm3 Baso # (Auto) (0.01-0.08) K/mm3 Manual Slide Review Sodium (136-145) mEq/L Potassium (3.5-5.1) mEq/L Chloride (98-107) mEq/L Carbon Dioxide (21-32) mEq/L Anion Gap (5-15) BUN (7-18) mg/dL Creatinine (0.55-1.02) mg/dL Est Cr Clr Drug Dosing mL/min Estimated GFR (MDRD) (>60) mL/min BUN/Creatinine Ratio (14-18) Glucose (70-99) mg/dL POC Glucose 129 H (70-99) mg/dL Lactic Acid (0.4-2.0) mmol/L Calcium (8.5-10.1) mg/dL Magnesium (1.8-2.4) mg/dL Total Bilirubin (0.2-1.0) mg/dL AST (15-37) U/L ALT (14-59) U/L Alkaline Phosphatase (46-116) U/L Total Protein (6.4-8.2) g/dl Albumin (3.4-5.0) g/dl Globulin gm/dL Albumin/Globulin Ratio (1-2) Urine Color (Yellow) Urine Appearance (Clear) Urine pH (5.0-8.0) Ur Specific [place] (1.005-1.030) Urine Protein (Negative) Urine Glucose (UA) (Negative) Urine Ketones (Negative) Urine Occult Blood (Negative) Urine Nitrite (Negative) Urine Bilirubin (Negative) Urine Urobilinogen (0.2-1.0) Ur Leukocyte Esterase (Negative) Urine RBC (0-5) /hpf Urine WBC (0-5) /hpf Urine WBC Clumps (NOT SEEN) /hpf Ur Epithelial Cells (0-5) /hpf Urine Bacteria (FEW) /hpf Urine Mucus (FEW) /hpf SARS-CoV-2 RNA (MAKAYLA) (NEGATIVE) Med Orders - Current: Current Medications Acetaminophen (Acetaminophen 325 Mg Tab) 650 mg PO Q4H PRN PRN Reason: Pain (Mild 1-3)/fever Last Admin: 09/07/20 20:21 Dose: 650 mg Documented by: Amlodipine Besylate (Amlodipine 5 Mg Tab) 5 mg PO DAILY ISAAK Last Admin: 09/08/20 11:44 Dose: 5 mg Documented by: Benzonatate (Benzonatate 100 Mg Cap) 100 mg PO TID PRN PRN Reason: Cough Last Admin: 09/08/20 11:40 Dose: 100 mg Documented by: Docusate Sodium (Docusate Sodium 100 Mg Cap) 100 mg PO BID PRN PRN Reason: Constipation Ferrous Sulfate (Ferrous Sulfate 324 Mg Tab.Ec) 325 mg PO BID [facility] Furosemide (Furosemide 40 Mg Tab) 40 mg PO DAILY [facility] Last Admin: 09/08/20 11:41 Dose: 40 mg Documented by: Guaifenesin/Phenylephrine HCl (Guaifenesin/Dextromethorphan 100-10 Mg/5 Ml Soln 5 Ml Cup) 10 ml PO QID PRN PRN Reason: Cough Last Admin: 09/08/20 11:06 Dose: 10 ml Documented by: Heparin Sodium (Porcine) (Heparin Sodium 5,000 Units/Ml Vial) 5,000 units SUBCUT Q8H [facility] Last Admin: 09/08/20 08:11 Dose: 5,000 units Documented by: Lactated Ringer's (Ringers, Lactated) 1,000 mls @ 75 mls/hr IV ASDIRECTED [facility] Last Admin: 09/08/20 00:56 Dose: 75 mls/hr Documented by: Levofloxacin/Dextrose 750 mg/ (Premix) 150 mls @ 100 mls/hr IV Q48H [facility] Last Admin: 09/07/20 18:14 Dose: 100 mls/hr Documented by: Insulin Human Regular (Insulin Regular, Human 100 Units/Ml 3 Ml Vial) 0 unit SUBCUT TIDPC [facility]; Protocol Last Admin: 09/08/20 08:06 Dose: Not Given Documented by: Metformin HCl (Metformin 500 Mg Tab) 1,000 mg PO DAILY [facility] Last Admin: 09/08/20 11:46 Dose: 1,000 mg Documented by: Metformin HCl (Metformin 500 Mg Tab) 500 mg PO PCDINNER [facility] Metoprolol Tartrate (Metoprolol Tartrate 25 Mg Tab) 25 mg PO BID [facility] Last Admin: 09/08/20 11:41 Dose: 25 mg Documented by: Oxycodone HCl (Oxycodone 5 Mg Tab) 5 mg PO Q4H PRN PRN Reason: Pain (moderate 4-6) Potassium Chloride (Potassium Chloride 20 Meq Tab.Er) 40 meq PO DAILY [facility] Last Admin: 09/08/20 11:40 Dose: 40 meq Documented by: Rosuvastatin Calcium (Rosuvastatin 10 Mg Tab) 10 mg PO DAILY [facility] Last Admin: 09/08/20 11:45 Dose: 10 mg Documented by: Tamsulosin HCl (Tamsulosin 0.4 Mg Cap.Er) 0.4 mg PO DAILY [facility] Last Admin: 09/08/20 11:40 Dose: 0.4 mg Documented by: Discontinued Medications Fenofibrate (Fenofibrate Nanocrystallized 145 Mg Tab) 72.5 mg PO DAILY [facility] Last Admin: 09/08/20 11:53 Dose: Not Given Documented by: Lactated Ringer's (Ringers, Lactated) 1,000 mls @ 999 mls/hr IV .BOLUS ONE Stop: 09/07/20 13:52 Last Admin: 09/07/20 13:10 Dose: 999 mls/hr Documented by: Lactated Ringer's (Ringers, Lactated) 1,000 mls @ 999 mls/hr IV .BOLUS ONE Stop: 09/07/20 15:30 Last Admin: 09/07/20 14:42 Dose: 100 mls/hr Documented by: Levofloxacin/Dextrose 500 mg/ (Premix) 100 mls @ 100 mls/hr IV ONETIME ONE Stop: 09/07/20 16:52 Last Admin: 09/07/20 16:05 Dose: Not Given Documented by: - Exam Quality Assessment: DVT Prophylaxis. No: Supplemental Oxygen General: Alert, Oriented, Cooperative, No Acute Distress HEENT: Pupils Equal, Pupils Reactive, EOMI Neck: Supple, Trachea Midline Lungs: Clear to Auscultation, Normal Respiratory Effort Cardiovascular: Regular Rate, Regular Rhythm GI/Abdominal Exam: Normal Bowel Sounds, Soft, No Distention (Female) Exam: Deferred Back Exam: Normal Inspection, Full Range of Motion Extremities: Normal Inspection, No Pedal Edema Skin: Warm, Dry, Intact Neurological: No New Focal Deficit Psy/Mental Status: Alert, Normal Affect - Patient Data Lab Results Last 24 hrs: Laboratory Results - last 24 hr 09/07/20 09/07/20 09/07/20 Range/Units 11:50 13:10 13:10 WBC (3.98-10.04) K/mm3 RBC (3.98-5.22) M/mm3 Hgb (11.2-15.7) gm/dl Hct (34.1-44.9) % MCV (79.4-94.8) fl MCH (25.6-32.2) pg MCHC (32.2-35.5) g/dl RDW Std Deviation (36.4-46.3) fL Plt Count (182-369) K/mm3 MPV (9.4-12.3) fl Neut % (Auto) (34.0-71.1) % Lymph % (Auto) (19.3-51.7) % [place] % (Auto) (4.7-12.5) % Eos % (Auto) (0.7-5.8) Baso % (Auto) (0.1-1.2) % Neut # (Auto) (1.56-6.13) K/mm3 Lymph # (Auto) (1.18-3.74) K/mm3 [place] # (Auto) (0.24-0.36) K/mm3 Eos # (Auto) (0.04-0.36) K/mm3 Baso # (Auto) (0.01-0.08) K/mm3 Manual Slide Review Sodium 137 (136-145) mEq/L Potassium 4.1 (3.5-5.1) mEq/L Chloride 103 (98-107) mEq/L Carbon Dioxide 26 (21-32) mEq/L Anion Gap 12.1 (5-15) BUN 26 H (7-18) mg/dL Creatinine 1.5 H (0.55-1.02) mg/dL Est Cr Clr Drug Dosing 28.26 mL/min Estimated GFR (MDRD) 34 (>60) mL/min BUN/Creatinine Ratio 17.3 (14-18) Glucose 110 H (70-99) mg/dL POC Glucose (70-99) mg/dL Lactic Acid 0.7 (0.4-2.0) mmol/L Calcium 8.4 L (8.5-10.1) mg/dL Magnesium (1.8-2.4) mg/dL Total Bilirubin 0.9 (0.2-1.0) mg/dL AST 13 L (15-37) U/L ALT 17 (14-59) U/L Alkaline Phosphatase 66 (46-116) U/L Total Protein 6.4 (6.4-8.2) g/dl Albumin 2.5 L (3.4-5.0) g/dl Globulin 3.9 gm/dL Albumin/Globulin Ratio 0.6 L (1-2) Urine Color Yellow (Yellow) Urine Appearance Cloudy H (Clear) Urine pH 7.0 (5.0-8.0) Ur Specific [place] 1.015 (1.005-1.030) Urine Protein 2+ H (Negative) Urine Glucose (UA) Negative (Negative) Urine Ketones Negative (Negative) Urine Occult Blood 1+ H (Negative) Urine Nitrite Negative (Negative) Urine Bilirubin Negative (Negative) Urine Urobilinogen 0.2 (0.2-1.0) Ur Leukocyte Esterase 3+ H (Negative) Urine RBC 5-10 H (0-5) /hpf Urine WBC 20-30 H (0-5) /hpf Urine WBC Clumps Moderate (NOT SEEN) /hpf Ur Epithelial Cells 0-5 (0-5) /hpf Urine Bacteria Moderate H (FEW) /hpf Urine Mucus Few (FEW) /hpf SARS-CoV-2 RNA (MAKAYLA) (NEGATIVE) 09/07/20 09/07/20 09/07/20 Range/Units 13:10 15:06 20:16 WBC 12.79 H (3.98-10.04) K/mm3 RBC 3.37 L (3.98-5.22) M/mm3 Hgb 9.8 L (11.2-15.7) gm/dl Hct 31.2 L (34.1-44.9) % MCV 92.6 (79.4-94.8) fl MCH 29.1 (25.6-32.2) pg MCHC 31.4 L (32.2-35.5) g/dl RDW Std Deviation 53.5 H (36.4-46.3) fL Plt Count 298 (182-369) K/mm3 MPV 10.0 (9.4-12.3) fl Neut % (Auto) 81.2 H (34.0-71.1) % Lymph % (Auto) 8.4 L (19.3-51.7) % [place] % (Auto) 9.9 (4.7-12.5) % Eos % (Auto) 0.1 L (0.7-5.8) Baso % (Auto) 0.2 (0.1-1.2) % Neut # (Auto) 10.40 H (1.56-6.13) K/mm3 Lymph # (Auto) 1.07 L (1.18-3.74) K/mm3 [place] # (Auto) 1.27 H (0.24-0.36) K/mm3 Eos # (Auto) 0.01 L (0.04-0.36) K/mm3 Baso # (Auto) 0.02 (0.01-0.08) K/mm3 Manual Slide Review Abnormal smear Sodium (136-145) mEq/L Potassium (3.5-5.1) mEq/L Chloride (98-107) mEq/L Carbon Dioxide (21-32) mEq/L Anion Gap (5-15) BUN (7-18) mg/dL Creatinine (0.55-1.02) mg/dL Est Cr Clr Drug Dosing mL/min Estimated GFR (MDRD) (>60) mL/min BUN/Creatinine Ratio (14-18) Glucose (70-99) mg/dL POC Glucose 156 H (70-99) mg/dL Lactic Acid (0.4-2.0) mmol/L Calcium (8.5-10.1) mg/dL Magnesium (1.8-2.4) mg/dL Total Bilirubin (0.2-1.0) mg/dL AST (15-37) U/L ALT (14-59) U/L Alkaline Phosphatase (46-116) U/L Total Protein (6.4-8.2) g/dl Albumin (3.4-5.0) g/dl Globulin gm/dL Albumin/Globulin Ratio (1-2) Urine Color (Yellow) Urine Appearance (Clear) Urine pH (5.0-8.0) Ur Specific [place] (1.005-1.030) Urine Protein (Negative) Urine Glucose (UA) (Negative) Urine Ketones (Negative) Urine Occult Blood (Negative) Urine Nitrite (Negative) Urine Bilirubin (Negative) Urine Urobilinogen (0.2-1.0) Ur Leukocyte Esterase (Negative) Urine RBC (0-5) /hpf Urine WBC (0-5) /hpf Urine WBC Clumps (NOT SEEN) /hpf Ur Epithelial Cells (0-5) /hpf Urine Bacteria (FEW) /hpf Urine Mucus (FEW) /hpf SARS-CoV-2 RNA (MAKAYLA) Negative (NEGATIVE) 09/08/20 09/08/20 09/08/20 Range/Units 05:53 05:53 06:37 WBC 9.80 (3.98-10.04) K/mm3 RBC 3.12 L (3.98-5.22) M/mm3 Hgb 9.0 L (11.2-15.7) gm/dl Hct 28.8 L (34.1-44.9) % MCV 92.3 (79.4-94.8) fl MCH 28.8 (25.6-32.2) pg MCHC 31.3 L (32.2-35.5) g/dl RDW Std Deviation 53.0 H (36.4-46.3) fL Plt Count 266 (182-369) K/mm3 MPV 9.8 (9.4-12.3) fl Neut % (Auto) 81.2 H (34.0-71.1) % Lymph % (Auto) 6.7 L (19.3-51.7) % [place] % (Auto) 11.0 (4.7-12.5) % Eos % (Auto) 0.8 (0.7-5.8) Baso % (Auto) 0.1 (0.1-1.2) % Neut # (Auto) 7.95 H (1.56-6.13) K/mm3 Lymph # (Auto) 0.66 L (1.18-3.74) K/mm3 [place] # (Auto) 1.08 H (0.24-0.36) K/mm3 Eos # (Auto) 0.08 (0.04-0.36) K/mm3 Baso # (Auto) 0.01 (0.01-0.08) K/mm3 Manual Slide Review Abnormal smear Sodium 139 (136-145) mEq/L Potassium 3.9 (3.5-5.1) mEq/L Chloride 105 (98-107) mEq/L Carbon Dioxide 25 (21-32) mEq/L Anion Gap 12.9 (5-15) BUN 18 (7-18) mg/dL Creatinine 1.1 H (0.55-1.02) mg/dL Est Cr Clr Drug Dosing 38.54 mL/min Estimated GFR (MDRD) 48 (>60) mL/min BUN/Creatinine Ratio 16.4 (14-18) Glucose 107 H (70-99) mg/dL POC Glucose 92 (70-99) mg/dL Lactic Acid (0.4-2.0) mmol/L Calcium 8.2 L (8.5-10.1) mg/dL Magnesium 1.9 (1.8-2.4) mg/dL Total Bilirubin 0.7 (0.2-1.0) mg/dL AST 17 (15-37) U/L ALT 14 (14-59) U/L Alkaline Phosphatase 63 (46-116) U/L Total Protein 5.7 L (6.4-8.2) g/dl Albumin 2.0 L (3.4-5.0) g/dl Globulin 3.7 gm/dL Albumin/Globulin Ratio 0.5 L (1-2) Urine Color (Yellow) Urine Appearance (Clear) Urine pH (5.0-8.0) Ur Specific [place] (1.005-1.030) Urine Protein (Negative) Urine Glucose (UA) (Negative) Urine Ketones (Negative) Urine Occult Blood (Negative) Urine Nitrite (Negative) Urine Bilirubin (Negative) Urine Urobilinogen (0.2-1.0) Ur Leukocyte Esterase (Negative) Urine RBC (0-5) /hpf Urine WBC (0-5) /hpf Urine WBC Clumps (NOT SEEN) /hpf Ur Epithelial Cells (0-5) /hpf Urine Bacteria (FEW) /hpf Urine Mucus (FEW) /hpf SARS-CoV-2 RNA (MAKAYLA) (NEGATIVE) 09/08/20 Range/Units 10:21 WBC (3.98-10.04) K/mm3 RBC (3.98-5.22) M/mm3 Hgb (11.2-15.7) gm/dl Hct (34.1-44.9) % MCV (79.4-94.8) fl MCH (25.6-32.2) pg MCHC (32.2-35.5) g/dl RDW Std Deviation (36.4-46.3) fL Plt Count (182-369) K/mm3 MPV (9.4-12.3) fl Neut % (Auto) (34.0-71.1) % Lymph % (Auto) (19.3-51.7) % [place] % (Auto) (4.7-12.5) % Eos % (Auto) (0.7-5.8) Baso % (Auto) (0.1-1.2) % Neut # (Auto) (1.56-6.13) K/mm3 Lymph # (Auto) (1.18-3.74) K/mm3 [place] # (Auto) (0.24-0.36) K/mm3 Eos # (Auto) (0.04-0.36) K/mm3 Baso # (Auto) (0.01-0.08) K/mm3 Manual Slide Review Sodium (136-145) mEq/L Potassium (3.5-5.1) mEq/L Chloride (98-107) mEq/L Carbon Dioxide (21-32) mEq/L Anion Gap (5-15) BUN (7-18) mg/dL Creatinine (0.55-1.02) mg/dL Est Cr Clr Drug Dosing mL/min Estimated GFR (MDRD) (>60) mL/min BUN/Creatinine Ratio (14-18) Glucose (70-99) mg/dL POC Glucose 129 H (70-99) mg/dL Lactic Acid (0.4-2.0) mmol/L Calcium (8.5-10.1) mg/dL Magnesium (1.8-2.4) mg/dL Total Bilirubin (0.2-1.0) mg/dL AST (15-37) U/L ALT (14-59) U/L Alkaline Phosphatase (46-116) U/L Total Protein (6.4-8.2) g/dl Albumin (3.4-5.0) g/dl Globulin gm/dL Albumin/Globulin Ratio (1-2) Urine Color (Yellow) Urine Appearance (Clear) Urine pH (5.0-8.0) Ur Specific [place] (1.005-1.030) Urine Protein (Negative) Urine Glucose (UA) (Negative) Urine Ketones (Negative) Urine Occult Blood (Negative) Urine Nitrite (Negative) Urine Bilirubin (Negative) Urine Urobilinogen (0.2-1.0) Ur Leukocyte Esterase (Negative) Urine RBC (0-5) /hpf Urine WBC (0-5) /hpf Urine WBC Clumps (NOT SEEN) /hpf Ur Epithelial Cells (0-5) /hpf Urine Bacteria (FEW) /hpf Urine Mucus (FEW) /hpf SARS-CoV-2 RNA (MAKAYLA) (NEGATIVE) Result Diagrams: 09/08/20 05:53 09/08/20 05:53 Sepsis Event Note - Evaluation Sepsis Screening Result: No Definite Risk - Focused Exam Vital Signs: Vital Signs Temp Pulse Resp BP Pulse Ox 09/08/20 11:44 146/66 H 09/08/20 11:43 37.3 C 87 20 146/66 H 96 09/08/20 11:41 83 146/66 H 09/08/20 07:39 37.1 C 83 16 120/61 96 09/08/20 04:20 37.1 C 103 H 14 141/70 H 96 - Problem List & Annotations (1) UTI, Urinary tract infectious disease SNOMED Code(s): 53275902 Code(s): N39.0 - URINARY TRACT INFECTION, SITE NOT SPECIFIED Status: Acute Priority: High Current Visit: Yes (2) Chronic kidney disease (CKD) stage G4/A1, severely decreased glomerular filtration rate (GFR) between 15-29 mL/min/1.73 square meter and albuminuria creatinine ratio less than 30 mg/g SNOMED Code(s): 847322112, 682563115, 412883382 Code(s): N18.4 - CHRONIC KIDNEY DISEASE, STAGE 4 (SEVERE) Status: Chronic Priority: High Current Visit: Yes (3) Anemia SNOMED Code(s): 925549489 Code(s): D64.9 - ANEMIA, UNSPECIFIED Status: Chronic Priority: High Current Visit: Yes Onset Date: 08/05/18 Qualifiers: Anemia type: due to chronic kidney disease Chronic kidney disease stage: stage 4 (severe) Qualified Code(s): N18.4 - Chronic kidney disease, stage 4 (severe); D63.1 - Anemia in chronic kidney disease (4) Diabetes mellitus type 2 in obese SNOMED Code(s): 54731488 Code(s): E11.69 - TYPE 2 DIABETES MELLITUS WITH OTHER SPECIFIED COMPLICATION; E66.9 - OBESITY, UNSPECIFIED Status: Acute Priority: High Current Visit: Yes - Problem List Review Problem List Initiated/Reviewed/Updated: Yes - My Orders Last 24 Hours: My Active Orders 09/07/20 15:53 Patient Status [ADT] Routine OT Evaluation and Treatment [CONS] Routine PT Evaluation and Treatment [CONS] Routine Acetaminophen [TylenoL] 650 mg PO Q4H PRN Docusate Sodium [Colace] 100 mg PO BID PRN oxyCODONE 5 mg PO Q4H PRN Glucose Management Sub Q Reflex [OM.PC] Click to Edit Resuscitation Status Routine 09/07/20 16:00 Heparin Sodium 5,000 units SUBCUT Q8H Lactated Ringers [Ringers, Lactated] 1,000 ml IV ASDIRECTED Levofloxacin/Dextrose 5%-Water [Levaquin in D5W 750 MG/150 ML] 750 mg Premix Bag 1 bag IV Q48H 09/07/20 19:00 Insulin Regular, Human [HumuLIN R] See Protocol SUBCUT TIDPC 09/07/20 23:15 Oxygen Therapy Adult [Oxygen Therapy] [RC] ASDIRECTED 09/07/20 23:17 Up With Assistance [RC] ASDIRECTED 09/08/20 04:27 Dextromethorphan/guaiFENesin [Robitussin DM] 10 ml PO QID PRN 09/08/20 07:00 Blood Glucose Check, Bedside [RC] TIDMEALS 09/08/20 09:00 Diabetes Education [RC] DAILY 09/08/20 09:15 Furosemide [Lasix] 40 mg PO DAILY Metoprolol Tartrate [Lopressor] 25 mg PO BID Potassium Chloride [Klor-Con M20] 40 meq PO DAILY Tamsulosin [Flomax] 0.4 mg PO DAILY amLODIPine [Norvasc] 5 mg PO DAILY 09/08/20 11:11 Benzonatate [Tessalon Perles] 100 mg PO TID PRN 09/08/20 11:15 Rosuvastatin [Crestor] 10 mg PO DAILY metFORMIN [Glucophage] 1,000 mg PO DAILY 09/08/20 Dinner ADA Diabetic [[employer] Diet] [DIET] 09/08/20 19:00 metFORMIN [Glucophage] 500 mg PO PCDINNER 09/08/20 21:00 Ferrous Sulfate 325 mg PO BID - Plan Plan:: The patient is a 79-year-old lady who is going to be admitted to observation secondary to complicated urinary tract infection. The patient also has fairly stable chronic kidney disease stage IV with moderately depressed EGFR. She has been started on Levaquin 750 mg every 48 hours IV. The patient will be kept on DVT prophylaxis with the use of heparin 5000 units subcu every 8 hours. The patient previously had been on ciprofloxacin and this has been discontinued. The patient will also be kept on a diabetic diet as tolerated. She is on insulin sliding scale low-dose. Repeat laboratory studies have been ordered for the morning. PT OT is also been ordered for the patient due to her weakness. The patient should likely be appropriate for discharge 1 to 2 days. 09/08/2020 The patient is a 79-year-old lady who is currently being treated for urinary tract infection. Cultures are currently pending but because of the fact that she had been previously on ciprofloxacin it is likely that the patient would be somewhat confused. Her antibiotics will be deescalated as possible. We will continue with the IV antibiotics for 1 more day as she is still feeling weak. PT OT is also been ordered for the patient. She is on DVT prophylaxis with heparin 5000 units subcu every 8 hours. The patient also has been started on Levaquin 750 mg every 48 hours IV due to her chronic kidney disease. Repeat laboratory testings have been ordered for the morning. She is on insulin sliding scale low-dose and she is to have a diabetic diet as tolerated. Patient should be appropriate for discharge tomorrow.
[2020-09-08] MEDS: Codeine/Promethazine 10-6.25 MG/5 ML Syrup 5 ML UD Cup PO PRN ×2 (16:26→23:51)
[2020-09-08] MEDS ORDERED: metFORMIN 500 MG Tab PO SCH (19:00)
[2020-09-08] MEDS: Ferrous Sulfate 324 MG Tab.EC PO SCH (20:06)
[2020-09-09] MEDS: Insulin Regular, Human 100 Units/ML 3 ML Vial SUBCUT SCH ×3 (08:13→19:16)
[2020-09-09] MEDS: Heparin Sodium 5,000 Units/ML Vial SUBCUT SCH ×2 (08:13→17:42)
[2020-09-09] MEDS: Potassium Chloride 20 MEQ Tab.ER PO SCH (09:02)
[2020-09-09] MEDS: Tamsulosin 0.4 MG Cap.ER PO SCH (09:02)
[2020-09-09] MEDS: Rosuvastatin 10 MG Tab PO SCH (09:06)
[2020-09-09] MEDS: Ferrous Sulfate 324 MG Tab.EC PO SCH ×2 (09:06→20:05)
[2020-09-09] MEDS: metFORMIN 500 MG Tab PO SCH (09:06)
[2020-09-09] MEDS: Furosemide 40 MG Tab PO SCH (09:06)
[2020-09-09] MEDS: Metoprolol Tartrate 25 MG Tab PO SCH ×2 (09:07→20:10)
[2020-09-09] MEDS: amLODIPine 5 MG Tab PO SCH (09:07)
[2020-09-09] MEDS: cefTRIAXone 2 GM in Sodium Chloride 0.9% 100 ML IV SCH (11:40)
[2020-09-09] MEDS: Codeine/Promethazine 10-6.25 MG/5 ML Syrup 5 ML UD Cup PO PRN ×2 (14:01→20:10)
--- NOTE | 2020-09-09 16:44 | PCM.PN ---
- General Info Date of Service: 09/09/20 Admission Dx/Problem (Free Text): Admission Diagnosis/Problem Admission Diagnosis/Problem Urinary tract infection Subjective Update: patient denies fever denies chest pain and sob tolerating diet denies dysuria - Patient Data Vitals - Most Recent: Last Vital Signs Temp 98.2 F 09/09/20 15:53 Pulse 82 09/09/20 15:53 Resp 20 09/09/20 15:53 BP 122/76 09/09/20 09:07 Pulse Ox 96 09/09/20 15:53 Weight - Most Recent: 205 lb 4.8 oz I&O - Last 24 Hours: Intake & Output 09/09/20 09/09/20 09/09/20 06:59 14:59 22:59 Intake Total 200 431 Output Total 900 Balance -700 431 Lab Results Last 24 Hours: Laboratory Results - last 24 hr 09/08/20 09/09/20 09/09/20 Range/Units 17:03 06:10 06:10 WBC 7.29 (3.98-10.04) K/mm3 RBC 3.02 L (3.98-5.22) M/mm3 Hgb 8.5 L (11.2-15.7) gm/dl Hct 27.9 L (34.1-44.9) % MCV 92.4 (79.4-94.8) fl MCH 28.1 (25.6-32.2) pg MCHC 30.5 L (32.2-35.5) g/dl RDW Std Deviation 53.5 H (36.4-46.3) fL Plt Count 288 (182-369) K/mm3 MPV 9.7 (9.4-12.3) fl Neut % (Auto) 59.0 (34.0-71.1) % Lymph % (Auto) 21.7 (19.3-51.7) % [place] % (Auto) 14.3 H (4.7-12.5) % Eos % (Auto) 4.4 (0.7-5.8) Baso % (Auto) 0.3 (0.1-1.2) % Neut # (Auto) 4.31 (1.56-6.13) K/mm3 Lymph # (Auto) 1.58 (1.18-3.74) K/mm3 [place] # (Auto) 1.04 H (0.24-0.36) K/mm3 Eos # (Auto) 0.32 (0.04-0.36) K/mm3 Baso # (Auto) 0.02 (0.01-0.08) K/mm3 Sodium 143 (136-145) mEq/L Potassium 4.1 (3.5-5.1) mEq/L Chloride 109 H (98-107) mEq/L Carbon Dioxide 25 (21-32) mEq/L Anion Gap 13.1 (5-15) BUN 15 (7-18) mg/dL Creatinine 1.1 H (0.55-1.02) mg/dL Est Cr Clr Drug Dosing 38.54 mL/min Estimated GFR (MDRD) 48 (>60) mL/min BUN/Creatinine Ratio 13.6 L (14-18) Glucose 98 (70-99) mg/dL POC Glucose 100 H (70-99) mg/dL Calcium 8.6 (8.5-10.1) mg/dL 09/09/20 09/09/20 Range/Units 06:16 10:58 WBC (3.98-10.04) K/mm3 RBC (3.98-5.22) M/mm3 Hgb (11.2-15.7) gm/dl Hct (34.1-44.9) % MCV (79.4-94.8) fl MCH (25.6-32.2) pg MCHC (32.2-35.5) g/dl RDW Std Deviation (36.4-46.3) fL Plt Count (182-369) K/mm3 MPV (9.4-12.3) fl Neut % (Auto) (34.0-71.1) % Lymph % (Auto) (19.3-51.7) % [place] % (Auto) (4.7-12.5) % Eos % (Auto) (0.7-5.8) Baso % (Auto) (0.1-1.2) % Neut # (Auto) (1.56-6.13) K/mm3 Lymph # (Auto) (1.18-3.74) K/mm3 [place] # (Auto) (0.24-0.36) K/mm3 Eos # (Auto) (0.04-0.36) K/mm3 Baso # (Auto) (0.01-0.08) K/mm3 Sodium (136-145) mEq/L Potassium (3.5-5.1) mEq/L Chloride (98-107) mEq/L Carbon Dioxide (21-32) mEq/L Anion Gap (5-15) BUN (7-18) mg/dL Creatinine (0.55-1.02) mg/dL Est Cr Clr Drug Dosing mL/min Estimated GFR (MDRD) (>60) mL/min BUN/Creatinine Ratio (14-18) Glucose (70-99) mg/dL POC Glucose 82 159 H (70-99) mg/dL Calcium (8.5-10.1) mg/dL Jose Miguel Results Last 24 Hours: Microbiology 09/07/20 13:19 Blood Culture - Preliminary Blood - Venous - Lab Draw 09/07/20 11:50 Urine Culture - Preliminary Urine Gram Negative Rods 09/07/20 13:10 Blood Culture - Preliminary Blood - Venous - Iv Start Klebsiella Pneumoniae 09/07/20 13:10 Bacteria Detection (PCR) - Final Blood Med Orders - Current: Current Medications Acetaminophen (Acetaminophen 325 Mg Tab) 650 mg PO Q4H PRN PRN Reason: Pain (Mild 1-3)/fever Last Admin: 09/07/20 20:21 Dose: 650 mg Documented by: Amlodipine Besylate (Amlodipine 5 Mg Tab) 5 mg PO DAILY [facility] Last Admin: 09/09/20 09:07 Dose: 5 mg Documented by: Benzonatate (Benzonatate 100 Mg Cap) 100 mg PO TID PRN PRN Reason: Cough Last Admin: 09/08/20 20:14 Dose: 100 mg Documented by: Docusate Sodium (Docusate Sodium 100 Mg Cap) 100 mg PO BID PRN PRN Reason: Constipation Ferrous Sulfate (Ferrous Sulfate 324 Mg Tab.Ec) 325 mg PO BID [facility] Last Admin: 09/09/20 09:06 Dose: 324 mg Documented by: Furosemide (Furosemide 40 Mg Tab) 40 mg PO DAILY [facility] Last Admin: 09/09/20 09:06 Dose: 40 mg Documented by: Guaifenesin/Phenylephrine HCl (Guaifenesin/Dextromethorphan 100-10 Mg/5 Ml Soln 5 Ml Cup) 10 ml PO QID PRN PRN Reason: Cough Last Admin: 09/08/20 20:13 Dose: 10 ml Documented by: Heparin Sodium (Porcine) (Heparin Sodium 5,000 Units/Ml Vial) 5,000 units SUBCUT Q8H [facility] Last Admin: 09/09/20 08:13 Dose: 5,000 units Documented by: Ceftriaxone Sodium 2 gm/ (Sodium Chloride) 100 mls @ 200 mls/hr IV Q24H [facility] Last Admin: 09/09/20 11:40 Dose: 200 mls/hr Documented by: Insulin Human Regular (Insulin Regular, Human 100 Units/Ml 3 Ml Vial) [facility]; Protocol Last Admin: 09/09/20 12:13 Dose: 1 unit Documented by: Metoprolol Tartrate (Metoprolol Tartrate 25 Mg Tab) 25 mg PO BID [facility] Last Admin: 09/09/20 09:07 Dose: 25 mg Documented by: Oxycodone HCl (Oxycodone 5 Mg Tab) 5 mg PO Q4H PRN PRN Reason: Pain (moderate 4-6) Potassium Chloride (Potassium Chloride 20 Meq Tab.Er) 40 meq PO DAILY [facility] Last Admin: 09/09/20 09:02 Dose: 40 meq Documented by: Promethazine HCl/Codeine (Codeine/Promethazine 10-6.25 Mg/5 Ml Syrup 5 Ml Ud Cup) 5 ml PO Q6H PRN PRN Reason: Cough Last Admin: 09/09/20 14:01 Dose: 5 ml Documented by: Rosuvastatin Calcium (Rosuvastatin 10 Mg Tab) 10 mg PO DAILY [facility] Last Admin: 09/09/20 09:06 Dose: 10 mg Documented by: Tamsulosin HCl (Tamsulosin 0.4 Mg Cap.Er) 0.4 mg PO DAILY [facility] Last Admin: 09/09/20 09:02 Dose: 0.4 mg Documented by: Discontinued Medications Fenofibrate (Fenofibrate Nanocrystallized 145 Mg Tab) 72.5 mg PO DAILY [facility] Last Admin: 09/08/20 11:53 Dose: Not Given Documented by: Lactated Ringer's (Ringers, Lactated) 1,000 mls @ 999 mls/hr IV .BOLUS ONE Stop: 09/07/20 13:52 Last Admin: 09/07/20 13:10 Dose: 999 mls/hr Documented by: Lactated Ringer's (Ringers, Lactated) 1,000 mls @ 999 mls/hr IV .BOLUS ONE Stop: 09/07/20 15:30 Last Admin: 09/07/20 14:42 Dose: 100 mls/hr Documented by: Levofloxacin/Dextrose 500 mg/ (Premix) 100 mls @ 100 mls/hr IV ONETIME ONE Stop: 09/07/20 16:52 Last Admin: 09/07/20 16:05 Dose: Not Given Documented by: Lactated Ringer's (Ringers, Lactated) 1,000 mls @ 75 mls/hr IV ASDIRECTED [facility] Last Admin: 09/08/20 00:56 Dose: 75 mls/hr Documented by: Levofloxacin/Dextrose 750 mg/ (Premix) 150 mls @ 100 mls/hr IV Q48H [facility] Last Admin: 09/07/20 18:14 Dose: 100 mls/hr Documented by: Metformin HCl (Metformin 500 Mg Tab) 1,000 mg PO DAILY [facility] Last Admin: 09/09/20 09:06 Dose: 1,000 mg Documented by: Metformin HCl (Metformin 500 Mg Tab) 500 mg PO PCDINNER [facility] Last Admin: 09/08/20 18:52 Dose: 500 mg Documented by: - Patient Data Lab Results Last 24 hrs: Laboratory Results - last 24 hr 09/08/20 09/09/20 09/09/20 Range/Units 17:03 06:10 06:10 WBC 7.29 (3.98-10.04) K/mm3 RBC 3.02 L (3.98-5.22) M/mm3 Hgb 8.5 L (11.2-15.7) gm/dl Hct 27.9 L (34.1-44.9) % MCV 92.4 (79.4-94.8) fl MCH 28.1 (25.6-32.2) pg MCHC 30.5 L (32.2-35.5) g/dl RDW Std Deviation 53.5 H (36.4-46.3) fL Plt Count 288 (182-369) K/mm3 MPV 9.7 (9.4-12.3) fl Neut % (Auto) 59.0 (34.0-71.1) % Lymph % (Auto) 21.7 (19.3-51.7) % [place] % (Auto) 14.3 H (4.7-12.5) % Eos % (Auto) 4.4 (0.7-5.8) Baso % (Auto) 0.3 (0.1-1.2) % Neut # (Auto) 4.31 (1.56-6.13) K/mm3 Lymph # (Auto) 1.58 (1.18-3.74) K/mm3 [place] # (Auto) 1.04 H (0.24-0.36) K/mm3 Eos # (Auto) 0.32 (0.04-0.36) K/mm3 Baso # (Auto) 0.02 (0.01-0.08) K/mm3 Sodium 143 (136-145) mEq/L Potassium 4.1 (3.5-5.1) mEq/L Chloride 109 H (98-107) mEq/L Carbon Dioxide 25 (21-32) mEq/L Anion Gap 13.1 (5-15) BUN 15 (7-18) mg/dL Creatinine 1.1 H (0.55-1.02) mg/dL Est Cr Clr Drug Dosing 38.54 mL/min Estimated GFR (MDRD) 48 (>60) mL/min BUN/Creatinine Ratio 13.6 L (14-18) Glucose 98 (70-99) mg/dL POC Glucose 100 H (70-99) mg/dL Calcium 8.6 (8.5-10.1) mg/dL 09/09/20 09/09/20 Range/Units 06:16 10:58 WBC (3.98-10.04) K/mm3 RBC (3.98-5.22) M/mm3 Hgb (11.2-15.7) gm/dl Hct (34.1-44.9) % MCV (79.4-94.8) fl MCH (25.6-32.2) pg MCHC (32.2-35.5) g/dl RDW Std Deviation (36.4-46.3) fL Plt Count (182-369) K/mm3 MPV (9.4-12.3) fl Neut % (Auto) (34.0-71.1) % Lymph % (Auto) (19.3-51.7) % [place] % (Auto) (4.7-12.5) % Eos % (Auto) (0.7-5.8) Baso % (Auto) (0.1-1.2) % Neut # (Auto) (1.56-6.13) K/mm3 Lymph # (Auto) (1.18-3.74) K/mm3 [place] # (Auto) (0.24-0.36) K/mm3 Eos # (Auto) (0.04-0.36) K/mm3 Baso # (Auto) (0.01-0.08) K/mm3 Sodium (136-145) mEq/L Potassium (3.5-5.1) mEq/L Chloride (98-107) mEq/L Carbon Dioxide (21-32) mEq/L Anion Gap (5-15) BUN (7-18) mg/dL Creatinine (0.55-1.02) mg/dL Est Cr Clr Drug Dosing mL/min Estimated GFR (MDRD) (>60) mL/min BUN/Creatinine Ratio (14-18) Glucose (70-99) mg/dL POC Glucose 82 159 H (70-99) mg/dL Calcium (8.5-10.1) mg/dL Result Diagrams: 09/09/20 06:10 09/09/20 06:10 Jose Miguel Results Last 24 hrs: Microbiology 09/07/20 13:19 Blood Culture - Preliminary Blood - Venous - Lab Draw 09/07/20 11:50 Urine Culture - Preliminary Urine Gram Negative Rods 09/07/20 13:10 Blood Culture - Preliminary Blood - Venous - Iv Start Klebsiella Pneumoniae 09/07/20 13:10 Bacteria Detection (PCR) - Final Blood Sepsis Event Note - Evaluation Sepsis Screening Result: No Definite Risk - Focused Exam Vital Signs: Vital Signs Temp Pulse Resp BP Pulse Ox 09/09/20 15:53 98.2 F 82 20 96 09/09/20 10:01 98.4 F 86 95 09/09/20 09:07 80 122/76 09/09/20 06:14 98.4 F 80 16 122/76 95 - Problem List Review Problem List Initiated/Reviewed/Updated: Yes - My Orders Last 24 Hours: My Active Orders 09/09/20 09:31 BLOOD CULTURE [MREF] Stat Blood Culture x2 Reflex Set [OM.PC] Stat 09/09/20 09:45 cefTRIAXone [Rocephin] 2 gm Sodium Chloride 0.9% [Normal Saline] 100 ml IV Q24H 09/09/20 11:20 Admission Status [Patient Status] [ADT] Routine - Plan Plan:: The patient is a 79-year-old lady who is going to be admitted to observation secondary to complicated urinary tract infection. The patient also has fairly stable chronic kidney disease stage IV with moderately depressed EGFR. She has been started on Levaquin 750 mg every 48 hours IV. The patient will be kept on DVT prophylaxis with the use of heparin 5000 units subcu every 8 hours. The patient previously had been on ciprofloxacin and this has been discontinued. The patient will also be kept on a diabetic diet as tolerated. She is on insulin sliding scale low-dose. Repeat laboratory studies have been ordered for the morning. PT OT is also been ordered for the patient due to her weakness. The patient should likely be appropriate for discharge 1 to 2 days. 09/08/2020 The patient is a 79-year-old lady who is currently being treated for urinary tract infection. Cultures are currently pending but because of the fact that she had been previously on ciprofloxacin it is likely that the patient would be somewhat confused. Her antibiotics will be deescalated as possible. We will continue with the IV antibiotics for 1 more day as she is still feeling weak. PT OT is also been ordered for the patient. She is on DVT prophylaxis with heparin 5000 units subcu every 8 hours. The patient also has been started on Levaquin 750 mg every 48 hours IV due to her chronic kidney disease. Repeat la boratory testings have been ordered for the morning. She is on insulin sliding scale low-dose and she is to have a diabetic diet as tolerated. Patient should be appropriate for discharge tomorrow. 09/09 1. UTI and Klebsiella bacteremia 2. hx of CKD stage III 3. Hx o HLD 4. Hx of BEKA 5. Hx of HTN 6. Hx of Type II DM Plan -discontinue metformin -discontinue levaquin -start ceftriaxone -repeat blood cx -transition to inpatient status Code-Full DVT ppx-heparin subq
[2020-09-09] MEDS: Benzonatate 100 MG Cap PO PRN (20:10)
[2020-09-10] MEDS: Acetaminophen 325 MG Tab PO PRN (00:11)
[2020-09-10] MEDS: Heparin Sodium 5,000 Units/ML Vial SUBCUT SCH ×3 (00:11→16:23)
[2020-09-10] MEDS: Codeine/Promethazine 10-6.25 MG/5 ML Syrup 5 ML UD Cup PO PRN ×3 (04:16→21:04)
[2020-09-10] MEDS ORDERED: Magnesium Hydroxide 400 MG/5 ML Susp 30 ML Cup PO PRN (05:07)
[2020-09-10] MEDS: Rosuvastatin 10 MG Tab PO SCH (09:05)
[2020-09-10] MEDS: cefTRIAXone 2 GM in Sodium Chloride 0.9% 100 ML IV SCH (09:05)
[2020-09-10] MEDS: Potassium Chloride 20 MEQ Tab.ER PO SCH (09:05)
[2020-09-10] MEDS: Ferrous Sulfate 324 MG Tab.EC PO SCH ×2 (09:05→21:04)
[2020-09-10] MEDS: Tamsulosin 0.4 MG Cap.ER PO SCH (09:05)
[2020-09-10] MEDS: Metoprolol Tartrate 25 MG Tab PO SCH ×2 (09:06→21:05)
[2020-09-10] MEDS: Insulin Regular, Human 100 Units/ML 3 ML Vial SUBCUT SCH ×3 (09:06→18:59)
[2020-09-10] MEDS: amLODIPine 5 MG Tab PO SCH (09:06)
[2020-09-10] MEDS: Furosemide 40 MG Tab PO SCH (09:06)
--- NOTE | 2020-09-10 12:31 | CR ---
Chest: Portable view of the chest was obtained. Comparison: Prior chest x-ray of 09/07/20. Slight parenchymal density is seen within the lateral left costophrenic angle. This is minimally increased from prior exam and may represent small area of pneumonia versus increasing atelectasis. Lungs otherwise are clear. Heart size and mediastinum are normal. Degenerative change is seen within the left shoulder. Scoliosis is noted within the spine with mild scattered degenerative change also noted within the spine. Impression: 1. Slight increasing density within the lateral left costophrenic angle either due to worsening atelectasis or development of small pneumonia. Please correlate with the patient's symptoms. 2. Other findings believed to be incidental as noted above. Diagnostic code #3
--- NOTE | 2020-09-10 17:25 | PCM.PN ---
- General Info Date of Service: 09/10/20 Admission Dx/Problem (Free Text): Admission Diagnosis/Problem Admission Diagnosis/Problem Urinary tract infection Subjective Update: Patient endorses sob and cough denies cp fatigue with exertion cxr with possible infiltrate - Patient Data Vitals - Most Recent: Last Vital Signs Temp 99.0 F 09/10/20 16:06 Pulse 93 09/10/20 16:06 Resp 20 09/10/20 16:06 BP 124/53 L 09/10/20 16:06 Pulse Ox 98 09/10/20 16:06 Weight - Most Recent: 204 lb 6.4 oz I&O - Last 24 Hours: Intake & Output 09/10/20 09/10/20 09/10/20 06:59 14:59 22:59 Intake Total 600 570 820 Output Total 3100 2050 Balance -2500 570 -1230 Lab Results Last 24 Hours: Laboratory Results - last 24 hr 09/09/20 09/10/20 09/10/20 Range/Units 17:45 06:00 06:00 WBC 7.39 (3.98-10.04) K/mm3 RBC 3.17 L (3.98-5.22) M/mm3 Hgb 9.1 L (11.2-15.7) gm/dl Hct 29.3 L (34.1-44.9) % MCV 92.4 (79.4-94.8) fl MCH 28.7 (25.6-32.2) pg MCHC 31.1 L (32.2-35.5) g/dl RDW Std Deviation 54.4 H (36.4-46.3) fL Plt Count 329 (182-369) K/mm3 MPV 10.0 (9.4-12.3) fl Sodium 143 (136-145) mEq/L Potassium 3.7 (3.5-5.1) mEq/L Chloride 107 (98-107) mEq/L Carbon Dioxide 26 (21-32) mEq/L Anion Gap 13.7 (5-15) BUN 16 (7-18) mg/dL Creatinine 1.3 H (0.55-1.02) mg/dL Est Cr Clr Drug Dosing 32.61 mL/min Estimated GFR (MDRD) 40 (>60) mL/min BUN/Creatinine Ratio 12.3 L (14-18) Glucose 100 H (70-99) mg/dL POC Glucose 131 H (70-99) mg/dL Calcium 8.6 (8.5-10.1) mg/dL 09/10/20 09/10/20 09/10/20 Range/Units 06:58 11:27 17:00 WBC (3.98-10.04) K/mm3 RBC (3.98-5.22) M/mm3 Hgb (11.2-15.7) gm/dl Hct (34.1-44.9) % MCV (79.4-94.8) fl MCH (25.6-32.2) pg MCHC (32.2-35.5) g/dl RDW Std Deviation (36.4-46.3) fL Plt Count (182-369) K/mm3 MPV (9.4-12.3) fl Sodium (136-145) mEq/L Potassium (3.5-5.1) mEq/L Chloride (98-107) mEq/L Carbon Dioxide (21-32) mEq/L Anion Gap (5-15) BUN (7-18) mg/dL Creatinine (0.55-1.02) mg/dL Est Cr Clr Drug Dosing mL/min Estimated GFR (MDRD) (>60) mL/min BUN/Creatinine Ratio (14-18) Glucose (70-99) mg/dL POC Glucose 87 120 H 142 H (70-99) mg/dL Calcium (8.5-10.1) mg/dL Jose Miguel Results Last 24 Hours: Microbiology 09/07/20 11:50 Urine Culture - Final Urine Klebsiella Pneumonia Ss Pneumo 09/07/20 13:10 Blood Culture - Preliminary Blood - Venous - Iv Start Klebsiella Pneumoniae 09/07/20 13:19 Blood Culture - Preliminary Blood - Venous - Lab Draw Med Orders - Current: Current Medications Acetaminophen (Acetaminophen 325 Mg Tab) 650 mg PO Q4H PRN PRN Reason: Pain (Mild 1-3)/fever Last Admin: 09/10/20 00:11 Dose: 650 mg Documented by: Amlodipine Besylate (Amlodipine 5 Mg Tab) 5 mg PO DAILY [facility] Last Admin: 09/10/20 09:06 Dose: 5 mg Documented by: Benzonatate (Benzonatate 100 Mg Cap) 100 mg PO TID PRN PRN Reason: Cough Last Admin: 09/09/20 20:10 Dose: 100 mg Documented by: Docusate Sodium (Docusate Sodium 100 Mg Cap) 100 mg PO BID PRN PRN Reason: Constipation Ferrous Sulfate (Ferrous Sulfate 324 Mg Tab.Ec) 324 mg PO BID [facility] Last Admin: 09/10/20 09:05 Dose: 324 mg Documented by: Furosemide (Furosemide 40 Mg Tab) 40 mg PO DAILY [facility] Last Admin: 09/10/20 09:06 Dose: 40 mg Documented by: Guaifenesin/Phenylephrine HCl (Guaifenesin/Dextromethorphan 100-10 Mg/5 Ml Soln 5 Ml Cup) 10 ml PO QID PRN PRN Reason: Cough Last Admin: 09/08/20 20:13 Dose: 10 ml Documented by: Heparin Sodium (Porcine) (Heparin Sodium 5,000 Units/Ml Vial) 5,000 units SUBCUT Q8H [facility] Last Admin: 09/10/20 16:23 Dose: 5,000 units Documented by: Ceftriaxone Sodium 2 gm/ (Sodium Chloride) 100 mls @ 200 mls/hr IV Q24H [facility] Last Admin: 09/10/20 09:05 Dose: 200 mls/hr Documented by: Insulin Human Regular (Insulin Regular, Human 100 Units/Ml 3 Ml Vial) 0 unit SUBCUT TIDPC [facility]; Protocol Last Admin: 09/10/20 13:57 Dose: Not Given Documented by: Magnesium Hydroxide (Magnesium Hydroxide 400 Mg/5 Ml Susp 30 Ml Cup) 30 ml PO DAILY PRN PRN Reason: Constipation Last Admin: 09/10/20 14:23 Dose: 30 ml Documented by: Metoprolol Tartrate (Metoprolol Tartrate 25 Mg Tab) 25 mg PO BID [facility] Last Admin: 09/10/20 09:06 Dose: 25 mg Documented by: Oxycodone HCl (Oxycodone 5 Mg Tab) 5 mg PO Q4H PRN PRN Reason: Pain (moderate 4-6) Potassium Chloride (Potassium Chloride 20 Meq Tab.Er) 40 meq PO DAILY [facility] Last Admin: 09/10/20 09:05 Dose: 40 meq Documented by: Promethazine HCl/Codeine (Codeine/Promethazine 10-6.25 Mg/5 Ml Syrup 5 Ml Ud Cup) 5 ml PO Q6H PRN PRN Reason: Cough Last Admin: 09/10/20 14:23 Dose: 5 ml Documented by: Rosuvastatin Calcium (Rosuvastatin 10 Mg Tab) 10 mg PO DAILY [facility] Last Admin: 09/10/20 09:05 Dose: 10 mg Documented by: Tamsulosin HCl (Tamsulosin 0.4 Mg Cap.Er) 0.4 mg PO DAILY [facility] Last Admin: 09/10/20 09:05 Dose: 0.4 mg Documented by: Discontinued Medications Fenofibrate (Fenofibrate Nanocrystallized 145 Mg Tab) 72.5 mg PO DAILY [facility] Last Admin: 09/08/20 11:53 Dose: Not Given Documented by: Ferrous Sulfate (Ferrous Sulfate 324 Mg Tab.Ec) 325 mg PO BID [facility] Last Admin: 09/09/20 20:05 Dose: 324 mg Documented by: Lactated Ringer's (Ringers, Lactated) 1,000 mls @ 999 mls/hr IV .BOLUS ONE Stop: 09/07/20 13:52 Last Admin: 09/07/20 13:10 Dose: 999 mls/hr Documented by: Lactated Ringer's (Ringers, Lactated) 1,000 mls @ 999 mls/hr IV .BOLUS ONE Stop: 09/07/20 15:30 Last Admin: 09/07/20 14:42 Dose: 100 mls/hr Documented by: Levofloxacin/Dextrose 500 mg/ (Premix) 100 mls @ 100 mls/hr IV ONETIME ONE Stop: 09/07/20 16:52 Last Admin: 09/07/20 16:05 Dose: Not Given Documented by: Lactated Ringer's (Ringers, Lactated) 1,000 mls @ 75 mls/hr IV ASDIRECTED [facility] Last Admin: 09/08/20 00:56 Dose: 75 mls/hr Documented by: Levofloxacin/Dextrose 750 mg/ (Premix) 150 mls @ 100 mls/hr IV Q48H [facility] Last Admin: 09/07/20 18:14 Dose: 100 mls/hr Documented by: Metformin HCl (Metformin 500 Mg Tab) 1,000 mg PO DAILY [facility] Last Admin: 09/09/20 09:06 Dose: 1,000 mg Documented by: Metformin HCl (Metformin 500 Mg Tab) 500 mg PO PCDINNER [facility] Last Admin: 09/08/20 18:52 Dose: 500 mg Documented by: - Exam General: Alert, Oriented, No Acute Distress HEENT: EOMI, Mucous Membr. Moist/[place] Neck: Supple Lungs: Clear to Auscultation, Decreased Breath Sounds Cardiovascular: Regular Rate, Regular Rhythm GI/Abdominal Exam: Soft, Non-Tender, No Distention Extremities: Normal Inspection, No Pedal Edema Neurological: No New Focal Deficit, Cranial Nerves Intact Psy/Mental Status: Alert, Normal Affect, Normal Mood - Patient Data Lab Results Last 24 hrs: Laboratory Results - last 24 hr 09/09/20 09/10/20 09/10/20 Range/Units 17:45 06:00 06:00 WBC 7.39 (3.98-10.04) K/mm3 RBC 3.17 L (3.98-5.22) M/mm3 Hgb 9.1 L (11.2-15.7) gm/dl Hct 29.3 L (34.1-44.9) % MCV 92.4 (79.4-94.8) fl MCH 28.7 (25.6-32.2) pg MCHC 31.1 L (32.2-35.5) g/dl RDW Std Deviation 54.4 H (36.4-46.3) fL Plt Count 329 (182-369) K/mm3 MPV 10.0 (9.4-12.3) fl Sodium 143 (136-145) mEq/L Potassium 3.7 (3.5-5.1) mEq/L Chloride 107 (98-107) mEq/L Carbon Dioxide 26 (21-32) mEq/L Anion Gap 13.7 (5-15) BUN 16 (7-18) mg/dL Creatinine 1.3 H (0.55-1.02) mg/dL Est Cr Clr Drug Dosing 32.61 mL/min Estimated GFR (MDRD) 40 (>60) mL/min BUN/Creatinine Ratio 12.3 L (14-18) Glucose 100 H (70-99) mg/dL POC Glucose 131 H (70-99) mg/dL Calcium 8.6 (8.5-10.1) mg/dL 09/10/20 09/10/20 09/10/20 Range/Units 06:58 11:27 17:00 WBC (3.98-10.04) K/mm3 RBC (3.98-5.22) M/mm3 Hgb (11.2-15.7) gm/dl Hct (34.1-44.9) % MCV (79.4-94.8) fl MCH (25.6-32.2) pg MCHC (32.2-35.5) g/dl RDW Std Deviation (36.4-46.3) fL Plt Count (182-369) K/mm3 MPV (9.4-12.3) fl Sodium (136-145) mEq/L Potassium (3.5-5.1) mEq/L Chloride (98-107) mEq/L Carbon Dioxide (21-32) mEq/L Anion Gap (5-15) BUN (7-18) mg/dL Creatinine (0.55-1.02) mg/dL Est Cr Clr Drug Dosing mL/min Estimated GFR (MDRD) (>60) mL/min BUN/Creatinine Ratio (14-18) Glucose (70-99) mg/dL POC Glucose 87 120 H 142 H (70-99) mg/dL Calcium (8.5-10.1) mg/dL Result Diagrams: 09/10/20 06:00 09/10/20 06:00 Jose Miguel Results Last 24 hrs: Microbiology 09/07/20 11:50 Urine Culture - Final Urine Klebsiella Pneumonia Ss Pneumo 09/07/20 13:10 Blood Culture - Preliminary Blood - Venous - Iv Start Klebsiella Pneumoniae 09/07/20 13:19 Blood Culture - Preliminary Blood - Venous - Lab Draw Sepsis Event Note - Evaluation Sepsis Screening Result: No Definite Risk - Focused Exam Vital Signs: Vital Signs Temp Temp Pulse Resp BP Pulse Ox 09/10/20 16:06 99.0 F 93 20 124/53 L 98 09/10/20 10:00 98.2 F 18 09/10/20 09:06 85 137/66 - Problem List Review Problem List Initiated/Reviewed/Updated: Yes - My Orders Last 24 Hours: My Active Orders 09/10/20 05:07 Magnesium Hydroxide [Milk of Magnesia] 30 ml PO DAILY PRN 09/10/20 06:10 BLOOD CULTURE [MREF] Routine 09/10/20 21:00 Doxycycline [Vibramycin] 100 mg PO Q12HR 09/11/20 06:00 BASIC METABOLIC PANEL,BMP [CHEM] DAILY CBC W/O DIFF,HEMOGRAM [HEME] DAILY 09/12/20 06:00 BASIC METABOLIC PANEL,BMP [CHEM] DAILY CBC W/O DIFF,HEMOGRAM [HEME] DAILY - Plan Plan:: The patient is a 79-year-old lady who is going to be admitted to observation secondary to complicated urinary tract infection. The patient also has fairly stable chronic kidney disease stage IV with moderately depressed EGFR. She has been started on Levaquin 750 mg every 48 hours IV. The patient will be kept on DVT prophylaxis with the use of heparin 5000 units subcu every 8 hours. The patient previously had been on ciprofloxacin and this has been discontinued. The patient will also be kept on a diabetic diet as tolerated. She is on insulin sliding scale low-dose. Repeat laboratory studies have been ordered for the morning. PT OT is also been ordered for the patient due to her weakness. The patient should likely be appropriate for discharge 1 to 2 days. 09/08/2020 The patient is a 79-year-old lady who is currently being treated for urinary tract infection. Cultures are currently pending but because of the fact that she had been previously on ciprofloxacin it is likely that the patient would be somewhat confused. Her antibiotics will be deescalated as possible. We will co ntinue with the IV antibiotics for 1 more day as she is still feeling weak. PT OT is also been ordered for the patient. She is on DVT prophylaxis with heparin 5000 units subcu every 8 hours. The patient also has been started on Levaquin 750 mg every 48 hours IV due to her chronic kidney disease. Repeat laboratory testings have been ordered for the morning. She is on insulin sliding scale low-dose and she is to have a diabetic diet as tolerated. Patient should be appropriate for discharge tomorrow. 09/09 1. UTI and Klebsiella bacteremia 2. hx of CKD stage III 3. Hx o HLD 4. Hx of BEKA 5. Hx of HTN 6. Hx of Type II DM 7. Possible PNA Plan -discontinue metformin -discontinue levaquin -start ceftriaxone 09/09 -start doxycycline 09/10 -repeat blood cx -transitioned to inpatient status -possible DC tomorrow Code-Full DVT ppx-heparin subq
[2020-09-10] MEDS: Doxycycline 100 MG Cap PO SCH (19:00)
[2020-09-10] MEDS: Benzonatate 100 MG Cap PO PRN (21:04)
[2020-09-11] MEDS: Heparin Sodium 5,000 Units/ML Vial SUBCUT SCH ×2 (01:14→08:44)
[2020-09-11] MEDS: Codeine/Promethazine 10-6.25 MG/5 ML Syrup 5 ML UD Cup PO PRN ×2 (06:11→15:09)
[2020-09-11] MEDS: Doxycycline 100 MG Cap PO SCH (06:11)
[2020-09-11] MEDS: Benzonatate 100 MG Cap PO PRN (06:11)
[2020-09-11] MEDS: guaiFENesin/Dextromethorphan 100-10 MG/5 ML Soln 5 ML Cup PO PRN (08:44)
[2020-09-11] MEDS: Potassium Chloride 20 MEQ Tab.ER PO SCH (08:44)
[2020-09-11] MEDS: Ferrous Sulfate 324 MG Tab.EC PO SCH (08:45)
[2020-09-11] MEDS: Metoprolol Tartrate 25 MG Tab PO SCH (08:45)
[2020-09-11] MEDS: Tamsulosin 0.4 MG Cap.ER PO SCH (08:45)
[2020-09-11] MEDS: Insulin Regular, Human 100 Units/ML 3 ML Vial SUBCUT SCH ×2 (08:46→12:50)
[2020-09-11] MEDS: cefTRIAXone 2 GM in Sodium Chloride 0.9% 100 ML IV SCH (08:46)
[2020-09-11 08:47] VITALS: BP 122/59
[2020-09-11] MEDS ORDERED: amLODIPine 5 MG Tab PO SCH (09:00)
[2020-09-11] MEDS ORDERED: Rosuvastatin 10 MG Tab PO SCH (09:00)
[2020-09-11] MEDS ORDERED: Furosemide 40 MG Tab PO SCH (09:00)
[2020-09-11 09:54] VITALS: PULSE 93
--- NOTE | 2020-09-11 14:39 | PCM.DCSUM1 ---
Discharge Summary - Hospital Course HPI Initial Comments: QAGAN TAYAGUNGIN - History of Present Illness Initial Comments - Free Text/Narative: The patient is a 79-year-old lady who had presented to the emergency department with a complaint primarily of weakness. The patient reports that she has been feeling extremely weak and unable to get up from a sitting position over the past 3 days. The patient was previously in the hospital for UTI associated with kidney stones and she had been recovering up until recently. The patient reports that she has had some dysuria associated with this. She also has what sounds like fever or chills. She had been partially treated apparently with outpatient antibiotics. The patient has a history of urinary tract infection the patient also has been taking medication for diabetes and hypertension. The patient has been doing well otherwise. The patient has no other complaints today. She also has new onset chronic kidney disease. Hospital Course She was treated with ceftriaxone. Urine Culture and Blood Cx grew Klebsiella species sensitive to ceftriaxone and levaquin. Her repeat blood Cx on day of discharge grew gram positive cocci thought to be coagulase negative staph (which I suspect is skin contaminant). These cultures are pending and will need to be followed up by her primary care provider. She has a PCP appointment on 09/18. Her case was discussed with Infectious Disease. She will be discharged on levaquin 750 mg [id number] for treatment for 7 doses over 14 days Exam Gen: No acute distress HEENT: NCAT EOMI MMM CV: RRR normal s1 s2; no murmurs Lungs: CTAB Abd: Soft, nt, nd Neuro: AOX3; CN intanct MSK: age appropriate muscle mass Discharge Diagnosis 1. UTI and Klebsiella bacteremia 2. hx of CKD stage III 3. Hx o HLD 4. Hx of BEKA 5. Hx of HTN 6. Hx of Type II DM 7. Possible PNA Diagnosis: Stroke: No - Discharge Data Discharge Date: 09/11/20 Discharge Disposition: Home, Self-Care 01 Condition: Good - Referral to Home Health Primary Care Physician: Karley Sweeney NP - Patient Summary/Data Consults: Consultations 09/07/20 15:53 OT Evaluation and Treatment [CONS] Routine PT Evaluation and Treatment [CONS] Routine - Patient Instructions Diet, Other: Resume previous home diet Activity: As Tolerated Driving: May Drive Today Notify Provider of: Fever, Increased Pain, Swelling and Redness, Nausea and/or Vomiting - Discharge Plan *PRESCRIPTION DRUG MONITORING PROGRAM REVIEWED*: Not Applicable *COPY OF PRESCRIPTION DRUG MONITORING REPORT IN PATIENT KOFFI: Not Applicable Prescriptions/Med Rec: levoFLOXacin [Levaquin] 750 mg PO Q48H #7 tab Benzonatate [Tessalon Perle] 100 mg PO TID PRN #30 capsule PRN Reason: Cough Home Medications: Home Meds Metoprolol Tartrate 25 mg PO BID 04/26/14 [History] amLODIPine [Norvasc] 5 mg PO DAILY 04/26/14 [History] Cholecalciferol (Vitamin D3) [Vitamin D3] 5,000 unit PO DAILY 05/08/18 [History] Cyanocobalamin (Vitamin B-12) [Vitamin B-12] 1,000 mcg PO DAILY 05/08/18 [History] Vitamin E 400 unit PO DAILY 05/08/18 [History] traMADol [Ultram] 50 mg PO Q12H PRN 08/05/18 [History] Furosemide 40 mg PO DAILY 03/01/19 [History] metFORMIN [Glucophage XR] 1,000 mg PO DAILY 03/01/19 [History] Acetaminophen [Tylenol Arthritis] 650 mg PO Q8H PRN 08/07/20 [History] Ferrous Sulfate 325 mg PO BID 08/07/20 [History] Potassium Chloride [Klor-Con M20] 40 meq PO DAILY 08/07/20 [History] Tamsulosin [Flomax] 0.4 mg PO DAILY 08/07/20 [History] Rosuvastatin [Crestor] 10 mg PO DAILY 09/08/20 [History] Benzonatate [Tessalon Perle] 100 mg PO TID PRN #30 capsule 09/11/20 [Rx] levoFLOXacin [Levaquin] 750 mg PO Q48H #7 tab 09/11/20 [Rx] Oxygen Therapy Mode: Room Air Patient Handouts: Urinary Tract Infection, Adult, [id number], Sepsis, Self Care, Adult Forms: ED Department Discharge Referrals: Karley Sweeney [employer] [Primary Care Provider] - 09/18/20 10:40 am (this the chek in time.) Kemar Hathaway MD [Ordering Only Provider] - 10/03/20 3:00 pm (This appointment is [place] time at [facility] in [place] please arrive 30 minutes before appointment to register.) - Discharge Summary/Plan Comment DC Time >30 min.: Yes (35 minutes) - General Info Date of Service: 09/11/20 Admission Dx/Problem (Free Text: Klebsiella Bacteremia Klebsiella UTI - Patient Data Vitals - Most Recent: Last Vital Signs Temp 98.1 F 09/11/20 06:18 Pulse 93 09/11/20 08:46 Resp 18 09/11/20 06:18 BP 122/59 L 09/11/20 08:46 Pulse Ox 91 L 09/11/20 08:46 Weight - Most Recent: 203 lb 14.4 oz I&O - Last 24 hours: Intake & Output 09/10/20 09/11/20 09/11/20 22:59 06:59 14:59 Intake Total 1040 800 320 Output Total 2050 1200 Balance -1010 -400 320 Lab Results - Last 24 hrs: Laboratory Results - last 24 hr 09/10/20 09/11/20 09/11/20 Range/Units 17:00 06:15 06:28 WBC 7.68 (3.98-10.04) K/mm3 RBC 3.23 L (3.98-5.22) M/mm3 Hgb 9.1 L (11.2-15.7) gm/dl Hct 29.9 L (34.1-44.9) % MCV 92.6 (79.4-94.8) fl MCH 28.2 (25.6-32.2) pg MCHC 30.4 L (32.2-35.5) g/dl RDW Std Deviation 54.1 H (36.4-46.3) fL Plt Count 381 H (182-369) K/mm3 MPV 9.5 (9.4-12.3) fl Sodium (136-145) mEq/L Potassium (3.5-5.1) mEq/L Chloride (98-107) mEq/L Carbon Dioxide (21-32) mEq/L Anion Gap (5-15) BUN (7-18) mg/dL Creatinine (0.55-1.02) mg/dL Est Cr Clr Drug Dosing mL/min Estimated GFR (MDRD) (>60) mL/min BUN/Creatinine Ratio (14-18) Glucose (70-99) mg/dL POC Glucose 142 H 89 (70-99) mg/dL Calcium (8.5-10.1) mg/dL 09/11/20 09/11/20 Range/Units 06:28 11:12 WBC (3.98-10.04) K/mm3 RBC (3.98-5.22) M/mm3 Hgb (11.2-15.7) gm/dl Hct (34.1-44.9) % MCV (79.4-94.8) fl MCH (25.6-32.2) pg MCHC (32.2-35.5) g/dl RDW Std Deviation (36.4-46.3) fL Plt Count (182-369) K/mm3 MPV (9.4-12.3) fl Sodium 142 (136-145) mEq/L Potassium 4.1 (3.5-5.1) mEq/L Chloride 106 (98-107) mEq/L Carbon Dioxide 27 (21-32) mEq/L Anion Gap 13.1 (5-15) BUN 17 (7-18) mg/dL Creatinine 1.1 H (0.55-1.02) mg/dL Est Cr Clr Drug Dosing 38.54 mL/min Estimated GFR (MDRD) 48 (>60) mL/min BUN/Creatinine Ratio 15.5 (14-18) Glucose 97 (70-99) mg/dL POC Glucose 126 H (70-99) mg/dL Calcium 8.8 (8.5-10.1) mg/dL FARNAZ Results - Last 24 hrs: Microbiology 09/10/20 06:10 Bacteria Detection (PCR) - Final Blood 09/10/20 06:10 Blood Culture - Preliminary Blood Gram Positive Cocci In Clustrs 09/10/20 06:00 Blood Culture - Preliminary Blood 09/07/20 11:50 Urine Culture - Final Urine Klebsiella Pneumonia Ss Pneumo Med Orders - Current: Current Medications Acetaminophen (Acetaminophen 325 Mg Tab) 650 mg PO Q4H PRN PRN Reason: Pain (Mild 1-3)/fever Last Admin: 09/10/20 00:11 Dose: 650 mg Documented by: Amlodipine Besylate (Amlodipine 5 Mg Tab) 5 mg PO DAILY [facility] Last Admin: 09/11/20 08:44 Dose: 5 mg Documented by: Benzonatate (Benzonatate 100 Mg Cap) 100 mg PO TID PRN PRN Reason: Cough Last Admin: 09/11/20 06:11 Dose: 100 mg Documented by: Docusate Sodium (Docusate Sodium 100 Mg Cap) 100 mg PO BID PRN PRN Reason: Constipation Doxycycline Hyclate (Doxycycline 100 Mg Cap) 100 mg PO Q12H [facility] Last Admin: 09/11/20 06:11 Dose: 100 mg Documented by: Ferrous Sulfate (Ferrous Sulfate 324 Mg Tab.Ec) 324 mg PO BID [facility] Last Admin: 09/11/20 08:45 Dose: 324 mg Documented by: Furosemide (Furosemide 40 Mg Tab) 40 mg PO DAILY [facility] Last Admin: 09/11/20 08:45 Dose: 40 mg Documented by: Guaifenesin/Phenylephrine HCl (Guaifenesin/Dextromethorphan 100-10 Mg/5 Ml Soln 5 Ml Cup) 10 ml PO QID PRN PRN Reason: Cough Last Admin: 09/11/20 08:44 Dose: 10 ml Documented by: Heparin Sodium (Porcine) (Heparin Sodium 5,000 Units/Ml Vial) 5,000 units SUBCUT Q8H [facility] Last Admin: 09/11/20 08:44 Dose: 5,000 units Documented by: Ceftriaxone Sodium 2 gm/ (Sodium Chloride) 100 mls @ 200 mls/hr IV Q24H [facility] Last Admin: 09/11/20 08:46 Dose: 200 mls/hr Documented by: Insulin Human Regular (Insulin Regular, Human 100 Units/Ml 3 Ml Vial) 0 unit SUBCUT TIDPC [facility]; Protocol Last Admin: 09/11/20 12:50 Dose: Not Given Documented by: Magnesium Hydroxide (Magnesium Hydroxide 400 Mg/5 Ml Susp 30 Ml Cup) 30 ml PO DAILY PRN PRN Reason: Constipation Last Admin: 09/10/20 14:23 Dose: 30 ml Documented by: Metoprolol Tartrate (Metoprolol Tartrate 25 Mg Tab) 25 mg PO BID [facility] Last Admin: 09/11/20 08:45 Dose: 25 mg Documented by: Oxycodone HCl (Oxycodone 5 Mg Tab) 5 mg PO Q4H PRN PRN Reason: Pain (moderate 4-6) Potassium Chloride (Potassium Chloride 20 Meq Tab.Er) 40 meq PO DAILY [facility] Last Admin: 09/11/20 08:44 Dose: 40 meq Documented by: Promethazine HCl/Codeine (Codeine/Promethazine 10-6.25 Mg/5 Ml Syrup 5 Ml Ud Cup) 5 ml PO Q6H PRN PRN Reason: Cough Last Admin: 09/11/20 06:11 Dose: 5 ml Documented by: Rosuvastatin Calcium (Rosuvastatin 10 Mg Tab) 10 mg PO DAILY [facility] Last Admin: 09/11/20 08:45 Dose: 10 mg Documented by: Tamsulosin HCl (Tamsulosin 0.4 Mg Cap.Er) 0.4 mg PO DAILY [facility] Last Admin: 09/11/20 08:45 Dose: 0.4 mg Documented by: Discontinued Medications Amlodipine Besylate (Amlodipine 5 Mg Tab) 5 mg PO DAILY [facility] Last Admin: 09/10/20 09:06 Dose: 5 mg Documented by: Fenofibrate (Fenofibrate Nanocrystallized 145 Mg Tab) 72.5 mg PO DAILY [facility] Last Admin: 09/08/20 11:53 Dose: Not Given Documented by: Ferrous Sulfate (Ferrous Sulfate 324 Mg Tab.Ec) 325 mg PO BID [facility] Last Admin: 09/09/20 20:05 Dose: 324 mg Documented by: Furosemide (Furosemide 40 Mg Tab) 40 mg PO DAILY [facility] Last Admin: 09/10/20 09:06 Dose: 40 mg Documented by: Lactated Ringer's (Ringers, Lactated) 1,000 mls @ 999 mls/hr IV .BOLUS ONE Stop: 09/07/20 13:52 Last Admin: 09/07/20 13:10 Dose: 999 mls/hr Documented by: Lactated Ringer's (Ringers, Lactated) 1,000 mls @ 999 mls/hr IV .BOLUS ONE Stop: 09/07/20 15:30 Last Admin: 09/07/20 14:42 Dose: 100 mls/hr Documented by: Levofloxacin/Dextrose 500 mg/ (Premix) 100 mls @ 100 mls/hr IV ONETIME ONE Stop: 09/07/20 16:52 Last Admin: 09/07/20 16:05 Dose: Not Given Documented by: Lactated Ringer's (Ringers, Lactated) 1,000 mls @ 75 mls/hr IV ASDIRECTED [facility] Last Admin: 09/08/20 00:56 Dose: 75 mls/hr Documented by: Levofloxacin/Dextrose 750 mg/ (Premix) 150 mls @ 100 mls/hr IV Q48H [facility] Last Admin: 09/07/20 18:14 Dose: 100 mls/hr Documented by: Metformin HCl (Metformin 500 Mg Tab) 1,000 mg PO DAILY [facility] Last Admin: 09/09/20 09:06 Dose: 1,000 mg Documented by: Metformin HCl (Metformin 500 Mg Tab) 500 mg PO PCDINNER [facility] Last Admin: 09/08/20 18:52 Dose: 500 mg Documented by: Metoprolol Tartrate (Metoprolol Tartrate 25 Mg Tab) 25 mg PO BID [facility] Last Admin: 09/10/20 09:06 Dose: 25 mg Documented by: Rosuvastatin Calcium (Rosuvastatin 10 Mg Tab) 10 mg PO DAILY [facility] Last Admin: 09/10/20 09:05 Dose: 10 mg Documented by: *Q Meaningful Use (DIS) - VTE *Q VTE Criteria *Q: 1
--- NOTE | 2020-09-17 11:40 | PCM.SN.2 ---
- Free Text/Narrative Note: Discharge Diagnosis 1. Sepsis secondary to UTI and Klebsiella bacteremia 2. hx of CKD stage III 3. Hx o HLD 4. Hx of BEKA 5. Hx of HTN 6. Hx of Type II DM 7. Possible PNA
== END 2020-09-11 15:17 | disposition home or self-care (01) | DRG 871 ==
LOC: JD.ED 11:36 → JD.MS 15:53 → OBSVTOIN 09-09 11:20
PROVIDERS: ADMIT Internal Medicine; ATTEND Internal Medicine
DX: R30.0 Dysuria (principal); R53.1 Weakness; R05 Cough; A41.59 Other Gram-negative sepsis; J18.9 Pneumonia, unspecified organism; N39.0 Urinary tract infection, site not specified; N18.4 Chronic kidney disease, stage 4 (severe); H53.2 Diplopia; E78.00 Pure hypercholesterolemia, unspecified; Z20.822 Contact with and (suspected) exposure to COVID-19; I73.9 Peripheral vascular disease, unspecified; G47.30 Sleep apnea, unspecified; E11.9 Type 2 diabetes mellitus without complications; K57.90 Diverticulosis of intestine, part unspecified, without perforation or abscess without bleeding; K52.9 Noninfective gastroenteritis and colitis, unspecified; M19.90 Unspecified osteoarthritis, unspecified site; Z88.8 Allergy status to other drugs, medicaments and biological substances; G89.29 Other chronic pain; M54.5 Low back pain; M81.0 Age-related osteoporosis without current pathological fracture; E66.9 Obesity, unspecified; E55.9 Vitamin D deficiency, unspecified; Z96.653 Presence of artificial knee joint, bilateral; E11.69 Type 2 diabetes mellitus with other specified complication; D63.1 Anemia in chronic kidney disease; I12.9 Hypertensive chronic kidney disease with stage 1 through stage 4 chronic kidney disease, or unspecified chronic kidney disease; E11.22 Type 2 diabetes mellitus with diabetic chronic kidney disease; E78.5 Hyperlipidemia, unspecified; D50.9 Iron deficiency anemia, unspecified; Z88.5 Allergy status to narcotic agent; Z88.1 Allergy status to other antibiotic agents; Z79.84 Long term (current) use of oral hypoglycemic drugs; Z79.899 Other long term (current) drug therapy; Z98.49 Cataract extraction status, unspecified eye; Z87.442 Personal history of urinary calculi; Z90.49 Acquired absence of other specified parts of digestive tract; Z90.710 Acquired absence of both cervix and uterus; Z86.711 Personal history of pulmonary embolism
CPT/HCPCS: 36415 ×3; 71045; 80048; 80053 ×2; 81001; 82947 ×6; 83605; 83735; 85025 ×3; 87040 ×2; 87077; 87086; 87088; 87150; 87186 ×2; 97110; 97116; 97161; 99285; A9270 ×26; J1644 ×6; J1956; J7120 ×3; U0002; 85027; 99219; 99226; 99232; 99239; 99284; J0696; J1815-GY